=== PATIENT | female | born 1990 | race Caucasian/White ===

== ENCOUNTER 2022-05-14 22:05 | Emergency (ER) | payer SELFPAY ==
[2022-05-14] MEDS ORDERED: KETOROLAC 30 MG/ML INJ ONE (22:33)
--- NOTE | 2022-05-15 00:57 | ER ---
Nurse's Notes [facility] Name: Natalie Morton Age: 31 yrs Sex: Female : 1990 Arrival Date: 05/14/2022 Time: 22:08 Bed 10 Private MD: Diagnosis: Fall on same level from slipping, tripping and stumbling without subsequent striking against object;Pain in right knee Presentation: 05/14 22:13 Chief complaint: Patient states: tripped while trying to step over mop bucket and fell tw5 onto right knee on Tuesday. Was seen at and told to follow up with orthopedist for possible need for MRI. Came in tonight to continued pain. Coronavirus screen: Vaccine status: Patient reports being unvaccinated. Ebola Screen: Patient negative for fever greater than or equal to 101.5 degrees Fahrenheit, and additional compatible Ebola Virus Disease symptoms Patient denies exposure to infectious person. Patient denies travel to an Ebola-affected area in the 21 days before illness onset. No symptoms or risks identified at this time. Initial Sepsis Screen: Does the patient meet any 2 criteria? No. Patient's initial sepsis screen is negative. Does the patient have a suspected source of infection? No. Patient's initial sepsis screen is negative. Risk Assessment: Do you want to hurt yourself or someone else? Patient reports no desire to harm self or others. Onset of symptoms was May 07, 2022. 22:13 Method Of Arrival: Ambulatory tw5 22:13 Acuity: LUÍS 4 tw5 Triage Assessment: 22:17 General: Appears in no apparent distress. comfortable, Behavior is calm, cooperative. tw5 Pain: Complains of pain in right knee and right pena. 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 - Social history:: Smoking status: Patient reports the use of cigarette tobacco products, smokes one-half pack cigarettes per day. Screenin/30 01:05 Abuse screen: Denies threats or abuse. Denies injuries from another. Nutritional tw5 screening: No deficits noted. Tuberculosis screening: No symptoms or risk factors identified. Fall Risk None identified. Vital Signs: 05/14 22:13 BP 101 / 60; Pulse 62; Resp 18; Temp 100; Pulse Ox 99% ; Weight 68.04 kg; Height 5 ft. tw5 3 in. (160.02 cm); Pain 8/10; 22:13 Body Mass Index 26.57 (68.04 kg, 160.02 cm) tw5 ED Course: 22:08 Patient arrived in ED. ja2 22:12 Lili Singh FNP-C is [facility]. kb 22:12 Harsh Rodrigues MD is Attending Physician. kb 22:17 Triage completed. tw5 22:17 Arm band placed on right wrist. tw5 22:20 Susan Cote is Primary Nurse. tw5 23:02 Knee Right 3 View XRAY In Process Unspecified. EDMS 23:02 Tib Fib Right XRAY In Process Unspecified. EDMS 05/15 01:05 Patient has correct armband on for positive identification. tw5 01:05 No provider procedures requiring assistance completed. Patient did not have IV access tw5 during this emergency room visit. Administered Medications: 05/14 22:33 Drug: Ketorolac 30 mg Route: IM; Site: left ventrogluteal; tw5 05/15 01:05 Follow up: Response: No adverse reaction; Pain is decreased tw5 Medication: 01:05 VIS not applicable for this client. tw5 Outcome: 00:57 Discharge ordered by MD. kb 01:05 Discharged to home tw5 01:05 Condition: improved 01:05 Discharge instructions given to patient, Instructed on discharge instructions, follow up and referral plans. Demonstrated understanding of instructions, follow-up care, medications, Prescriptions given X 1. 01:06 Patient left the ED. tw5 Signatures: Dispatcher [employer] EDMS Lili Singh FNP-C CAFE TEAM MEMBER-Simi Capone Tiffany tw5
--- NOTE | 2022-05-15 00:57 | EDPHYS ---
Physician Documentation [facility] Name: Natalie Morton Age: 31 yrs Sex: Female : 1990 Arrival Date: 05/14/2022 Time: 22:08 Bed 10 Private MD: JOB Physician Harsh Rodrigues HPI: 05/15 00:54 This 31 yrs old Female presents to ER via Ambulatory with complaints of Knee Pain, Leg kb Pain. 00:54 The patient presents with pain. The complaints affect the right knee and right pena. kb Context: The problem was sustained at work, resulted from the patient falling, the patient is not able to bear weight, Uses crutches. Onset: The symptoms/episode began/occurred 1 week(s) ago. Modifying factors: The symptoms are alleviated by nothing. the symptoms are aggravated by nothing. Associated signs and symptoms: The patient has no apparent associated signs or symptoms. Treatment prior to arrival includes: Knee immobilizer and crutches. Severity of symptoms: At their worst the symptoms were moderate, in the emergency department the symptoms are unchanged. The patient has not experienced similar symptoms in the past. The patient has been recently seen by a physician:. Patient states she was trying to walk over a mop bucket, tripped and fell last Tuesday. Complains of knee and right lower leg pain was seen at urgent care after the fall, x-rays negative at that time. Was told to follow-up with orthopedics for possible need for MRI. Patient came in today for continued pain.. 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 - Social history:: Smoking status: Patient reports the use of cigarette tobacco products, smokes one-half pack cigarettes per day. ROS: 05/15 00:56 Constitutional: Negative for fever, chills, and weight loss. kb MS/extremity: Positive for pain, of the right pena and right knee. All other systems are negative. Exam: 00:56 Constitutional: This is a well developed, well nourished patient who is awake, alert, kb and in no acute distress. Head/Face: Normocephalic, atraumatic. ENT: Moist Mucous membranes Cardiovascular: Regular rate and rhythm with a normal S1 and S2. No gallops, murmurs, or rubs. No pulse deficits. Respiratory: Respirations even and unlabored. No increased work of breathing. Talking in full sentences Skin: Warm, dry with normal turgor. Normal color. Neuro: Awake and alert, GCS 15, oriented to person, place, time, and situation. Moves all extremities. Normal gait. Psych: Awake, alert, with orientation to person, place and time. Behavior, mood, and affect are within normal limits. 00:56 Musculoskeletal/extremity: Extremities: grossly normal except: noted in the right pena and right knee: pain, tenderness, ROM: intact in all extremities, Circulation is intact in all extremities. Sensation intact. Weight bearing: can bear weight with assistance only, uses crutches. Vital Signs: 05/14 22:13 BP 101 / 60; Pulse 62; Resp 18; Temp 100; Pulse Ox 99% ; Weight 68.04 kg; Height 5 ft. tw5 3 in. (160.02 cm); Pain 8/10; 22:13 Body Mass Index 26.57 (68.04 kg, 160.02 cm) tw5 MDM: 22:20 Patient medically screened. kb 05/15 00:56 Data reviewed: vital signs, nurses notes. Data interpreted: Pulse oximetry: on room air kb is 99 %. Interpretation: normal. Counseling: I had a detailed discussion with the patient and/or guardian regarding: the historical points, exam findings, and any diagnostic results supporting the discharge/admit diagnosis, radiology results, the need for outpatient follow up, a orthopedic surgeon, to return to the emergency department if symptoms worsen or persist or if there are any questions or concerns that arise at home. 05/14 22:19 Order name: Knee Right 3 View XRAY tw5 05/14 22:19 Order name: Tib Fib Right XRAY tw5 Administered Medications: 05/14 22:33 Drug: Ketorolac 30 mg Route: IM; Site: left ventrogluteal; tw5 05/15 01:05 Follow up: Response: No adverse reaction; Pain is decreased tw5 Disposition: 05:59 Co-signature as Attending Physician, Harsh Rodrigues MD. [email or web address] Disposition Summary: 05/15/22 00:57 Discharge Ordered Location: Home kb Condition: Stable kb Diagnosis - Fall on same level from slipping, tripping and stumbling without subsequent kb striking against object - Pain in right knee kb Followup: kb - With: Emergency Department - When: As needed - Reason: Worsening of condition Followup: kb - With: Private Physician - When: 2 - 3 days - Reason: Recheck today's complaints, Continuance of care, Re-evaluation by your physician Discharge Instructions: - Discharge Summary Sheet kb - Musculoskeletal Pain kb Forms: - Medication Reconciliation Form kb - Thank You Letter kb - Antibiotic Education kb - Prescription Opioid Use kb Prescriptions: - Diclofenac Sodium 75 mg Oral tablet,delayed release (DR/EC) - take 1 tablet by ORAL route 2 times per day As needed; 30 tablet; Refills: 0, kb Product Selection Permitted Signatures: Dispatcher [employer] EDLili Alan, FARHANA NESBITTP-Harsh Jones MD MD 7 Susan Cote 5
[2022-05-15 03:41] VITALS: BP 101/60; TEMP 100; O2SAT 99
--- NOTE | 2022-05-17 10:12 | RAD REPORT ---
EXAM DESCRIPTION: RAD - Tib Fib Right - 05/14/2022 11:00 pm CLINICAL HISTORY: PAIN COMPARISON: None. FINDINGS: 2 views of the right tibia/fibula. No acute fracture or dislocation. Normal osseous minera lization. No radiopaque foreign body. IMPRESSION: 1. No acute fracture or dislocation. Electronically signed by: Pedrito Rodriguez 05/14/2022 11:55 PM CDT Due to temporary technical issues with the PACS/Fluency reporting system, reports are being signed by the in house radiologists without review as a courtesy to insure prompt reporting. The interpreting radiologist is fully responsible for the content of the report.
--- NOTE | 2022-05-17 10:18 | RAD REPORT ---
EXAM DESCRIPTION: RAD - Knee Right 3 View - 05/14/2022 11:00 pm CLINICAL HISTORY: PAIN COMPARISON: None. FINDINGS: 3 views of the right knee. No acute fracture or dislocation. Normal osseous mineralization . No joint effusion. IMPRESSION: 1. No acute fracture or dislocation. Electronically signed by: Pedrito Rodriguez 05/14/2022 11:56 PM CDT Due to temporary technical issues with the PACS/Fluency reporting system, reports are being signed by the in house radiologists without review as a courtesy to insure prompt reporting. The interpreting radiologist is fully responsible for the content of the report.
== END 2022-05-15 01:06 | disposition home or self-care (01) ==
LOC: ER 22:05
DX: M25.561 Pain in right knee (principal); W01.0XXA Fall on same level from slipping, tripping and stumbling without subsequent striking against object, initial encounter; F17.210 Nicotine dependence, cigarettes, uncomplicated; Z88.6 Allergy status to analgesic agent
CPT/HCPCS: 96372; 99283

== ENCOUNTER 2022-11-30 10:50 | Emergency (ER) | payer SELFPAY ==
--- OUTSIDE RECORDS SUMMARY | 2022-11-30 10:53 | XMS REPORT | Continuity of Care Document ---
:1990 Author Organization [facility] t Address [address] [place] [address] Care Team Providers Name Role Phone Pcp, Patient Does Not Have A Primary Care Physician +[id number] Doctor Unassigned, Ken Caryl Attending Clinician Unavailable JORJE MORAN Attending Clinician Unavailable Jorje Khan Attending Clinician Johny Queen MD Attending Clinician Pcp, Patient Does Not Have A Attending Clinician +[id number]- [phone] Skye Vazquez Attending Clinician Unavailable Yola Bright Attending Clinician Unavailable Tito Gonzalez Attending Clinician Unavailable Cesar Pérez Attending Clinician Unavailable Jonn Hutchins Attending Clinician Unavailable Payers Payer Name Policy Type Policy Number Effective Date Expiration Date S ource Problems Condition Condition Condition Status Onset Resolution Last Treating Co mments Source Name Details Category Date Date Treatment Clinician Date No known No known Disease Unive rs active active ity of problems problems [facility] Allergies, Adverse Reactions, Alerts Allergy Allergy Status Severity Reaction(s) Onset Inactive Treating Comm ents Source Name Type Date Date Clinician Acetamin Propensi Active Other - See Syncope, Univers ophen ty to comments -09 seizures ity of adverse 00:00: [place] reaction [facility] s [facility] Social History Social Habit Start Date Stop Date Quantity Comments Source ASSERTION 2017-08-13 University of 00:00:00 [facility] History [facility] University o f Alcohol Frequency [place] [facility] History [facility] o f Alcohol Std [place] [facility] History [facility] o f Alcohol Binge [place] [facility] Exposure to 2022-06-07 2022-06-17 Not sure University SARS-CoV-2 00:00:00 08:20:00 [place] [facility] (event) [facility] Alcohol intake 2022-05-27 2022-05-27 Current drinker Unive rsity of 00:00:00 00:00:00 of alcohol [place] [facility] (finding) [facility] Tobacco use and 2022-05-27 2022-05-27 Former smokeless Uni versity of exposure 00:00:00 00:00:00 tobacco user [place] [facility] Alcohol Comment 2018-01-23 2018-01-23 Rare, none during Un iversity of 00:00:00 00:00:00 [place] [facility] History of 2015-01-23 Cigarette Smoker Universi ty of tobacco use 00:00:00 [facility] Sex Assigned At [birth year] Universit y of 00:00:00 00:00:00 [facility] Smoking Status Start Date Stop Date Source Ex-smoker 2022-05-27 00:00:00 2022-05-27 00:00:00 [facility] ty [facility] [place] [facility] Medications Ordered Filled Start Stop Current Ordering Indication Dosage Frequency Signature Comments Components Source Medication Medication Date Date Medication? Clinician (SIG) Name Name METOCLOPRAM Yes Take by Uni vers LUCILA HCL 4-09 mouth. ity of (REGLAN 15:15: [place] ORAL) [facility] MULTIVITAMI Yes Take by Uni vers N (KID'S 4-09 mouth. ity of VITAMINS 15:15: [place] ORAL) [facility] METOCLOPRAM Yes Take by Uni vers LUCILA HCL 4-09 mouth. ity of (REGLAN 15:15: [place] ORAL) 59 [facility] Branch MULTIVITAMI Yes Take by Uni vers N (KID'S 4-09 mouth. ity of VITAMINS 15:15: [place] ORAL) 59 Medical Branch METOCLOPRAM Yes Take by Uni vers LUCILA HCL 4-09 mouth. ity of (REGLAN 15:15: [place] ORAL) 59 Medical Branch MULTIVITAMI Yes Take by Uni vers N (KID'S 4-09 mouth. ity of VITAMINS 15:15: [place] ORAL) 59 Medical Branch Vital Signs Vital Name Observation Time Observation Value Comments Source Body weight 2022-06-17 13:28:00 63.957 kg [facility] BMI 2022-06-17 13:28:00 24.98 kg/m2 [facility] Oxygen saturation 2022-06-17 13:28:00 97 /min Uni [facility] in Arterial blood Medical Br anch by Pulse oximetry Systolic blood 2022-06-17 13:28:00 92 mm[Hg] [facility] Diastolic blood 2022-06-17 13:28:00 55 mm[Hg] [facility]ive [facility] Heart rate 2022-06-17 13:28:00 68 /min [facility] Body height 2022-06-17 13:28:00 160 cm [facility] Procedures Procedure Date / Time Performed Performing Clinician Sourc e DISABILITY/FMLA 2022-06-23 05:01:00 Doctor Unassigned, No Univer [facility] WORKERS COMPENSATION 2022-06-17 05:01:00 [facility] Start End Encounter Admission Attending Care Care Encounter Source Date/Time Date/Time Type Type Clinicians Facility Department ID 2022-07-15 Outpatient CHW CHW [id number] [facility] 12:57:13 0918 [facility] 2022-06-23 2022-06-23 Orders Doctor NARANJO [id number] Univers 00:00:00 00:00:00 Only Unassigned, EVELYN [id number] [facility] [id number] Joey as [id number] [place] [id number] Branch 2022-06-17 2022-06-17 Outpatient R DIANA MORAN [facility] [id number] Univers 08:30:00 08:39:09 JORJE cooper [facility] [place] 2022-06-17 2022-06-17 Office DIANA Moran [id number] Univers 08:30:00 08:39:09 Visit [facility] [id number] it y [facility] [id number] Joey as HECTOR?BLEA [phone] Me jannet AN [address] MEDICAL OFFICE [facility] 2022-06-17 2022-06-17 Outpatient R ANTHONY [facility] [id number] Univers 08:30:00 08:30:00 JORJE ity of [facility] 2022-06-17 2022-06-17 Orders Doctor JOSE A [id number] Univers 00:00:00 00:00:00 Only Unassigned, EVELYN [id number] ity of Ken Caryl [facility] [id number] Joey as [id number] [address] 2022-06-08 2022-06-08 Telephone Bernice [facility] [id number] Univers 00:00:00 00:00:00 Johny L HEALTH [id number] it y of [place] 4.2.7.2.686 Joey as HECTOR?BLEA [id number] Mi jannet AN 198 [facility] OFFICE [facility] 2022-06-04 2022-06-04 [facility] [id number] Univers 00:00:00 00:00:00 Jorje S HEALTH [id number] it y of [place] [id number] Joey as HECTOR?BLEA [id number] Mi jannet AN 198 [facility] OFFICE [facility] 2022-05-31 2022-05-31 [facility] [id number] Univers 00:00:00 00:00:00 Jorje S HEALTH [id number] it y of [place] [id number] Joey as HECTOR?BLEA [id number] Mi jannet AN 198 [facility] OFFICE [facility] 2022-05-28 2022-05-28 [facility]phone [facility] [id number] Univers 00:00:00 00:00:00 Patient HEALTH [id number] it y of Does Not [place] HECTOR?BLEA [phone] Mi dical KNEY [address] MEDICAL OFFICE [facility] 2022-05-27 2022-05-27 Office [facility] [id number] Univers 08:30:00 09:00:00 Visit [facility] [id number] it y of [place] [id number] Joey as HECTOR?BLEA [id number] Mi dicshamar [address] OFFICE [facility] 2022-05-27 2022-05-27 [facility] [id number] Univers 08:30:00 08:30:00 JORJE ity [facility] [place] 2022-05-27 2022-05-27 Orders Doctor JOSE A [id number] Univers 00:00:00 00:00:00 Only Unassigned, EVELYN [id number] ity of Ken Caryl [facility] [id number] Joey as [id number] [address] 2019-10-26 2019-10-26 Outpatient Ripsin, CHW [facility] [id number] [facility] 17:57:00 17:57:00 [facility] 2019-10-26 2019-10-26 Outpatient Walk-In, W [facility] [id number] [facility] 08:20:00 08:20:00 [facility] 2019-10-24 2019-10-24 Outpatient Ripsin, CHW W [id number] [facility] 17:25:00 17:25:00 [facility] 2019-10-24 2019-10-24 Outpatient Ripsin, W W [id number] [facility] 13:19:00 13:19:00 [facility] 2019-10-15 2019-10-15 Outpatient Ripsin, CHW W [id number] [facility] 11:41:00 11:41:00 [facility] 2019-10-15 2019-10-15 Outpatient Ripsin, CHW W [id number] [facility] 09:40:00 09:40:00 [facility] 2019-10-15 2019-10-15 Outpatient Walk-In, CHW [facility] [id number] [facility] 09:10:00 09:10:00 [facility] 2019-06-25 2019-06-25 Outpatient Deangelo, CHW CHW [id number] [facility] 12:49:00 12:49:00 [facility] 2019-06-19 2019-06-19 Outpatient Walk-In, CHW CHW [id number] [facility] 13:00:00 13:00:00 [facility] 2019-06-19 2019-06-19 Outpatient Deangelo, CHW CHW [id number] [facility] 08:33:00 08:33:00 [facility] 2019-06-15 2019-06-15 Outpatient Deangelo, CHW CHW [id number] [facility] 10:40:00 10:40:00 [facility] 2019-05-09 2019-05-09 Outpatient Walk-In, CHW CHW [id number] [facility] 09:20:00 09:20:00 [facility] 2019-02-07 2019-02-07 Outpatient Walk-In, CHW CHW [id number] [facility] 13:00:00 13:00:00 [facility] 2019-01-16 2019-01-16 Outpatient Ripsin, CHW CHW [id number] [facility] 08:52:00 08:52:00 [facility] 2018-12-19 2018-12-19 Outpatient Carlos, CHW CHW [id number] [facility] 07:54:00 07:54:00 [facility] 2018-12-18 2018-12-18 Outpatient ., CHW CHW [id number] [facility] 16:09:00 16:09:00 Radiology [facility] 2018-12-18 2018-12-18 Outpatient Carlos, CHW CHW [id number] [facility] 13:00:00 13:00:00 [facility] 2018-11-09 2018-11-09 Outpatient Beto, CHW CHW [id number] [facility] 16:20:00 16:20:00 [facility] 2018-11-07 2018-11-07 Outpatient Walk-In, CHW CHW [id number] [facility] 14:40:00 14:40:00 [facility] 2018-08-22 2018-08-22 Outpatient Artur CHW CHW [id number] [facility] 11:00:00 11:00:00 mariam, [facility] Jonn and Hasmukh s Results This patient has no known results.
--- NOTE | 2022-11-30 11:15 | RAD REPORT ---
EXAM DESCRIPTION: CT - CTHCSPWOC - 11/30/2022 11:08 am CLINICAL HISTORY: Trauma, head and neck injury. seizure, head injury COMPARISON: No comparisons TECHNIQUE: Axial 5 mm thick images of the head were obtained. Axial 2 mm thick images of the cervical spine were obtained with sagittal and coronal reconstruction images generated and reviewed. All CT scans are performed using dose optimization technique as appropriate and may include automated exposure control or mA/KV adjustment according to patient size. FINDINGS: CT HEAD WITHOUT CONTRAST: No acute hemorrhage, hydrocephalus or extra-axial collection is identified.No areas of brain edema or midline shift. The paranasal sinuses and mastoids are clear.The calvarium is intact. CT CERVICAL SPINE WITHOUT CONTRAST: No fracture or subluxation.No prevertebral soft tissues swelling is identified. IMPRESSION: No acute intracranial or cervical spine findings.
[2022-11-30 11:32] LABS: Hematocrit 42.1 % (36.0-45.0); Lymphocytes % 8.1 % (15.3-44.8); MCV 86.1 fL (80-100); MPV 9.2 fL (7.6-11.3); RBC Red Blood Cell Count 4.89 M/uL (3.86-4.86)
[2022-11-30] MEDS ORDERED: Ringers Lactate 1,000 ML IV ONE (11:32)
[2022-11-30 11:40] LABS: Protime INR 1.11
[2022-11-30] MEDS ORDERED: LORazepam 2 MG/ML VIAL ONE (11:46)
[2022-11-30] MEDS ORDERED: NA CHLORIDE 0.9% 250 ML ONE (11:49)
[2022-11-30] MEDS ORDERED: LEVETIRACETAM 500 MG/5 ML VIAL IV ONE (11:49)
[2022-11-30 11:55] LABS: ALT/SGPT 16 U/L (13-56); AST/SGOT 18 U/L (15-37); Alkaline Phosphatase 78 U/L (45-117); BUN Blood Urea Nitrogen 18 mg/dL (7-18); Bicarbonate 24 mmol/L (21-32); Bilirubin Direct 0.2 mg/dL (0-0.2); Bilirubin Total 0.5 mg/dL (0.2-1.0); Glomerular Filtration Rate 61 ml/min (=/>90); Glucose Level 94 mg/dL (74-106); Potassium 4.3 mmol/L (3.5-5.1); Protein, Total 7.2 g/dL (6.4-8.2); Sodium Level 139 mmol/L (136-145)
[2022-11-30 16:22] LABS: Urine Blood Trace-lysed (Negative); Urine Glucose Negative (Negative); Urine Protein Negative (Negative); Urine Specific Gravity >=1.030 (1.005-1.030)
[2022-11-30 16:48] LABS: Barbiturates NEGATIVE (NEGATIVE); Benzodiazepines NEGATIVE (NEGATIVE); Cocaine NEGATIVE (NEGATIVE); METHAMPHETAM NEGATIVE (NEGATIVE); Methadone NEGATIVE (NEGATIVE); Opiates NEGATIVE (NEGATIVE); Phencyclidine NEGATIVE (NEGATIVE); THC Cannibis POSITIVE (NEGATIVE)
[2022-11-30] MEDS ORDERED: ONDANSETRON 4 MG/2 ML VIAL ONE (16:57)
--- NOTE | 2022-11-30 17:56 | ER ---
Nurse's Notes [facility] Name: Natalie Morton Age: 31 yrs Sex: Female : 1990 Arrival Date: 11/30/2022 Time: 10:52 Bed 19 Private MD: Diagnosis: Other seizures Presentation: 11/30 10:52 Chief complaint: EMS states: 3 witnessed seizures while in the shower. HX of seizures. ss Pt is awake, drowsy upon arrival. Coronavirus screen: Client denies travel out of the [place] in the last 14 days. Ebola Screen: Patient denies exposure to infectious person. Patient denies travel to an Ebola-affected area in the 21 days before illness onset. Initial Sepsis Screen: Does the patient meet any 2 criteria? No. Patient's initial sepsis screen is negative. Does the patient have a suspected source of infection? No. Patient's initial sepsis screen is negative. Risk Assessment: Do you want to hurt yourself or someone else? Patient reports no desire to harm self or others. Onset of symptoms was November 30, 2022. Care prior to arrival: IV initiated. 20 GA, in the right antecubital area. 10:52 Method Of Arrival: EMS: [facility] 10:52 Acuity: LUÍS 3 ss Historical: - Allergies: 13:21 Tylenol; mb9 - Home Meds: 13:21 None [Active]; mb9 - PSHx: 13:21 None; mb9 - Immunization history:: Adult Immunizations up to date. - Social history:: Smoking status: Patient denies any tobacco usage or history of. Patient uses Delta 8. Screenin:22 [facility] ED Fall Risk Assessment (Adult) History of falling in the last 3 months, mb9 including since admission No falls in past 3 months (0 pts) Confusion or Disorientation Yes (5 pts) Intoxicated or Sedated No (0 pts) Impaired Gait Yes (1 pt) Mobility Assist Device Used No (0 pt) Altered Elimination Yes (1 pt) Score/Fall Risk Level 3 or more points = High Risk Oriented to surroundings, Maintained a safe environment, Educated pt \T\ family on fall prevention, incl call for assistance when getting out of bed. Abuse screen: Denies threats or abuse. Nutritional screening: No deficits noted. Tuberculosis screening: No symptoms or risk factors identified. Assessment: 11:05 Reassessment: To CT now VIA stretcher. ss 11:40 Reassessment: pt actively seizing. Ha BELL, at bedside. VO for Ativan and Keppra. mb9 11:54 Reassessment: report received from GRIFFIN Gould. mb9 12:00 General: Appears in no apparent distress. Pain: Unable to use pain scale. FLACC scale mb9 score is 0 out of 10. Neuro: Level of Consciousness is lethargic. Cardiovascular: Rhythm is regular. Respiratory: Airway is patent Respiratory effort is even, unlabored, Respiratory pattern is regular, symmetrical. Derm: Skin is pink, warm \T\ dry. Musculoskeletal: Range of motion: intact in all extremities. 13:00 Reassessment: PTs BP 84/44. Bebe BELL, notified. mb9 13:25 Reassessment: pt awake and alert. Pt AAOx3. Skin is pink, warm, and intact. mb9 Respirations are even and unlabored. Rhythm is regular. Boyfriend at bedside. 14:20 Reassessment: No changes from previously documented assessment. Patient and/or family mb9 updated on plan of care and expected duration. Pain level reassessed. Patient is alert, oriented x 3, equal unlabored respirations, skin warm/dry/pink. 15:40 Reassessment: No changes from previously documented assessment. Patient and/or family mb9 updated on plan of care and expected duration. Pain level reassessed. Patient is alert, oriented x 3, equal unlabored respirations, skin warm/dry/pink. 16:40 GI: Reports nausea, vomiting. mb9 16:40 Cardiovascular: Rhythm is regular. Respiratory: Airway is patent Respiratory effort is mb9 even, unlabored, Respiratory pattern is regular, symmetrical. Derm: Skin is pink, warm \T\ dry. 17:47 Reassessment: No changes from previously documented assessment. Patient and/or family mb9 updated on plan of care and expected duration. Pain level reassessed. Patient states feeling better. Patient states symptoms have improved. Reassessment: Patient is alert, oriented x 3, equal unlabored respirations, skin warm/dry/pink. GI: Patient currently denies nausea, vomiting. 18:14 Reassessment: pts ride home unable to pick her up until 1900. mb9 18:44 Reassessment: No changes from previously documented assessment. Patient and/or family mb9 updated on plan of care and expected duration. Pain level reassessed. Patient is alert, oriented x 3, equal unlabored respirations, skin warm/dry/pink. Vital Signs: 10:52 BP 97 / 59; Pulse 84; Resp 16; Temp 98.4(O); Pulse Ox 96% on R/A; Weight 58.97 kg; ss Height 5 ft. 3 in. (160.02 cm); Pain 0/10; 12:04 BP 113 / 53; Pulse 61; Resp 18; Pulse Ox 100% on R/A; mb9 13:23 BP 103 / 62; Pulse 62; Resp 14; Pulse Ox 99% on 1 lpm NC; mb9 13:49 BP 102 / 61; Pulse 62; Resp 14; Pulse Ox 99% on 1 lpm NC; mb9 14:20 BP 107 / 52; Pulse 64; Resp 14; Pulse Ox 99% on 1 lpm NC; mb9 16:57 BP 107 / 52; Pulse 66; Resp 16; Pulse Ox 99% on R/A; mb9 17:47 BP 108 / 98; Pulse 64; Resp 18; Pulse Ox 100% on R/A; Pain 0/10; mb9 18:44 BP 108 / 59; Pulse 72; Resp 16; Pulse Ox 100% on R/A; mb9 10:52 Body Mass Index 23.03 (58.97 kg, 160.02 cm) ED Course: 10:52 Patient arrived in ED. ss 10:52 Arm band placed on. mb9 10:53 Kristian Spence PA is PHCP. [facility] 10:53 Rj Villanueva DO is Attending Physician. jmm 10:54 Dwight Curtis MD is Attending Physician. m 11:00 Seizure precautions initiated. mb9 11:00 Client placed on continuous cardiac and pulse oximetry monitoring. NIBP monitoring mb9 applied. cafeteria monitor on. 11:05 Bryanna Faust, GRIFFIN is Primary Nurse. ss 11:22 Triage completed. ss 11:45 EKG done, by ED staff, reviewed by Kristian BELL. em1 13:23 No provider procedures requiring assistance completed. mb9 16:57 Urine Drug Screen Sent. mb9 17:55 Darrion Peraza MD is Referral Physician. [facility] 17:55 Jacob Crowell MD is Referral Physician. [facility] 17:55 Peña Swenson MD is Referral Physician. m 18:45 IV discontinued, intact, bleeding controlled, No redness/swelling at site. Pressure mb9 dressing applied. Administered Medications: 11:34 Drug: Lactated Ringers Solution 1000 ml Route: IV; Rate: 1000 bolus; Site: left kb3 antecubital; 11:45 Drug: Ativan (LORazepam) 1 mg Route: IVP; Site: left antecubital; mb9 11:48 Drug: Keppra (levETIRAcetam) 1000 mg Route: IV; Rate: calculated rate; Site: left mb9 antecubital; 16:56 Drug: Zofran (Ondansetron) 4 mg Route: IVP; Site: left antecubital; mb9 Medication: 13:23 VIS not applicable for this client. mb9 Outcome: 17:56 Discharge ordered by MD. [facility] 18:45 Discharged to home via wheelchair. mb9 18:45 Condition: stable 18:45 Discharge instructions given to patient, Instructed on discharge instructions, follow up and referral plans. Demonstrated understanding of instructions, follow-up care, medications, Prescriptions given X 2. 19:13 Patient left the ED. mb9 Signatures: Kristian Spence PA PA jmm Martinez, Eric em1 Bryanna Faust RN GRIFFIN ss Yamilka Luna RN RN kb3 Ana Castellanos RN RN mb9 Corrections: (The following items were deleted from the chart) 13:22 13:21 PSHx: tumor left breast; mb9 mb9
--- NOTE | 2022-11-30 17:56 | EDPHYS ---
Physician Documentation [facility] Name: Natalie Morton Age: 31 yrs Sex: Female : 1990 Arrival Date: 11/30/2022 Time: 10:52 Bed 19 Private MD: ED Physician Dwight Curtis HPI: 11/30 10:54 This 31 yrs old Female presents to ER via EMS with complaints of Seizure. jmm 10:54 Is a 31-year-old female with history of epilepsy the presents emerged department after jmm 3 seizures which occurred while at home today. Boyfriend states that the patient does use a vape with synthetic marijuana. Denies vomiting. Patient has not been on her antiepileptics for the past 2 years.. Historical: - Allergies: 13:21 Tylenol; mb9 - Home Meds: 13:21 None [Active]; mb9 - PSHx: 13:21 None; mb9 - Immunization history:: Adult Immunizations up to date. - Social history:: Smoking status: Patient denies any tobacco usage or history of. Patient uses Delta 8. ROS: 10:54 Constitutional: Negative for fever, chills, and weight loss, Cardiovascular: Negative jmm for chest pain, palpitations, and edema, Respiratory: Negative for shortness of breath, cough, wheezing, and pleuritic chest pain. 10:54 Neuro: Positive for seizure activity. 10:54 All other systems are negative. Exam: 10:54 Constitutional: This is a well developed, well nourished patient who is awake, alert, jmm and in no acute distress. Head/Face: atraumatic. Eyes: EOMI, no conjunctival erythema appreciated ENT: Moist Mucus Membranes Neck: Trachea midline, Supple Chest/axilla: Normal chest wall appearance and motion. Cardiovascular: Regular rate and rhythm. No edema appreciated Respiratory: Normal respirations, no respiratory distress appreciated Abdomen/GI: Non distended Back: Normal ROM Skin: General appearance color normal MS/ Extremity: Moves all extremities, no obvious deformities appreciated, no edema noted to the lower extremities 10:54 Neuro: 10:54 Psych: Behavior/mood is pleasant, cooperative. Vital Signs: 10:52 BP 97 / 59; Pulse 84; Resp 16; Temp 98.4(O); Pulse Ox 96% on R/A; Weight 58.97 kg; ss Height 5 ft. 3 in. (160.02 cm); Pain 0/10; 12:04 BP 113 / 53; Pulse 61; Resp 18; Pulse Ox 100% on R/A; mb9 13:23 BP 103 / 62; Pulse 62; Resp 14; Pulse Ox 99% on 1 lpm NC; mb9 13:49 BP 102 / 61; Pulse 62; Resp 14; Pulse Ox 99% on 1 lpm NC; mb9 14:20 BP 107 / 52; Pulse 64; Resp 14; Pulse Ox 99% on 1 lpm NC; mb9 16:57 BP 107 / 52; Pulse 66; Resp 16; Pulse Ox 99% on R/A; mb9 17:47 BP 108 / 98; Pulse 64; Resp 18; Pulse Ox 100% on R/A; Pain 0/10; mb9 18:44 BP 108 / 59; Pulse 72; Resp 16; Pulse Ox 100% on R/A; mb9 10:52 Body Mass Index 23.03 (58.97 kg, 160.02 cm) MDM: 10:54 Patient medically screened. [facility] 17:52 Data reviewed: vital signs, nurses notes. [facility] 17:54 I considered the following discharge prescriptions or medication management in the [facility] emergency department Medications were administered in the Emergency Department. See MAR. Independent interpretation of the following test(s) in the Emergency Department. Counseling: I had a detailed discussion with the patient and/or guardian regarding: the historical points, exam findings, and any diagnostic results supporting the discharge/admit diagnosis, lab results, radiology results, the need for outpatient follow up, to return to the emergency department if symptoms worsen or persist or if there are any questions or concerns that arise at home. ED course: Patient did have a seizure while in the ED. Ativan and a gram of Keppra were given IV. Patient has not had a seizure since. Patient has been FOR approximately 3 to 4 hours and is now tolerating p.o. Is alert and orient x3. Patient advised to follow-up with neurology for reevaluation otherwise given strict return precautions. Patient understood and agrees plan of care.. 11/30 10:54 Order name: Acetaminophen [facility] 11/30 10:54 Order name: Basic Metabolic Panel [facility] 11/30 10:54 Order name: CBC with Diff [facility] 11/30 10:54 Order name: ETOH Level [facility] 11/30 10:54 Order name: Hepatic Function [facility] 11/30 10:54 Order name: PT-INR [facility] 11/30 10:54 Order name: Ptt, Activated [facility] 11/30 10:54 Order name: Salicylate [facility] 11/30 10:54 Order name: Urine Drug Screen [facility] 11/30 11:34 Order name: CBC with Automated Diff; Complete Time: 11:38 [facility] 11/30 11:40 Order name: Protime (+INR); Complete Time: 11:45 EDPR 11/30 11:40 Order name: PTT, Activated Partial Thromb; Complete Time: 11:45 EDPR 11/30 11:48 Order name: Alcohol Serum/Plasma; Complete Time: 12:12 [facility] 11/30 11:57 Order name: Basic Metabolic Panel; Complete Time: 12:12 [facility] 11/30 10:54 Order name: EKG; Complete Time: 10:55 [facility] 11/30 10:54 Order name: EKG - Nurse/Tech; Complete Time: 11:44 [facility] 11/30 10:54 Order name: IV Saline Lock; Complete Time: 11:27 [facility] 11/30 10:54 Order name: Labs collected and sent; Complete Time: 11:27 [facility] 11/30 10:54 Order name: Urine Dipstick-Ancillary (obtain specimen); Complete Time: 16:57 [facility] 11/30 10:55 Order name: CT Head C Spine [facility] 11/30 11:16 Order name: CT; Complete Time: 11:34 11/30 11:57 Order name: Liver (Hepatic) Function; Complete Time: 12:12 [facility] 11/30 11:57 Order name: Acetaminophen Level; Complete Time: 12:12 11/30 12:11 Order name: Salicylates Level; Complete Time: 12:12 [facility] 11/30 16:22 Order name: Urine Dipstick-Ancillary; Complete Time: 16:26 [facility] 11/30 16:49 Order name: Urine Drug Screen; Complete Time: 17:03 11/30 17:03 Order name: PO challenge; Complete Time: 18:44 [facility] Administered Medications: 11:34 Drug: Lactated Ringers Solution 1000 ml Route: IV; Rate: 1000 bolus; Site: left kb3 antecubital; 11:45 Drug: Ativan (LORazepam) 1 mg Route: IVP; Site: left antecubital; mb9 11:48 Drug: Keppra (levETIRAcetam) 1000 mg Route: IV; Rate: calculated rate; Site: left mb9 antecubital; 16:56 Drug: Zofran (Ondansetron) 4 mg Route: IVP; Site: left antecubital; mb9 Disposition Summary: 11/30/22 17:56 Discharge Ordered Location: Home jmm Condition: Stable jmm Diagnosis - Other seizures jmm Followup: jmm - With: Darrion Peraza MD - When: 2 - 3 days - Reason: Recheck today's complaints, Continuance of care, Re-evaluation by your physician Followup: m - With: Jacob Crowell MD - When: 2 - 3 days - Reason: Recheck today's complaints, Continuance of care, Re-evaluation by your physician Followup: jmm - With: Peña Swenson MD - When: 2 - 3 days - Reason: Recheck today's complaints, Continuance of care, Re-evaluation by your physician Discharge Instructions: - Discharge Summary Sheet jmm - Seizure, Adult jmm Forms: - Medication Reconciliation Form [facility] - Thank You Letter [facility] - Antibiotic Education [facility] - Prescription Opioid Use [facility] Prescriptions: - Keppra 500 mg Oral Tablet - take 1 tablet by ORAL route every 12 hours; 60 tablet; Refills: 0, Product [facility] Selection Permitted - ondansetron 4 mg Oral tablet,disintegrating - place 1 tablet by TRANSLINGUAL route every 4-6 hours As needed; 30 tablet; [facility] Refills: 0, Product Selection Permitted Signatures: Dispatcher [employer] EDKristian Villafana PA PA m Dwight Curtis MD MD rn Bradberry, Kelly, RN RN kb3 Ana Castellanos RN RN mb9 Corrections: (The following items were deleted from the chart) 13:22 13:21 PSHx: tumor left breast; mb9 mb9
[2022-11-30 19:21] VITALS: TEMP 98.4
[2022-11-30 19:28] VITALS: O2SAT 100
[2022-11-30 19:30] VITALS: BP 108/59
--- NOTE | 2022-12-01 13:01 | EKG ---
Test Date: 2022-11-30 Test Time: 11:39:04 Bow Maker: PAMELA MEASUREMENT RESULTS: Intervals: Rate: 60 SC: 140 QRSD: 86 QT: 408 QTc: 408 [place]: P: 45 SC: 140 QRS: 53 T: 49 INTERPRETIVE STATEMENTS: Normal sinus rhythm with sinus arrhythmia Normal ECG No previous ECG available for comparison Electronically Signed On 12-01-22 12:59:06 [employer] COMPLIANCE SPECIALIST by Oziel Javed
== END 2022-11-30 19:13 | disposition home or self-care (01) ==
LOC: ER 10:50
DX: G40.89 Other seizures (principal)
CPT/HCPCS: 36415; 70450; 72125; 80048; 80076; 80307; 81003; 85025; 85610; 85730; 93005; G0480; J1953; J2405; J7050; J7120

== ENCOUNTER → 2023-10-22 | Emergency (ER) | payer BC, OTHER, SELFPAY ==
[~2023-10-22] MED LIST: KETOROLAC 30 MG/ML INJ ONE; NA CHLORIDE 0.9% 1,000 ML ONE
--- OUTSIDE RECORDS SUMMARY | 2023-10-22 22:11 | XMS REPORT | Continuity of Care Document ---
Author Name Unknown Address [address] [facility] [address] [facility] [address] [facility] [place] [address] Care Team Providers Care Hostel Manager Name Role Phone KATE DURAN Attending Clinician Unavailable Skye Vazquez Attending Clinician Unavailable Yola Bright Attending Clinician Unavailable Tito Gonzalez Attending Clinician UnavailCesar Quiroz Attending Clinician Unavailable Jonn Hutchins Attending Clinician Unav ailable Payers Payer Name Policy Type Policy Number Effective Date Expirati on Date Source [facility] 2 [id number] 2023 00:00:00 Encounters Start Date/Time End Date/Time Encounter Type Admission Type Attending Clinicians Care Facility Care Department Encounter ID Source 2022-07-15 12:57:13 Outpatient [facility] [id number] [facility] 2023-02-28 08:15:00 2023-02-28 08:15:00 Outpatient KATE DURAN [id number] [facility] 2019-10-26 17:57:00 2019-10-26 17:57:00 Outpatient Skye Vazquez CHW [id number] [facility] 2019-10-26 08:20:00 2019-10-26 08:20:00 Outpatient Walk-In, Only CHW CHW [id number] [facility] 2019-10-24 17:25:00 2019-10-24 17:25:00 Outpatient Skye Vazquez CHW [id number] [facility] 2019-10-24 13:19:00 2019-10-24 13:19:00 Outpatient Ripsin, Skye W CHW [id number] [facility] 2019-10-15 11:41:00 2019-10-15 11:41:00 Outpatient Ripsin, Skye W W [id number] [facility] 2019-10-15 09:40:00 2019-10-15 09:40:00 Outpatient Ripsin, Skye W W [id number] [facility] 2019-10-15 09:10:00 2019-10-15 09:10:00 Outpatient Walk-In, Only CHW CHW [id number] [facility] 2019-06-25 12:49:00 2019-06-25 12:49:00 Outpatient Deangelo, Yola W W [id number] [facility] 2019-06-19 13:00:00 2019-06-19 13:00:00 Outpatient Walk-In, Only W W [id number] [facility] 2019-06-19 08:33:00 2019-06-19 08:33:00 Outpatient Deangelo, Yola W W [id number] [facility] 2019-06-15 10:40:00 2019-06-15 10:40:00 Outpatient Deangelo, Yola W W [id number] [facility] 2019-05-09 09:20:00 2019-05-09 09:20:00 Outpatient Walk-In, Only W W [id number] [facility] 2019-02-07 13:00:00 2019-02-07 13:00:00 Outpatient Walk-In, Only W CHW [id number] [facility] 2019-01-16 08:52:00 2019-01-16 08:52:00 Outpatient Ripsin, Skye W CHW [id number] [facility] 2018-12-19 07:54:00 2018-12-19 07:54:00 Outpatient Tito Gonzalez W CHW [id number] [facility] 2018-12-18 16:09:00 2018-12-18 16:09:00 Outpatient ., Radiology W CHW [id number] [facility] 2018-12-18 13:00:00 2018-12-18 13:00:00 Outpatient Tito Gonzalez W CHW [id number] [facility] 2018-11-09 16:20:00 2018-11-09 16:20:00 Outpatient Cesar Pérez W W [id number] [facility] 2018-11-07 14:40:00 2018-11-07 14:40:00 Outpatient Walk-In, Jyotsna W CHW [id number] [facility] 2018-08-22 11:00:00 2018-08-22 11:00:00 Outpatient Jonn Garcia W CHW [id number] [facility]
[2023-10-22 22:51] LABS: Absolute Lymphocytes (CBC) 2.8 K/uL (0.7-4.9); Hematocrit 37.3 % (36.0-45.0); Lymphocytes % 39.9 % (15.3-44.8); MCV 85.8 fL (80-100); MPV 9.6 fL (7.6-11.3); Platelets 166 thou/uL (152-406); RBC Red Blood Cell Count 4.35 M/uL (3.86-4.86)
[2023-10-22 23:19] LABS: ALT/SGPT 13 U/L (13-56); AST/SGOT 9 U/L (15-37); Albumin 3.5 g/dL (3.4-5.0); Alkaline Phosphatase 53 U/L (45-117); BUN Blood Urea Nitrogen 10 mg/dL (7-18); Bicarbonate 23 mEq/L (21-32); Bilirubin Total 0.3 mg/dL (0.2-1.0); Glomerular Filtration Rate 76 ml/min (=/>90); Glucose Level 84 mg/dL (74-106); Magnesium 1.7 mg/dL (1.6-2.4); Potassium 3.7 mEq/L (3.5-5.1); Protein, Total 6.4 g/dL (6.4-8.2); Sodium Level 140 mEq/L (136-145)
[2023-10-22 23:21] LABS: Bilirubin Direct < 0.1 mg/dL (0-0.2); Bilirubin Indirect, Calculated ND mg/dL (0.2-0.8); Troponin High Sensitivity < 3.0 pg/mL (<58.9)
--- NOTE | 2023-10-23 00:01 | EDPHYS ---
Physician Documentation [facility] Name: Natalie Morton Age: 32 yrs Sex: Female : 1990 Arrival Date: 10/22/2023 Time: 22:08 Bed 20 Private MD: ED Physician Chris Rainey HPI: 10/23 00:02 This 32 yrs old Female presents to ER via Wheelchair with complaints of Chest Pain, rt Shortness Of Breath. 00:02 Patient presents to the ED with intermittent pain to the left side of the ribs. She has rt shortness of breath when the pain gets worse. She also reports a headache, stating that she has chronic migraines and this is similar to previous headaches. She denies other acute complaint at this time, symptoms are moderate severity, aching nature, nonradiating otherwise, no other aggravating elevating factors.. Historical: - Allergies: 10/22 22:15 Tylenol; jb4 - Home Meds: 22:15 Keppra Oral [Active]; jb4 - PMHx: 22:15 Seizure; hyperacusis (Seizure); neuropathy (Seizure); PTSD (Seizure); jb4 - PSHx: 22:15 Lumpectomy of left breast. (Seizure); jb4 - Immunization history:: Adult Immunizations up to date. - Social history:: Smoking status: Patient denies any tobacco usage or history of. - Family history:: not pertinent. ROS: 10/23 00:02 Constitutional: Negative for fever, chills, and weight loss, Abdomen/GI: Negative for rt abdominal pain, nausea, vomiting, diarrhea, and constipation, MS/Extremity: Negative for injury and deformity, Skin: Negative for injury, rash, and discoloration, Psych: Negative for depression, anxiety, suicide ideation, homicidal ideation, and hallucinations, Cardiovascular: Positive for chest pain, Negative for edema, Respiratory: Positive for shortness of breath, Negative for cough, Neuro: Positive for headache, Negative for altered mental status, Exam: 00:02 Constitutional: This is a well developed, well nourished patient who is awake, alert, rt and in no acute distress. Head/Face: Normocephalic, atraumatic. Neck: Trachea midline, no thyromegaly or masses palpated, and no cervical lymphadenopathy. Supple, full range of motion without nuchal rigidity, or vertebral point tenderness. No Meningismus. Cardiovascular: Regular rate and rhythm with a normal S1 and S2. No gallops, murmurs, or rubs. Normal PMI, no JVD. No pulse deficits. Respiratory: Lungs have equal breath sounds bilaterally, clear to auscultation and percussion. No rales, rhonchi or wheezes noted. No increased work of breathing, no retractions or nasal flaring. Abdomen/GI: Soft, non-tender, with normal bowel sounds. No distension or tympany. No guarding or rebound. No evidence of tenderness throughout. Skin: Warm, dry with normal turgor. Normal color with no rashes, no lesions, and no evidence of cellulitis. MS/ Extremity: Pulses equal, no cyanosis. Neurovascular intact. Full, normal range of motion. Neuro: Awake and alert, GCS 15, oriented to person, place, time, and situation. Cranial nerves II-XII grossly intact. Motor strength 5/5 in all extremities. Sensory grossly intact. Cerebellar exam normal. Normal gait. Psych: Awake, alert, with orientation to person, place and time. Behavior, mood, and affect are within normal limits. 00:02 Chest/axilla: Palpation of the left chest wall reproduces chest pain. 00:02 ECG was reviewed by the Attending Physician. Vital Signs: 10/22 22:13 Resp 20; Weight 61.69 kg; Height 5 ft. 3 in. ; jb4 23:30 BP 105 / 66; Pulse 75; Resp 17; Pulse Ox 97% ; Pain 7/10; tm6 23:42 BP 108 / 68; Pulse 61; Pulse Ox 100% ; tm6 10/23 00:27 BP 111 / 65; Pulse 63; Pulse Ox 100% on R/A; tm6 10/22 22:13 Body Mass Index 24.09 (61.69 kg, 160.02 cm) jb4 23:30 Pain Scale: Adult tm6 MDM: 10/22 22:18 Patient medically screened. rt 10/23 00:02 Differential diagnosis: Chest wall pain, pneumonia, pneumothorax, pulmonary embolism. rt HEART Score: History: Slightly Suspicious (0), ECG: Normal (0), Age: < or = 45 years (0), Risk Factors: No Risk Factors Known (0), Troponin: < or = 1 x Normal Limit (0), Total Score = 0. Data reviewed: vital signs, nurses notes, lab test result(s), EKG, radiologic studies. I considered the following discharge prescriptions or medication management in the emergency department Medications were administered in the Emergency Department. See MAR. Independent interpretation of the following test(s) in the Emergency Department X-Ray: My interpretation is No pneumonia seen on interpretation of x-ray images. Test considered but Not performed: CT: D-dimer negative, CT angiogram not indicated to rule out pulmonary blood. Care significantly affected by the following chronic conditions: Seizure disorder, headache disorder. Counseling: I had a detailed discussion with the patient and/or guardian regarding the historical points, exam findings, and any diagnostic results supporting the discharge/admit diagnosis, lab results, radiology results, the need for outpatient follow up, to return to the emergency department if symptoms worsen or persist or if there are any questions or concerns that arise at home. 10/22 22:31 Order name: Basic Metabolic Panel; Complete Time: 23:22 rt 10/22 22:31 Order name: CBC with Diff; Complete Time: 23:22 rt 10/22 22:31 Order name: D-Dimer; Complete Time: 23:22 rt 10/22 22:31 Order name: LFT's; Complete Time: 23:22 rt 10/22 22:31 Order name: Magnesium; Complete Time: 23:22 rt 10/22 22:31 Order name: Troponin HS; Complete Time: 23:22 rt 10/22 22:31 Order name: XRAY Chest (1 view) rt 10/22 22:31 Order name: EKG; Complete Time: 22:32 rt 10/22 22:31 Order name: Cardiac monitoring; Complete Time: 22:47 rt 10/22 22:31 Order name: EKG - Nurse/Tech; Complete Time: 22:47 rt 10/22 22:31 Order name: IV Saline Lock; Complete Time: 22:47 rt 10/22 22:31 Order name: Labs collected and sent; Complete Time: 22:47 rt 10/22 22:31 Order name: O2 Per Protocol; Complete Time: 22:47 rt 10/22 22:31 Order name: O2 Sat Monitoring; Complete Time: 22:47 rt EC:02 Rate is 68 beats/min. Rhythm is regular, Normal Sinus Rhythm with No ectopy. QRS Calcium rt is Normal. RI interval is normal. QRS interval is normal. QT interval is normal. No Q waves. T waves are Normal. No ST changes noted. Administered Medications: 10/22 23:30 Drug: Ketorolac IVP 15 mg IVP once Route: IVP; Site: right antecubital; tm6 10/23 00:28 Follow up: Response: No adverse reaction tm6 10/22 23:30 Drug: NS 0.9% IV 1000 ml IV at 1 bolus Per protocol; 1000 mL bolus Route: IV; Rate: 1 tm6 bolus; Site: right antecubital; 10/23 00:27 Follow up: Response: No adverse reaction; IV Intake: 1000ml tm6 Disposition Summary: 10/23/23 00:01 Discharge Ordered Notes: Location: Home rt Problem: new rt Symptoms: have improved rt Condition: Stable rt Diagnosis - Chest wall pain rt - Headache rt Followup: rt - With: Private Physician - When: 2 - 3 days - Reason: Discharge Instructions: - Discharge Summary Sheet rt - Chest Wall Pain rt - General Headache Without Cause rt Forms: - Medication Reconciliation Form rt - Thank You Letter rt - Antibiotic Education rt - Prescription Opioid Use rt - Patient Portal Instructions rt - Leadership Thank You Letter rt Signatures: Dispatcher [employer] Олег Dubose, RN RN jb4 Chris Rainey MD MD rt Lawanda Bullock RN RN tm6
--- NOTE | 2023-10-23 00:01 | ER ---
Nurse's Notes [facility] Name: Natalie Morton Age: 32 yrs Sex: Female : 1990 Arrival Date: 10/22/2023 Time: 22:08 Bed 20 Private MD: Diagnosis: Chest wall pain;Headache Presentation: 10/22 22:13 Chief complaint: Patient states: I am having chest pain that has been off and on for jb4 the past 3 days. It radiates to my left ribs. I have SOB with pain. Coronavirus screen: At this time, the client does not indicate any symptoms associated with coronavirus-19. Ebola Screen: No symptoms or risks identified at this time. Initial Sepsis Screen: Does the patient meet any 2 criteria? No. Patient's initial sepsis screen is negative. Does the patient have a suspected source of infection? No. Patient's initial sepsis screen is negative. Risk Assessment: Do you want to hurt yourself or someone else? Patient reports no desire to harm self or others. Onset of symptoms was October 22, 2023. Transition of care: patient was not received from another setting of care. 22:13 Method Of Arrival: Wheelchair jb4 22:13 Acuity: LUÍS 3 jb4 Historical: - Allergies: 22:15 Tylenol; jb4 - Home Meds: 22:15 Keppra Oral [Active]; jb4 - PMHx: 22:15 Seizure; hyperacusis (Seizure); neuropathy (Seizure); PTSD (Seizure); jb4 - PSHx: 22:15 Lumpectomy of left breast. (Seizure); jb4 - Immunization history:: Adult Immunizations up to date. - Social history:: Smoking status: Patient denies any tobacco usage or history of. - Family history:: not pertinent. Screenin:30 [facility] ED Fall Risk Assessment (Adult) History of falling in the last 3 months, tm6 including since admission No falls in past 3 months (0 pts). Abuse screen: Denies threats or abuse. Denies injuries from another. Nutritional screening: No deficits noted. Tuberculosis screening: No symptoms or risk factors identified. Assessment: 22:30 General: Appears distressed, Behavior is cooperative. Pain: Complains of pain in face tm6 and chest Pain currently is 10 out of 10 on a pain scale. Neuro: Level of Consciousness is awake, alert, obeys commands, Oriented to person, place, time, situation. Cardiovascular: Capillary refill < 3 seconds Patient's skin is warm and dry. Rhythm is sinus rhythm. Respiratory: Airway is patent Respiratory effort is even, unlabored, Respiratory pattern is regular, symmetrical. GI: Abdomen is flat, non-distended. : No signs and/or symptoms were reported regarding the genitourinary system. EENT: No signs and/or symptoms were reported regarding the EENT system. Derm: No signs and/or symptoms reported regarding the dermatologic system. Musculoskeletal: No signs and/or symptoms reported regarding the musculoskeletal system. 23:41 Reassessment: Patient and/or family updated on plan of care and expected duration. Pain tm6 level reassessed. Patient is alert, oriented x 3, equal unlabored respirations, skin warm/dry/pink. Patient states feeling better. 10/23 00:27 Reassessment: Patient appears in no apparent distress at this time. No changes from tm6 previously documented assessment. Vital Signs: 10/22 22:13 Resp 20; Weight 61.69 kg; Height 5 ft. 3 in. ; jb4 23:30 BP 105 / 66; Pulse 75; Resp 17; Pulse Ox 97% ; Pain 7/10; tm6 23:42 BP 108 / 68; Pulse 61; Pulse Ox 100% ; tm6 10/23 00:27 BP 111 / 65; Pulse 63; Pulse Ox 100% on R/A; tm6 10/22 22:13 Body Mass Index 24.09 (61.69 kg, 160.02 cm) jb4 23:30 Pain Scale: Adult tm6 ED Course: 10/22 22:13 Patient arrived in ED. jb4 22:15 Triage completed. jb4 22:15 Arm band placed on right wrist. jb4 22:17 Chris Rainey MD is Attending Physician. rt 22:22 EKG done, by ED staff, reviewed by Chris Rainey MD. mc5 22:30 Patient has correct armband on for positive identification. Bed in low position. Call tm6 light in reach. Side rails up X2. Provided Education on: plan of care. Client placed on continuous cardiac and pulse oximetry monitoring. NIBP monitoring applied. water control station engineer on. Door closed. Noise minimized. Warm blanket given. 22:30 No provider procedures requiring assistance completed. tm6 22:40 Inserted saline lock: 20 gauge in right antecubital area, using aseptic technique. mc5 Blood collected. 22:55 XRAY Chest (1 view) In Process Unspecified. EDMS 22:59 Lawanda Bullock, RN is Primary Nurse. tm6 10/23 00:28 IV discontinued, intact, bleeding controlled, No redness/swelling at site. Pressure tm6 dressing applied. Administered Medications: 10/22 23:30 Drug: Ketorolac IVP 15 mg IVP once Route: IVP; Site: right antecubital; tm6 10/23 00:28 Follow up: Response: No adverse reaction tm6 10/22 23:30 Drug: NS 0.9% IV 1000 ml IV at 1 bolus Per protocol; 1000 mL bolus Route: IV; Rate: 1 tm6 bolus; Site: right antecubital; 10/23 00:27 Follow up: Response: No adverse reaction; IV Intake: 1000ml tm6 Medication: 10/22 22:30 VIS not applicable for this client. tm6 Intake: 10/23 00:27 IV: 1000ml; Total: 1000ml. tm6 Outcome: 00:01 Discharge ordered by . rt 00:28 Discharged to home via wheelchair, with family, tm6 00:28 Condition: stable 00:28 Discharge instructions given to patient, family, Instructed on discharge instructions, follow up and referral plans. Demonstrated understanding of instructions, follow-up care, 00:28 Patient left the ED. tm6 Signatures: Dispatcher [employer] Олег Dubose RN RN jb4 Chris Rainey MD MD rt Esmer Garcia 5 Lawanda Bullock, GRIFFIN RN tm6 Corrections: (The following items were deleted from the chart) 10/22 23:36 23:34 General: Appears distressed, tm6 tm6
[2023-10-23 04:26] VITALS: BP 111/65; O2SAT 100
--- NOTE | 2023-10-24 07:15 | RAD REPORT ---
EXAM DESCRIPTION: RAD - Chest Single View - 10/22/2023 10:53 pm CLINICAL HISTORY: 32 years, Female, CHEST PAIN COMPARISON: None FINDINGS: 1 views of the chest was obtained. No prior films are available at this time for compari son. There is normal lung volume. Mediastinum: The cardiomediastinal silhouette appears normal in size and shape. Lungs: No areas of consolidations or masses are identified. Heart: The heart is normal in size. Aorta: The thoracic aorta demonstrate to be within normal limits. Pulmonary vasculature: The pulmonary vasculature is normal in distribution. Pleura: The costophrenic angles demonstrate to be sharp. Osseous structures: The bony structures demonstrate to be within normal limits. Other: External EKG leads within the [id number] limits diagnosis. IMPRESSION: No acute cardiopulmonary disease seen. Electronically signed by: Siddharth Jernigan MD 10/22/2023 11:29 PM BILLING AND ACCOUNTING STAFF ASSISTANT Due to temporary technical issues with the PACS/Fluency reporting system, reports are being signed by the in house radiologist without review as a courtesy to ensure prompt reporting. The interpreting r adiologist is fully responsible for the content of the report.
--- NOTE | 2023-10-24 12:24 | EKG ---
Test Date: 2023-10-22 Test Time: 22:15:16 Core Fitter: DEVON MEASUREMENT RESULTS: Intervals: Rate: 68 WV: 140 QRSD: 78 QT: 394 QTc: 418 [place]: P: 50 WV: 140 QRS: 73 T: 40 INTERPRETIVE STATEMENTS: Normal sinus rhythm Normal ECG Compared to ECG 01/24/2023 18:16:38 Sinus bradycardia no longer present T-wave abnormality no longer present Electronically Signed On 10-24-23 12:20:08 CONTRACT ASSOCIATE MANAGER by Oziel Javed
== END ==
LOC: ER 22:08
DX: R07.89 Other chest pain (principal); R51.9 Headache, unspecified
CPT/HCPCS: 36415; 71045; 80048; 80076; 83735; 84484; 85025; 85379; 93005; 96374; 99285; J7030

== ENCOUNTER → 2023-11-06 | Emergency (ER) | payer BC, SELFPAY ==
[~2023-11-06] MED LIST changes: -KETOROLAC 30 MG/ML INJ ONE; -NA CHLORIDE 0.9% 1,000 ML ONE; +TRAMADOL HCL 50 MG TAB ONE; +dexAMETHasone 10 MG/ML VIAL ONE
--- OUTSIDE RECORDS SUMMARY | 2023-11-06 20:51 | XMS REPORT | Continuity of Care Document ---
Author Name Unknown Address [address] [facility] [address] [place] [address] [facility] Address [address] [facility] [address] [place] [address] Care Team Providers Care General Forecaster Name Role Phone ALTHEA RING Primary Care Physician Unavailab KWADWO Dao Attending Clinician Unavailable PEÑA GATES Attending Clinician Unavail able PEÑA GATES Attending Clinician Unavail able MARYCHUY CHOUDHARY Attending Clinician Rozina vailable KEISHA JOSÉ Attending Clinician Unavailable Kwadwo Merida MD Attending Clinician [phone] Keisha José MD Attending Clinician [phone] ALTHEA RING Attending Clinician Unavailable ALTHEA RING Attending Clinician Unavailable Mari Hawley RN Attending Clinician UnavailNIYAH Nieves Attending Clinician Unavailable Yajaira Walters MD, Eduardo Hermosillo Attending Clinicia n Niyah Prather MD Attending Clinician [phone] Lab, Ang - Db Attending Clinician Unavailable Doctor Unassigned, [place] Attending Clinician U Peña Martinez MD Attending Clinician [phone] KATE DURAN Attending Clinician Unavailable JORJE CRUZ Attending Clinician Unavailable Jorje Khan Attending Clinician [phone] Johny Queen MD Attending Clinician [phone] Pcp, Patient Does Not Have A Attending Clinician Skye Vazquez Attending Clinician Unavailable Yola Bright Attending Clinician Unavailable Tito Gonzalez Attending Clinician UnavailCesar Quiroz Attending Clinician Unavailable Jonn Hutchins Attending Clinician Unausha ailable Payers Payer Name Policy Type Policy Number Effective Date Expirati on Date Source HIM BCBS BLUE ADVANTAGE HMO [id number] 2023 00:00:00 BCBS 2 [id number] 2023 00:00:00 Problems Condition Name Condition Details Condition Category Status Onset Date Resolution Date Last Treatment Date Treating Clinician Comments Source No known active problems No known active problems Disease [facility] Allergies, Adverse Reactions, Alerts Allergy Name Allergy Type Status Severity Reaction(s) Onset Date Inactive Date Treating Clinician Comments Source Acetamin ophen Drug Allergy Active Other - See comments 01-23 00:00: 00 Syncope, seizures [facility] Acetamin ophen Propensi ty to adverse reaction s Active Other - See comments 01-23 00:00: 00 Syncope, seizures [facility] ACETAMIN OPHEN DRUG INGREDI Active High Other-Cmnt 01-23 00:00: 00 [facility] Social History Social Habit Start Date Stop Date Quantity Comments Source ASSERTION 2017-08-13 00:00:00 [facility] History SDOH Alcohol Frequency [facility] History SDOH Alcohol Std Drinks [facility] History SDOH Alcohol Binge [facility] Gender identity [facility] Sexual orientation [facility] Alcohol intake 2023-11-01 00:00:00 2023-11-01 00:00:00 Ex-drinker (finding) [facility] Alcohol Comment 2023-11-01 00:00:00 2023-11-01 00:00:00 Clean since january 25 2023 [facility] Cigarettes smoked current (pack per day) - Reported 2023-09-12 00:00:00 2023-09-12 00:00:00 [facility] Cigarette pack-years 2023-09-12 00:00:00 2023-09-12 00:00:00 [facility] Tobacco use and exposure 2023-09-12 00:00:00 2023-09-12 00:00:00 Smokeless tobacco non-user [facility] History of Social function 2023-04-22 00:00:00 2023-04-22 00:00:00 [facility] Exposure to SARS-CoV-2 (event) 2022-06-07 00:00:00 2022-06-17 08:20:00 Not sure [facility] History of tobacco use 2015-01-23 00:00:00 Cigarette Smoker [facility] Sex Assigned At 1990 00:00:00 1990 00:00:00 [facility] Smoking Status Start Date Stop Date Source Smokes tobacco daily 2023-09-12 00:00:00 [facility] Ex-smoker 2022-05-27 00:00:00 2022-05-27 00:00:00 [facility] Ordered Medication Name Filled Medication Name Start Date Stop Date Current Medication? Ordering Clinician Indication Dosage Frequency Signature (SIG) Comments Components Source DULoxetine 30 mg capsule 10-27 00:00: 00 Yes [id number] 30mg Take 1 capsule by mouth in the morning. [facility] DULoxetine 30 mg capsule 10-27 00:00: 00 Yes [id number] 30mg Take 1 capsule by mouth in the morning. [facility] DULoxetine 30 mg capsule 10-27 00:00: 00 Yes [id number] 30mg Take 1 capsule by mouth in the morning. [facility] DULoxetine 30 mg capsule 10-27 00:00: 00 Yes [id number] 30mg Take 1 capsule by mouth in the morning. [facility] DULoxetine 30 mg capsule 10-27 00:00: 00 Yes [id number] 30mg Take 1 capsule by mouth in the morning. [facility] levETIRAcet am 750 mg tablet 2022-10 2- 00:00: 00 Yes [id number] 750mg Take 1 tablet by mouth every morning and evening. [facility] levETIRAcet am 750 mg tablet 2022-10 00:00: 00 Yes [id number] 750mg Take 1 tablet by mouth every morning and evening. [facility] levETIRAcet am 750 mg tablet 2022-10 00:00: 00 Yes [id number] 750mg Take 1 tablet by mouth every morning and evening. [facility] levETIRAcet am 750 mg tablet 2022-10 00:00: 00 Yes [id number] 750mg Take 1 tablet by mouth every morning and evening. [facility] levETIRAcet am 750 mg tablet 2022-10 00:00: 00 Yes [id number] 750mg Take 1 tablet by mouth every morning and evening. [facility] levETIRAcet am 750 mg tablet 2022-10 00:00: 00 Yes [id number] 750mg Take 1 tablet by mouth every morning and evening. [facility] levETIRAcet am 750 mg tablet 2022-10 00:00: 00 Yes [id number] 750mg Take 1 tablet by mouth every morning and evening. [facility] ketoconazol e 2 % shampoo 2022-10 00:00: 00 Yes [id number] Apply to area(s) daily. Use as shampoo on scalp and body. Lather and apply, let sit for 5 minutes, then rinse out. [facility] ketoconazol e 2 % cream 2022-10 00:00: 00 Yes [id number] Apply to area(s) 2 (two) times daily. [facility] ketoconazol e 2 % shampoo 2022-10 00:00: 00 Yes [id number] Apply to area(s) daily. Use as shampoo on scalp and body. Lather and apply, let sit for 5 minutes, then rinse out. [facility] ketoconazol e 2 % cream 2022-10 00:00: 00 Yes [id number] Apply to area(s) 2 (two) times daily. [facility] ketoconazol e 2 % shampoo 2022-10 00:00: 00 Yes [id number] Apply to area(s) daily. Use as shampoo on scalp and body. Lather and apply, let sit for 5 minutes, then rinse out. [facility] ketoconazol e 2 % cream 2022-10 00:00: 00 Yes [id number] Apply to area(s) 2 (two) times daily. [facility] ketoconazol e 2 % shampoo 2022-10 00:00: 00 Yes [id number] Apply to area(s) daily. Use as shampoo on scalp and body. Lather and apply, let sit for 5 minutes, then rinse out. [facility] ketoconazol e 2 % cream 2022-10 00:00: 00 Yes [id number] Apply to area(s) 2 (two) times daily. [facility] ketoconazol e 2 % shampoo 2022-10 00:00: 00 Yes [id number] Apply to area(s) daily. Use as shampoo on scalp and body. Lather and apply, let sit for 5 minutes, then rinse out. [facility] ketoconazol e 2 % cream 2022-10 00:00: 00 Yes [id number] Apply to area(s) 2 (two) times daily. [facility] ketoconazol e 2 % shampoo 2022-10 00:00: 00 Yes [id number] Apply to area(s) daily. Use as shampoo on scalp and body. Lather and apply, let sit for 5 minutes, then rinse out. [facility] ketoconazol e 2 % cream 2022-10 00:00: 00 Yes [id number] Apply to area(s) 2 (two) times daily. [facility] ketoconazol e 2 % shampoo 2022-10 00:00: 00 Yes [id number] Apply to area(s) daily. Use as shampoo on scalp and body. Lather and apply, let sit for 5 minutes, then rinse out. [facility] ketoconazol e 2 % cream 2022-10 00:00: 00 Yes [id number] Apply to area(s) 2 (two) times daily. [facility] ketoconazol e 2 % shampoo 2022-10 00:00: 00 Yes [id number] Apply to area(s) daily. Use as shampoo on scalp and body. Lather and apply, let sit for 5 minutes, then rinse out. [facility] ketoconazol e 2 % cream 2022-10 00:00: 00 Yes [id number] Apply to area(s) 2 (two) times daily. [facility] ketoconazol e 2 % shampoo 2022-10 00:00: 00 Yes [id number] Apply to area(s) daily. Use as shampoo on scalp and body. Lather and apply, let sit for 5 minutes, then rinse out. [facility] ketoconazol e 2 % cream 2022-10 00:00: 00 Yes [id number] Apply to area(s) 2 (two) times daily. [facility] ketoconazol e 2 % shampoo 2022-10 00:00: 00 Yes [id number] Apply to area(s) daily. Use as shampoo on scalp and body. Lather and apply, let sit for 5 minutes, then rinse out. [facility] ketoconazol e 2 % cream 2022-10 00:00: 00 Yes [id number] Apply to area(s) 2 (two) times daily. [facility] ketoconazol e 2 % shampoo 2022-10 00:00: 00 Yes [id number] Apply to area(s) daily. Use as shampoo on scalp and body. Lather and apply, let sit for 5 minutes, then rinse out. [facility] ketoconazol e 2 % cream 2022-10 00:00: 00 Yes [id number] Apply to area(s) 2 (two) times daily. [facility] gabapentin 100 mg capsule 2022-10 00:00: 00 Yes [id number] 100mg Take 1-3 capsules by mouth in the morning and 1-3 capsules at noon and 1-3 capsules in the evening. [facility] gabapentin 100 mg capsule 2022-10 00:00: 00 Yes [id number] 100mg Take 1-3 capsules by mouth in the morning and 1-3 capsules at noon and 1-3 capsules in the evening. [facility] gabapentin 100 mg capsule 2022-10 00:00: 00 Yes [id number] 100mg Take 1-3 capsules by mouth in the morning and 1-3 capsules at noon and 1-3 capsules in the evening. [facility] gabapentin 100 mg capsule 2022-10 00:00: 00 Yes [id number] 100mg Take 1-3 capsules by mouth in the morning and 1-3 capsules at noon and 1-3 capsules in the evening. [facility] gabapentin 100 mg capsule 2022-10 00:00: 00 Yes [id number] 100mg Take 1-3 capsules by mouth in the morning and 1-3 capsules at noon and 1-3 capsules in the evening. [facility] gabapentin 100 mg capsule 2022-10 00:00: 00 Yes [id number] 100mg Take 1-3 capsules by mouth in the morning and 1-3 capsules at noon and 1-3 capsules in the evening. [facility] gabapentin 100 mg capsule 2022-10 00:00: 00 Yes [id number] 100mg Take 1-3 capsules by mouth in the morning and 1-3 capsules at noon and 1-3 capsules in the evening. [facility] gabapentin 100 mg capsule 2022-10 00:00: 00 Yes [id number] 100mg Take 1-3 capsules by mouth in the morning and 1-3 capsules at noon and 1-3 capsules in the evening. [facility] gabapentin 100 mg capsule 2022-10 00:00: 00 Yes [id number] 100mg Take 1-3 capsules by mouth in the morning and 1-3 capsules at noon and 1-3 capsules in the evening. [facility] gabapentin 100 mg capsule 2022-10 00:00: 00 Yes [id number] 100mg Take 1-3 capsules by mouth in the morning and 1-3 capsules at noon and 1-3 capsules in the evening. [facility] gabapentin 100 mg capsule 2022-10 00:00: 00 Yes [id number] 100mg Take 1-3 capsules by mouth in the morning and 1-3 capsules at noon and 1-3 capsules in the evening. [facility] gabapentin 100 mg capsule 2022-10 00:00: 00 Yes [id number] 100mg Take 1-3 capsules by mouth in the morning and 1-3 capsules at noon and 1-3 capsules in the evening. [facility] gabapentin 100 mg capsule 2022-10 00:00: 00 10-27 00:00 :00 No [id number] 100mg Take 1-3 capsules by mouth in the morning and 1-3 capsules at noon and 1-3 capsules in the evening. [facility] gabapentin 100 mg capsule 2022-10 00:00: 00 10-27 00:00 :00 No [id number] 100mg Take 1-3 capsules by mouth in the morning and 1-3 capsules at noon and 1-3 capsules in the evening. [facility] ketorolac (TORADOL) injection 30 mg 2022-10 17:30: 00 08-19 05:29 :00 Yes [id number] [facility] mg 2022-10 17:30: 00 08-19 05:29 :00 Yes [id number] 30mg Univer s [facility] ketorolac (TORADOL) injection 30 mg 2022-10 17:30: 00 08-19 05:29 :00 Yes [id number] 30mg Univer [facility] ketorolac (TORADOL) injection 30 mg 2022-10 17:30: 00 08-18 17:59 :00 No [id number] 30[facility] 30 mg 2022-10 17:30: 00 08-18 17:59 :00 No [id number] 30mg 30 mg, Intramuscu lar, ONCE, 1 dose, On Tue08/18/23 at 1230, Routine [facility] ketorolac (TORADOL) injection 30 mg 2022-10 17:30: 00 08-18 17:59 :00 No [id number] 30mg [facility] ketorolac (TORADOL) injection 30 mg 2022-10 17:30: 00 08-18 17:59 :00 No [id number] 30mg 30 mg, Intramuscu lar, ONCE, 1 dose, On Tue08/18/23 at 1230, Routine [facility] LEVETIRACET AM 750 mg tablet 07-14 00:00: 00 Yes [id number] 750mg TAKE 1 TABLET BY MOUTH IN THE MORNING AND IN THE EVENING [facility] LEVETIRACET AM 750 mg tablet 07-14 00:00: 00 Yes [id number] 750mg TAKE 1 TABLET BY MOUTH IN THE MORNING AND IN THE EVENING [facility] LEVETIRACET AM 750 mg tablet 07-14 00:00: 00 Yes [id number] 750mg TAKE 1 TABLET BY MOUTH IN THE MORNING AND IN THE EVENING [facility] LEVETIRACET AM 750 mg tablet 07-14 00:00: 00 Yes [id number] 750mg TAKE 1 TABLET BY MOUTH IN THE MORNING AND IN THE EVENING [facility] LEVETIRACET AM 750 mg tablet 07-14 00:00: 00 Yes [id number] 750mg TAKE 1 TABLET BY MOUTH IN THE MORNING AND IN THE EVENING [facility] LEVETIRACET AM 750 mg tablet 07-14 00:00: 00 Yes [id number] 750mg TAKE 1 TABLET BY MOUTH IN THE MORNING AND IN THE EVENING [facility] LEVETIRACET AM 750 mg tablet 07-14 00:00: 00 Yes [id number] 750mg TAKE 1 TABLET BY MOUTH IN THE MORNING AND IN THE EVENING [facility] LEVETIRACET AM 750 mg tablet 0 07-14 00:00: 00 Yes [id number] 750mg TAKE 1 TABLET BY MOUTH IN THE MORNING AND IN THE EVENING [facility] LEVETIRACET AM 750 mg tablet 0 07-14 00:00: 00 Yes [id number] 750mg TAKE 1 TABLET BY MOUTH IN THE MORNING AND IN THE EVENING [facility] LEVETIRACET AM 750 mg tablet 0 07-14 00:00: 00 Yes [id number] 750mg TAKE 1 TABLET BY MOUTH IN THE MORNING AND IN THE EVENING [facility] LEVETIRACET AM 750 mg tablet 07-14 00:00: 00 Yes [id number] 750mg TAKE 1 TABLET BY MOUTH IN THE MORNING AND IN THE EVENING [facility] LEVETIRACET AM 750 mg tablet 0 07-14 00:00: 00 Yes [id number] 750mg TAKE 1 TABLET BY MOUTH IN THE MORNING AND IN THE EVENING [facility] LEVETIRACET AM 750 mg tablet 0 07-14 00:00: 00 Yes [id number] 750mg TAKE 1 TABLET BY MOUTH IN THE MORNING AND IN THE EVENING [facility] LEVETIRACET AM 750 mg tablet 07-14 00:00: 00 Yes [id number] 750mg TAKE 1 TABLET BY MOUTH IN THE MORNING AND IN THE EVENING [facility] LEVETIRACET AM 750 mg tablet 0 07-14 00:00: 00 Yes [id number] 750mg TAKE 1 TABLET BY MOUTH IN THE MORNING AND IN THE EVENING [facility] LEVETIRACET AM 750 mg tablet 0 07-14 00:00: 00 Yes [id number] 750mg TAKE 1 TABLET BY MOUTH IN THE MORNING AND IN THE EVENING [facility] LEVETIRACET AM 750 mg tablet 0 07-14 00:00: 00 Yes [id number] 750mg TAKE 1 TABLET BY MOUTH IN THE MORNING AND IN THE EVENING [facility] LEVETIRACET AM 750 mg tablet 07-14 00:00: 00 Yes [id number] 750mg TAKE 1 TABLET BY MOUTH IN THE MORNING AND IN THE EVENING [facility] LEVETIRACET AM 750 mg tablet 07-14 00:00: 00 Yes [id number] 750mg TAKE 1 TABLET BY MOUTH IN THE MORNING AND IN THE EVENING [facility] LEVETIRACET AM 750 mg tablet 07-14 00:00: 00 Yes [id number] 750mg TAKE 1 TABLET BY MOUTH IN THE MORNING AND IN THE EVENING [facility] LEVETIRACET AM 750 mg tablet 07-14 00:00: 00 Yes [id number] 750mg TAKE 1 TABLET BY MOUTH IN THE MORNING AND IN THE EVENING [facility] LEVETIRACET AM 750 mg tablet 07-14 00:00: 00 Yes [id number] 750mg TAKE 1 TABLET BY MOUTH IN THE MORNING AND IN THE EVENING [facility] LEVETIRACET AM 750 mg tablet 07-14 00:00: 00 Yes [id number] 750mg TAKE 1 TABLET BY MOUTH IN THE MORNING AND IN THE EVENING [facility] LEVETIRACET AM 750 mg tablet 07-14 00:00: 00 Yes [id number] 750mg TAKE 1 TABLET BY MOUTH IN THE MORNING AND IN THE EVENING [facility] LEVETIRACET AM 750 mg tablet 07-14 00:00: 00 Yes [id number] 750mg TAKE 1 TABLET BY MOUTH IN THE MORNING AND IN THE EVENING [facility] LEVETIRACET AM 750 mg tablet 07-14 00:00: 00 Yes [id number] 750mg TAKE 1 TABLET BY MOUTH IN THE MORNING AND IN THE EVENING [facility] LEVETIRACET AM 750 mg tablet 07-14 00:00: 00 Yes [id number] 750mg TAKE 1 TABLET BY MOUTH IN THE MORNING AND IN THE EVENING [facility] LEVETIRACET AM 750 mg tablet 07-14 00:00: 00 10-13 00:00 :00 No [id number] 750mg TAKE 1 TABLET BY MOUTH IN THE MORNING AND IN THE EVENING [facility] ketorolac (TORADOL) injection 30 mg 06-17 16:15: 00 06-17 15:46 :00 No [id number] 30mg [facility]iver [facility] ketorolac (TORADOL) injection 30 mg 06-17 16:15: 00 06-17 15:46 :00 No [id number] 30mg 30 mg, Intramuscu lar, ONCE, 1 dose, On Tue06/17/23 at 1115, Routine [facility] ketorolac (TORADOL) injection 30 mg 06-17 16:15: 00 06-17 15:46 :00 No [id number] [facility] ketorolac (TORADOL) injection 30 mg 06-17 16:15: 00 06-17 15:46 :00 No [id number] 30mg 30 mg, Intramuscu lar, ONCE, 1 dose, On Tue06/17/23 at 1115, Routine [facility] SERTraline 100 mg tablet 06-17 00:00: 00 Yes [id number] 100mg Take 1 tablet by mouth in the morning. [facility] SERTraline 100 mg tablet 06-17 00:00: 00 Yes [id number] 100mg Take 1 tablet by mouth in the morning. [facility] SERTraline 100 mg tablet 06-17 00:00: 00 Yes [id number] 100mg Take 1 tablet by mouth in the morning. [facility] SERTraline 100 mg tablet 06-17 00:00: 00 Yes [id number] 100mg Take 1 tablet by mouth in the morning. [facility] SERTraline 100 mg tablet 06-17 00:00: 00 Yes [id number] 100mg Take 1 tablet by mouth in the morning. [facility] SERTraline 100 mg tablet 06-17 00:00: 00 Yes [id number] 100mg Take 1 tablet by mouth in the morning. [facility] SERTraline 100 mg tablet 2022-0 06-17 00:00: 00 Yes [id number] 100mg Take 1 tablet by mouth in the morning. [facility] SERTraline 100 mg tablet 0 06-17 00:00: 00 Yes [id number] 100mg Take 1 tablet by mouth in the morning. [facility] SERTraline 100 mg tablet 2022-0 06-17 00:00: 00 Yes [id number] 100mg Take 1 tablet by mouth in the morning. [facility] SERTraline 100 mg tablet 0 06-17 00:00: 00 Yes [id number] 100mg Take 1 tablet by mouth in the morning. [facility] SERTraline 100 mg tablet 0 06-17 00:00: 00 Yes [id number] 100mg Take 1 tablet by mouth in the morning. [facility] SERTraline 100 mg tablet 0 06-17 00:00: 00 Yes [id number] 100mg Take 1 tablet by mouth in the morning. [facility] SERTraline 100 mg tablet 0 06-17 00:00: 00 Yes [id number] 100mg Take 1 tablet by mouth in the morning. [facility] SERTraline 100 mg tablet 0 06-17 00:00: 00 Yes [id number] 100mg Take 1 tablet by mouth in the morning. [facility] SERTraline 100 mg tablet 2022-0 06-17 00:00: 00 Yes [id number] 100mg Take 1 tablet by mouth in the morning. [facility] SERTraline 100 mg tablet 0 06-17 00:00: 00 Yes [id number] 100mg Take 1 tablet by mouth in the morning. [facility] SERTraline 100 mg tablet 3-0 06-17 00:00: 00 Yes [id number] 100mg Take 1 tablet by mouth in the morning. [facility] SERTraline 100 mg tablet 3-0 06-17 00:00: 00 Yes [id number] 100mg Take 1 tablet by mouth in the morning. [facility] SERTraline 100 mg tablet 2022-0 06-17 00:00: 00 Yes [id number] 100mg Take 1 tablet by mouth in the morning. [facility] SERTraline 100 mg tablet 2022-0 06-17 00:00: 00 Yes [id number] 100mg Take 1 tablet by mouth in the morning. [facility] SERTraline 100 mg tablet 0 06-17 00:00: 00 Yes [id number] 100mg Take 1 tablet by mouth in the morning. [facility] SERTraline 100 mg tablet 0 06-17 00:00: 00 Yes [id number] 100mg Take 1 tablet by mouth in the morning. [facility] SERTraline 100 mg tablet 0 06-17 00:00: 00 Yes [id number] 100mg Take 1 tablet by mouth in the morning. [facility] SERTraline 100 mg tablet 0 06-17 00:00: 00 Yes [id number] 100mg Take 1 tablet by mouth in the morning. [facility] SERTraline 100 mg tablet 0 06-17 00:00: 00 Yes [id number] 100mg Take 1 tablet by mouth in the morning. [facility] SERTraline 100 mg tablet 0 06-17 00:00: 00 Yes [id number] 100mg Take 1 tablet by mouth in the morning. [facility] SERTraline 100 mg tablet 0 06-17 00:00: 00 Yes [id number] 100mg Take 1 tablet by mouth in the morning. [facility] SERTraline 100 mg tablet 2022-0 06-17 00:00: 00 Yes [id number] 100mg Take 1 tablet by mouth in the morning. [facility] SERTraline 100 mg tablet 2022-0 06-17 00:00: 00 Yes [id number] 100mg Take 1 tablet by mouth in the morning. [facility] SERTraline 100 mg tablet 2022-0 06-17 00:00: 00 Yes [id number] 100mg Take 1 tablet by mouth in the morning. [facility] SERTraline 100 mg tablet 3-0 06-17 00:00: 00 Yes [id number] 100mg Take 1 tablet by mouth in the morning. [facility] SERTraline 100 mg tablet 3-0 9- 00:00: 00 Yes [id number] 100mg Take 1 tablet by mouth in the morning. [facility] 20[facility]-0 9- 00:00: 00 Yes [id number] 100mg Take 1 tablet by mouth in the morning. [facility] mg tablet 3-0 9- 00:00: 00 Yes [id number] 100mg Take 1 tablet by mouth in the morning. [facility] SERTraline 100 mg tablet 3-0 9- 00:00: 00 Yes [id number] 100mg Take 1 tablet by mouth in the morning. [facility] SERTraline 100 mg tablet 2022-0 9- 00:00: 00 Yes [id number] 100mg Take 1 tablet by mouth in the morning. [facility] SERTraline 100 mg tablet 2022-0 9- 00:00: 00 10-27 00:00 :00 No [id number] 100mg Take 1 tablet by mouth in the morning. [facility] SERTraline 100 mg tablet 2022-0 9- 00:00: 00 10-27 00:00 :00 No [id number] 100mg Take 1 tablet by mouth in the morning. [facility] topiramate 25 mg tablet 3-0 8-22 00:00: 00 Yes 25mg Take 1 tablet by mouth in the morning and 1 tablet in the evening. [facility] topiramate 25 mg tablet 3-0 8-22 00:00: 00 Yes 25mg Take 1 tablet by mouth in the morning and 1 tablet in the evening. [facility] topiramate 25 mg tablet 3-0 8-22 00:00: 00 Yes 25mg Take 1 tablet by mouth in the morning and 1 tablet in the evening. [facility] topiramate 25 mg tablet 3-0 8-22 00:00: 00 Yes 25mg Take 1 tablet by mouth in the morning and 1 tablet in the evening. [facility] [facility] tablet 3-0 8-22 00:00: 00 Yes 25mg Take 1 tablet by mouth in the morning and 1 tablet in the evening. [facility] topiramate 25 mg tablet 2023-0 8- 00:00: 00 Yes 25mg Take 1 tablet by mouth in the morning and 1 tablet in the evening. [facility] topiramate 25 mg tablet 2023-0 8- 00:00: 00 Yes 25mg Take 1 tablet by mouth in the morning and 1 tablet in the evening. [facility] topiramate 25 mg tablet 2023-0 8- 00:00: 00 Yes 25mg Take 1 tablet by mouth in the morning and 1 tablet in the evening. [facility] topiramate 25 mg tablet 2023-0 8- 00:00: 00 Yes 25mg Take 1 tablet by mouth in the morning and 1 tablet in the evening. [facility] topiramate 25 mg tablet 3-0 8- 00:00: 00 Yes 25mg Take 1 tablet by mouth in the morning and 1 tablet in the evening. [facility] topiramate 25 mg tablet 3-0 8 00:00: 00 Yes 25mg Take 1 tablet by mouth in the morning and 1 tablet in the evening. [facility] topiramate 25 mg tablet 3-0 8 00:00: 00 Yes 25mg Take 1 tablet by mouth in the morning and 1 tablet in the evening. [facility] topiramate 25 mg tablet 3-0 8 00:00: 00 Yes 25mg Take 1 tablet by mouth in the morning and 1 tablet in the evening. [facility] topiramate 25 mg tablet 2023-0 8- 00:00: 00 Yes 25mg Take 1 tablet by mouth in the morning and 1 tablet in the evening. [facility] topiramate 25 mg tablet 2023-0 8- 00:00: 00 Yes 25mg Take 1 tablet by mouth in the morning and 1 tablet in the evening. [facility] topiramate 25 mg tablet 2023-0 8- 00:00: 00 Yes 25mg Take 1 tablet by mouth in the morning and 1 tablet in the evening. [facility] topiramate 25 mg tablet 2023-0 8-22 00:00: 00 Yes 25mg Take 1 tablet by mouth in the morning and 1 tablet in the evening. [facility] topiramate 25 mg tablet 2023-0 8- 00:00: 00 Yes 25mg Take 1 tablet by mouth in the morning and 1 tablet in the evening. [facility] topiramate 25 mg tablet 2023-0 8- 00:00: 00 Yes 25mg Take 1 tablet by mouth in the morning and 1 tablet in the evening. [facility] topiramate 25 mg tablet 2023-0 8- 00:00: 00 Yes 25mg Take 1 tablet by mouth in the morning and 1 tablet in the evening. [facility] topiramate 25 mg tablet 3-0 8- 00:00: 00 Yes 25mg Take 1 tablet by mouth in the morning and 1 tablet in the evening. [facility] topiramate 25 mg tablet 2023-0 8- 00:00: 00 Yes 25mg Take 1 tablet by mouth in the morning and 1 tablet in the evening. [facility] topiramate 25 mg tablet 3-0 8 00:00: 00 Yes 25mg Take 1 tablet by mouth in the morning and 1 tablet in the evening. [facility] topiramate 25 mg tablet 3-0 8 00:00: 00 Yes 25mg Take 1 tablet by mouth in the morning and 1 tablet in the evening. [facility] topiramate 25 mg tablet 2023-0 8- 00:00: 00 Yes 25mg Take 1 tablet by mouth in the morning and 1 tablet in the evening. [facility] topiramate 25 mg tablet 2023-0 8- 00:00: 00 Yes 25mg Take 1 tablet by mouth in the morning and 1 tablet in the evening. [facility] topiramate 25 mg tablet 2023-0 8- 00:00: 00 Yes 25mg Take 1 tablet by mouth in the morning and 1 tablet in the evening. [facility] topiramate 25 mg tablet 2023-0 8- 00:00: 00 Yes 25mg Take 1 tablet by mouth in the morning and 1 tablet in the evening. [facility] topiramate 25 mg tablet 2023-0 8- 00:00: 00 Yes 25mg Take 1 tablet by mouth in the morning and 1 tablet in the evening. [facility] topiramate 25 mg tablet 2023-0 8- 00:00: 00 Yes 25mg Take 1 tablet by mouth in the morning and 1 tablet in the evening. [facility]:00: 00 Yes 25mg Take 1 tablet by mouth in the morning and 1 tablet in the evening. [facility] topiramate 25 mg tablet 3-0 8- 00:00: 00 Yes 25mg Take 1 tablet by mouth in the morning and 1 tablet in the evening. [facility] topiramate 25 mg tablet 3-0 8- 00:00: 00 Yes 25mg Take 1 tablet by mouth in the morning and 1 tablet in the evening. [facility] topiramate 25 mg tablet 3-0 8- 00:00: 00 Yes 25mg Take 1 tablet by mouth in the morning and 1 tablet in the evening. [facility] topiramate 25 mg tablet 3-0 8 00:00: 00 Yes 25mg Take 1 tablet by mouth in the morning and 1 tablet in the evening. [facility] topiramate 25 mg tablet 2023-0 8 00:00: 00 Yes 25mg Take 1 tablet by mouth in the morning and 1 tablet in the evening. [facility] topiramate 25 mg tablet 2023-0 8- 00:00: 00 Yes 25mg Take 1 tablet by mouth in the morning and 1 tablet in the evening. [facility] topiramate 25 mg tablet 2023-0 8- 00:00: 00 Yes 25mg Take 1 tablet by mouth in the morning and 1 tablet in the evening. [facility] topiramate 25 mg tablet 2023-0 8- 00:00: 00 Yes 25mg Take 1 tablet by mouth in the morning and 1 tablet in the evening. [facility] topiramate 25 mg tablet 2023-0 8-22 00:00: 00 Yes 25mg Take 1 tablet by mouth in the morning and 1 tablet in the evening. [facility] topiramate 25 mg tablet 06-07 00:00: 00 Yes 25mg Take 1 tablet by mouth in the morning and 1 tablet in the evening. [facility] levETIRAcet am 750 mg tablet 05-23 00:00: 00 Yes [id number] 750mg Take 1 tablet by mouth in the morning and 1 tablet in the evening. [facility] levETIRAcet am 750 mg tablet 0 05-23 00:00: 00 Yes [id number] 750mg Take 1 tablet by mouth in the morning and 1 tablet in the evening. [facility] levETIRAcet am 750 mg tablet 05-23 00:00: 00 Yes [id number] 750mg Take 1 tablet by mouth in the morning and 1 tablet in the evening. [facility] levETIRAcet am 750 mg tablet 05-23 00:00: 00 Yes [id number] 750mg Take 1 tablet by mouth in the morning and 1 tablet in the evening. [facility] levETIRAcet am 750 mg tablet 0 05-23 00:00: 00 Yes [id number] 750mg Take 1 tablet by mouth in the morning and 1 tablet in the evening. [facility] levETIRAcet am 750 mg tablet 05-23 00:00: 00 Yes [id number] 750mg Take 1 tablet by mouth in the morning and 1 tablet in the evening. [facility] levETIRAcet am 750 mg tablet 0 05-23 00:00: 00 Yes [id number] 750mg Take 1 tablet by mouth in the morning and 1 tablet in the evening. [facility] levETIRAcet am 750 mg tablet 0 05-23 00:00: 00 Yes [id number] 750mg Take 1 tablet by mouth in the morning and 1 tablet in the evening. [facility] levETIRAcet am 750 mg tablet 2022-0 05-23 00:00: 00 Yes [id number] 750mg Take 1 tablet by mouth in the morning and 1 tablet in the evening. [facility] levETIRAcet am 750 mg tablet 05-23 00:00: 00 Yes [id number] 750mg Take 1 tablet by mouth in the morning and 1 tablet in the evening. [facility] levETIRAcet am 750 mg tablet 05-23 00:00: 00 Yes [id number] 750mg Take 1 tablet by mouth in the morning and 1 tablet in the evening. [facility] levETIRAcet am 750 mg tablet 05-23 00:00: 00 Yes [id number] 750mg Take 1 tablet by mouth in the morning and 1 tablet in the evening. [facility] levETIRAcet am 750 mg tablet 05-23 00:00: 00 07-14 00:00 :00 No [id number] 750mg Take 1 tablet by mouth in the morning and 1 tablet in the evening. [facility] MULTIVITAMI N (KID'S VITAMINS ORAL) 04-22 13:04: 08 04-22 00:00 :00 No Take by mouth. [facility] MULTIVITAMI N (KID'S VITAMINS ORAL) 04-22 13:04: 08 04-22 00:00 :00 No Take by mouth. [facility] METOCLOPRAM LUCILA HCL (REGLAN ORAL) 04-22 13:03: 56 04-22 00:00 :00 No Take by mouth. [facility] METOCLOPRAM LUCILA HCL (REGLAN ORAL) 04-22 13:03: 56 04-22 00:00 :00 No Take by mouth. [facility] SERTraline 50 mg tablet 04-22 00:00: 00 Yes [id number] 25mg Take 0.5 tablets by mouth in the morning. Then may increase to 1 tablet by mouth daily if no response by 1 week [facility] SERTraline 50 mg tablet 04-22 00:00: 00 Yes [id number] 25mg Take 0.5 tablets by mouth in the morning. Then may increase to 1 tablet by mouth daily if no response by 1 week [facility] SERTraline 50 mg tablet 04-22 00:00: 00 Yes [id number] 25mg Take 0.5 tablets by mouth in the morning. Then may increase to 1 tablet by mouth daily if no response by 1 week [facility] SERTraline 50 mg tablet 04-22 00:00: 00 Yes [id number] 25mg Take 0.5 tablets by mouth in the morning. Then may increase to 1 tablet by mouth daily if no response by 1 week [facility] SERTraline 50 mg tablet 04-22 00:00: 00 Yes [id number] 25mg Take 0.5 tablets by mouth in the morning. Then may increase to 1 tablet by mouth daily if no response by 1 week [facility] SERTraline 50 mg tablet 04-22 00:00: 00 06-17 00:00 :00 No [id number] 25mg Take 0.5 tablets by mouth in the morning. Then may increase to 1 tablet by mouth daily if no response by 1 week [facility] SERTraline 50 mg tablet 04-22 00:00: 00 06-17 00:00 :00 No [id number] 25mg Take 0.5 tablets by mouth in the morning. Then may increase to 1 tablet by mouth daily if no response by 1 week [facility] levETIRAcet am 750 mg tablet 04-08 00:00: 00 04-22 00:00 :00 No 750mg Take 1 tablet by mouth in the morning and 1 tablet in the evening. [facility] levETIRAcet am 750 mg tablet 04-08 00:00: 00 04-22 00:00 :00 No 750mg Take 1 tablet by mouth in the morning and 1 tablet in the evening. [facility] METOCLOPRAM LUCILA HCL (REGLAN ORAL) 01-23 15:15: 59 Yes Take by mouth. [facility] MULTIVITAMI N (KID'S VITAMINS ORAL) 01-23 15:15: 59 Yes Take by mouth. [facility] METOCLOPRAM LUCILA HCL (REGLAN ORAL) 01-23 15:15: 59 Yes Take by mouth. [facility] MULTIVITAMI N (KID'S VITAMINS ORAL) 01-23 15:15: 59 Yes Take by mouth. [facility] METOCLOPRAM LUCILA HCL (REGLAN ORAL) 01-23 15:15: 59 Yes Take by mouth. [facility] MULTIVITAMI N (KID'S VITAMINS ORAL) 01-23 15:15: 59 Yes Take by mouth. [facility] Immunizations Ordered Immunization Name Filled Immunization Name Date Status Comments Source Influenza Virus Vaccine Quad IM, Preserv and ABX Free 6 MO-64 YRS (FLUCELVAX) Unknown Completed [facility] Pneumococcal 20 Conjugate, PCV20 (Prevnar 20) Unknown Completed [facility] TDAP Unknown Completed [facility] Influenza Virus Vaccine Quad IM, Preserv and ABX Free 6 MO-64 YRS (FLUCELVAX) Unknown Completed [facility] Pneumococcal 20 Conjugate, PCV20 (Prevnar 20) Unknown Completed [facility] TDAP Unknown Completed [facility] Influenza Virus Vaccine Quad IM, Preserv and ABX Free 6 MO-64 YRS (FLUCELVAX) Unknown Completed [facility] Pneumococcal 20 Conjugate, PCV20 (Prevnar 20) Unknown Completed [facility] TDAP Unknown Completed [facility] Influenza Virus Vaccine Quad IM, Preserv and ABX Free 6 MO-64 YRS (FLUCELVAX) Unknown Completed [facility] Pneumococcal 20 Conjugate, PCV20 (Prevnar 20) Unknown Completed [facility] TDAP Unknown Completed [facility] Influenza Virus Vaccine Quad IM, Preserv and ABX Free 6 MO-64 YRS (FLUCELVAX) Unknown Completed [facility] Pneumococcal 20 Conjugate, PCV20 (Prevnar 20) Unknown Completed [facility] TDAP Unknown Completed [facility] Influenza Virus Vaccine Quad IM, Preserv and ABX Free 6 MO-64 YRS (FLUCELVAX) Unknown Completed [facility] Pneumococcal 20 Conjugate, PCV20 (Prevnar 20) Unknown Completed [facility] TDAP Unknown Completed [facility] Influenza Virus Vaccine Quad IM, Preserv and ABX Free 6 MO-64 YRS (FLUCELVAX) Unknown Completed [facility] Pneumococcal 20 Conjugate, PCV20 (Prevnar 20) Unknown Completed [facility] TDAP Unknown Completed [facility] Influenza Virus Vaccine Quad IM, Preserv and ABX Free 6 MO-64 YRS (FLUCELVAX) Unknown Completed [facility] Pneumococcal 20 Conjugate, PCV20 (Prevnar 20) Unknown Completed [facility] TDAP Unknown Completed [facility] Influenza Virus Vaccine Quad IM, Preserv and ABX Free 6 MO-64 YRS (FLUCELVAX) Unknown Completed [facility] Pneumococcal 20 Conjugate, PCV20 (Prevnar 20) Unknown Completed [facility] TDAP Unknown Completed [facility] Influenza Virus Vaccine Quad IM, Preserv and ABX Free 6 MO-64 YRS (FLUCELVAX) Unknown Completed [facility] Pneumococcal 20 Conjugate, PCV20 (Prevnar 20) Unknown Completed [facility] TDAP Unknown Completed [facility] Influenza Virus Vaccine Quad IM, Preserv and ABX Free 6 MO-64 YRS (FLUCELVAX) Unknown Completed [facility] Pneumococcal 20 Conjugate, PCV20 (Prevnar 20) Unknown Completed [facility] TDAP Unknown Completed [facility] Influenza Virus Vaccine Quad IM, Preserv and ABX Free 6 MO-64 YRS (FLUCELVAX) Unknown Completed [facility] Pneumococcal 20 Conjugate, PCV20 (Prevnar 20) Unknown Completed [facility] TDAP Unknown Completed [facility] Influenza Virus Vaccine Quad IM, Preserv and ABX Free 6 MO-64 YRS (FLUCELVAX) Unknown Completed [facility] Pneumococcal 20 Conjugate, PCV20 (Prevnar 20) Unknown Completed [facility] TDAP Unknown Completed [facility] Influenza Virus Vaccine Quad IM, Preserv and ABX Free 6 MO-64 YRS (FLUCELVAX) Unknown Completed [facility] Pneumococcal 20 Conjugate, PCV20 (Prevnar 20) Unknown Completed [facility] TDAP Unknown Completed [facility] Influenza Virus Vaccine Quad IM, Preserv and ABX Free 6 MO-64 YRS (FLUCELVAX) Unknown Completed [facility] Pneumococcal 20 Conjugate, PCV20 (Prevnar 20) Unknown Completed [facility] TDAP Unknown Completed [facility] Influenza Virus Vaccine Quad IM, Preserv and ABX Free 6 MO-64 YRS (FLUCELVAX) Unknown Completed [facility] Pneumococcal 20 Conjugate, PCV20 (Prevnar 20) Unknown Completed [facility] TDAP Unknown Completed [facility] Influenza Virus Vaccine Quad IM, Preserv and ABX Free 6 MO-64 YRS (FLUCELVAX) Unknown Completed [facility] Pneumococcal 20 Conjugate, PCV20 (Prevnar 20) Unknown Completed [facility] TDAP Unknown Completed [facility] Influenza Virus Vaccine Quad IM, Preserv and ABX Free 6 MO-64 YRS (FLUCELVAX) Unknown Completed [facility] Pneumococcal 20 Conjugate, PCV20 (Prevnar 20) Unknown Completed [facility] TDAP Unknown Completed [facility] Influenza Virus Vaccine Quad IM, Preserv and ABX Free 6 MO-64 YRS (FLUCELVAX) Unknown Completed [facility] Pneumococcal 20 Conjugate, PCV20 (Prevnar 20) Unknown Completed [facility] TDAP Unknown Completed [facility] Influenza Virus Vaccine Quad IM, Preserv and ABX Free 6 MO-64 YRS (FLUCELVAX) Unknown Completed [facility] Pneumococcal 20 Conjugate, PCV20 (Prevnar 20) Unknown Completed [facility] TDAP Unknown Completed [facility] Influenza Virus Vaccine Quad IM, Preserv and ABX Free 6 MO-64 YRS (FLUCELVAX) Unknown Completed [facility] Pneumococcal 20 Conjugate, PCV20 (Prevnar 20) Unknown Completed [facility] TDAP Unknown Completed [facility] Influenza Virus Vaccine Quad IM, Preserv and ABX Free 6 MO-64 YRS (FLUCELVAX) Unknown Completed [facility] Pneumococcal 20 Conjugate, PCV20 (Prevnar 20) Unknown Completed [facility] TDAP Unknown Completed [facility] Influenza Virus Vaccine Quad IM, Preserv and ABX Free 6 MO-64 YRS (FLUCELVAX) Unknown Completed [facility] Pneumococcal 20 Conjugate, PCV20 (Prevnar 20) Unknown Completed [facility] TDAP Unknown Completed [facility] Influenza Virus Vaccine Quad IM, Preserv and ABX Free 6 MO-64 YRS (FLUCELVAX) Unknown Completed [facility] Pneumococcal 20 Conjugate, PCV20 (Prevnar 20) Unknown Completed [facility] TDAP Unknown Completed [facility] Influenza Virus Vaccine Quad IM, Preserv and ABX Free 6 MO-64 YRS (FLUCELVAX) Unknown Completed [facility] Pneumococcal 20 Conjugate, PCV20 (Prevnar 20) Unknown Completed [facility] TDAP Unknown Completed [facility] Influenza Virus Vaccine Quad IM, Preserv and ABX Free 6 MO-64 YRS (FLUCELVAX) Unknown Completed [facility] Pneumococcal 20 Conjugate, PCV20 (Prevnar 20) Unknown Completed [facility] TDAP Unknown Completed [facility] Influenza Virus Vaccine Quad IM, Preserv and ABX Free 6 MO-64 YRS (FLUCELVAX) Unknown Completed [facility] Pneumococcal 20 Conjugate, PCV20 (Prevnar 20) Unknown Completed [facility] TDAP Unknown Completed [facility] Influenza Virus Vaccine Quad IM, Preserv and ABX Free 6 MO-64 YRS (FLUCELVAX) Unknown Completed [facility] Pneumococcal 20 Conjugate, PCV20 (Prevnar 20) Unknown Completed [facility] TDAP Unknown Completed [facility] Influenza Virus Vaccine Quad IM, Preserv and ABX Free 6 MO-64 YRS (FLUCELVAX) Unknown Completed [facility] Pneumococcal 20 Conjugate, PCV20 (Prevnar 20) Unknown Completed [facility] TDAP Unknown Completed [facility] Influenza Virus Vaccine Quad IM, Preserv and ABX Free 6 MO-64 YRS (FLUCELVAX) Unknown Completed [facility] Pneumococcal 20 Conjugate, PCV20 (Prevnar 20) Unknown Completed [facility] TDAP Unknown Completed [facility] Influenza Virus Vaccine Quad IM, Preserv and ABX Free 6 MO-64 YRS (FLUCELVAX) Unknown Completed [facility] Pneumococcal 20 Conjugate, PCV20 (Prevnar 20) Unknown Completed [facility] TDAP Unknown Completed [facility] Vital Signs Vital Name Observation Time Observation Value Comments S ource Systolic blood pressure 2023-11-01 15:05:00 107 mm[Hg] [facility] Diastolic blood pressure 2023-11-01 15:05:00 71 mm[Hg] [facility] Heart rate 2023-11-01 15:05:00 81 /min [facility] Body temperature 2023-11-01 15:05:00 37 Monika [facility] Respiratory rate 2023-11-01 15:05:00 18 /min [facility] Body height 2023-11-01 15:05:00 162.6 cm [facility] Body weight 2023-11-01 15:05:00 63.957 kg [facility] BMI 2023-11-01 15:05:00 24.20 kg/m2 [facility] Systolic blood pressure 2023-10-27 21:36:00 104 mm[Hg] [facility] Diastolic blood pressure 2023-10-27 21:36:00 57 mm[Hg] [facility] Heart rate 2023-10-27 21:36:00 70 /min [facility] Body temperature 2023-10-27 21:36:00 36.72 Monika [facility] Body height 2023-10-27 21:36:00 162.6 cm [facility] Body weight 2023-10-27 21:36:00 64.774 kg [facility] BMI 2023-10-27 21:36:00 24.51 kg/m2 [facility] Oxygen saturation in Arterial blood by Pulse oximetry 2023-10-27 21:36:00 99 /min [facility] Body height 2023-10-03 16:37:00 160 cm [facility] Systolic blood pressure 2023-09-26 19:16:00 112 mm[Hg] [facility] Diastolic blood pressure 2023-09-26 19:16:00 78 mm[Hg] [facility] Heart rate 2023-09-26 19:16:00 88 /min [facility] Body height 2023-09-26 19:16:00 160 cm [facility] Body weight 2023-09-26 19:16:00 63.231 kg [facility] BMI 2023-09-26 19:16:00 24.69 kg/m2 [facility] Oxygen saturation in Arterial blood by Pulse oximetry 2023-09-26 19:16:00 97 /min [facility] Systolic blood pressure 2023-09-12 18:36:00 112 mm[Hg] [facility] Diastolic blood pressure 2023-09-12 18:36:00 80 mm[Hg] [facility] Heart rate 2023-09-12 18:36:00 81 /min [facility] Respiratory rate 2023-09-12 18:36:00 18 /min [facility] Body height 2023-09-12 18:36:00 160 cm [facility] Body weight 2023-09-12 18:36:00 62.687 kg [facility] BMI 2023-09-12 18:36:00 24.48 kg/m2 [facility] Oxygen saturation in Arterial blood by Pulse oximetry 2023-09-12 18:36:00 100 /min [facility] Systolic blood pressure 2023-08-18 15:48:00 122 mm[Hg] [facility] Diastolic blood pressure 2023-08-18 15:48:00 81 mm[Hg] [facility] Heart rate 2023-08-18 15:48:00 72 /min [facility] Body temperature 2023-08-18 15:48:00 36.78 Monika [facility] Body height 2023-08-18 15:48:00 160 cm [facility] Body weight 2023-08-18 15:48:00 63.141 kg [facility] BMI 2023-08-18 15:48:00 24.66 kg/m2 [facility] Oxygen saturation in Arterial blood by Pulse oximetry 2023-08-18 15:48:00 98 /min [facility] Systolic blood pressure 2023-06-17 14:55:00 98 mm[Hg] [facility] Diastolic blood pressure 2023-06-17 14:55:00 62 mm[Hg] [facility] Heart rate 2023-06-17 14:55:00 72 /min [facility] Body temperature 2023-06-17 14:55:00 36.56 Monika [facility] Respiratory rate 2023-06-17 14:55:00 16 /min [facility] Body height 2023-06-17 14:55:00 160 cm [facility] Body weight 2023-06-17 14:55:00 62.052 kg [facility] BMI 2023-06-17 14:55:00 24.23 kg/m2 [facility] Oxygen saturation in Arterial blood by Pulse oximetry 2023-06-17 14:55:00 100 /min [facility] Systolic blood pressure 2023-04-22 18:03:00 107 mm[Hg] [facility] Diastolic blood pressure 2023-04-22 18:03:00 69 mm[Hg] [facility] Heart rate 2023-04-22 18:03:00 81 /min [facility] Body temperature 2023-04-22 18:03:00 36.78 Monika [facility] Body height 2023-04-22 18:03:00 160 cm [facility] Body weight 2023-04-22 18:03:00 61.689 kg [facility] BMI 2023-04-22 18:03:00 24.09 kg/m2 [facility] Systolic blood pressure 2022-06-17 13:28:00 92 mm[Hg] [facility] Diastolic blood pressure 2022-06-17 13:28:00 55 mm[Hg] [facility] Heart rate 2022-06-17 13:28:00 68 /min [facility] Body height 2022-06-17 13:28:00 160 cm [facility] Body weight 2022-06-17 13:28:00 63.957 kg [facility] BMI 2022-06-17 13:28:00 24.98 kg/m2 [facility] Oxygen saturation in Arterial blood by Pulse oximetry 2022-06-17 13:28:00 97 /min [facility] Procedures Procedure Date / Time Performed Performing Clinician Source AUTHORIZATION TO RELEASE PHI TO [facility] 2023-09-14 06:01:00 Doctor Unassigned, [place] [facility] EXTERNAL PROVIDER RECORDS 2023-08-31 06:01:00 Do ctor Unassigned, [place] [facility] TDAP VACCINE, >11 YRS, IM 2023-08-18 16:54:19 Beatris Ring [facility] FLU VACC (), 6 MO-64 YRS, .5ML, IM, QUAD (FLUCELVAX) 2023-08-18 16:54:19 Jhonathan Althea [facility] PNEUMOCOCCAL 20 CONJUGATE (PREVNAR 20) VACCINE 2023-08-18 16:54:19 Jhonathan Althea [facility] AUTHORIZATION TO RELEASE PHI TO [facility] 2023-08-18 05:01:00 Doctor Unassigned, [place] [facility] BI ULTRASOUND BREAST COMPLETE BILATERAL 2023-07-20 19:49:59 Jhonathan Althea [facility] BI DIAGNOSTIC TOMOSYNTHESIS BILATERAL 2023-07-20 19:12:20 Jhonathan Althea [facility] OP CORRESPONDENCE 2023-04-25 05:01:00 Doctor Rozina ssigned, [place] [facility] DISABILITY/FMLA 2022-06-23 05:01:00 Doctor Unass igned, [place] [facility] WORKERS COMPENSATION 2022-06-17 05:01:00 Doctor Unassigned, [place] [facility] Encounters Start Date/Time End Date/Time Encounter Type Admission Type Attending [facility] Care Facility Care Department Encounter ID Source 2022-07-15 12:57:13 Outpatient CHW [facility] [id number] [facility] 2023-11-28 13:20:00 2023-11-28 13:20:00 Outpatient PEÑA CALLAWAY HOWARD [facility] [id number] [facility] 2023-11-16 14:00:00 2023-11-16 14:00:00 Outpatient MARYCHUY MARTINEZ [facility] [id number] [facility] 2023-11-01 09:30:00 2023-11-01 10:40:53 Outpatient KEISHA DELACRUZ [facility] [id number] [facility] 2023-11-01 09:30:00 2023-11-01 10:40:53 Office Visit Kwadwo Merida Vivian L [facility] 1.2.840.114 350.1.13.10 4.2.7.2.686 [id number] [facility] 2023-10-27 15:40:00 2023-10-27 16:29:39 Outpatient R ALTHEA RING [facility] [id number] [facility] 2023-10-27 15:40:00 2023-10-27 16:29:[address] [facility] 1.840.114 350.1.13.10 4.2.7.2.686 [id number] 044 [id number] [facility] 2023-10-19 00:00:00 2023-10-19 00:00:00 Nurse Triage Hawley [facility] 1.840.114 350.1.13.10 4.2.7.2.686 [id number] [facility] 2023-10-13 00:00:00 2023-10-13 00:00:[address] [facility] OFFICE BUILDING 1.840.114 350.1.13.10 4.2.7.2.686 [id number] [id number] [facility] 2023-10-13 00:00:00 2023-10-13 00:00:[address] [facility] OFFICE BUILDING 1.840.114 350.1.13.10 4.2.7.2.686 [id number] 044 [id number] [facility] 2023-10-03 10:45:00 2023-10-03 11:01:58 Outpatient NIYAH FUENTES [facility] [id number] [facility] 2023-10-03 10:45:00 2023-10-03 11:01:58 Office Visit Eduardo Finch, [facility] 1.284.114 350.1.13.10 4.2.7.2.686 [id number] [facility] 2023-09-27 00:00:00 2023-09-27 00:00:00 Telephone Jhonathan [facility] HECTOR?[facility] MED[facility] OFFICE BUILDING 1.84.114 350.1.13.10 4.2.7.2.686 [id number] 044 [id number] [facility] 2023-09-27 00:00:00 2023-09-27 00:00:00 Patient Secure Msg [facility] 1.84.114 350.1.13.10 4.2.7.2.686 [id number] 044 [id number] [facility] 2023-09-26 14:45:00 2023-09-26 15:00:00 Covered Buckle Assembler Visit Lab, Liam Benito [facility] OFF[facility] 1..840.114 350.1.13.10 4.2.7.2.686 [id number] [facility] 2023-09-26 13:40:00 2023-09-26 14:34:53 Outpatient [facility] [id number] [facility] 2023-09-26 13:40:00 2023-09-26 14:34:53 Office Visit Jhonathan [facility] 1.2.840.114 350.1.13.10 4.2.7.2.686 [id number] [id number] [facility] 2023-09-14 00:00:00 2023-09-14 00:00:00 Orders Only Doctor Unassigned, [place] [facility] 1.2840.114 350.1.13.10 4.2.7.2.686 [id number] [facility] 2023-09-12 14:00:00 2023-09-12 14:15:00 Covered Buckle Assembler Visit Lab, [facility] 1..840.114 350.1.13.10 4.2.7.2.686 [id number] [facility] 2023-09-12 13:00:00 2023-09-12 13:53:32 Outpatient R PEÑA GATES HOWARD [facility] [id number] [facility] 2023-09-12 13:00:00 2023-09-12 13:53:32 Office Visit Peña [facility] 1.840.114 350.1.13.10 4.2.7.2.686 [id number] [facility] 2023-09-02 00:00:00 2023-09-02 00:00:00 Telephone Jhonathan [facility] HECTOR?KEERTHI [facility] 1.840.114 350.1.13.10 4.2.7.2.686 [id number] [id number] [facility] 2023-08-31 00:00:00 2023-08-31 00:00:00 Orders Only Doctor Unassigned, [place] [facility] 1.284.114 350.1.13.10 4.2.7.2.686 [id number] [facility] 2023-08-31 00:00:00 2023-08-31 00:00:[address] [facility] OFF[facility] BUILD[facility] 1..840.114 350.1.13.10 4.2.7.2.686 [id number] [id number] [facility] 2023-08-22 00:00:00 2023-08-22 00:00:00 Patient Secure Msg Doctor Unassigned, [place] [facility] HECTOR?[facility] MEDICAL OFFICE BUILDING 1..840.114 350.1.13.10 4.2.7.2.686 [id number] [facility] 2023-08-22 00:00:00 2023-08-22 00:00:00 Patient Secure Msg Doctor Unassigned, [place] [facility] HECTOR?[facility] MEDICAL OFFICE BUILDING 1..840.114 350.1.13.10 4.2.7.2.686 [id number] [facility] 2023-08-18 12:30:00 2023-08-18 12:45:00 Covered Buckle Assembler Visit Lab, Liam - Thong Ring [facility] HECTOR?[facility] MEDICAL OFFICE BUILDING 1..840.114 350.1.13.10 4.2.7.2.686 [id number] [facility] 2023-08-18 11:00:00 2023-08-18 12:06:46 Outpatient R ALTHEA RING [facility] [id number] [facility] 2023-08-18 11:00:00 2023-08-18 12:06:46 Office Visit Jhonathan [facility] HECTOR?[facility] MED[facility] OFFICE BUILDING 1..840.114 350.1.13.10 4.2.7.2.686 [id number] 044 [id number] [facility] 2023-08-18 00:00:00 2023-08-18 00:00:00 Telephone Jhonathan [facility] HECTOR?[facility] MEDICAL OFFICE BUILDING 1.2.840.114 350.1.13.10 4.2.7.2.686 [id number] [facility] 2023-08-18 00:00:00 2023-08-18 00:00:00 Orders Only Doctor Unassigned, [place] [facility] 1.2.840.114 350.1.13.10 4.2.7.2.686 [id number] [facility] 2023-07-20 12:18:29 2023-07-20 23:59:00 [facility] 1.2.840.114 350.1.13.10 4.2.7.2.686 [id number] [facility] 2023-07-20 12:16:53 2023-07-20 12:17:00 Outpatient R [facility] [id number] [facility] 2023-07-20 12:16:53 2023-07-20 12:17:00 [facility] 1.2.840.114 350.1.13.10 4.2.7.2.686 [id number] [facility] 2023-07-13 00:00:00 2023-07-13 00:00:00 Refill Jhonathan [facility] HECTOR?[facility] MEDICAL OFFICE BUILDING 1.2.840.114 350.1.13.10 4.2.7.2.686 [id number] 044 [id number] [facility] 2023-07-12 00:00:00 2023-07-12 00:00:00 Telephone Jhonathan [facility] HECTOR?[facility] MED[facility] OFFICE BUILDING 1.2.840.114 350.1.13.10 4.2.7.2.686 [id number] [facility] 2023-06-21 00:00:00 2023-06-21 00:00:00 [facility]I [facility] 1.2.840.114 350.1.13.10 4.2.7.2.686 [id number] [id number] [facility] 2023-06-21 00:00:00 2023-06-21 00:00:00 Telephone [facility]athan [facility]KEERTHI [facility] 1.2.840.114 350.1.13.10 4.2.7.2.686 [id number] 044 [id number] [facility] 2023-06-17 10:00:00 2023-06-17 11:05:00 Outpatient R ARMANDO RINGINE JHONATHAN [facility] [id number] [facility] 2023-06-17 10:00:00 2023-06-17 11:05:00 Office Visit Jhonathan [facility] 1.2.840.114 350.1.13.10 4.2.7.2.686 [id number] [id number] [facility] 2023-06-17 00:00:00 2023-06-17 00:00:00 Telephone [facility]athan [facility] OFFICE BUILD[facility] 1.2.840.114 350.1.13.10 4.2.7.2.686 [id number] [id number] [facility] 2023-06-08 00:00:00 2023-06-08 00:00:00 Telephone Jhonathan [facility] HECTOR?KEER[facility]I [facility] OFF[facility] BU[facility] 1.2.840.114 350.1.13.10 4.2.7.2.686 [id number] [id number] [facility] 2023-05-03 00:00:00 2023-05-03 00:00:00 Telephone Jhonathan [facility] HECTOR?[facility] MEDICAL OFFICE BUILDING 1.840.114 350.1.13.10 4.2.7.2.686 [id number] [id number] [facility] 2023-04-25 00:00:00 2023-04-25 00:00:00 Orders Only Doctor Unassigned, [place] [facility] 1.2840.114 350.1.13.10 4.2.7.2.686 [id number] [id number] [facility] 2023-04-22 13:00:00 2023-04-22 14:35:[address] [facility] OFFICE BUILDING 1.84.114 350.1.13.10 4.2.7.2.686 [id number] [facility] 2023-04-22 13:00:00 2023-04-22 14:35:58 Outpatient R ALTHEA RING [facility] [id number] [facility] 2023-02-28 08:15:00 2023-02-28 08:15:00 Outpatient KATE DURAN [id number] Fay Han 2022-06-23 00:00:00 2022-06-23 00:00:00 Orders Only Doctor Unassigned, [place] [facility] 1.84.114 350.1.13.10 4.2.7.2.686 [id number] [facility] 2022-06-17 08:30:00 2022-06-17 08:39:09 Outpatient R ANTHONY JORJE [facility] [id number] [facility] 2022-06-17 08:30:00 2022-06-17 08:39:09 Office Visit Jorje Cruz [facility] MED[facility] OFFICE BUILDING 1.840.114 350.1.13.10 4.2.7.2.686 [id number] [facility] 2022-06-17 08:30:00 2022-06-17 08:30:00 Outpatient R JORJE CRUZ [facility] [id number] [facility] 2022-06-17 00:00:00 2022-06-17 00:00:00 Orders Only Doctor Unassigned, [place] [facility] 1.2840.114 350.1.13.10 4.2.7.2.686 [id number] [facility] 2022-06-08 00:00:00 2022-06-08 00:00:00 [facility] BUILD[facility] 1.2.840.114 350.1.13.10 4.2.7.2.686 [id number] [facility] 2022-06-04 00:00:00 2022-06-04 00:00:00 Telephone Jorje Cruz [facility] HECTOR?[facility] MED[facility] OFFICE BUILDING 1.2.840.114 350.1.13.10 4.2.7.2.686 [id number] [facility] 2022-05-31 00:00:00 2022-05-31 00:00:00 Telephone [facility] 1.2.840.114 350.1.13.10 4.2.7.2.686 [id number] [facility] 2022-05-28 00:00:00 2022-05-28 00:00:00 Telephone Pcp, Patient Does Not Have A [facility] HECTOR[facility] 1.2.840.114 350.1.13.10 4.2.7.2.686 [id number] [facility] 2022-05-27 08:30:00 2022-05-27 09:00:00 Office Visit Jorje Cruz [facility] HECTOR?[facility] MEDICAL OFFICE BUILDING 1.2.840.114 350.1.13.10 4.2.7.2.686 [id number] [facility] 2022-05-27 08:30:00 2022-05-27 08:30:00 Outpatient Catracho CRUZJORJE [facility] [id number] [facility] 2022-05-27 00:00:00 2022-05-27 00:00:00 Orders Only Doctor Unassigned, [place] [facility] 1.2.840.114 350.1.13.10 4.2.7.2.686 [id number] [id number] [facility] 2019-10-26 17:57:00 2019-10-26 17:57:00 Outpatient Skye Vazquez CHW [id number] [facility] 2019-10-26 08:20:00 2019-10-26 08:20:00 Outpatient Walk-In, Only CHW CHW [id number] [facility] 2019-10-24 17:25:00 2019-10-24 17:25:00 Outpatient RipSkye valente CHW [id number] [facility] 2019-10-24 13:19:00 2019-10-24 13:19:00 Outpatient RipSkye valente CHW CHW [id number] [facility] 2019-10-15 11:41:00 2019-10-15 11:41:00 Outpatient RipSkye valente W [id number] [facility] 2019-10-15 09:40:00 2019-10-15 09:40:00 Outpatient Ripsin Skye CHW CHW [id number] [facility] 2019-10-15 09:10:00 2019-10-15 09:10:00 Outpatient Walk-In, Only CHW CHW [id number] [facility] 2019-06-25 12:49:00 2019-06-25 12:49:00 Outpatient Yola Bright CHW W [id number] [facility] 2019-06-19 13:00:00 2019-06-19 13:00:00 Outpatient Walk-In, Only CHW CHW [id number] [facility] 2019-06-19 08:33:00 2019-06-19 08:33:00 Outpatient DeangeloYola johnson CHW CHW [id number] [facility] 2019-06-15 10:40:00 2019-06-15 10:40:00 Outpatient Deangelo, Yola W CHW [id number] [facility] 2019-05-09 09:20:00 2019-05-09 09:20:00 Outpatient Walk-In, Only CHW CHW [id number] [facility] 2019-02-07 13:00:00 2019-02-07 13:00:00 Outpatient Walk-In, Only CHW CHW [id number] [facility] 2019-01-16 08:52:00 2019-01-16 08:52:00 Outpatient Skye Vazquez W CHW [id number] [facility] 2018-12-19 07:54:00 2018-12-19 07:54:00 Outpatient Tito Gonzalez W CHW [id number] [facility] 2018-12-18 16:09:00 2018-12-18 16:09:00 Outpatient ., Radiology CHW CHW [id number] [facility] 2018-12-18 13:00:00 2018-12-18 13:00:00 Outpatient SamuelTito james W CHW [id number] [facility] 2018-11-09 16:20:00 2018-11-09 16:20:00 Outpatient Cesar Pérez W CHW [id number] [facility] 2018-11-07 14:40:00 2018-11-07 14:40:00 Outpatient Walk-In, Only CHW CHW [id number] [facility] 2018-08-22 11:00:00 2018-08-22 11:00:00 Outpatient Jonn Garcia W CHW [id number] [facility] Notes Date/Time Note Provider Source 2023-10-19 11:46:00 yXp1VhClDkFOM98f6GU3 fhj0aEl7KbB lKCeBVAHk3SMJyjmP24Vj5t304QOUJC xs5631-96-46Q13:46:00 Regarding: Severe hand pain w/ tingling x 1 week----- Message from Kiley Walker sent at 10/19/2023 11:46 AM ELEVATED MOTORMAN -----Vasquez Morton is a 32 year old female 83262-9Cmtaufjvb encounter UlkwBB3591-77-32U46:46:46Teleph one encounter NoteTXT1.2.840.936842.1.13.104. 2.7.2.987375|[id number] [facility] ssjm14945-9QleqUSDOINSJVMOUtdnu tted C-CDA narrative rjge229054454Bpdnnnip Chandan MO[address] FgqiKmgbfryhjVezbkpbvmGGVN28150 09433NIAKGTECAVLZYXJBTNHHBL1795 -01-03T11:46:461.2.840.132439.1 .72.3.15|1.2.840.662946.1.13.10 4.2.7.2.727879_[id number] Mari Hawley RN [facility] 2023-10-19 11:46:00 dK8NjauU27heoeQeBx2n qQpV5xKJkwW QArX7tSXkmQNKn+vcSAT9HTHHq/HzYB HP9967-69-44U98:46:00 Adult Triage AssessmentLast Clinic Visit: 10/03/2023 dermatology in office visit tinea versicolorPrimary Symptom: "last month I talk to my doctor about tingling and she gave me some gabapentin. About a week ago my hand its hurting bad. Pinky and ring finger stay down to my palm every now and then my hand will get an intense pain. Rubbing it hurts more I dont know what's wrong. Left hand went a little numb I'm used to numbness and tingling and went up to my elbow and had some chest pain but it did go away and was able to breath and every thing. That was last night. I do still have small sharp pain to that hand."Onset / Duration: a month, worsening symptoms, at most a weekLocation / Description: right hand pain, left hand numbnessPain / Severity: '7-8/10 constant pain 3/10 but randomly comes and increases to 7-8/10. 2/10 little pain and numbness."Associated Symptoms: unable to hold coffee mugs it use less at times.Fever / Method: deniesHydration: "4-5 bottle water 16 ounce bottles, urinating normally, have had diarrhea for the past few days. 2 episodes a day."Treatment so far: Gabapentin 100mg 3 capsules this 7am and 3 at noon and evening 7 pm.Effect on ADL's: severelyLMP: patient currently on the murenaPre-existing condition / Immunocompromised: seizure, YULIANA, tingling and muscle crampsReason for Disposition[1] SEVERE pain (e.g., excruciating, unable to use hand at all) AND [2] not improved after 2 hours of pain medicineProtocols used: Hand and Wrist Lrfy-QNOUM-CIRlhuzsuxolmxub signed by Mari Hawley RN at 10/19/2023 12:11 PM [id number] encounter KhkmWJ8752-06-30G71:11:52Teleph one encounter NoteTXT1.2.840.983868.1.13.104. 2.7.2.950866|[id number] ble for patient unyy61012-9UqewPEURTXCOOJKYcaou tted C-CDA narrative [address] UxjiDjpthqdyvXnsplaffnSOWQ90133 21426XZXCQEFJYPMDSVAJMHPFCN5499 -01-03T12:11:521.2.840.611961.1 .72.3.15|1.2.840.392506.1.13.10 4.2.7.2.727879_[id number] [facility] 2023-06-23 12:32:21 CxOStHjNvlDA73kLfkhS JF62HFIAn/7 W4eCZa2RI2HGDs6IpenY1t2y+ZRNNaM 9O1507-14-83R26:32:21 Patient scheduled lectronically signed by Larissa Mayberry FOUNDRY TENDER at 06/23/2023 12:32 PM KUB73063-2Lircsglkw encounter HnlgWN9892-12-06Z30:32:33Teleph one encounter NoteTXT1.2.840.814896.1.13.104. 2.7.2.099217|[id number] ble for patient aefs07624-7FfbpLT298926772Cceme melyssa Salazar Jefe [address] RcmcOpdcbsywqMafhybuiwDJPH60573 49208FPGGMOYLVDTBDOXEVUAQUW1841 -09-07T12:32:331.2.840.951066.1 .72.3.15|1.2.840.462667.1.13.10 4.2.7.2.727879_[id number] Larissa Mayberry [facility] 2023-06-22 11:31:29 3nYPB4PlnHSnt49ZoqCj H8y3Eoq6wDN fCR7YLKJhhD0VBxgV+/yjoZat2Jztwh 2x2231-42-65A27:31:29 Spoke with patient and she did confirm that per her insuracne the order will need to come from her PCP. I have ordered for the EEG and faxed to 's office for approval. Patient has been notified. 22666-4Gjkdtcixn encounter WvpyWK1791-81-43K27:40:49Teleph one encounter NoteTXT1.2.840.452499.1.13.104. 2.7.2.869509|[id number] ble for patient femq86515-1OolfXJQYBCCRNY[address] StreetTXTX[address] 95647LTXLZSNUSSYJBZZONUSDWX3719 -09-06T11:40:491.2.840.069231.1 .72.3.15|1.2.840.693514.1.13.10 4.2.7.2.727879_[id number] [facility] 2023-06-22 05:40:38 f+TUmqMDO6MX81VydfuJ NLUF+20iDRx I80LoT75eWI5Wi/Owtaco9cvWWc+gr0 Wv7176-37-61T35:40:38 Normally neurology orders EEGs, I do not place that order. Is Dr. Crowell's office or insurance requesting that? Please call patient and clarify.If she states we need the EEG placed, please addend the referral to include EEG in the comments and the codes listed.BestDr. Ericectronically signed by Althea Ring MD at 06/22/2023 5:42 AM FRS07712-1Fqzvnwfbk encounter KbcbBA2434-08-89V50:42:16Teleph one encounter NoteTXT1.2.840.117559.1.13.104. 2.7.2.987834|[id number] ble for patient asto89851-8WhqjLLMKBULURB[address] 49553DCUETIVNANTMKLJAIHFGYI4591 -09-06T05:42:161.2.840.779173.1 .72.3.15|1.2.840.669074.1.13.10 4.2.7.2.727879_[id number] [facility] 2023-06-22 05:39:42 ZHr34ziWMn9cKv/eEDD+ 6PFzgd7pee0 qM0eS0tXnajv7eARmYOx92ZCN9tIgnZ rX0268-01-20U11:39:42 I ordered the diagnostic mammo, not sure if I need to change the [place] orders. Can you verify with rads?Best,Dr. Ericectronically signed by Althea Ring MD at 06/22/2023 5:40 AM NBC68288-9Qfpfidqhx encounter IgkuZA5979-67-03Z25:40:20Teleph one encounter NoteTXT1.2.840.518206.1.13.104. 2.7.2.199271|[id number] ble for patient lxil31599-3HlebWZRAASCCFF[address] 71307TDNHANLGUNEPZGHKUEHMYL6288 -09-06T05:40:201.2.840.522930.1 .72.3.15|1.2.840.506600.1.13.10 4.2.7.2.727879_[id number] [facility] 2023-06-21 15:12:41 50iF1yfr78RHIDtNbOz5 bJIpaIRHjuA puajJwfWWRxC2vcSYSehCsN84Jtanpq dE0914-25-70R66:12:41 Please review and advise. 75077-9Cmwxgnfcx encounter VcjbWW0216-19-86C52:12:48Teleph one encounter NoteTXT1.2.840.986221.1.13.104. 2.7.2.243239|[id number] ble for patient rzim90849-0RyurWT669962113Nepbc melyssa Mayberry [address] 87289TTDXXEUTNETDUYGLTPDRPU2984 -09-05T15:12:481.2.840.177422.1 .72.3.15|1.2.840.270007.1.13.10 4.2.7.2.727879_[id number] Larissa Mayberry FOUN[employer]Y TENDER [facility] 2023-06-21 11:40:07 CSMMQ622GGLy/IvdR736 JiiquqeIi6D yAALCBLfkDL5HTpHiOxuEoYE4dG8bgZ lH5321-67-61Z96:40:07 Please review and advise 22618-8Bipgcylth encounter JbuoTP8197-97-40D75:40:24Teleph one encounter NoteTXT1.2.840.996978.1.13.104. 2.7.2.188578|[id number] [facility] nlkk40689-5AcxqGP296914635Rmiai nna Y Ruiz MA[address] PysiRqdvtggvmBgjjspntfOTNX61732 31537UBJDNDZDECNFAOJNAPKLUQ4309 -09-05T11:40:241.2.840.875240.1 .72.3.15|1.2.840.885302.1.13.10 4.2.7.2.727879_[id number] Marlene Hilsl MA [facility] 2023-06-21 10:51:05 fuhzPupSN/npJUFoNW2I Qnj/BqY+jNd y9dXg9mArHHw9LGud6nyZXPP83E2mJC 6F1293-10-88P06:51:05 Patient states when she called to schedule her mammogram they are requesting the order to be a diagnostic mammogram and an ultrasound. 71569-9Jbmkntrmm encounter EkvrVR6003-97-06Q81:52:29Teleph one encounter NoteTXT1.2.840.356616.1.13.104. 2.7.2.032913|[id number] ble for patient jleu00046-9OkqvHJ99435463Ykvbn S [address] 55744OCKPWOQJBSZHSQCUMPFAMB8603 -09-05T10:52:291.2.840.197941.1 .72.3.15|1.2.840.861735.1.13.10 4.2.7.2.727879_[id number] Olivia Bains [facility] 2023-06-21 10:38:09 M2aggH1tuVLHfaz75Bbh 2TT1yHf2ED4 tVRJDXuJAdFWywRFvTvZZtt8PwdrCKg VB1992-64-71W65:38:09 Pt called and states that she is needing a referral for her EEG. She has the referral for her consultation, but not EEG. Dr. Jacob Crowell Neurologist (for an EEG)[address] [place] [address]. 39684QP#[phone] that she is needin, 49473Ubavqtenavbfcl signed by Radha Mack at 06/21/2023 10:40 AM EPQ62735-4Ckqzqejhe encounter PcpjCG9033-67-51R07:40:30Teleph one encounter NoteTXT1.2.840.990049.1.13.104. 2.7.2.360810|[id number] ble for patient nizz70362-6LxjuHF09344123Tilbfv a R [address] 77892QZTTCYRJBVQFJGSSIYDMGH7521 -09-05T10:40:301.2.840.949282.1 .72.3.15|1.2.840.961785.1.13.10 4.2.7.2.727879_[id number] Radha Mack [facility] 2023-06-17 15:40:29 BIAYRDdLg6yMTHYkpQBD qHL+ltmGXhu i8mcyj37YOf15fMbviiXs/5fvsVU4/E xl2668-56-98X93:40:29 Mental Capacity Assessment uploaded to pt chart and placed in providers basket. 24854-6Xgxmhuuoa encounter CfglMC2760-17-75L59:41:17Teleph one encounter NoteTXT1.2.840.693749.1.13.104. 2.7.2.164353|[id number] ble for patient tnni38669-7YwwhZH864664581Gmluu [address] BdtuIbzqdqifiHnymwuvddHPYF39424 54010SKJKVEALWXWXNSREDLCCPM6441 -09-01T15:41:171.2.840.741599.1 .72.3.15|1.2.840.376738.1.13.10 4.2.7.2.727879_[id number] Natalia Count includes the [facility] 2023-06-09 13:12:01 cpOqYT/i1wA0vn+EaE8l tbpioomf+93 cDBOwBIGANn8n1RfZdi7ORNP/GZKBnd VQ6475-69-96B58:12:01 I approve of the referrals for neuropathy and bilateral hearing loss.Dr. Hernesto Salazarectronically signed by Althea Ring MD at 06/09/2023 1:12 PM LHX39846-8Tnpzyghep encounter MxjaCP2407-49-04N60:12:42Teleph one encounter NoteTXT1.2.840.962216.1.13.104. 2.7.2.475365|[id number] ble for patient xdix27370-1KwvzFDQRLLCCDT[address] 42024QIHHLRJRKNCLVYCKZSTPAY7514 -08-24T13:12:421.2.840.307227.1 .72.3.15|1.2.840.703499.1.13.10 4.2.7.2.727879_[id number] [facility] 2023-06-08 10:46:41 EVO9NEWrvuMGqANMijxS RsVN/q+B9G0 3qzvRlSkmrIu8KquWXqLij3RcW3XP5e el7640-09-18R74:46:41 Patient requesting referrals to:Dr. Jacob Crowell Neurologist (for an EEG)[address] [facility]. 38057CE#[phone]. Kimi Dart ENT in [place](for hearing ab[address] [place] [address]. 72537IW#[phone] lly signed by Kathie Franco at 06/08/2023 10:53 AM UZS09029-0Yerbblypl encounter RjgsVH1197-51-42U08:53:33Teleph one encounter NoteTXT1.2.840.810667.1.13.104. 2.7.2.186072|[id number] ble for patient oigh04065-8WzitUI125877875Hjmtf K [address] 77730QXUUSMMEJQLBIYLWRRLKUI1929 -08-23T10:53:331.2.840.928326.1 .72.3.15|1.2.840.903668.1.13.10 4.2.7.2.727879_[id number] Kathie Franco [facility] 2023-05-05 08:59:54 M+nw+OqXfIgVUeyzwz29 tbDGXFS6LI0 PyW2ygj8Ngd0TvbeY3dlIH9tPKyJc6S RH9930-74-17Y77:59:54 Referral faxed again 05/05/2023 9AM 97982-4Lvadpxwdm encounter IwxmJA5155-74-75E90:01:12Teleph one encounter NoteTXT1.2.840.366215.1.13.104. 2.7.2.203321|[id number] ble for patient gery701520305Wdwuiwsr Y Ruiz MA[address] 97293SRMRCVDCGRKLYGVTPCCYGY1619 -07-20T09:01:121.2.840.351106.1 .72.3.15|1.2.840.874060.1.13.10 4.2.7.2.727879_[id number] Marlene Hills MA [facility] 2023-05-03 09:13:19 YRAPYoRTJtnSYlggxT85 p3Ay/QhZ+XW 1ijitKXKZUodczGxseEaBGfCD1p70h7 Wt5752-77-05S55:13:19 Patient is needing the referral to Dr. Crowell refaxed to them please. 42351-2Idumrjehp encounter BknxZH9103-16-81Q09:14:21Teleph one encounter NoteTXT1.2.840.057660.1.13.104. 2.7.2.930794|[id number] ble for patient rvex388932365Qttro K [address] 98810PCOQDZERIHEVIOFSMOJIIU5856 -07-18T09:14:211.2.840.787253.1 .72.3.15|1.2.840.937459.1.13.10 4.2.7.2.727879_[id number] Kathie Franco [facility]
--- NOTE | 2023-11-06 22:26 | ER ---
Nurse's Notes [facility] Name: Natalie Morton Age: 32 yrs Sex: Female : 1990 Arrival Date: 11/06/2023 Time: 20:46 Bed 5 Private MD: Diagnosis: Pain in left hand;Pain in right hand Presentation: 11/06 21:09 Chief complaint: Patient states: Pt c/o pain in left hand that radiates up her arm x 1 tl4 month. Pt denies injury. No relief with ibuprofen. Coronavirus screen: Vaccine status: Patient reports being unvaccinated. At this time, the client does not indicate any symptoms associated with coronavirus-19. Ebola Screen: Patient negative for fever greater than or equal to 101.5 degrees Fahrenheit, and additional compatible Ebola Virus Disease symptoms Patient denies exposure to infectious person. Patient denies travel to an Ebola-affected area in the 21 days before illness onset. No symptoms or risks identified at this time. Initial Sepsis Screen: Does the patient meet any 2 criteria? No. Patient's initial sepsis screen is negative. Does the patient have a suspected source of infection? No. Patient's initial sepsis screen is negative. Risk Assessment: Do you want to hurt yourself or someone else? Patient reports no desire to harm self or others. Onset of symptoms was October 06, 2023. 21:09 Method Of Arrival: Ambulatory tl4 21:09 Acuity: LUÍS 4 tl4 Triage Assessment: 21:12 General: Appears in no apparent distress. Behavior is calm, cooperative. Pain: tl4 Complains of pain in left hand and left arm. EENT: No signs and/or symptoms were reported regarding the EENT system. Neuro: No deficits noted. Cardiovascular: No deficits noted. Respiratory: No deficits noted. Denies shortness of breath. GI: No signs and/or symptoms were reported involving the gastrointestinal system. : No signs and/or symptoms were reported regarding the genitourinary system. RN TRANSITION: 22:01 LMP N/A - Irregular menses, Not tl4 Historical: - Allergies: 21:12 Tylenol; tl4 - Home Meds: 21:12 Keppra Oral [Active]; tl4 - PMHx: 21:12 hyperacusis (Seizure); neuropathy (Seizure); PTSD (Seizure); Seizure; tl4 - PSHx: 21:12 Lumpectomy of left breast. (e); tl4 - Immunization history:: Adult Immunizations unknown. - Social history:: Smoking status: Patient reports the use of cigarette tobacco products, smokes one-half pack cigarettes per day. Screenin:03 [facility] ED Fall Risk Assessment (Adult) History of falling in the last 3 months, tl4 including since admission No falls in past 3 months (0 pts) Confusion or Disorientation No (0 pts) Intoxicated or Sedated No (0 pts) Impaired Gait No (0 pts) Mobility Assist Device Used No (0 pt) Altered Elimination No (0 pt) Score/Fall Risk Level 0 - 2 = Low Risk Oriented to surroundings, Maintained a safe environment, Educated pt \T\ family on fall prevention, incl call for assistance when getting out of bed, Assessed \T\ reinforced patient's understanding of fall precautions, Provided non-skid footwear. Abuse screen: Denies threats or abuse. Denies injuries from another. Nutritional screening: No deficits noted. Tuberculosis screening: No symptoms or risk factors identified. Assessment: 22:00 Reassessment: No changes from previously documented assessment. Patient and/or family tl4 updated on plan of care and expected duration. Pain level reassessed. Patient is alert, oriented x 3, equal unlabored respirations, skin warm/dry/pink. Vital Signs: 21:09 BP 103 / 69; Pulse 73; Resp 16; Temp 98.3; Pulse Ox 100% ; Weight 63.96 kg; Height 5 tl4 ft. 3 in. ; Pain 10/10; 22:30 BP 109 / 70; Pulse 69; Resp 18; Pulse Ox 100% on R/A; Pain 5/10; tl4 21:09 Body Mass Index 24.98 (63.96 kg, 160.02 cm) tl4 21:09 Pain Scale: Adult tl4 22:30 Pain Scale: Adult tl4 ED Course: 20:57 Patient arrived in ED. gm2 20:59 Lili Singh FNP-C is PHCP. kb 20:59 Rj Villanueva DO is Attending Physician. kb 21:12 Triage completed. tl4 21:13 Arm band placed on Patient placed in an exam room, on a stretcher. tl4 22:00 No provider procedures requiring assistance completed. Patient did not have IV access jb4 during this emergency room visit. 22:04 Patient has correct armband on for positive identification. Placed in gown. Bed in low tl4 position. Call light in reach. Side rails up X 1. Adult w/ patient. Provided Education on: ED process. 22:05 No provider procedures requiring assistance completed. Patient did not have IV access tl4 during this emergency room visit. Administered Medications: 21:17 Drug: traMADol PO 50 mg PO once Route: PO; jb4 22:57 Follow up: Response: Pain is decreased tl4 21:17 Drug: Dexamethasone IM 10 mg IM once Route: IM; Site: right deltoid; jb4 22:56 Follow up: Response: No adverse reaction tl4 Medication: 22:01 VIS not applicable for this client. tl4 Outcome: 22:25 Discharge ordered by . kb 22:40 Discharged to home ambulatory, with family, pf1 22:40 Condition: improved 22:40 Discharge instructions given to patient, family, Instructed on discharge instructions, follow up and referral plans. Demonstrated understanding of instructions, follow-up care, medications, Prescriptions given X 3, 22:40 Patient left the ED. pf1 Signatures: Lili Singh, TOLL TESTBOARD WORKER-C TOLL TESTBOARD WORKER-Олег Emanuel RN RN jb4 Maddi Courtney RN RN pf1 Rasheeda Berumen 2 Rad Ordaz tl4
--- NOTE | 2023-11-06 22:26 | EDPHYS ---
Physician Documentation [facility] Name: Natalie Morton Age: 32 yrs Sex: Female : 1990 Arrival Date: 11/06/2023 Time: 20:46 Bed 5 Private MD: ED Physician Rj Villanueva HPI: 11/06 22:34 This 32 yrs old Female presents to ER via Ambulatory with complaints of Hand Pain, Arm kb Pain. 22:34 Patient is a 32-year-old female who presents for bilateral hand pain for 1 month. kb States she has a history of neuropathy but this feels different. States the pain radiates up the left arm. Pain on the right and does not radiate. States pain is worse when holding something like a coffee pot. Otherwise full range of motion of bilateral hands. Denies injury or trauma. Denies fever.. 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 (e); tl4 - Immunization history:: Adult Immunizations unknown. - Social history:: Smoking status: Patient reports the use of cigarette tobacco products, smokes one-half pack cigarettes per day. ROS: 22:34 Constitutional: Negative for fever, chills, and weight loss, kb 22:34 MS/extremity: Positive for pain, of the right hand and left hand, 22:34 All other systems are negative, Exam: 22:34 Constitutional: This is a well developed, well nourished patient who is awake, alert, kb and in no acute distress. Head/Face: Normocephalic, atraumatic. ENT: Moist Mucous membranes Cardiovascular: Regular rate Respiratory: Respirations even and unlabored. No increased work of breathing. Talking in full sentences Skin: Warm, dry with normal turgor. Normal color. Neuro: Awake and alert, GCS 15, oriented to person, place, time, and situation. Moves all extremities. Normal gait. 22:34 Musculoskeletal/extremity: Extremities: grossly normal except: noted in the right hand and left hand: pain, ROM: limited active range of motion due to pain, Circulation is intact in all extremities. Sensation intact. Vital Signs: 21:09 BP 103 / 69; Pulse 73; Resp 16; Temp 98.3; Pulse Ox 100% ; Weight 63.96 kg; Height 5 tl4 ft. 3 in. ; Pain 10/10; 22:30 BP 109 / 70; Pulse 69; Resp 18; Pulse Ox 100% on R/A; Pain 5/10; tl4 21:09 Body Mass Index 24.98 (63.96 kg, 160.02 cm) tl4 21:09 Pain Scale: Adult tl4 22:30 Pain Scale: Adult tl4 MDM: 20:59 Patient medically screened. kb 22:34 Differential diagnosis: tendonitis, Neuropathy, pinched nerve. Data reviewed: vital kb signs, nurses notes. Test considered but Not performed: X-ray: X-rays considered but patient has no bony tenderness, denies injury or trauma.. Counseling: I had a detailed discussion with the patient and/or guardian regarding the historical points, exam findings, and any diagnostic results supporting the discharge/admit diagnosis, the need for outpatient follow up, a family practitioner, to return to the emergency department if symptoms worsen or persist or if there are any questions or concerns that arise at home. Administered Medications: 21:17 Drug: traMADol PO 50 mg PO once Route: PO; jb4 22:57 Follow up: Response: Pain is decreased tl4 21:17 Drug: Dexamethasone IM 10 mg IM once Route: IM; Site: right deltoid; jb4 22:56 Follow up: Response: No adverse reaction tl4 Disposition: 23:20 I was immediately available on-site in the Emergency Department for consultation in the ms3 care of the patient. Disposition Summary: 11/06/23 22:25 Discharge Ordered Notes: Location: Home kb Condition: Stable kb Diagnosis - Pain in left hand kb - Pain in right hand kb Followup: kb - With: Emergency Department - When: As needed - Reason: Worsening of condition Followup: kb - With: Private Physician - When: 2 - 3 days - Reason: Recheck today's complaints, Continuance of care, Re-evaluation by your physician Discharge Instructions: - Discharge Summary Sheet kb - Musculoskeletal Pain kb Forms: - Medication Reconciliation Form kb - Thank You Letter kb - Antibiotic Education kb - Prescription Opioid Use kb - Patient Portal Instructions kb - Leadership Thank You Letter kb Prescriptions: - Prednisone 20 mg Oral Tablet - take 1 tablet ORAL route once daily for 5 days; 5 tablet; Refills: 0, Product kb Selection Permitted - Diclofenac Sodium 75 mg Oral tablet, delayed release (enteric coated) - take 1 tablet ORAL route 2 times per day As needed; 30 tablet; Refills: 0, kb Product Selection Permitted - orphenadrine citrate 100 mg Oral Tablet Sustained Release - take 1 tablet ORAL route 2 times per day As needed; 20 tablet; Refills: 0, kb Product Selection Permitted Signatures: Lili Singh, VENEER PRODUCTION MACHINE OPERATOR-C VENEER PRODUCTION MACHINE OPERATOR-Ckb Олег Baldwin, GRIFFIN RN jb4 Rj Villanueva DO DO ms3 Rad Ordaz tl4
[2023-11-06 23:13] VITALS: BP 103/69; TEMP 98.3; O2SAT 100
== END ==
LOC: ER 20:46
DX: M79.642 Pain in left hand (principal); M79.641 Pain in right hand; Z88.6 Allergy status to analgesic agent
CPT/HCPCS: 96372; 99284; J1100

== ENCOUNTER 2024-08-05 21:00 | Emergency (ER) | payer BC ==
--- OUTSIDE RECORDS SUMMARY | 2024-08-05 21:07 | XMS REPORT | Continuity of Care Document ---
Author Name Unknown Address [address] [facility] [place] [address] [facility] Address [address] [facility] [place] [address] Care Team Providers [employer] Sales Name Role Phone ALTHEA MCKEON Primary Care Physician Unavailab KWADWO Dao Attending Clinician Unavailable KWADWO BUSH Attending Clinician Unavailable PEÑA MCMULLEN Attending Clinician Unavail able PEÑA MCMULLEN Attending Clinician Unavail able CATHERINE FREEMAN Attending Clinician Unavailable CATHERINE FREEMAN Attending Clinician Unavailable Althea Mckeon MD Attending Clinician [phone] Pob, Adc Lab Main Attending Clinician UnavailSugar Reyez NP Attending Clinician [phone] SUGAR BLEDSOE Attending Clinician Unavailable Lab, c Attending Clinician Unavailable MARTHA BECK Attending Clinician Unavailable MARTHA BECK Attending Clinician Unavailable Martha Beck MD Attending Clinician [phone] JABARI FIGUEROA Attending Clinician Unavailable JABARI FIGUEROA Attending Clinician Unavailable Jabari Figueroa MD Attending Clinician [phone] CHELSEA MOYA Attending Clinician Unavailab ALTHEA Laguerre Attending Clinician Unavailable ALTHEA MCKEON Attending Clinician Unavailable Nasreen Rao DNP Attending Clinician [phone] Peña Mcmullen MD Attending Clinician +[phone] Mary Khan MD Attending Clinician Doctor Unassigned, Leonardo Attending Clinician U JABARI Wray Attending Clinician Unavailable Joe HUGHES, Jayne Attending Clinician + [phone] [phone] Marina FERNANDEZ, Deidra Kaba Attending Clinician + [phone] Jabari Garcia DO Attending Clinician [phone] Julianna FERNANDEZ, Gilbert Attending Clinician [phone] Ana FERNANDEZ, Derrek Attending Clinicia n SHARLENE BERUMEN Attending Clinician Unavailable Ata MARTINEZ, Sharlene Attending Clinician + [phone] Yajaira FERNANDEZ, Peña Faust Attending Clinician +[phone] MARY KHAN Attending Clinician Rozina vailable Draw, Clc-[facility] Lab Attending Clinician UnavailSONIA Ley Attending Clinician Unavailable SONIA LEY Attending Clinician Unavailable Vtc-Lab Attending Clinician Unavailable Gill Israel Attending Clinician Unavailjeremy Stewart RN, Della Jaimes Attending Clinician Unavaila GIOVANNA Barr Attending Clinician Unavailable Hussein FERNANDEZ, Giovanna Attending Clinician [phone] ABRIL SULLIVAN Attending Clinician Unavailable 2, Nicole [employer] Attending Clinician Rozina vailable Danna Escobedo Attending Clinician Unavailable Abril June Attending Clinician [phone] Mari Hawley RN Attending Clinician Unavailjeremy Hernandez Rn RN, Sinai Kaba Attending Clinician Unava ilable MELISSA LUCAS Attending Clinician Unavailable Brenton Marshall MD Attending Clinician + [phone] Melissa Lucas MD Attending Clinician + [phone] Anatoly Mohr MD Attending Clinician [phone] ANATOLY MOHR Attending Clinician Unavailable Lab, Ang - Db Attending Clinician Unavailable ANA DICKERSON Attending Clinician Unavailable ANA DICKERSON Attending Clinician Unavailable DONA BRUCE Attending Clinician Unavailable Yajaira Walters MD, Eduardo Hermosillo Attending Clinicia n Dona Bruce MD Attending Clinician [phone] KATE DURAN Attending Clinician Unavailable JORJE CRUZ Attending Clinician Unavailable Jorje Khan Attending Clinician [phone] Johny Queen MD Attending Clinician [phone] Pcp, Patient Does Not Have A Attending Clinician Skye Vazquez Attending Clinician Unavailable Yola Bright Attending Clinician Unavailable Tito Gonzalez Attending Clinician UnavailCesar Quiroz Attending Clinician Unavailable Jonn Hutchins Attending Clinician Unav ailable GILBERT FREDERICK Admitting Clinician Unavailable Gilbert Frederick MD Admitting Clinician [phone] PEÑA MCMULLEN Admitting Clinician Unavail able Payers Payer Name Policy Type Policy Number Effective Date Expirati on Date Source [facility] [id number] 2024 00:00:00 [facility] [id number] 2024 00:00:00 [facility] 2 [id number] 2023 00:00:00 Problems Condition Name Condition Details Condition Category Status Onset Date Resolution Date Last Treatment Date Treating Clinician Comments Source Pharyngoes ophageal dysphagia Pharyngoes ophageal dysphagia Disease Active 07-11 00:00: 00 [facility] Globus sensation Globus sensation Disease Active 07-11 00:00: 00 [facility] Gastroesop hageal reflux disease, unspecifie d whether esophagiti s present Gastroesop hageal reflux disease, unspecifie d whether esophagiti s present Disease Active 07-11 00:00: 00 [facility] Nausea Nausea Disease Active 07-11 00:00: 00 [facility] Change in bowel habits Change in bowel habits Disease Active 07-11 00:00: 00 [facility] Rectal bleeding Rectal bleeding Disease Active 07-11 00:00: 00 [facility] Loose stools Loose stools Disease Active 2024-0 9-25 00:00: 00 [facility] Esophageal dysmotilit y Esophageal dysmotilit y Disease Active 9-25 00:00: 00 [facility] Hemorrhoid s, internal, with bleeding Hemorrhoid s, internal, with bleeding Disease Active 7-18 00:00: 00 [facility] Fissure in ano Fissure in ano Disease Active 7-18 00:00: 00 [facility] Pelvic and perineal pain Pelvic and perineal pain Disease Active 718 00:00: 00 [facility] Generalize d abdominal pain Generalize d abdominal pain Disease Active 6-29 00:00: 00 [facility] Rectal pain Rectal pain Disease Active 6- 00:00: 00 [facility] Pelvic floor dysfunctio n in female Pelvic floor dysfunctio n in female Disease Active 1-04 00:00: 00 [facility] Muscle tightness Muscle tightness Disease Active 1-04 00:00: 00 [facility] Hyperacusi s of both ears Hyperacusi s of both ears Disease Active 01-15 00:00: 00 [facility] Migraines Migraines Disease Active 01-15 00:00: 00 [facility] Seizures Seizures Disease Active 2012-10 00:00: 00 [facility] No known active problems No known active problems Disease [facility] Allergies, Adverse Reactions, Alerts Allergy Name Allergy Type Status Severity Reaction(s) Onset Date Inactive Date Treating Clinician Comments Source Acetamin ophen Drug Allergy Active Other - See comments 01-23 00:00: 00 Syncope, seizures [facility] Acetamin ophen Propensi ty to adverse reaction s Active Other - See comments 01-23 00:00: 00 Syncope, seizures [facility] ACETAMIN OPHEN DRUG INGREDI Active High Other-Cmnt 01-23 00:00: 00 [facility] Family History Family Member Diagnosis Comments Start Date Stop Date Sourc e Natural daughter Asthma [facility] Maternal grandfather Colon Cancer [facility] Maternal grandfather Diabetes [facility] Maternal grandfather High cholesterol [facility] Maternal grandfather Hypertension [facility] Maternal grandmother Arthritis [facility] Maternal grandmother Breast Cancer [facility] Maternal grandmother Diabetes [facility] Natural mother Cervical Cancer [facility] Natural sister Ast[facility] Natural sister Depression [facility] Social History Social Habit Start Date Stop Date Quantity Comments Source ASSERTION 2017-08-13 00:00:00 [facility] History SDOH Alcohol Frequency [facility] History SDOH Alcohol Std Drinks [facility] History SDOH Alcohol Binge [facility] Gender identity [facility] Alcoholic beverage intake 2024-05-03 00:00:00 2024-05-03 00:00:00 Ex-drinker (finding) [facility] Tobacco use and exposure 2024-04-10 00:00:00 2024-04-10 00:00:00 Smokeless tobacco non-user [facility] Cigarettes smoked current (pack per day) - Reported 2024-02-28 00:00:00 2024-02-28 00:00:00 [facility] Cigarette pack-years 2024-02-28 00:00:00 2024-02-28 00:00:00 [facility] Alcohol intake 2024-02-14 00:00:00 2024-02-14 00:00:00 Ex-drinker (finding) [facility] History of Social function 2024-02-14 00:00:00 2024-02-14 00:00:00 [facility] Alcohol Comment 2023-11-01 00:00:00 2023-11-01 00:00:00 Clean since january 25 2023 [facility] Exposure to SARS-CoV-2 (event) 2022-06-07 00:00:00 2022-06-17 08:20:00 Not sure [facility] History of tobacco use 2015-01-23 00:00:00 Smokes tobacco daily [facility] Sex assigned at 1990 00:00:00 1990 00:00:00 [facility] Smoking Status Start Date Stop Date Source Smokes tobacco daily 2024-04-10 00:00:00 [facility] Ex-smoker 2022-05-27 00:00:00 2022-05-27 00:00:00 [facility] Medications Ordered Medication Name Filled Medication Name Start Date Stop Date Current Medication? Ordering Clinician Indication Dosage Frequency Signature (SIG) Comments Components Source sodium,pota ssium,mag sulfates 17.5-3.13-1 .6 gram 07-11 00:00: 00 Yes [id number] Use as directed for colonoscop y [facility] Loperamide HCl 2 mg Tab tablet 07-11 00:00: 00 Yes [id number] 2mg Take 1 tablet by mouth as needed for Other (diarrhea) . [facility] levETIRAcet am 750 mg tablet 07-03 00:00: 00 Yes [id number] 750mg Take 1 tablet by mouth every morning and evening. [facility] cetirizine (ZYRTEC) 10 mg tablet 05-03 00:00: 00 Yes [id number] 10mg Take 1 tablet by mouth in the morning. [facility] LEVETIRACET AM 750 mg tablet 04-16 00:00: 00 07-03 00:00 :00 No [id number] 750mg TAKE 1 TABLET BY MOUTH IN THE MORNING AND IN THE EVENING [facility] ibuprofen (IBU) tablet 400 mg 04-15 22:20: 00 04-15 22:15 :00 No 400mg 400 mg, Oral, ONCE, 1 dose, On 04/15/24 at 1730, Routine [facility] NaCl 0.9% (NS) IV infusion 1,000 mL 04-15 12:00: 00 04-16 01:45 :31 No 1000mL at 100 mL/hr, IV Infusion, CONTINUOUS , Starting on 04/15/24 at 0700, Until 04/15/24 at 2044, Routine [facility] NaCl 0.9% (NS) IV infusion 1,000 mL 04-15 09:45: 00 04-15 08:56 :04 No 1000mL at 999 mL/hr, IV Infusion, ONCE, 1 dose, On 04/15/24 at 0445, Routine [facility] traZODone (DESYREL) tablet 50 mg 04-15 02:00: 00 04-16 01:45 :31 No 50mg 50 mg, Oral, QHS, First dose on 04/14/24 at 2100, Until Discontinu ed, Routine [facility] ciprofloxac in HCl 500 mg tablet 04-15 00:00: 00 04-23 04:59 :00 No [id number] 500mg Take 1 tablet by mouth every 12 (twelve) hours for 7 days. [facility] metroNIDAZO LE 500 mg tablet 04-15 00:00: 00 04-23 04:59 :00 No [id number] 500mg Take 1 tablet by mouth every 12 (twelve) hours for 7 days. [facility] traMADoL 50 mg tablet 04-15 00:00: 00 04-23 04:59 :00 No [id number] 50mg Take 1 tablet by mouth every 6 (six) hours as needed for Pain (scale 7-10) for up to 7 days. Indication s: acute pain [facility] traMADoL (ULTRAM) tablet 50 mg 04-14 22:48: 44 04-16 01:45 :31 No 50mg 50 mg, Oral, Q6HPRN, Starting on 04/14/24 at 1748, Until 04/15/24 at 2044, Routine, Pain (scale 4-6) [facility] enoxaparin (LOVENOX) injection 40 mg 04-14 22:00: 00 04-16 01:45 :31 No 40mg 40 mg, Subcutaneo us, DAILY, First dose on 04/14/24 at 1700, Until Discontinu ed, Routine [facility] metroNIDAZO LE in NaCl (iso-os) (FLAGYL I.V.) RTU IV infusion 500 mg 04-14 16:45: 00 04-16 01:45 :31 No 500mg 500 mg, IV Infusion, Q12H ABX, 14 doses, First dose on Tue04/14/24 at 1145, Last dose on Tue04/20/24 at 2345, Administer over 60 Minutes, 100 mL, Reason for Anti-Infec tive: Documented Infection, Documented Infection Site: Pelvic, Duration of Therapy: 7 days [facility] ciprofloxac in in 5 % dextrose (CIPRO) piggyback 400 mg 04-14 16:45: 00 04-16 01:45 :31 No 400mg 400 mg, IV Piggyback, Q12H ABX, 14 doses, First dose on Tue04/14/24 at 1145, Last dose on Tue04/20/24 at 2345, Administer over 60 Minutes, 200 mL, Reason for Anti-Infec tive: Documented Infection, Documented Infection Site: Pelvic, Duration of Therapy: 7 days [facility] water for irrigation irrigation solution 04-14 16:16: 00 04-14 16:37 :31 No PRN, Starting on 04/14/24 at 1116, Until 04/14/24 at 1137, Routine, Intra-op [facility] simethicone (GAS RELIEF (SIMETHICON E)) 40 mg/0.6 mL drops 04-14 16:16: 00 04-14 16:37 :31 No PRN, Starting on 04/14/24 at 1116, Until 04/14/24 at 1137, Routine, Intra-op [facility] cetirizine (ZYRTEC) tablet 10 mg 04-14 14:00: 00 04-16 01:45 :31 No 10mg 10 mg, Oral, DAILY, First dose on Tue04/14/24 at 0900, Until Discontinu ed, Routine [facility] NaCl 0.9% (NS) IV infusion 1,000 mL 04-14 13:30: 00 04-14 12:59 :00 No 1000mL at 75 mL/hr, IV Infusion, ONCE, 1 dose, On 04/14/24 at 0830, Routine [facility] pantoprazol e (PROTONIX) EC tablet 40 mg 04-14 13:00: 00 04-16 01:45 :31 No 40mg 40 mg, Oral, BID, First dose on 04/14/24 at 0800, Until Discontinu ed [facility] potassium chloride in water 10 mEq/100 mL RTU 10 mEq 04-14 13:00: 00 04-14 15:17 :00 No 10meq 10 mEq, IV Piggyback, Q1H, 2 doses, First dose on Tue04/14/24 at 0800, Last dose on Tue04/14/24 at 0900, Administer over 60 Minutes, 100 mL [facility] topiramate (TOPAMAX) tablet 25 mg 04-14 12:30: 00 04-16 01:45 :31 No 25mg 25 mg, Oral, QAM+PM, First dose on 04/14/24 at 0730, Until Discontinu ed, Routine [facility] levETIRAcet am (KEPPRA) tablet 750 mg 04-14 12:30: 00 04-16 01:45 :31 No 750mg 750 mg, Oral, QAM+PM, First dose on Tue04/14/24 at 0730, Until Discontinu ed, Routine [facility] DULoxetine (CYMBALTA) capsule 60 mg 04-14 12:30: 00 04-16 01:45 :31 No 60mg 60 mg, Oral, DAILY, First dose on 04/14/24 at 0730, Until Discontinu ed, Routine [facility] ondansetron (ZOFRAN (PF)) injection 4 mg 04-14 11:35: 32 04-16 01:45 :31 No 4mg 4 mg, Slow IV Push, Q6HPRN, Starting on 04/14/24 at 0635, Until 04/15/24 at 2045, Routine, Nausea and Vomiting (N/V) [facility] morphine (2 mg/mL) injection 2 mg 04-14 11:35: 27 04-15 11:34 :27 No 2mg 2 mg, Slow IV Push, Q4HPRN, Starting on 04/14/24 at 0635, Until 04/15/24 at 0634, Routine, Pain (scale 7-10) [facility] Vancomycin 750 mg in NaCl 0.9% (NS) 250 mL VIAL-MATE 04-14 08:15: 00 04-14 09:30 :00 No 15mg/kg 750 mg (rounded from 885 mg = 15 mg/kg ?59 kg), IV Piggyback, ONCE, 1 dose, On 04/14/24 at 0315, Administer over 60 Minutes, 250 mL, Reason for Anti-Infec tive: Documented Infection, Documented Infection Site: Skin / Soft Tissue, Duration of Therapy: Once (ED) [facility] piperacilli n-tazobacta m (ZOSYN) 3.375 g in NaCl 0.9% (NS) 100 mL MINI-BAG 04-14 07:30: 00 04-14 08:20 :00 No 3.375g 3.375 g, IV Piggyback, ONCE, 1 dose, On 04/14/24 at 0230, Administer over 30 Minutes, 100 mL, Reason for Anti-Infec tive: Documented Infection, Documented Infection Site: Skin / Soft Tissue, Duration of Therapy: Once (ED) [facility] iopamidol (ISOVUE 370-500 mL) injection 60 mL 04-14 07:15: 00 04-14 07:15 :00 No [id number] 60mL 60 mL, Intravenou s, ONCE, 1 dose, On 04/14/24 at 0215, Routine [facility] NaCl 0.9% (NS) IV infusion 1,000 mL 04-14 06:15: 00 04-14 08:20 :00 No 1000mL at 999 mL/hr, Intravenou s, ONCE, 1 dose, On 04/14/24 at 0115, Routine [facility] ketorolac (TORADOL) injection 30 mg 04-14 05:30: 00 04-14 05:24 :00 No 30mg 30 mg, Slow IV Push, ONCE, 1 dose, On 04/14/24 at 0030, MARIA TERESA [facility] sodium chloride (NS) injection 5 mL 04-14 04:25: 50 04-16 01:45 :31 No 5mL 5 mL, Intravenou s, PRN, Starting on Tue04/13/24 at 2325, Until 04/15/24 at 2045, Routine, IV line flushing [facility] azelastine 137 mcg (0.1 %) nasal spray 04-10 00:00: 00 Yes [id number] 1{spray } Use 1 Spring in each nostril in the morning and 1 Spring in the evening. Use in each nostril as directed [facility] omeprazole 40 mg capsule 04-10 00:00: 00 Yes [id number] 40mg Take 1 capsule by mouth in the morning. [facility] famotidine 40 mg tablet 04-10 00:00: 00 04-15 00:00 :00 No [id number] 40mg Take 1 tablet by mouth at bedtime. [facility] miSOPROStoL 200 mcg tablet 04-09 00:00: 00 05-01 00:00 :00 No [id number] 200ug Take 1 tablet by mouth SEE-INSTRU CTIONS. Take one tab the night before and one tab the morning of procedure [facility] gadobenate dimeglumine (MULTIHANCE -15 mL) injection 0.2 mL/kg 03-28 17:15: 00 03-28 17:17 :00 No [id number] .2mL/kg 0.2 mL/kg, Intravenou s, ONCE, 1 dose, On Tue03/28/24 at 1215, Routine [facility] barium sulfate (LIQUID E-Z PAQUE) 60 % (w/v) oral suspension 90 mL 03-28 16:00: 00 03-28 15:46 :00 No [id number] 90mL 90 mL, Oral, ONCE, 1 dose, On Tue03/28/24 at 1100, Routine [facility] barium sulfate (LIQUID E-Z PAQUE) 60 % (w/v) oral suspension 20 mL 03-28 16:00: 00 03-28 15:50 :00 No [id number] 20mL 20 mL, Oral, ONCE, 1 dose, On Tue03/28/24 at 1100, Routine [facility] sod bicarb-citr ic ac-simeth (E-Z-GAS II) 2.21-1.53 gram/4 gram packet 1 Packet 03-28 16:00: 00 03-28 15:48 :00 No [id number] 1{packe t} 1 Packet, Oral, ONCE, 1 dose, On Tue03/28/24 at 1100, Routine [facility] barium sulfate (E-Z DISK) tablet 700 mg 03-28 16:00: 00 03-28 15:53 :00 No [id number] 700mg 700 mg, Oral, ONCE, 1 dose, On Tue03/28/24 at 1100, Routine [facility] TOPIRAMATE 25 mg tablet 03-23 00:00: 00 Yes [id number] 25mg TAKE 1 TABLET BY MOUTH IN THE MORNING AND IN THE EVENING [facility] cetirizine (ZYRTEC) 10 mg tablet 03-08 00:00: 00 05-03 00:00 :00 No [id number] 10mg Take 1 tablet by mouth in the morning. [facility] triamcinolo ne (NASACORT ALLERGY) 55 mcg nasal inhaler 03-08 00:00: 00 04-15 00:00 :00 No [id number] 2{spray } Use 2 Sprays in each nostril in the morning. [facility] levETIRAcet am 750 mg tablet 3-26 00:00: 00 04-16 00:00 :00 No [id number] 750mg Take 1 tablet by mouth every morning and evening. [facility] DULoxetine 60 mg capsule 2-20 00:00: 00 Yes 60mg Take 1 capsule by mouth in the morning. [facility] traZODone 50 mg tablet 2-20 00:00: 00 Yes TAKE 1 TABLET BY MOUTH AT BEDTIME NEEDED FOR SLEP [facility] gabapentin 300 mg capsule 2-15 00:00: 00 Yes 300mg Take 1 capsule by mouth in the morning and 1 capsule at noon and 1 capsule in the evening. [facility] topiramate 25 mg tablet -12 00:00: 00 03-23 00:00 :00 No [id number] 25mg Take 1 tablet by mouth in the morning and 1 tablet in the evening. [facility] topiramate 25 mg tablet - 00:00: 00 11-28 00:00 :00 No [id number] 25mg Take 1 tablet by mouth in the morning and 1 tablet in the evening. [facility] diclofenac 75 mg EC tablet - 00:00: 00 11-28 00:00 :00 No TAKE 1 TABLET BY MOUTH TWICE DAILY NEEDED [facility] orphenadrin e 100 mg SR tablet 11-07 00:00: 00 11-28 00:00 :00 No TAKE 1 TABLET BY MOUTH TWICE DAILY NEEDED [facility] predniSONE 20 mg tablet - 00:00: 00 11-28 00:00 :00 No 20mg Take 1 tablet by mouth in the morning. [facility] DULoxetine 30 mg capsule 1-11 00:00: 00 Yes [id number] 30mg Take 1 capsule by mouth in the morning. [facility] levETIRAcet am 750 mg tablet 2022-10 2- 00:00: 00 Yes [id number] 750mg Take 1 tablet by mouth every morning and evening. [facility] ketoconazol e 2 % shampoo 2022-10 00:00: 00 02-13 00:00 :00 No [id number] Apply to area(s) daily. Use as shampoo on scalp and body. Lather and apply, let sit for 5 minutes, then rinse out. [facility] ketoconazol e 2 % cream 2022-10 00:00: 00 02-13 00:00 :00 No [id number] Apply to area(s) 2 (two) times daily. [facility] gabapentin 100 mg capsule 2022-10 00:00: 00 10-27 00:00 :00 No [id number] 100mg Take 1-3 capsules by mouth in the morning and 1-3 capsules at noon and 1-3 capsules in the evening. [facility] ondansetron 4 mg tablet 2022-10 00:00: 00 11-28 00:00 :00 No TAKE 1 TABLET BY MOUTH EVERY 6 HOURS NEEDED FOR NAUSEA AND VOMITING [facility] omeprazole 40 mg capsule 2022-10 00:00: 00 11-16 00:00 :00 No 40mg Take 1 capsule by mouth in the morning. [facility] ketorolac (TORADOL) injection 30 mg 2022-10 17:30: 00 08-18 17:59 :00 No [id number] 30mg [facility] LEVETIRACET AM 750 mg tablet 07-14 00:00: 00 10-13 00:00 :00 No [id number] 750mg TAKE 1 TABLET BY MOUTH IN THE MORNING AND IN THE EVENING [facility] ketorolac (TORADOL) injection 30 mg 06-17 16:15: 00 06-17 15:46 :00 No [id number] 30mg [facility] SERTraline 100 mg tablet 06-17 00:00: 00 10-27 00:00 :00 No [id number] 100mg Take 1 tablet by mouth in the morning. [facility] topiramate 25 mg tablet 06-07 00:00: 00 11-04 00:00 :00 No 25mg Take 1 tablet by mouth in the morning and 1 tablet in the evening. [facility] levETIRAcet am 750 mg tablet 05-23 00:00: 00 07-14 00:00 :00 No [id number] 750mg Take 1 tablet by mouth in the morning and 1 tablet in the evening. [facility] MULTIVITAMI N (KID'S VITAMINS ORAL) 04-22 13:04: 08 04-22 00:00 :00 No Take by mouth. [facility] METOCLOPRAM LUCILA HCL (REGLAN ORAL) 04-22 13:03: 56 04-22 00:00 :00 No Take by mouth. [facility] SERTraline 50 mg tablet 04-22 00:00: 00 06-17 00:00 :00 No [id number] 25mg Take 0.5 tablets by mouth in the morning. Then may increase to 1 tablet by mouth daily if no response by 1 week [facility] levETIRAcet am 750 mg tablet 04-08 00:00: 00 04-22 00:00 :00 No 750mg Take 1 tablet by mouth in the morning and 1 tablet in the evening. [facility] METOCLOPRAM LUCILA HCL (REGLAN ORAL) 01-23 15:15: 59 Yes Take by mouth. [facility] Immunizations Ordered Immunization Name Filled Immunization Name Date Status Comments Source Influenza Virus Vaccine Quad IM, Preserv and ABX Free 6 MO-64 YRS (FLUCELVAX) 2023-08-18 00:00:00 Completed [facility] Pneumococcal 20 Conjugate, PCV20 (Prevnar 20) 2023-08-18 00:00:00 Completed [facility] TDAP 2023-08-18 00:00:00 Completed [facility] Influenza Virus Vaccine Quad IM, Preserv and ABX Free 6 MO-64 YRS (FLUCELVAX) Unknown Completed [facility] Pneumococcal 20 Conjugate, PCV20 (Prevnar 20) Unknown Completed [facility] TDAP Unknown Completed [facility] Influenza Virus Vaccine Quad IM, Preserv and ABX Free 6 MO-64 YRS (FLUCELVAX) Unknown Completed [facility] Pneumococcal 20 Conjugate, PCV20 (Prevnar 20) Unknown Completed [facility] TDAP Unknown Completed [facility] Influenza Virus Vaccine Quad IM, Preserv and ABX Free 6 MO-64 YRS (FLUCELVAX) Unknown Completed [facility] Pneumococcal 20 Conjugate, PCV20 (Prevnar 20) Unknown Completed [facility] TDAP Unknown Completed [facility] Influenza Virus Vaccine Quad IM, Preserv and ABX Free 6 MO-64 YRS (FLUCELVAX) Unknown Completed [facility] Pneumococcal 20 Conjugate, PCV20 (Prevnar 20) Unknown Completed [facility] TDAP Unknown Completed [facility] Influenza Virus Vaccine Quad IM, Preserv and ABX Free 6 MO-64 YRS (FLUCELVAX) Unknown Completed [facility] Pneumococcal 20 Conjugate, PCV20 (Prevnar 20) Unknown Completed [facility] TDAP Unknown Completed [facility] Influenza Virus Vaccine Quad IM, Preserv and ABX Free 6 MO-64 YRS (FLUCELVAX) Unknown Completed [facility] Pneumococcal 20 Conjugate, PCV20 (Prevnar 20) Unknown Completed [facility] TDAP Unknown Completed [facility] Influenza Virus Vaccine Quad IM, Preserv and ABX Free 6 MO-64 YRS (FLUCELVAX) Unknown Completed [facility] Pneumococcal 20 Conjugate, PCV20 (Prevnar 20) Unknown Completed [facility] TDAP Unknown Completed [facility] Influenza Virus Vaccine Quad IM, Preserv and ABX Free 6 MO-64 YRS (FLUCELVAX) Unknown Completed [facility] Pneumococcal 20 Conjugate, PCV20 (Prevnar 20) Unknown Completed [facility] TDAP Unknown Completed [facility] Influenza Virus Vaccine Quad IM, Preserv and ABX Free 6 MO-64 YRS (FLUCELVAX) Unknown Completed [facility] Pneumococcal 20 Conjugate, PCV20 (Prevnar 20) Unknown Completed [facility] TDAP Unknown Completed [facility] Influenza Virus Vaccine Quad IM, Preserv and ABX Free 6 MO-64 YRS (FLUCELVAX) Unknown Completed [facility] Pneumococcal 20 Conjugate, PCV20 (Prevnar 20) Unknown Completed [facility] TDAP Unknown Completed [facility] Influenza Virus Vaccine Quad IM, Preserv and ABX Free 6 MO-64 YRS (FLUCELVAX) Unknown Completed [facility] Pneumococcal 20 Conjugate, PCV20 (Prevnar 20) Unknown Completed [facility] TDAP Unknown Completed [facility] Influenza Virus Vaccine Quad IM, Preserv and ABX Free 6 MO-64 YRS (FLUCELVAX) Unknown Completed [facility] Pneumococcal 20 Conjugate, PCV20 (Prevnar 20) Unknown Completed [facility] TDAP Unknown Completed [facility] Influenza Virus Vaccine Quad IM, Preserv and ABX Free 6 MO-64 YRS (FLUCELVAX) Unknown Completed [facility] Pneumococcal 20 Conjugate, PCV20 (Prevnar 20) Unknown Completed [facility] TDAP Unknown Completed [facility] Influenza Virus Vaccine Quad IM, Preserv and ABX Free 6 MO-64 YRS (FLUCELVAX) Unknown Completed [facility] Pneumococcal 20 Conjugate, PCV20 (Prevnar 20) Unknown Completed [facility] TDAP Unknown Completed [facility] Influenza Virus Vaccine Quad IM, Preserv and ABX Free 6 MO-64 YRS (FLUCELVAX) Unknown Completed [facility] Pneumococcal 20 Conjugate, PCV20 (Prevnar 20) Unknown Completed [facility] TDAP Unknown Completed [facility] Influenza Virus Vaccine Quad IM, Preserv and ABX Free 6 MO-64 YRS (FLUCELVAX) Unknown Completed [facility] Pneumococcal 20 Conjugate, PCV20 (Prevnar 20) Unknown Completed [facility] TDAP Unknown Completed [facility] Influenza Virus Vaccine Quad IM, Preserv and ABX Free 6 MO-64 YRS (FLUCELVAX) Unknown Completed [facility] Pneumococcal 20 Conjugate, PCV20 (Prevnar 20) Unknown Completed [facility] TDAP Unknown Completed [facility] Influenza Virus Vaccine Quad IM, Preserv and ABX Free 6 MO-64 YRS (FLUCELVAX) Unknown Completed [facility] Pneumococcal 20 Conjugate, PCV20 (Prevnar 20) Unknown Completed [facility] TDAP Unknown Completed [facility] Influenza Virus Vaccine Quad IM, Preserv and ABX Free 6 MO-64 YRS (FLUCELVAX) Unknown Completed [facility] Pneumococcal 20 Conjugate, PCV20 (Prevnar 20) Unknown Completed [facility] TDAP Unknown Completed [facility] Influenza Virus Vaccine Quad IM, Preserv and ABX Free 6 MO-64 YRS (FLUCELVAX) Unknown Completed [facility] Pneumococcal 20 Conjugate, PCV20 (Prevnar 20) Unknown Completed [facility] TDAP Unknown Completed [facility] Influenza Virus Vaccine Quad IM, Preserv and ABX Free 6 MO-64 YRS (FLUCELVAX) Unknown Completed [facility] Pneumococcal 20 Conjugate, PCV20 (Prevnar 20) Unknown Completed [facility] TDAP Unknown Completed [facility] Influenza Virus Vaccine Quad IM, Preserv and ABX Free 6 MO-64 YRS (FLUCELVAX) Unknown Completed [facility] Pneumococcal 20 Conjugate, PCV20 (Prevnar 20) Unknown Completed [facility] TDAP Unknown Completed [facility] Influenza Virus Vaccine Quad IM, Preserv and ABX Free 6 MO-64 YRS (FLUCELVAX) Unknown Completed [facility] Pneumococcal 20 Conjugate, PCV20 (Prevnar 20) Unknown Completed [facility] TDAP Unknown Completed [facility] Influenza Virus Vaccine Quad IM, Preserv and ABX Free 6 MO-64 YRS (FLUCELVAX) Unknown Completed [facility] Pneumococcal 20 Conjugate, PCV20 (Prevnar 20) Unknown Completed [facility] TDAP Unknown Completed [facility] Influenza Virus Vaccine Quad IM, Preserv and ABX Free 6 MO-64 YRS (FLUCELVAX) Unknown Completed [facility] Pneumococcal 20 Conjugate, PCV20 (Prevnar 20) Unknown Completed [facility] TDAP Unknown Completed [facility] Influenza Virus Vaccine Quad IM, Preserv and ABX Free 6 MO-64 YRS (FLUCELVAX) Unknown Completed [facility] Pneumococcal 20 Conjugate, PCV20 (Prevnar 20) Unknown Completed [facility] TDAP Unknown Completed [facility] Influenza Virus Vaccine Quad IM, Preserv and ABX Free 6 MO-64 YRS (FLUCELVAX) Unknown Completed [facility] Pneumococcal 20 Conjugate, PCV20 (Prevnar 20) Unknown Completed [facility] TDAP Unknown Completed [facility] Influenza Virus Vaccine Quad IM, Preserv and ABX Free 6 MO-64 YRS (FLUCELVAX) Unknown Completed [facility] Pneumococcal 20 Conjugate, PCV20 (Prevnar 20) Unknown Completed [facility] TDAP Unknown Completed [facility] Influenza Virus Vaccine Quad IM, Preserv and ABX Free 6 MO-64 YRS (FLUCELVAX) Unknown Completed [facility] Pneumococcal 20 Conjugate, PCV20 (Prevnar 20) Unknown Completed [facility] TDAP Unknown Completed [facility] Influenza Virus Vaccine Quad IM, Preserv and ABX Free 6 MO-64 YRS (FLUCELVAX) Unknown Completed [facility] Pneumococcal 20 Conjugate, PCV20 (Prevnar 20) Unknown Completed [facility] TDAP Unknown Completed [facility] Influenza Virus Vaccine Quad IM, Preserv and ABX Free 6 MO-64 YRS (FLUCELVAX) Unknown Completed [facility] Pneumococcal 20 Conjugate, PCV20 (Prevnar 20) Unknown Completed [facility] TDAP Unknown Completed [facility] Influenza Virus Vaccine Quad IM, Preserv and ABX Free 6 MO-64 YRS (FLUCELVAX) Unknown Completed [facility] Pneumococcal 20 Conjugate, PCV20 (Prevnar 20) Unknown Completed [facility] TDAP Unknown Completed [facility] Influenza Virus Vaccine Quad IM, Preserv and ABX Free 6 MO-64 YRS (FLUCELVAX) Unknown Completed [facility] Pneumococcal 20 Conjugate, PCV20 (Prevnar 20) Unknown Completed [facility] TDAP Unknown Completed [facility] Influenza Virus Vaccine Quad IM, Preserv and ABX Free 6 MO-64 YRS (FLUCELVAX) Unknown Completed [facility] Pneumococcal 20 Conjugate, PCV20 (Prevnar 20) Unknown Completed [facility] TDAP Unknown Completed [facility] Influenza Virus Vaccine Quad IM, Preserv and ABX Free 6 MO-64 YRS (FLUCELVAX) Unknown Completed [facility] Pneumococcal 20 Conjugate, PCV20 (Prevnar 20) Unknown Completed [facility] TDAP Unknown Completed [facility] Influenza Virus Vaccine Quad IM, Preserv and ABX Free 6 MO-64 YRS (FLUCELVAX) Unknown Completed [facility] Pneumococcal 20 Conjugate, PCV20 (Prevnar 20) Unknown Completed [facility] TDAP Unknown Completed [facility] Influenza Virus Vaccine Quad IM, Preserv and ABX Free 6 MO-64 YRS (FLUCELVAX) Unknown Completed [facility] Pneumococcal 20 Conjugate, PCV20 (Prevnar 20) Unknown Completed [facility] TDAP Unknown Completed [facility] Influenza Virus Vaccine Quad IM, Preserv and ABX Free 6 MO-64 YRS (FLUCELVAX) Unknown Completed [facility] Pneumococcal 20 Conjugate, PCV20 (Prevnar 20) Unknown Completed [facility] TDAP Unknown Completed [facility] Influenza Virus Vaccine Quad IM, Preserv and ABX Free 6 MO-64 YRS (FLUCELVAX) Unknown Completed [facility] Pneumococcal 20 Conjugate, PCV20 (Prevnar 20) Unknown Completed [facility] TDAP Unknown Completed [facility] Influenza Virus Vaccine Quad IM, Preserv and ABX Free 6 MO-64 YRS (FLUCELVAX) Unknown Completed [facility] Pneumococcal 20 Conjugate, PCV20 (Prevnar 20) Unknown Completed [facility] TDAP Unknown Completed [facility] Influenza Virus Vaccine Quad IM, Preserv and ABX Free 6 MO-64 YRS (FLUCELVAX) Unknown Completed [facility] Pneumococcal 20 Conjugate, PCV20 (Prevnar 20) Unknown Completed [facility] TDAP Unknown Completed [facility] Influenza Virus Vaccine Quad IM, Preserv and ABX Free 6 MO-64 YRS (FLUCELVAX) Unknown Completed [facility] Pneumococcal 20 Conjugate, PCV20 (Prevnar 20) Unknown Completed [facility] TDAP Unknown Completed [facility] Influenza Virus Vaccine Quad IM, Preserv and ABX Free 6 MO-64 YRS (FLUCELVAX) Unknown Completed [facility] Pneumococcal 20 Conjugate, PCV20 (Prevnar 20) Unknown Completed [facility] TDAP Unknown Completed [facility] Influenza Virus Vaccine Quad IM, Preserv and ABX Free 6 MO-64 YRS (FLUCELVAX) Unknown Completed [facility] Pneumococcal 20 Conjugate, PCV20 (Prevnar 20) Unknown Completed [facility] TDAP Unknown Completed [facility] Influenza Virus Vaccine Quad IM, Preserv and ABX Free 6 MO-64 YRS (FLUCELVAX) Unknown Completed [facility] Pneumococcal 20 Conjugate, PCV20 (Prevnar 20) Unknown Completed [facility] TDAP Unknown Completed [facility] Influenza Virus Vaccine Quad IM, Preserv and ABX Free 6 MO-64 YRS (FLUCELVAX) Unknown Completed [facility] Pneumococcal 20 Conjugate, PCV20 (Prevnar 20) Unknown Completed [facility] TDAP Unknown Completed [facility] Influenza Virus Vaccine Quad IM, Preserv and ABX Free 6 MO-64 YRS (FLUCELVAX) Unknown Completed [facility] Pneumococcal 20 Conjugate, PCV20 (Prevnar 20) Unknown Completed [facility] TDAP Unknown Completed [facility] Influenza Virus Vaccine Quad IM, Preserv and ABX Free 6 MO-64 YRS (FLUCELVAX) Unknown Completed [facility] Pneumococcal 20 Conjugate, PCV20 (Prevnar 20) Unknown Completed [facility] TDAP Unknown Completed [facility] Influenza Virus Vaccine Quad IM, Preserv and ABX Free 6 MO-64 YRS (FLUCELVAX) Unknown Completed [facility] Pneumococcal 20 Conjugate, PCV20 (Prevnar 20) Unknown Completed [facility] TDAP Unknown Completed [facility] Influenza Virus Vaccine Quad IM, Preserv and ABX Free 6 MO-64 YRS (FLUCELVAX) Unknown Completed [facility] Pneumococcal 20 Conjugate, PCV20 (Prevnar 20) Unknown Completed [facility] TDAP Unknown Completed [facility] Influenza Virus Vaccine Quad IM, Preserv and ABX Free 6 MO-64 YRS (FLUCELVAX) Unknown Completed [facility] Pneumococcal 20 Conjugate, PCV20 (Prevnar 20) Unknown Completed [facility] TDAP Unknown Completed [facility] Influenza Virus Vaccine Quad IM, Preserv and ABX Free 6 MO-64 YRS (FLUCELVAX) Unknown Completed [facility] Pneumococcal 20 Conjugate, PCV20 (Prevnar 20) Unknown Completed [facility] TDAP Unknown Completed [facility] Influenza Virus Vaccine Quad IM, Preserv and ABX Free 6 MO-64 YRS (FLUCELVAX) Unknown Completed [facility] Pneumococcal 20 Conjugate, PCV20 (Prevnar 20) Unknown Completed [facility] TDAP Unknown Completed [facility] Influenza Virus Vaccine Quad IM, Preserv and ABX Free 6 MO-64 YRS (FLUCELVAX) Unknown Completed [facility] Pneumococcal 20 Conjugate, PCV20 (Prevnar 20) Unknown Completed [facility] TDAP Unknown Completed [facility] Influenza Virus Vaccine Quad IM, Preserv and ABX Free 6 MO-64 YRS (FLUCELVAX) Unknown Completed [facility] Pneumococcal 20 Conjugate, PCV20 (Prevnar 20) Unknown Completed [facility] TDAP Unknown Completed [facility] Influenza Virus Vaccine Quad IM, Preserv and ABX Free 6 MO-64 YRS (FLUCELVAX) Unknown Completed [facility] Pneumococcal 20 Conjugate, PCV20 (Prevnar 20) Unknown Completed [facility] TDAP Unknown Completed [facility] Influenza Virus Vaccine Quad IM, Preserv and ABX Free 6 MO-64 YRS (FLUCELVAX) Unknown Completed [facility] Pneumococcal 20 Conjugate, PCV20 (Prevnar 20) Unknown Completed [facility] TDAP Unknown Completed [facility] Influenza Virus Vaccine Quad IM, Preserv and ABX Free 6 MO-64 YRS (FLUCELVAX) Unknown Completed [facility] Pneumococcal 20 Conjugate, PCV20 (Prevnar 20) Unknown Completed [facility] TDAP Unknown Completed [facility] Influenza Virus Vaccine Quad IM, Preserv and ABX Free 6 MO-64 YRS (FLUCELVAX) Unknown Completed [facility] Pneumococcal 20 Conjugate, PCV20 (Prevnar 20) Unknown Completed [facility] TDAP Unknown Completed [facility] Influenza Virus Vaccine Quad IM, Preserv and ABX Free 6 MO-64 YRS (FLUCELVAX) Unknown Completed [facility] Pneumococcal 20 Conjugate, PCV20 (Prevnar 20) Unknown Completed [facility] TDAP Unknown Completed [facility] Influenza Virus Vaccine Quad IM, Preserv and ABX Free 6 MO-64 YRS (FLUCELVAX) Unknown Completed [facility] Pneumococcal 20 Conjugate, PCV20 (Prevnar 20) Unknown Completed [facility] TDAP Unknown Completed [facility] Influenza Virus Vaccine Quad IM, Preserv and ABX Free 6 MO-64 YRS (FLUCELVAX) Unknown Completed [facility] Pneumococcal 20 Conjugate, PCV20 (Prevnar 20) Unknown Completed [facility] TDAP Unknown Completed [facility] Influenza Virus Vaccine Quad IM, Preserv and ABX Free 6 MO-64 YRS (FLUCELVAX) Unknown Completed [facility] Pneumococcal 20 Conjugate, PCV20 (Prevnar 20) Unknown Completed [facility] TDAP Unknown Completed [facility] Influenza Virus Vaccine Quad IM, Preserv and ABX Free 6 MO-64 YRS (FLUCELVAX) Unknown Completed [facility] Pneumococcal 20 Conjugate, PCV20 (Prevnar 20) Unknown Completed [facility] TDAP Unknown Completed [facility] Influenza Virus Vaccine Quad IM, Preserv and ABX Free 6 MO-64 YRS (FLUCELVAX) Unknown Completed [facility] Pneumococcal 20 Conjugate, PCV20 (Prevnar 20) Unknown Completed [facility] TDAP Unknown Completed [facility] Influenza Virus Vaccine Quad IM, Preserv and ABX Free 6 MO-64 YRS (FLUCELVAX) Unknown Completed [facility] Pneumococcal 20 Conjugate, PCV20 (Prevnar 20) Unknown Completed [facility] TDAP Unknown Completed [facility] Influenza Virus Vaccine Quad IM, Preserv and ABX Free 6 MO-64 YRS (FLUCELVAX) Unknown Completed [facility] Pneumococcal 20 Conjugate, PCV20 (Prevnar 20) Unknown Completed [facility] TDAP Unknown Completed [facility] Influenza Virus Vaccine Quad IM, Preserv and ABX Free 6 MO-64 YRS (FLUCELVAX) Unknown Completed [facility] Pneumococcal 20 Conjugate, PCV20 (Prevnar 20) Unknown Completed [facility] TDAP Unknown Completed [facility] Influenza Virus Vaccine Quad IM, Preserv and ABX Free 6 MO-64 YRS (FLUCELVAX) Unknown Completed [facility] Pneumococcal 20 Conjugate, PCV20 (Prevnar 20) Unknown Completed [facility] TDAP Unknown Completed [facility] Influenza Virus Vaccine Quad IM, Preserv and ABX Free 6 MO-64 YRS (FLUCELVAX) Unknown Completed [facility] Pneumococcal 20 Conjugate, PCV20 (Prevnar 20) Unknown Completed [facility] TDAP Unknown Completed [facility] Influenza Virus Vaccine Quad IM, Preserv and ABX Free 6 MO-64 YRS (FLUCELVAX) Unknown Completed [facility] Pneumococcal 20 Conjugate, PCV20 (Prevnar 20) Unknown Completed [facility] TDAP Unknown Completed [facility] Influenza Virus Vaccine Quad IM, Preserv and ABX Free 6 MO-64 YRS (FLUCELVAX) Unknown Completed [facility] Pneumococcal 20 Conjugate, PCV20 (Prevnar 20) Unknown Completed [facility] TDAP Unknown Completed [facility] Influenza Virus Vaccine Quad IM, Preserv and ABX Free 6 MO-64 YRS (FLUCELVAX) Unknown Completed [facility] Pneumococcal 20 Conjugate, PCV20 (Prevnar 20) Unknown Completed [facility] TDAP Unknown Completed [facility] Influenza Virus Vaccine Quad IM, Preserv and ABX Free 6 MO-64 YRS (FLUCELVAX) Unknown Completed [facility] Pneumococcal 20 Conjugate, PCV20 (Prevnar 20) Unknown Completed [facility] TDAP Unknown Completed [facility] Influenza Virus Vaccine Quad IM, Preserv and ABX Free 6 MO-64 YRS (FLUCELVAX) Unknown Completed [facility] [facility] Pneumococcal 20 Conjugate, PCV20 (Prevnar 20) Unknown Completed [facility] TDAP Unknown Completed [facility] Influenza Virus Vaccine Quad IM, Preserv and ABX Free 6 MO-64 YRS (FLUCELVAX) Unknown Completed [facility] Pneumococcal 20 Conjugate, PCV20 (Prevnar 20) Unknown Completed [facility] TDAP Unknown Completed [facility] Influenza Virus Vaccine Quad IM, Preserv and ABX Free 6 MO-64 YRS (FLUCELVAX) Unknown Completed [facility] Pneumococcal 20 Conjugate, PCV20 (Prevnar 20) Unknown Completed [facility] TDAP Unknown Completed [facility] Influenza Virus Vaccine Quad IM, Preserv and ABX Free 6 MO-64 YRS (FLUCELVAX) Unknown Completed [facility] Pneumococcal 20 Conjugate, PCV20 (Prevnar 20) Unknown Completed [facility] TDAP Unknown Completed [facility] Influenza Virus Vaccine Quad IM, Preserv and ABX Free 6 MO-64 YRS (FLUCELVAX) Unknown Completed [facility] Pneumococcal 20 Conjugate, PCV20 (Prevnar 20) Unknown Completed [facility] TDAP Unknown Completed [facility] Influenza Virus Vaccine Quad IM, Preserv and ABX Free 6 MO-64 YRS (FLUCELVAX) Unknown Completed [facility] Pneumococcal 20 Conjugate, PCV20 (Prevnar 20) Unknown Completed [facility] TDAP Unknown Completed [facility] Influenza Virus Vaccine Quad IM, Preserv and ABX Free 6 MO-64 YRS (FLUCELVAX) Unknown Completed [facility] Pneumococcal 20 Conjugate, PCV20 (Prevnar 20) Unknown Completed [facility] TDAP Unknown Completed [facility] Influenza Virus Vaccine Quad IM, Preserv and ABX Free 6 MO-64 YRS (FLUCELVAX) Unknown Completed [facility] Pneumococcal 20 Conjugate, PCV20 (Prevnar 20) Unknown Completed [facility] TDAP Unknown Completed [facility] Influenza Virus Vaccine Quad IM, Preserv and ABX Free 6 MO-64 YRS (FLUCELVAX) Unknown Completed [facility] Pneumococcal 20 Conjugate, PCV20 (Prevnar 20) Unknown Completed [facility] TDAP Unknown Completed [facility] Influenza Virus Vaccine Quad IM, Preserv and ABX Free 6 MO-64 YRS (FLUCELVAX) Unknown Completed [facility] Pneumococcal 20 Conjugate, PCV20 (Prevnar 20) Unknown Completed [facility] TDAP Unknown Completed [facility] Influenza Virus Vaccine Quad IM, Preserv and ABX Free 6 MO-64 YRS (FLUCELVAX) Unknown Completed [facility] Pneumococcal 20 Conjugate, PCV20 (Prevnar 20) Unknown Completed [facility] TDAP Unknown Completed [facility] Influenza Virus Vaccine Quad IM, Preserv and ABX Free 6 MO-64 YRS (FLUCELVAX) Unknown Completed [facility] Pneumococcal 20 Conjugate, PCV20 (Prevnar 20) Unknown Completed [facility] TDAP Unknown Completed [facility] Influenza Virus Vaccine Quad IM, Preserv and ABX Free 6 MO-64 YRS (FLUCELVAX) Unknown Completed [facility] Pneumococcal 20 Conjugate, PCV20 (Prevnar 20) Unknown Completed [facility] TDAP Unknown Completed [facility] Influenza Virus Vaccine Quad IM, Preserv and ABX Free 6 MO-64 YRS (FLUCELVAX) Unknown Completed [facility] Pneumococcal 20 Conjugate, PCV20 (Prevnar 20) Unknown Completed [facility] TDAP Unknown Completed [facility] Influenza Virus Vaccine Quad IM, Preserv and ABX Free 6 MO-64 YRS (FLUCELVAX) Unknown Completed [facility] Pneumococcal 20 Conjugate, PCV20 (Prevnar 20) Unknown Completed [facility] TDAP Unknown Completed [facility] Influenza Virus Vaccine Quad IM, Preserv and ABX Free 6 MO-64 YRS (FLUCELVAX) Unknown Completed [facility] Pneumococcal 20 Conjugate, PCV20 (Prevnar 20) Unknown Completed [facility] TDAP Unknown Completed [facility] Influenza Virus Vaccine Quad IM, Preserv and ABX Free 6 MO-64 YRS (FLUCELVAX) Unknown Completed [facility] Pneumococcal 20 Conjugate, PCV20 (Prevnar 20) Unknown Completed [facility] TDAP Unknown Completed [facility] Influenza Virus Vaccine Quad IM, Preserv and ABX Free 6 MO-64 YRS (FLUCELVAX) Unknown Completed [facility] Pneumococcal 20 Conjugate, PCV20 (Prevnar 20) Unknown Completed [facility] TDAP Unknown Completed [facility] Influenza Virus Vaccine Quad IM, Preserv and ABX Free 6 MO-64 YRS (FLUCELVAX) Unknown Completed [facility] Pneumococcal 20 Conjugate, PCV20 (Prevnar 20) Unknown Completed [facility] TDAP Unknown Completed [facility] Influenza Virus Vaccine Quad IM, Preserv and ABX Free 6 MO-64 YRS (FLUCELVAX) Unknown Completed [facility] Pneumococcal 20 Conjugate, PCV20 (Prevnar 20) Unknown Completed [facility] TDAP Unknown Completed [facility] Vital Signs Vital Name Observation Time Observation Value Comments S ource Systolic blood pressure 2024-07-11 19:56:00 120 mm[Hg] [facility] Diastolic blood pressure 2024-07-11 19:56:00 76 mm[Hg] [facility] Heart rate 2024-07-11 19:56:00 95 /min [facility] Body temperature 2024-07-11 19:56:00 37.33 Monika [facility] Body height 2024-07-11 19:56:00 160 cm [facility] Body weight 2024-07-11 19:56:00 61.326 kg [facility] BMI 2024-07-11 19:56:00 23.95 kg/m2 [facility] Oxygen saturation in Arterial blood by Pulse oximetry 2024-07-11 19:56:00 98 /min [facility] Systolic blood pressure 2024-07-09 18:48:00 109 mm[Hg] [facility] Diastolic blood pressure 2024-07-09 18:48:00 71 mm[Hg] [facility] Heart rate 2024-07-09 18:48:00 75 /min [facility] Body height 2024-07-09 18:48:00 160 cm [facility] Body weight 2024-07-09 18:48:00 60.328 kg [facility] BMI 2024-07-09 18:48:00 23.56 kg/m2 [facility] Oxygen saturation in Arterial blood by Pulse oximetry 2024-07-09 18:48:00 98 /min [facility] Body temperature 2024-07-04 18:11:00 36 Monika [facility] Body height 2024-07-04 18:11:00 160 cm [facility] Body weight 2024-07-04 18:11:00 60.464 kg [facility] BMI 2024-07-04 18:11:00 23.61 kg/m2 [facility] Oxygen saturation in Arterial blood by Pulse oximetry 2024-05-03 16:47:00 99 /min [facility] Systolic blood pressure 2024-05-03 16:47:00 108 mm[Hg] [facility] Diastolic blood pressure 2024-05-03 16:47:00 75 mm[Hg] [facility] Heart rate 2024-05-03 16:47:00 76 /min [facility] Body temperature 2024-05-03 16:47:00 37.06 Monika [facility] Respiratory rate 2024-05-03 16:47:00 20 /min [facility] Body height 2024-05-03 16:47:00 160 cm [facility] Body weight 2024-05-03 16:47:00 58.968 kg [facility] BMI 2024-05-03 16:47:00 23.03 kg/m2 [facility] Systolic blood pressure 2024-05-01 18:22:00 102 mm[Hg] [facility] Diastolic blood pressure 2024-05-01 18:22:00 68 mm[Hg] [facility] Heart rate 2024-05-01 18:22:00 88 /min [facility] Body temperature 2024-05-01 18:22:00 36.72 Monika [facility] Respiratory rate 2024-05-01 18:22:00 18 /min [facility] Body height 2024-05-01 18:22:00 160 cm [facility] Body weight 2024-05-01 18:22:00 58.968 kg [facility] BMI 2024-05-01 18:22:00 23.03 kg/m2 [facility] Oxygen saturation in Arterial blood by Pulse oximetry 2024-05-01 18:22:00 100 /min [facility] Systolic blood pressure 2024-04-15 20:19:00 99 mm[Hg] [facility] Diastolic blood pressure 2024-04-15 20:19:00 60 mm[Hg] [facility] Heart rate 2024-04-15 20:19:00 79 /min [facility] Body temperature 2024-04-15 20:19:00 36.72 Monika [facility] Respiratory rate 2024-04-15 20:19:00 16 /min [facility] Oxygen saturation in Arterial blood by Pulse oximetry 2024-04-15 20:19:00 98 /min [facility] Body weight 2024-04-15 08:29:00 61.961 kg [facility] BMI 2024-04-15 08:29:00 24.20 kg/m2 [facility] Body height 2024-04-14 04:12:00 160 cm [facility] Heart rate 2024-04-14 17:06:00 66 /min [facility] Respiratory rate 2024-04-14 17:06:00 18 /min [facility] Oxygen saturation in Arterial blood by Pulse oximetry 2024-04-14 17:06:00 100 /min [facility] Systolic blood pressure 2024-04-14 17:05:00 110 mm[Hg] [facility] Diastolic blood pressure 2024-04-14 17:05:00 67 mm[Hg] [facility] Body temperature 2024-04-14 16:35:00 36.56 Monika [facility] Body height 2024-04-14 04:12:00 160 cm [facility] Body weight 2024-04-14 04:12:00 58.968 kg [facility] BMI 2024-04-14 04:12:00 24.20 kg/m2 [facility] Body weight 2024-04-10 20:18:00 59.194 kg [facility] BMI 2024-04-10 20:18:00 23.12 kg/m2 [facility] Systolic blood pressure 2024-04-09 14:33:00 101 mm[Hg] [facility] Diastolic blood pressure 2024-04-09 14:33:00 71 mm[Hg] [facility] Heart rate 2024-04-09 14:33:00 83 /min [facility] Body temperature 2024-04-09 14:33:00 36.56 Monika [facility] Respiratory rate 2024-04-09 14:33:00 18 /min [facility] Body height 2024-04-09 14:33:00 160 cm [facility] Body weight 2024-04-09 14:33:00 59.512 kg [facility] BMI 2024-04-09 14:33:00 23.24 kg/m2 [facility] Systolic blood pressure 2024-03-08 14:49:00 101 mm[Hg] [facility] Diastolic blood pressure 2024-03-08 14:49:00 67 mm[Hg] [facility] Heart rate 2024-03-08 14:49:00 87 /min [facility] Respiratory rate 2024-03-08 14:49:00 16 /min [facility] Body height 2024-03-08 14:49:00 160 cm [facility] Body weight 2024-03-08 14:49:00 59.648 kg [facility] BMI 2024-03-08 14:49:00 23.29 kg/m2 [facility] Oxygen saturation in Arterial blood by Pulse oximetry 2024-03-08 14:49:00 99 /min [facility] Systolic blood pressure 2024-02-28 14:59:00 107 mm[Hg] [facility] Diastolic blood pressure 2024-02-28 14:59:00 75 mm[Hg] [facility] Heart rate 2024-02-28 14:59:00 71 /min [facility] Body height 2024-02-28 14:59:00 160 cm [facility] Body weight 2024-02-28 14:59:00 59.512 kg [facility] BMI 2024-02-28 14:59:00 23.24 kg/m2 [facility] Oxygen saturation in Arterial blood by Pulse oximetry 2024-02-28 14:59:00 100 /min [facility] Systolic blood pressure 2024-02-14 19:51:00 103 mm[Hg] [facility] Diastolic blood pressure 2024-02-14 19:51:00 71 mm[Hg] [facility] Heart rate 2024-02-14 19:51:00 76 /min [facility] Respiratory rate 2024-02-14 19:51:00 18 /min [facility] Body height 2024-02-14 19:51:00 160 cm [facility] Body weight 2024-02-14 19:51:00 59.285 kg [facility] BMI 2024-02-14 19:51:00 23.15 kg/m2 [facility] Oxygen saturation in Arterial blood by Pulse oximetry 2024-02-14 19:51:00 100 /min [facility] Systolic blood pressure 2024-01-11 13:09:00 99 mm[Hg] [facility] Diastolic blood pressure 2024-01-11 13:09:00 65 mm[Hg] [facility] Heart rate 2024-01-11 13:09:00 81 /min [facility] Body temperature 2024-01-11 13:09:00 36.39 Monika [facility] Body height 2024-01-11 13:09:00 160 cm [facility] Body weight 2024-01-11 13:09:00 60.782 kg [facility] BMI 2024-01-11 13:09:00 23.74 kg/m2 [facility] Oxygen saturation in Arterial blood by Pulse oximetry 2024-01-11 13:09:00 100 /min [facility] Systolic blood pressure 2023-12-03 23:19:44 110 mm[Hg] [facility] Diastolic blood pressure 2023-12-03 23:19:44 65 mm[Hg] [facility] Heart rate 2023-12-03 23:19:44 81 [facility] 2023-12-03 23:19:44 15 /min [facility] Oxygen saturation in Arterial blood by Pulse oximetry 2023-12-03 23:19:44 97 /min [facility] Body temperature 2023-12-03 20:08:49 36.67 Monika [facility] Systolic blood pressure 2023-12-01 20:25:00 92 mm[Hg] [facility] Diastolic blood pressure 2023-12-01 20:25:00 66 mm[Hg] [facility] Heart rate 2023-12-01 20:25:00 89 /min [facility] Body temperature 2023-12-01 20:25:00 36.72 Monika [facility] Respiratory rate 2023-12-01 20:25:00 18 /min [facility] Body height 2023-12-01 20:25:00 160 cm [facility] Body weight 2023-12-01 20:25:00 64.864 kg [facility] BMI 2023-12-01 20:25:00 25.33 kg/m2 [facility] Oxygen saturation in Arterial blood by Pulse oximetry 2023-12-01 20:25:00 99 /min [facility] Systolic blood pressure 2023-11-28 19:01:00 113 mm[Hg] [facility] Diastolic blood pressure 2023-11-28 19:01:00 74 mm[Hg] [facility] Heart rate 2023-11-28 19:01:00 76 /min [facility] Respiratory rate 2023-11-28 19:01:00 18 /min [facility] Body height 2023-11-28 19:01:00 160 cm [facility] Body weight 2023-11-28 19:01:00 64.91 kg [facility] BMI 2023-11-28 19:01:00 25.35 kg/m2 [facility] Oxygen saturation in Arterial blood by Pulse oximetry 2023-11-28 19:01:00 100 /min [facility] Systolic blood pressure 2023-11-16 19:53:00 123 mm[Hg] [facility] Diastolic blood pressure 2023-11-16 19:53:00 77 mm[Hg] [facility] Heart rate 2023-11-16 19:53:00 79 /min [facility] Respiratory rate 2023-11-16 19:53:00 18 /min [facility] Body height 2023-11-16 19:53:00 160 cm [facility] Body weight 2023-11-16 19:53:00 64.91 kg [facility] BMI 2023-11-16 19:53:00 25.35 kg/m2 [facility] Oxygen saturation in Arterial blood by Pulse oximetry 2023-11-16 19:53:00 99 /min [facility] Systolic blood pressure 2023-11-01 15:05:00 107 mm[Hg] [facility] Diastolic blood pressure 2023-11-01 15:05:00 71 mm[Hg] [facility] Heart rate 2023-11-01 15:05:00 81 /min [facility] Body temperature 2023-11-01 15:05:00 37 Monika [facility] Respiratory rate 2023-11-01 15:05:00 18 /min [facility] Body height 2023-11-01 15:05:00 [facility] 2023-11-01 15:05:00 63.957 kg [facility] BMI 2023-11-01 15:05:00 24.20 kg/m2 [facility] Systolic blood pressure 2023-10-27 21:36:00 104 mm[Hg] [facility] Diastolic blood pressure 2023-10-27 21:36:00 57 mm[Hg] [facility] Heart rate 2023-10-27 21:36:00 70 /min [facility] Body temperature 2023-10-27 21:36:00 36.72 Monika [facility] Body height 2023-10-27 21:36:00 162.6 cm [facility] Body weight 2023-10-27 21:36:00 64.774 kg [facility] BMI 2023-10-27 21:36:00 24.51 kg/m2 [facility] Oxygen saturation in Arterial blood by Pulse oximetry 2023-10-27 21:36:00 99 /min [facility] Body height 2023-10-03 16:37:00 160 cm [facility] Systolic blood pressure 2023-09-26 19:16:00 112 mm[Hg] [facility] Diastolic blood pressure 2023-09-26 19:16:00 78 mm[Hg] [facility] Heart rate 2023-09-26 19:16:00 88 /min [facility] Body height 2023-09-26 19:16:00 160 cm [facility] Body weight 2023-09-26 19:16:00 63.231 kg [facility] BMI 2023-09-26 19:16:00 24.69 kg/m2 [facility] Oxygen saturation in Arterial blood by Pulse oximetry 2023-09-26 19:16:00 97 /min [facility] Systolic blood pressure 2023-09-12 18:36:00 112 mm[Hg] [facility] Diastolic blood pressure 2023-09-12 18:36:00 80 mm[Hg] [facility] Heart rate 2023-09-12 18:36:00 81 /min [facility] Respiratory rate 2023-09-12 18:36:00 18 /min [facility] Body height 2023-09-12 18:36:00 160 cm [facility] Body weight 2023-09-12 18:36:00 62.687 kg [facility] BMI 2023-09-12 18:36:00 24.48 kg/m2 [facility] Oxygen saturation in Arterial blood by Pulse oximetry 2023-09-12 18:36:00 100 /min [facility] Systolic blood pressure 2023-08-18 15:48:00 122 mm[Hg] [facility] Diastolic blood pressure 2023-08-18 15:48:00 81 mm[Hg] [facility] Heart rate 2023-08-18 15:48:00 72 /min [facility] Body temperature 2023-08-18 15:48:00 36.78 Monika [facility] Body height 2023-08-18 15:48:00 160 cm [facility] Body weight 2023-08-18 15:48:00 63.141 kg [facility] BMI 2023-08-18 15:48:00 24.66 kg/m2 [facility] Oxygen saturation in Arterial blood by Pulse oximetry 2023-08-18 15:48:00 98 /min [facility] Systolic blood pressure 2023-06-17 14:55:00 98 mm[Hg] [facility] Diastolic blood pressure 2023-06-17 14:55:00 62 mm[Hg] [facility] Heart rate 2023-06-17 14:55:00 72 /min [facility] Body temperature 2023-06-17 14:55:00 36.56 Monika [facility] Respiratory rate 2023-06-17 14:55:00 16 /min [facility] Body height 2023-06-17 14:55:00 160 cm [facility] Body weight 2023-06-17 14:55:00 62.052 kg [facility] BMI 2023-06-17 14:55:00 24.23 kg/m2 [facility] Oxygen saturation in Arterial blood by Pulse oximetry 2023-06-17 14:55:00 100 /min [facility] Systolic blood pressure 2023-04-22 18:03:00 107 mm[Hg] [facility] Diastolic blood pressure 2023-04-22 18:03:00 69 mm[Hg] [facility] Heart rate 2023-04-22 18:03:00 81 /min [facility] Body temperature 2023-04-22 18:03:00 36.78 Monika [facility] Body height 2023-04-22 18:03:00 160 cm [facility] Body weight 2023-04-22 18:03:00 61.689 kg [facility] BMI 2023-04-22 18:03:00 24.09 kg/m2 [facility] Systolic blood pressure 2022-06-17 13:28:00 92 mm[Hg] [facility] Diastolic blood pressure 2022-06-17 13:28:00 55 mm[Hg] [facility] Heart rate 2022-06-17 13:28:00 68 /min [facility] Body height 2022-06-17 13:28:00 160 cm [facility] Body weight 2022-06-17 13:28:00 63.957 kg [facility] BMI 2022-06-17 13:28:00 24.98 kg/m2 [facility] Oxygen saturation in Arterial blood by Pulse oximetry 2022-06-17 13:28:00 97 /min [facility] Systolic blood pressure 2024-05-03 16:47:00 108 mm[Hg] [facility] Diastolic blood pressure 2024-05-03 16:47:00 75 mm[Hg] [facility] Heart rate 2024-05-03 16:47:00 76 /min [facility] Body temperature 2024-05-03 16:47:00 37.06 Monika [facility] Respiratory rate 2024-05-03 16:47:00 20 /min [facility] Body height 2024-05-03 16:47:00 160 cm [facility] Body weight 2024-05-03 16:47:00 58.968 kg [facility] BMI 2024-05-03 16:47:00 23.03 kg/m2 [facility] Oxygen saturation in Arterial blood by Pulse oximetry 2024-05-03 16:47:00 99 /min [facility] [facility] Procedures Procedure Date / Time Performed Performing Clinician Source BI BREAST CYST ASPIRATION LEFT 2024-05-15 15:21:00 Kw[facility]wo [facility] BI BREAST CYST ASPIRATION LEFT 2024-05-15 15:21:00 Fuad [facility] BI ULTRASOUND BREAST COMPLETE LEFT 2024-05-02 13:50:00 Fuad [facility] BI ULTRASOUND BREAST COMPLETE LEFT 2024-05-02 13:50:00 Fuad [facility] BI DIAGNOSTIC TOMOSYNTHESIS LEFT 2024-05-02 13:19:14 Fuad [facility] BI DIAGNOSTIC TOMOSYNTHESIS LEFT 2024-05-02 13:19:14 Fuad [facility] GC & CHLAMYDIA AMPLIFIED ASSAY 2024-05-01 20:15:00 Mike [facility] TRICHOMONAS AMPLIFIED ASSAY 2024-05-01 20:15:00 Mike [facility] BASIC METABOLIC PANEL (NA, K, CL, CO2, GLUCOSE, BUN, CREATININE, CA) 2024-04-15 08:44:00 Julianna [facility] CBC WITH DIFF 2024-04-15 08:44:00 Gilbert Frederick [facility] BASIC METABOLIC PANEL (NA, K, CL, CO2, GLUCOSE, BUN, CREATININE, CA) 2024-04-15 08:44:00 Julianna [facility] CBC WITH DIFF 2024-04-15 08:44:00 Julianna [facility] CBC WITH DIFF 2024-04-15 08:44:00 Julianna [facility] BASIC METABOLIC PANEL (NA, K, CL, CO2, GLUCOSE, BUN, CREATININE, CA) 2024-04-15 08:44:00 Julian[facility] FECES CULTURE 2024-04-14 22:46:00 Catherine Freeman [facility] SURGICAL PATHOLOGY EXAM 2024-04-14 16:19:00 Lanny Freeman [facility] EXAM UNDER ANESTHESIA 2024-04-14 15:40:00 Melani Freeman [facility] FLEXIBLE SIGMOIDOSCOPY 2024-04-14 15:40:00 Petra Freeman [facility] EXAM UNDER ANESTHESIA 2024-04-14 15:40:00 Melani Freeman [facility] FLEXIBLE SIGMOIDOSCOPY 2024-04-14 15:40:00 Petra Freeman [facility] MRSA / MSSA SCREEN BY PCR, [facility] 2024-04-14 14:46:00 [facility] MRSA / MSSA SCREEN BY PCR, [facility] 2024-04-14 14:46:00 Jabari Garcia [facility] MRSA / MSSA SCREEN BY PCR, [facility] 2024-04-14 14:46:00 Jabari Garcia [facility] CT ABDOMEN PELVIS W CONTRAST 2024-04-14 06[facility]27[facility] 2024-04-14 06:27:[address] [facility] PELVIS W CONTRAST 2024-04-14 06:27:45 Jayne Diaz [facility] LIPASE 2024-04-14 05:22:00 Jayne Diaz [facility] COMP. METABOLIC PANEL (51278) 2024-04-14 05:22:00 [facility] 2024-04-14 [facility]:22[facility]14 05:22:00 Jayne Diaz [facility] LIPASE 2024-04-14 05:22:00 Jayne Diaz [facility] COMP. METABOLIC PANEL (76370) 2024-04-14 05:22:00 [facility]FF 2024-04-14 05:22:00 Joe [facility] URINALYSIS 2024-04-14 05:22:00 Jayne Diaz [facility] COMP. METABOLIC PANEL ([id number]) 2024-04-14 05:22:00 Joe [facility] CBC WITH DIFF 2024-04-14 05:22:00 Joe [facility] LIPASE 2024-04-14 05:22:00 Jayne Diaz [facility] URINALYSIS 2024-04-14 05:22:00 Jayne Diaz [facility] POCT TEST 2024-04-14 05:19:00 Kateryna Diaz [facility] POCT TEST 2024-04-14 05:19:00 Kateryna Diaz [facility] POCT TEST 2024-04-14 05:19:00 Kateryna Diaz [facility] FLEXIBLE SCOPE ENT 2024-04-10 00:00:00 William Berumen [facility] FLEXIBLE SCOPE ENT 2024-04-10 00:00:00 William Berumen [facility] PAP SMEAR-LIQUID BASED-CP 2024-04-09 14:42:00 Sri Bush [facility] HIGH RISK HPV-THIN PREP 2024-04-09 14:42:00 Kwadwo Bush [facility] LAB ONLY PAP SMEAR-LIQUID BASED 2024-04-09 14:42:00 Kwadwo Bush [facility] MR FOREARM LEFT W WO CONTRAST 2024-03-28 17:55:58 Zeinab, [facility] MR FOREARM LEFT W WO CONTRAST 2024-03-28 17:55:[address] [facility] FL BARIUM SWALLOW ESOPHAGUS 2024-03-28 16:03:[address] [facility] CREATININE 2024-02-28 16:33:00 Zeinab [facility] MISCELLANEOUS SEND OUT TEST 2024-02-28 16:33:[address] [facility] RHEUMATOID FACTOR 2024-01-11 13:54:00 Sonia Ley [facility] C4 COMPLEMENT 2024-01-11 13:54:00 Sonia Ley [facility] THYROID STIMULATING HORMONE 2024-01-11 13:54:00 Sonia Ley [facility] ANTI-NUCLEAR ANTIBODY SCREEN 2024-01-11 13:54:00 Sonia Ley [facility] HCV ANTIBODY 2024-01-11 13:54:00 Sonia Ley [facility] ANTI-SSB(LA) 2024-01-11 13:54:00 Sonia Ley [facility] ANTI-DOUBLE STRANDED DNA 2024-01-11 13:54:00 Kalpesh Ley [facility] ANTI-NUCLEAR ANTIBODY-PATHOLOGIST INTERPRETATION 2024-01-11 13:54:00 Sonia Ley [facility] HCV ANTIBODY 2024-01-11 13:54:00 Sonia Ley [facility] EMG/NCV 2023-12-23 06:01:00 Peña Mcmullen [facility] EXTERNAL PROVIDER RECORDS 2023-12-12 06:01:00 Do ctor Unassigned, Leonardo [facility] URINALYSIS 2023-12-03 21:37:00 Melissa Lucas [facility] POCT TEST 2023-12-03 21:37:00 Melissa Lucas [facility] EXTRA TUBE LT. BLUE 2023-12-03 20:37:00 Melissa Lucas [facility] ACUTE CARE VENOUS BLOOD GAS 2023-12-03 20:28:00 Melissa Lucas [facility] CREATINE KINASE 2023-12-03 20:27:00 Melissa Lucas [facility] COMP. METABOLIC PANEL ([id number]) 2023-12-03 20:27:00 Melissa Lucas [facility] CBC WITH DIFF 2023-12-03 20:27:00 Melissa Lucas [facility] MYOGLOBIN SERUM 2023-12-03 20:27:00 Melissa Lucas [facility] CONSENT/REFUSAL FOR DIAGNOSIS AND TREATMENT 2023-12-03 19:45:12 Doctor Unassigned, Leonardo [facility] INSURANCE CORRESPONDENCE 2023-11-22 06:01:00 Doc tor Unassigned, Leonardo [facility] XR CERVICAL SPINE 3 VW 2023-11-16 21:13:29 Mary Jama [facility] CREATINE KINASE 2023-11-16 21:00:00 Mary Khan [facility] MAGNESIUM 2023-11-16 21:00:00 Mary Khan [facility] COMP. METABOLIC PANEL ([id number]) 2023-11-16 21:00:00 Mary Khan [facility] SEDIMENTATION RATE 2023-11-16 21:00:00 Mary Brewer [facility] DISCLOSURE AND CONSENT MEDICAL & SURGICAL PROCEDURES - FEMALM 2023-11-01 06:01:00 Doctor Unassigned, Leonardo [facility] AUTHORIZATION TO RELEASE PHI TO [facility] 2023-09-14 06:01:00 Doctor Unassigned, Leonardo [facility] EXTERNAL PROVIDER RECORDS 2023-08-31 06:01:00 Do ctor Unassigned, Leonardo [facility] HIV 1/2 AG-AB WITH REFLEX 2023-08-18 17:25:00 Marc Mckeon [facility] TDAP VACCINE, >11 YRS, IM 2023-08-18 16:54:19 Marc Mckeon [facility] FLU VACC (), 6 MO-64 YRS, .5ML, IM, QUAD (FLUCELVAX) 2023-08-18 16:54:19 Althea Mckeon [facility] PNEUMOCOCCAL 20 CONJUGATE (PREVNAR 20) VACCINE 2023-08-18 16:54:19 Althea Mckeon [facility] AUTHORIZATION TO RELEASE PHI TO [facility] 2023-08-18 05:01:00 Doctor Unassigned, Leonardo [facility] BI ULTRASOUND BREAST COMPLETE BILATERAL 2023-07-20 19:49:59 Althea Mckeon [facility] BI DIAGNOSTIC TOMOSYNTHESIS BILATERAL 2023-07-20 19:12:20 Mike Althea [facility] OP CORRESPONDENCE 2023-04-25 05:01:00 Doctor Rozina ssigned, Leonardo [facility] DISABILITY/FMLA 2022-06-23 05:01:00 Doctor Unass igned, Leonardo [facility] WORKERS COMPENSATION 2022-06-17 05:01:00 Doctor Unassigned, Leonardo [facility] Encounters Start Date/Time End Date/Time Encounter Type Admission Type Attending [facility] Care Facility Care Department Encounter ID Source 2022-07-15 12:57:13 Outpatient CHW CHW [id number] [facility] 2025-04-10 13:30:00 2025-04-10 13:30:00 Outpatient KWADWO FARMER VIEN [facility] [id number] [facility] 2024-08-14 00:00:00 2024-08-14 00:00:00 Outpatient KWADWO FARMER VIEN [facility] [id number] [facility] 2024-06-26 00:00:00 2024-07-28 18:20:34 Patient Secure Msg Mike [facility] 1.2.840.114 350.1.13.10 4.2.7.2.686 [id number] [facility] 2024-07-12 09:00:00 2024-07-12 09:15:00 Client Relationship Consultant Visit Fran, Adc [facility] Main Sugar Bledsoe, [facility] 1.840.114 350.1.13.10 4.2.7.2.686 [id number] [facility] 2024-07-12 09:00:00 2024-07-12 09:00:00 Outpatient R SUGAR BLEDSOE [facility] [id number] [facility] 2024-07-11 16:30:00 2024-07-11 16:45:00 Client Relationship Consultant Visit Lab, [facility] Sugar Bledsoe Lab, [facility] 1..114 350.1.13.10 4.2.7.2.686 [id number] [facility] 2024-07-11 15:30:00 2024-07-11 16:00:00 Office Visit Sugar Bledsoe [facility] 1.84.114 350.1.13.10 4.2.7.2.686 [id number] [facility] 2024-07-11 15:30:00 2024-07-11 15:30:00 Outpatient R SUGAR BLEDSOE [facility] [id number] [facility] 2024-07-10 00:00:00 2024-07-10 08:23:21 Tele[facility] AN [facility] 1.84.114 350.1.13.10 4.2.7.2.686 [id number] [facility] 2024-07-09 14:00:00 2024-07-09 14:39:36 Outpatient R MARTHA BECK [facility] [id number] [facility] 2024-07-09 14:00:00 2024-07-09 14:39:36 [facility] 1.84.114 350.1.13.10 4.2.7.2.686 [id number] [facility] 2024-07-04 14:00:00 2024-07-04 16:22:22 Outpatient R JABARI FIGUEROA DAVID [facility] [id number] [facility] 2024-07-04 14:00:00 2024-07-04 16:22:22 Office Visit Jabari Figueroa [facility] NUVIA ZUNIGA 1.840.114 350.1.13.10 4.2.7.2.686 [id number] [facility] 2024-07-03 00:00:00 2024-07-03 11:19:01 Leopoldo Mckeon Althea [facility] OFF[facility] 1..840.114 350.1.13.10 4.2.7.2.686 [id number] [facility] 2024-06-19 09:00:00 2024-06-19 09:00:00 Outpatient R CHELSEA MOYA [facility] [id number] [facility] 2024-06-05 10:20:00 2024-06-05 10:20:00 Outpatient R ALTHEA MCKEON [facility] [id number] [facility] 2024-05-29 00:00:00 2024-05-29 09:08:09 Case Management [facility] 1..840.114 350.1.13.10 4.2.7.2.686 [id number] [facility] 2024-05-23 00:00:00 2024-05-23 16:08:51 Peña Kennedy [facility] 1..840.114 350.1.13.10 4.2.7.2.686 [id number] [facility] 2024-05-15 09:14:30 2024-05-15 23:59:00 Outpatient R KWADWO BUSH VIEN [facility] [id number] [facility] 2024-05-15 09:14:30 2024-05-15 23:59:00 Hospital Encounter Kwadwo Bush 1.2.840.1 06894.1.1 3.104.2.7 .3.417999 .8 [id number] [facility] 2024-05-09 00:00:00 2024-05-09 05:33:52 Case Management Kwadwo Bush 1.2.840.1 47397.1.1 3.104.2.7 .3.552050 .8 [id number] [facility] 2024-05-03 00:00:00 2024-05-04 05:53:14 Refill Althea Mckeon 1.2.840.1 35896.1.1 3.104.2.7 .3.212744 .8 [id number] [facility] 2024-05-03 00:00:00 2024-05-03 15:00:23 Refill Mary Khan 1.2.840.1 52415.1.1 3.104.2.7 .3.612058 .8 [id number] [facility] 2024-05-03 11:45:00 2024-05-03 12:21:47 Outpatient R CATHERINE FREEMAN PAMELA [facility] [id number] [facility] 2024-05-03 11:45:00 2024-05-03 12:21:47 Office Visit Catherine Freeman 1.2.840.1 70605.1.1 3.104.2.7 .3.765407 .8 [id number] [facility] 2024-05-02 07:19:07 2024-05-02 23:59:00 Hospital Encounter Kwadwo Bush 1.2.840.1 38814.1.1 3.104.2.7 .3.632469 .8 [id number] [facility] 2024-05-02 07:19:00 2024-05-02 07:19:00 Outpatient R KWADWO BUSH VIEN [facility] [id number] [facility] 2024-05-02 07:19:00 2024-05-02 07:19:00 Hospital Encounter FuadKwadwo Geoff 1.2.840.1 29295.1.1 3.104.2.7 .3.563752 .8 [id number] [facility] 2024-05-02 00:00:00 2024-05-02 00:00:00 Travel 1.2.840.1 88204.1.1 3.104.2.7 .3.947344 .8 1.2.840.114 350.1.13.10 4.2.7.3.698 084.8 [id number] [facility] 2024-05-01 13:40:00 2024-05-01 15:26:22 Outpatient R ALTHEA MCKEON CHRISTINE [facility] [id number] [facility] 2024-05-01 13:40:00 2024-05-01 15:26:22 Office Visit Althea Mckeon 1.2.840.1 87813.1.1 3.104.2.7 .3.821497 .8 [id number] [facility] 2024-05-01 00:00:00 2024-05-01 00:00:00 Travel 1.2.840.1 58978.1.1 3.104.2.7 .3.470303 .8 1.2.840.114 350.1.13.10 4.2.7.3.698 084.8 [id number] [facility] 2024-04-29 00:00:00 2024-04-29 00:00:00 Travel 1.2.840.1 10275.1.1 3.104.2.7 .3.164824 .8 1.2.840.114 350.1.13.10 4.2.7.3.698 084.8 [id number] [facility] 2024-03-27 00:00:00 2024-04-28 18:20:26 Patient Secure Msg Doctor Unassigned, Leonardo 1.2.840.1 56335.1.1 3.104.2.7 .3.667356 .8 [id number] [facility] 2024-04-20 00:00:00 2024-04-26 19:46:08 Telephone Althea Mckeon 1.2.840.1 15671.1.1 3.104.2.7 .3.403193 .8 [id number] [facility] 2024-04-17 00:00:00 2024-04-17 14:46:17 Telephone Catherine Freeman 1.2.840.1 43091.1.1 3.104.2.7 .3.122991 .8 [id number] [facility] 2024-04-16 09:45:00 2024-04-16 09:45:00 Outpatient R KWADWO BUSH VIEN [facility] [id number] [facility] 2024-04-13 23:21:00 2024-04-15 18:43:00 Inpatient X JABARI GARCIA [facility] [id number] [facility] 2024-04-13 23:21:00 2024-04-15 18:43:00 Hospital Encounter Jayne Diaz, Jabari [facility] 1.2.840.1 70764.1.1 3.104.2.7 .3.587471 .8 [id number] [facility] 2024-04-14 10:45:00 2024-04-14 12:09:00 Surgery Catherine Freeman 1.2.840.1 94420.1.1 3.104.2.7 .3.267345 .8 [id number] [facility] 2024-04-14 11:01:00 2024-04-14 11:37:00 Anesthesia Event Deepti-Derrek Dodd 1.2.840.1 96488.1.1 3.104.2.7 .3.380182 .8 [id number] [facility] 2024-04-14 00:00:00 2024-04-14 00:00:00 Refill Althea Mckeon 1.2.840.1 59131.1.1 3.104.2.7 .3.596141 .8 [id number] [facility] 2024-04-14 00:00:00 2024-04-14 00:00:00 Travel 1.2.840.1 42353.1.1 3.104.2.7 .3.726456 .8 1.2.840.114 350.1.13.10 4.2.7.3.698 084.8 [id number] [facility] 2024-04-12 00:00:00 2024-04-13 08:36:46 Telephone Althea Mckeon 1.2.840.1 29758.1.1 3.104.2.7 .3.594506 .8 [id number] [facility] 2024-04-10 15:15:00 2024-04-10 16:02:37 Outpatient R SHARLENE BERUMEN [facility] [id number] [facility] 2024-04-10 15:15:00 2024-04-10 16:02:37 Office Visit Sharlene Berumen 1.2.840.1 75787.1.1 3.104.2.7 .3.068028 .8 [id number] [facility] 2024-04-09 09:30:00 2024-04-09 09:48:24 Outpatient R KWADWO BUSH VIEN [facility] [id number] [facility] 2024-04-09 09:30:00 2024-04-09 09:48:24 Office Visit Kwadwo Bush 1.2.840.1 64475.1.1 3.104.2.7 .3.212535 .8 [id number] [facility] 2024-04-08 00:00:00 2024-04-08 00:00:00 Travel 1.2.840.1 24511.1.1 3.104.2.7 .3.610965 .8 1.2.840.114 350.1.13.10 4.2.7.3.698 084.8 [id number] [facility] 2024-04-07 00:00:00 2024-04-07 00:00:00 Travel 1.2.840.1 72717.1.1 3.104.2.7 .3.189663 .8 1.2.840.114 350.1.13.10 4.2.7.3.698 084.8 [id number] [facility] 2024-03-28 09:47:47 2024-03-28 23:59:00 Outpatient R MARTHA BECK FNU [facility] [id number] [facility] 2024-03-28 09:47:47 2024-03-28 23:59:00 Hospital Encounter ZeinabMartha 1.2.840.1 88851.1.1 3.104.2.7 .3.906864 .8 [id number] [facility] 2024-03-28 09:47:29 2024-03-28 23:59:00 Hospital Encounter Martha Beck 1.2.840.1 74480.1.1 3.104.2.7 .3.403956 .8 [id number] [facility] 2024-03-13 00:00:00 2024-03-27 14:51:02 Patient Secure Althea Bartholomew 1.2.840.1 90191.1.1 3.104.2.7 .3.333840 .8 [id number] [facility] 2024-03-23 00:00:00 2024-03-23 16:31:34 Peña Kennedy 1.2.840.1 61353.1.1 3.104.2.7 .3.617395 .8 [id number] [facility] 2024-03-08 10:00:00 2024-03-08 10:16:22 Outpatient R MARY KHAN [facility] [id number] [facility] 2024-03-08 10:00:00 2024-03-08 10:16:22 Office Visit Mary Khan 1.2.840.1 47839.1.1 3.104.2.7 .3.521305 .8 [id number] [facility] 2024-03-07 00:00:00 2024-03-07 00:00:00 Travel 1.2.840.1 65530.1.1 3.104.2.7 .3.275933 .8 1.2.840.114 350.1.13.10 4.2.7.3.698 084.8 [id number] [facility] 2024-03-02 00:00:00 2024-03-02 13:45:51 Patient Secure Althea Bartholomew 1.2.840.1 77838.1.1 3.104.2.7 .3.033709 .8 [id number] [facility] 2024-02-28 11:30:00 2024-02-28 11:45:00 Client Relationship Consultant Visit Martha Beck [facility] 1.2.840.1 11871.1.1 3.104.2.7 .3.231682 .8 [id number] [facility] 2024-02-28 11:30:00 2024-02-28 11:30:00 Outpatient R MARTHA BECK FNU [facility] [id number] [facility] 2024-02-28 10:00:00 2024-02-28 11:17:23 Office Visit Martha Beck 1.2.840.1 04569.1.1 3.104.2.7 .3.751006 .8 [id number] [facility] 2024-02-27 00:00:00 2024-02-27 00:00:00 Travel 1.2.840.1 07627.1.1 3.104.2.7 .3.458038 .8 1.2.840.114 350.1.13.10 4.2.7.3.698 084.8 [id number] [facility] 2024-02-14 15:20:00 2024-02-14 15:37:15 Outpatient R MARY KHAN [facility] [id number] [facility] 2024-02-14 15:20:00 2024-02-14 15:37:15 Office Visit Mary Khan 1.2.840.1 75936.1.1 3.104.2.7 .3.212083 .8 [id number] [facility] 2024-02-14 00:00:00 2024-02-14 00:00:00 Travel 1.2.840.1 62940.1.1 3.104.2.7 .3.138441 .8 1.2.840.114 350.1.13.10 4.2.7.3.698 084.8 [id number] [facility] 2024-01-12 00:00:00 2024-01-12 00:00:00 Telephone [facility] 1.2.840.114 350.1.13.10 4.2.7.2.686 [id number] [facility] 2024-01-11 08:45:00 2024-01-11 09:00:00 Client Relationship Consultant Visit [facility] Sonia Ley [facility] 1.2.840.114 350.1.13.10 4.2.7.2.686 [id number] [facility] 2024-01-11 08:00:00 2024-01-11 08:45:47 Outpatient R SONIA LEY PETER [facility] [id number] [facility] 2024-01-11 08:00:00 2024-01-11 08:45:47 Office Visit Sonia Ley [facility] 1.114 350.1.13.10 4.2.7.2.686 [id number] [facility] 2023-12-29 00:00:00 2023-12-29 00:00:00 Telephone Peña Mcmullen [facility] MEDICAL OFFICE BUILD[facility] 1.114 350.1.13.10 4.2.7.2.686 [id number] [facility] 2023-12-29 00:00:00 2023-12-29 00:00:00 Patient Secure Msg Doctor Unassigned, Leonardo [facility] 1..114 350.1.13.10 4.2.7.2.686 [id number] [facility] 2023-12-26 00:00:00 2023-12-26 00:00:00 Telephone Gill Israel [facility] 1..114 350.1.13.10 4.2.7.2.686 [id number] 161 [id number] [facility] 2023-12-26 00:00:00 2023-12-26 00:00:00 Telephone Della Stewart [facility] 1..114 350.1.13.10 4.2.7.2.686 [id number] 161 [id number] [facility] 2023-12-23 07:38:18 2023-12-23 23:59:00 Outpatient R GIOVANNA SAVAGE [facility] [id number] [facility] 2023-12-23 07:38:18 2023-12-23 23:59:00 Hospital Encounter Giovanna Savage [facility] 1.2840.114 350.1.13.10 4.2.7.2.686 [id number] [facility] 2023-12-21 00:00:00 2023-12-21 00:00:00 Letter (Out) Della Stewart [facility] 1.2840.114 350.1.13.10 4.2.7.2.686 [id number] 161 [id number] [facility] 2023-12-16 00:00:00 2023-12-16 00:00:00 Letter (Out) Gill Israel [facility] 1.2840.114 350.1.13.10 4.2.7.2.686 [id number] 161 [id number] [facility] 2023 10:45:00 2023 14:07:03 Outpatient R ABRIL SULLIVAN [facility] [id number] [facility] 2023 10:45:00 2023 14:07:03 Ancillary Visit 2, [employer] Danna Escobedo [facility] [place] 1.2840.114 350.1.13.10 4.2.7.2.686 [id number] [facility] 2023-12-13 00:00:00 2023-12-13 00:00:00 Nurse Triage Mari Hawley [facility] 1.2840.114 350.1.13.10 4.2.7.2.686 [id number] [facility] 2023-12-12 00:00:00 2023-12-12 00:00:00 Orders Only Doctor Unassigned, Leonardo [facility] 1.84.114 350.1.13.10 4.2.7.2.686 [id number] [facility] 2023-12-08 00:00:00 2023-12-08 00:00:00 Patient Secure Msg Mary Khan [facility] 1.84.114 350.1.13.10 4.2.7.2.686 [id number] [facility] 2023-12-08 00:00:00 2023-12-08 00:00:00 Patient Secure Msg Doctor Unassigned, Leonardo [facility] 1.840.114 350.1.13.10 4.2.7.2.686 [id number] [id number] [facility] 2023-12-07 13:45:00 2023-12-07 13:45:00 Outpatient R [facility] [id number] 2023-12-07 00:00:00 2023-12-07 00:00:00 Patient Secure Msg Doctor Unassigned, Leonardo [facility] 1.84.114 350.1.13.10 4.2.7.2.686 [id number] [facility] 2023-12-07 00:00:00 2023-12-07 00:00:00 Nurse Triage David Bill, [facility] K[facility] 1.84.114 350.1.13.10 4.2.7.2.686 [id number] [facility] 2023-12-05 00:00:00 2023-12-05 00:00:00 Patient Secure Msg Mary Khan [facility] 1..840.114 350.1.13.10 4.2.7.2.686 [id number] 044 [id number] [facility] 2023-12-05 00:00:00 2023-12-05 00:00:00 Telephone Althea Mckeon [facility] 1..840.114 350.1.13.10 4.2.7.2.686 [id number] 044 [id number] [facility] 2023-12-03 13:57:00 2023-12-03 19:26:00 Emergency X MELISSA LUCAS [facility] [id number] [facility] 2023-12-03 13:57:00 2023-12-03 19:26:00 Emergency Brenton Marshall [facility] 1..840.114 350.1.13.10 4.2.7.2.686 [id number] [id number] [facility] 2023-12-03 00:00:00 2023-12-03 00:00:00 Telephone Mary Khan [facility] 1.2.840.114 350.1.13.10 4.2.7.2.686 [id number] 044 [id number] [facility] 2023-12-02 00:00:00 2023-12-02 00:00:00 Patient Secure Msg Mary hKan [facility] 1.2.840.114 350.1.13.10 4.2.7.2.686 [id number] 044 [id number] [facility] 2023-12-01 14:00:00 2023-12-01 14:51:11 Outpatient R MARY KHAN [facility] [id number] [facility] 2023-12-01 14:00:00 2023-12-01 14:51:11 Office Visit Mary Khan [facility] 1.84.114 350.1.13.10 4.2.7.2.686 [id number] 044 [id number] [facility] 2023-11-30 00:00:00 2023-11-30 00:00:00 Patient Secure Msg Doctor Unassigned, Leonardo [facility] 1..114 350.1.13.10 4.2.7.2.686 [id number] 092 [id number] [facility] 2023-11-30 00:00:00 2023-11-30 00:00:00 Telephone Peña Mcmullen [facility] 1..114 350.1.13.10 4.2.7.2.686 [id number] 092 [id number] [facility] 2023-11-29 13:00:00 2023-11-29 13:57:53 Office Visit Gill Israel Joseph W [facility] 1.84.114 350.1.13.10 4.2.7.2.686 [id number] [facility] 2023-11-29 13:00:00 2023-11-29 13:57:53 Outpatient ANATOLY GONZALEZ [facility] [id number] [facility] 2023-11-28 13:20:00 2023-11-28 14:35:55 Outpatient R PEÑA MCMULLEN HOWARD [facility] [id number] [facility] 2023-11-28 13:20:00 2023-11-28 14:35:55 Office Visit Peña Mcmullen Govind [facility] 1.84.114 350.1.13.10 4.2.7.2.686 [id number] [id number] [facility] 2023-11-26 00:00:00 2023-11-26 00:00:00 Patient Secure Msg Doctor Unassigned, Leonardo [facility] 1.2840.114 350.1.13.10 4.2.7.2.686 [id number] 019 [id number] [facility] 2023-11-24 00:00:00 2023-11-24 00:00:00 Telephone Mary Khan [facility] 1.0.114 350.1.13.10 4.2.7.2.686 [id number] 044 [id number] [facility] 2023-11-22 00:00:00 2023-11-22 00:00:00 Orders Only Doctor Unassigned, Leonardo [facility] 1.2840.114 350.1.13.10 4.2.7.2.686 [id number] [facility] 2023-11-22 00:00:00 2023-11-22 00:00:00 Telephone Mary Khan [facility] 1.840.114 350.1.13.10 4.2.7.2.686 [id number] 044 [id number] [facility] 2023-11-19 00:00:00 2023-11-19 00:00:00 Patient Secure Msg Mary Khan [facility] 1.840.114 350.1.13.10 4.2.7.2.686 [id number] 044 [id number] [facility] 2023-11-18 00:00:00 2023-11-18 00:00:00 Patient Secure Msg Mary Khan [facility] 1.840.114 350.1.13.10 4.2.7.2.686 [id number] 044 [id number] [facility] 2023-11-16 14:48:55 2023-11-16 23:59:00 Hospital Encounter Mary Khan [facility] 1.2.840.114 350.1.13.10 4.2.7.2.686 [id number] [facility] 2023-11-16 15:00:00 2023-11-16 15:36:12 Client Relationship Consultant Visit Lab, Ang - Thong Mary Khan [facility] 1.2.840.114 350.1.13.10 4.2.7.2.686 [id number] [facility] 2023-11-16 14:00:00 2023-11-16 14:45:09 Outpatient R MARY KHAN [facility] [id number] [facility] 2023-11-16 14:00:00 2023-11-16 14:45:09 Office [facility] 1.2.840.114 350.1.13.10 4.2.7.2.686 [id number] 044 [id number] [facility] 2023-11-04 00:00:00 2023-11-04 00:00:00 Peña Kennedy [facility] 1.2.840.114 350.1.13.10 4.2.7.2.686 [id number] 092 [id number] [facility] 2023-11-01 09:30:00 2023-11-01 10:40:53 Outpatient R ANA DICKERSON VIVIAN [facility] [id number] [facility] 2023-11-01 09:30:00 2023-11-01 10:40:53 Office Visit Kwadwo Bush [facility] 1.2840.114 350.1.13.10 4.2.7.2.686 [id number] [facility] 2023-11-01 00:00:00 2023-11-01 00:00:00 Orders Only Doctor Unassigned, Leonardo [facility] 1.2840.114 350.1.13.10 4.2.7.2.686 [id number] [id number] [facility] 2023-10-27 15:40:00 2023-10-27 16:29:39 Outpatient R ALTHEA MCKEON [facility] [id number] [facility] 2023-10-27 15:40:00 2023-10-27 16:29:39 [facility] 1.840.114 350.1.13.10 4.2.7.2.686 [id number] 044 [id number] [facility] 2023-10-19 00:00:00 2023-10-19 00:00:00 Nurse Triage Mari Hawley [facility] 1.2840.114 350.1.13.10 4.2.7.2.686 [id number] 019 [id number] [facility] 2023-10-13 00:00:00 2023-10-13 00:00:[address] [facility] 1.2840.114 350.1.13.10 4.2.7.2.686 [id number] 044 [id number] [facility] 2023-10-13 00:00:00 2023-10-13 00:00:00 [facility] 1.2840.114 350.1.13.10 4.2.7.2.686 [id number] 044 [id number] [facility] 2023-10-03 10:45:00 2023-10-03 11:01:58 Outpatient R DONA BRUCE [facility] [id number] [facility] 2023-10-03 10:45:00 2023-10-03 11:01:58 Office Visit Eduardo Finch, [facility] 1..840.114 350.1.13.10 4.2.7.2.686 [id number] [facility] 2023-09-27 00:00:00 2023-09-27 00:00:00 Telephone [facility] 1..840.114 350.1.13.10 4.2.7.2.686 [id number] 044 [id number] [facility] 2023-09-27 00:00:00 2023-09-27 00:00:00 Patient Secure Msg [facility] 1..840.114 350.1.13.10 4.2.7.2.686 [id number] [id number] [facility] 2023-09-26 14:45:00 2023-09-26 15:00:00 Client Relationship Consultant Visit Lab, Ang - Db [facility] 1..840.114 350.1.13.10 4.2.7.2.686 [id number] [facility] 2023-09-26 13:40:00 2023-09-26 14:34:53 [facility] [id number] [facility] 2023-09-26 13:40:00 2023-09-26 14:34:53 Office Visit [facility] 1.2.840.114 350.1.13.10 4.2.7.2.686 [id number] 044 [id number] [facility] 2023-09-14 00:00:00 2023-09-14 00:00:00 Orders Only Doctor Unassigned, Leonardo [facility] 1.2840.114 350.1.13.10 4.2.7.2.686 [id number] [facility] 2023-09-12 14:00:00 2023-09-12 14:15:00 Client Relationship Consultant Visit Lab, Peña Arriaga [facility] 1.84.114 350.1.13.10 4.2.7.2.686 [id number] [facility] 2023-09-12 13:00:00 2023-09-12 13:53:32 Outpatient R PEÑA MCMULLEN HOWARD [facility] [id number] [facility] 2023-09-12 13:00:00 2023-09-12 13:53:32 Office Visit Peña Mcmullen [facility] 1.84.114 350.1.13.10 4.2.7.2.686 [id number] [id number] [facility] 2023-09-02 00:00:00 2023-09-02 00:00:00 Telephone Althea Mckeon [facility] 1.2840.114 350.1.13.10 4.2.7.2.686 [id number] 044 [id number] [facility] 2023-08-31 00:00:00 2023-08-31 00:00:00 Orders Only Doctor Unassigned, Leonardo [facility] 1.2840.114 350.1.13.10 4.2.7.2.686 [id number] [facility] 2023-08-31 00:00:00 2023-08-31 00:00:00 Telephone [facility] 1..840.114 350.1.13.10 4.2.7.2.686 [id number] 044 [id number] [facility] 2023-08-22 00:00:00 2023-08-22 00:00:00 Patient Secure Msg Doctor Unassigned, Leonardo [facility] 1..840.114 350.1.13.10 4.2.7.2.686 [id number] [facility] 2023-08-22 00:00:00 2023-08-22 00:00:00 Patient Secure Msg Doctor Unassigned, [facility] 1..840.114 350.1.13.10 4.2.7.2.686 [id number] [facility] 2023-08-18 12:30:00 2023-08-18 12:45:00 Client Relationship Consultant Visit Lab, Liam Mckeon [facility] 1..840.114 350.1.13.10 4.2.7.2.686 [id number] [facility] 2023-08-18 11:00:00 2023-08-18 12:06:46 Outpatient R ALTHEA MCKEON [facility] [id number] [facility] 2023-08-18 11:00:00 2023-08-18 12:06:46 Office Visit [facility] 1..840.114 350.1.13.10 4.2.7.2.686 [id number] 044 [id number] [facility] 2023-08-18 00:00:00 2023-08-18 00:00:00 Telephone [facility] 1.2840.114 350.1.13.10 4.2.7.2.686 [id number] 044 [id number] [facility] 2023-08-18 00:00:00 2023-08-18 00:00:00 Orders Only Doctor Unassigned, Leonardo [facility] 1.2840.114 350.1.13.10 4.2.7.2.686 [id number] [id number] [facility] 2023-07-20 12:18:29 2023-07-20 23:59:00 Hospital Encounter Miek Althea [facility] 1.2840.114 350.1.13.10 4.2.7.2.686 [id number] [facility] 2023-07-20 12:16:53 2023-07-20 12:17:00 [facility] [id number] [facility] 2023-07-20 12:16:53 2023-07-20 12:17:00 Hospital Encounter Althea Mckeon [facility] 1.0.114 350.1.13.10 4.2.7.2.686 [id number] [facility] 2023-07-13 00:00:00 2023-07-13 00:00:00 Refill [facility] 1.0.114 350.1.13.10 4.2.7.2.686 [id number] 044 [id number] [facility] 2023-07-12 00:00:00 2023-07-12 00:00:00 Telephone [facility] 1.840.114 350.1.13.10 4.2.7.2.686 [id number] 044 [id number] [facility] 2023-06-21 00:00:00 2023-06-21 00:00:00 [facility] 1.2.840.114 350.1.13.10 4.2.7.2.686 [id number] 044 [id number] [facility] 2023-06-21 00:00:00 2023-06-21 00:00:00 Telephone [facility] 1..840.114 350.1.13.10 4.2.7.2.686 [id number] 044 [id number] [facility] 2023-06-17 10:00:00 2023-06-17 11:05:00 Outpatient R [facility] [id number] [facility] 2023-06-17 10:00:00 2023-06-17 11:05:00 Office Visit [facility] 1..840.114 350.1.13.10 4.2.7.2.686 [id number] [id number] [facility] 2023-06-17 00:00:00 2023-06-17 00:00:00 [facility]phone [facility] 1.2.840.114 350.1.13.10 4.2.7.2.686 [id number] [id number] [facility] 2023-06-08 00:00:00 2023-06-08 00:00:00 Telephone [facility] 1.2.840.114 350.1.13.10 4.2.7.2.686 [id number] 044 [id number] [facility] 2023-05-03 00:00:00 2023-05-03 00:00:00 Telephone [facility] 1..840.114 350.1.13.10 4.2.7.2.686 [id number] [id number] [facility] 2023-04-25 00:00:00 2023-04-25 00:00:00 Orders Only Doctor Unassigned, Leonardo [facility] 1.2840.114 350.1.13.10 4.2.7.2.686 [id number] [facility] 2023-04-22 13:00:00 2023-04-22 14:35:58 [facility] 1..840.114 350.1.13.10 4.2.7.2.686 [id number] [id number] [facility] 2023-04-22 13:00:00 2023-04-22 14:35:58 Outpatient R JAJAMirian ALTHEA KLE [facility] [id number] [facility] 2023-02-28 08:15:00 2023-02-28 08:15:00 Outpatient KATE DURAN [id number] Fay Han 2022-06-23 00:00:00 2022-06-23 00:00:00 Orders Only Doctor Unassigned, Leonardo [facility] 1.2840.114 350.1.13.10 4.2.7.2.686 [id number] [facility] 2022-06-17 08:30:00 2022-06-17 08:39:09 Outpatient R JORJE CRUZ [facility] [id number] [facility] 2022-06-17 08:30:00 2022-06-17 08:39:09 Office Visit Jorje Cruz [facility] 1..840.114 350.1.13.10 4.2.7.2.686 [id number] [facility] 2022-06-17 08:30:00 2022-06-17 08:30:00 Outpatient R JORJE CRUZ [facility] [id number] [facility] 2022-06-17 00:00:00 2022-06-17 00:00:00 Orders Only Doctor Unassigned, Leonardo [facility] 1.0.114 350.1.13.10 4.2.7.2.686 [id number] [id number] [facility] 2022-06-08 00:00:00 2022-06-08 00:00:00 Telephone Johny Queen [facility] 1.84.114 350.1.13.10 4.2.7.2.686 [id number] [facility] 2022-06-04 00:00:00 2022-06-04 00:00:00 Telephone Jorje Cruz [facility] 1.84.114 350.1.13.10 4.2.7.2.686 [id number] [facility] 2022-05-31 00:00:00 2022-05-31 00:00:00 Telephone [facility] 1.284.114 350.1.13.10 4.2.7.2.686 [id number] [facility] 2022-05-28 00:00:00 2022-05-28 00:00:00 Telephone Pcp, Patient Does Not Have A [facility] 1.284.114 350.1.13.10 4.2.7.2.686 [id number] [facility] 2022-05-27 08:30:00 2022-05-27 09:00:00 Office Visit Luisa Jorje [facility] 1.2.840.114 350.1.13.10 4.2.7.2.686 [id number] [facility] 2022-05-27 08:30:00 2022-05-27 08:30:00 Outpatient R JORJE CRUZ [facility] [id number] [facility] 2022-05-27 00:00:00 2022-05-27 00:00:00 Orders Only Doctor Unassigned, Leonardo [facility] 1.2.840.114 350.1.13.10 4.2.7.2.686 [id number] [facility] 2019-10-26 17:57:00 2019-10-26 17:57:00 Outpatient Skye Vazquez CHW CHW [id number] [facility] 2019-10-26 08:20:00 2019-10-26 08:20:00 Outpatient Walk-In, Only CHW CHW [id number] [facility] 2019-10-24 17:25:00 2019-10-24 17:25:00 Outpatient Ripambrosio Skye MARCW CHW [id number] [facility] 2019-10-24 13:19:00 2019-10-24 13:19:00 Outpatient Skye Vazquez CHW CHW [id number] [facility] 2019-10-15 11:41:00 2019-10-15 11:41:00 Outpatient Ripsin, Skye CHW CHW [id number] [facility] 2019-10-15 09:40:00 2019-10-15 09:40:00 Outpatient Ripsin Skye CHW CHW [id number] [facility] 2019-10-15 09:10:00 2019-10-15 09:10:00 Outpatient Walk-In, Only CHW CHW [id number] [facility] 2019-06-25 12:49:00 2019-06-25 12:49:00 Outpatient DeangeloYola johnson CHW CHW [id number] [facility] 2019-06-19 13:00:00 2019-06-19 13:00:00 Outpatient Walk-In, Only CHW CHW [id number] [facility] 2019-06-19 08:33:00 2019-06-19 08:33:00 Outpatient DeangeloYola johnson W CHW [id number] [facility] 2019-06-15 10:40:00 2019-06-15 10:40:00 Outpatient DeangeloYola W CHW [id number] [facility] 2019-05-09 09:20:00 2019-05-09 09:20:00 Outpatient Walk-In, Only CHW CHW [id number] [facility] 2019-02-07 13:00:00 2019-02-07 13:00:00 Outpatient Walk-In, Only CHW CHW [id number] [facility] 2019-01-16 08:52:00 2019-01-16 08:52:00 Outpatient Skye Vazquez W CHW [id number] [facility] 2018-12-19 07:54:00 2018-12-19 07:54:00 Outpatient Tito Gonzalez W CHW [id number] [facility] 2018-12-18 16:09:00 2018-12-18 16:09:00 Outpatient ., Radiology CHW CHW [id number] [facility] 2018-12-18 13:00:00 2018-12-18 13:00:00 Outpatient Tito Gonzalez W CHW [id number] [facility] 2018-11-09 16:20:00 2018-11-09 16:20:00 Outpatient Cesar Pérez W CHW [id number] [facility] 2018-11-07 14:40:00 2018-11-07 14:40:00 Outpatient Walk-In, Only CHW CHW [id number] [facility] 2018-08-22 11:00:00 2018-08-22 11:00:00 Outpatient Jonn Garcia W CHW [id number] [facility] Results Test Description Test Time Test Comments Results Resul t Comments Source BI BREAST CYST ASPIRATION LEFT 2023-07-3 0 19:10:52 Examination:BI BREAST CYST ASPIRATION LEFT The procedure was explained to the patient including benefits and alternatives. ?The risks, including but not limited to infection and bleeding, were reviewed and the patient agreed to undergo the procedure, signing the consent form. ?Timeout was performed. History:Patient is a 33 year old year old female and is seen for: Aspiration of cyst(s) Comparisons: 05/02/2024 ultrasound images 16-25 Ultrasound-guided aspiration, left breast 10:00 4 cm from the nipple, cyst: The patient was positioned supine, and the area of interest was localized using real-time ultrasound guidance. After antiseptic preparation the skin puncture site was draped and infiltrated with lidocaine. ?A 22 gauge needle was advanced to the target. ?Fluid was obtained and discarded. ?Continuous real-time ultrasound was used for guidance throughout the procedure. ?Post procedure sonographic images confirmed collapse of the cyst.Ultrasound-shannan ded aspiration, left breast 12:00 5 cm from the nipple from the nipple, cyst: The patient was positioned supine, and the area of interest was localized using real-time ultrasound guidance. After antiseptic preparation the skin puncture site was draped and infiltrated with lidocaine. ?A 22 gauge needle was advanced to the target. ?Fluid was obtained and discarded. ?Continuous real-time ultrasound was used for guidance throughout the procedure. ?Post procedure sonographic images confirmed collapse of the cyst. The patient experienced no complications during the procedure. Recommendation:Shor t interval follow-up ultrasound 3 months - LeftShort interval follow-up mammogram 3 months - Left Pending workup (reference diagnostic dictation dated 05/02/2024:"3.There are 2 adjacent probable complicated cysts, measuring 3 and 4 mm respectively, in the left breast at 11 o'clock, 7 cm from the nipple; best seen on ultrasound images 8-15 and 29-32. ?Short interval follow-up ultrasound may be obtained in 3 months (at the time of annual bilateral mammogram in July 2024) to document stability and exclude an underlying abnormality. ?BI-RADS 3. Of note, if the probable complicated cysts at 11:00, 7 cm from the nipple appear stable at the time of bilateral annual mammogram (July 2024), and if biopsies are performed and yield nonsurgical results (please see #1 and 2 above), then the patient may receive a follow-up ultrasound in 12 months (July 2025) to document 1 year stability." [facility] BI ULTRASOUND BREAST COMPLETE LEFT 2024-04-16 7 16:12:39 Examination:BI DIAGNOSTIC TOMOSYNTHESIS LEFTBI ULTRASOUND BREAST COMPLETE LEFT History:Patient is 33 year old and is seen for: ?Left breast pain. ? Comparisons: 07/20/2023 BI DIAGNOSTIC TOMOSYNTHESIS BILATERAL Findings: BI DIAGNOSTIC TOMOSYNTHESIS LEFTThe left breast is heterogeneously dense, which may obscure small masses. There is no evidence of suspicious masses, calcifications, or other abnormal findings in the left breast. Specifically, no definite mammographic abnormality is noted in the central medial breast, middle depth, to correlate with the patient's history of discomfort. BI ULTRASOUND BREAST COMPLETE LEFTSurvey ultrasound of the left breast and axilla was performed. There is a 7 mm x 1 mm x 6 mm oval probable complicated cyst versus mass in the left breast at 10 o'clock, 4 cm from the nipple. ?This is best seen on ultrasound images 21-25. There is a 5 mm x 4 mm x 4 mm probable complicated cyst versus mass with circumscribed margins seen in the left breast at 12 o'clock, 5 cm from the nipple. ?This is best seen on ultrasound images 16-20. There are 2 adjacent probable complicated cysts measuring 3 and 4 mm respectively in the left breast at 11 o'clock, 7 cm from the nipple. These are best seen on ultrasound images 8-15 and 29-32. The visualized level 1 axillary lymph nodes appear unremarkable. Impression: Left: 1.There is a 7 mm probable complicated cyst versus mass in the left breast at 10 o'clock, 4 cm from the nipple; best seen on ultrasound images 21-25. The patient states that she has generalized discomfort in the medial left breast, so ultrasound-guided aspiration is recommended. ?However, if this proves to be a solid mass then ultrasound-guided core biopsy may be performed. ?BI-RADS 4A. 2.There is a 5 mm x 4 mm x 4 mm probable complicated cyst versus mass with circumscribed margins seen in the left breast at 12 o'clock, 5 cm from the nipple; best seen on ultrasound images 16-20. The patient states that she has generalized discomfort in the medial left breast, so ultrasound-guided aspiration is recommended. ?However, if this proves to be a solid mass then ultrasound-guided core biopsy may be performed. ?BI-RADS 4A. 3.There are 2 adjacent probable complicated cysts, measuring 3 and 4 mm respectively, in the left breast at 11 o'clock, 7 cm from the nipple; best seen on ultrasound images 8-15 and 29-32. ?Short interval follow-up ultrasound may be obtained in 3 months (at the time of annual bilateral mammogram in July 2024) to document stability and exclude an underlying abnormality. ?BI-RADS 3. Of note, if the probable complicated cysts at 11:00, 7 cm from the nipple appear stable at the time of bilateral annual mammogram (July 2024), and if biopsies are performed and yield nonsurgical results (please see #1 and 2 above), then the patient may receive a follow-up ultrasound in 12 months (July 2025) to document 1 year stability. Recommendation:Ultr asound guided cyst aspiration - LeftShort interval follow-up ultrasound 3 months - Left ? BI-RADS Category: Left 4A - Suspicious Abnormality - Biopsy Should Be Considered - Low Suspicion for Malignancy [facility] BI DIAGNOSTIC TOMOSYNTHESIS LEFT 2024-04-1 7 16:12:39 Examination:BI DIAGNOSTIC TOMOSYNTHESIS LEFTBI ULTRASOUND BREAST COMPLETE LEFT History:Patient is 33 year old and is seen for: ?Left breast pain. ? Comparisons: 07/20/2023 BI DIAGNOSTIC TOMOSYNTHESIS BILATERAL Findings: BI DIAGNOSTIC TOMOSYNTHESIS LEFTThe left breast is heterogeneously dense, which may obscure small masses. There is no evidence of suspicious masses, calcifications, or other abnormal findings in the left breast. Specifically, no definite mammographic abnormality is noted in the central medial breast, middle depth, to correlate with the patient's history of discomfort. BI ULTRASOUND BREAST COMPLETE LEFTSurvey ultrasound of the left breast and axilla was performed. There is a 7 mm x 1 mm x 6 mm oval probable complicated cyst versus mass in the left breast at 10 o'clock, 4 cm from the nipple. ?This is best seen on ultrasound images 21-25. There is a 5 mm x 4 mm x 4 mm probable complicated cyst versus mass with circumscribed margins seen in the left breast at 12 o'clock, 5 cm from the nipple. ?This is best seen on ultrasound images 16-20. There are 2 adjacent probable complicated cysts measuring 3 and 4 mm respectively in the left breast at 11 o'clock, 7 cm from the nipple. These are best seen on ultrasound images 8-15 and 29-32. The visualized level 1 axillary lymph nodes appear unremarkable. Impression: Left: 1.There is a 7 mm probable complicated cyst versus mass in the left breast at 10 o'clock, 4 cm from the nipple; best seen on ultrasound images 21-25. The patient states that she has generalized discomfort in the medial left breast, so ultrasound-guided aspiration is recommended. ?However, if this proves to be a solid mass then ultrasound-guided core biopsy may be performed. ?BI-RADS 4A. 2.There is a 5 mm x 4 mm x 4 mm probable complicated cyst versus mass with circumscribed margins seen in the left breast at 12 o'clock, 5 cm from the nipple; best seen on ultrasound images 16-20. The patient states that she has generalized discomfort in the medial left breast, so ultrasound-guided aspiration is recommended. ?However, if this proves to be a solid mass then ultrasound-guided core biopsy may be performed. ?BI-RADS 4A. 3.There are 2 adjacent probable complicated cysts, measuring 3 and 4 mm respectively, in the left breast at 11 o'clock, 7 cm from the nipple; best seen on ultrasound images 8-15 and 29-32. ?Short interval follow-up ultrasound may be obtained in 3 months (at the time of annual bilateral mammogram in July 2024) to document stability and exclude an underlying abnormality. ?BI-RADS 3. Of note, if the probable complicated cysts at 11:00, 7 cm from the nipple appear stable at the time of bilateral annual mammogram (July 2024), and if biopsies are performed and yield nonsurgical results (please see #1 and 2 above), then the patient may receive a follow-up ultrasound in 12 months (July 2025) to document 1 year stability. Recommendation:Ultr asound guided cyst aspiration - LeftShort interval follow-up ultrasound 3 months - Left ? BI-RADS Category: Left 4A - Suspicious Abnormality - Biopsy Should Be Considered - Low Suspicion [facility] [id number] 06:58:33Exam: CT Abdomen and Pelvis With Contrast, 04/14/2024 12:15 AM. Ordering Physician: JAYNE DIAZ. History: Abdominal pain, acute, nonlocalized perirectal pain, lowerabdominal pain, r/o perirectal abscess . Comparison: None. Technique: CT abdomen and pelvis was obtained with intravenous and oralcont rast. CT was performed according to ALARA (As Low As ReasonablyAchievable). Technical Quality: Adequate. Findings: LOWER CHEST:Mild bibasilar atelectasis. ABDOMEN/PELVIS:Liver: Normal.Gallbladder/biliary: Normal gallbladder. No biliary ductal dilation.Pancreas: Normal.Spleen: Normal. Adrenal glands: Normal.Kidneys and ureters: Normal.Bladder: Normal.Reproductive organs: Small amount of pelvic fluid. Stomach/bowel: Contrast extends throughout the large bowel and rectum. Nobowel obstruction. No bowel wall thickening. Normal appendix. Lymph nodes: Prominent number of nonenlarged mesenteric nodes.Peritoneum: No intraperitoneal free air.Vessels: Normal. MUSCULOSKELETAL:Bones: No acute osseous abn ormality.Soft tissues: Small focus of air along the right anterior rectum, cjpxfazjtk-ga-kzgd axialimage 09/10. There is hyperenhancement in the vicinitywithout fluid collection.[facility] W [id number] 06:58:33Exam: CT Abdomen and Pelvis With Contrast, 04/14/2024 12:15 AM. Ordering Physician: JAYNE DIAZ. History: Abdominal pain, acute, nonlocalized perirectal pain, lowerabdominal pain, r/o perirectal abs cess . Comparison: None. Technique: CT abdomen and pelvis was obtained with intravenous and oralcontrast. CT was performed according to ALARA (As Low As ReasonablyAchievable). Technical Quality: Adequate. Findings: LOWER CHEST:Mild bibasilar atelectasis. ABDOMEN/PELVIS:Liver: Normal.Gallbladder/biliary: Normal gallbladder. No biliary ductal dilation.Pancreas: Normal.Spleen: Normal. Adrenal glands: Normal.Kidneys and ureters: Normal.Bladder: Normal.Reproductive organs: Small amount of pelvic fluid. Stomach/bowel: Contrast extends throughout the large bowel and rectum. Nobowel obstruction. No bowel wall thickening. Normal appendix. Lymph nodes: Prominent number of nonenlarged mesenteric nodes. Peritoneum: No intraperitoneal free air.Vessels: Normal. MUSCULOSKELETAL:Bones: No acute osseous abnormality.Soft tissues: Small focus of air along the right anterior rectum, pacpslxmxf-se-rtwa axialimage 09/10. There is hyperenhancement in the vicinitywithout fluid collection.[facility] Complete Metabolic [id number] 06:10:42* Test Item Value Reference Range Interpretation Comme nts NA (test code = 8134508284) 137 mmol/L 135-145 K (test code = 8380945641) 3.2 mmol/L 3.5-5.0 L CL (test code = 3648515052) 104 mmol/L 98-108 CO2 TOTAL (test code = 7164745003) 25 mmol/L 23-31 AGAP (test code = 7708565040) 8 2-16 BUN (test code = 0267605753) 7 mg/dL 7-23 GLUCOSE (test code = 6863315690) 93 mg/dL 70-110 CREATININE (test code = 2160-0) 1.06 mg/dL 0.50-1.04 H TOTAL BILI (test code = 7584684304) 0.8 mg/dL 0.1-1.1 CALCIUM (test code = 1544209197) 9.1 mg/dL 8.6-10.6 T PROTEIN (test code = 2701169235) 7.2 g/dL 6.3-8.2 ALBUMIN (test code = 9825163398) 4.3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 Total of 1 attempts were made. Slight pressure and a bandage/dressing were applied to the site(s). The patient experienced no complications. The following specimens were processed according to instructions and sent to [facility] laboratories per lab order on 11/16/2023: LT BLUE SST 1 RED LAV 1 PPT DK GREEN (LiHep) DK GREEN (SodH) MALHOTRA DK BLUE (K2) DK BLUE (S) ACD Blood Culture NIPT/NTD [facility] 2023-11-04 14:33:00 Dr. Mcmullen, please sign order if appropriate. SUE 09/12/23. Pt was previously seeing a different neurologist outside of [facility]. [employer] [facility] 2023-11-04 13:42:09 Pt is calling says she has one pill left of topiramate 25 mg tablet is asking for refill uses Loni/GHAZAL [employer] Daniella Michael [facility] 2023-10-19 11:46:00 Regarding: Severe hand pain w/ tingling x 1 week ----- Message from Kiley Viera sent at 10/19/2023 11:46 AM [employer]ERR[employer] ----- Vasquez Morton is a 32 year old female [employer] Mari Hawley RN [facility] 2023-10-19 11:46:00 Adult Triage Assessment Last Clinic Visit: 10/03/2023 dermatology in office visit tinea versicolor Primary Symptom: "last month I talk to my [...] still have small sharp pain to that hand." Onset / Duration: a month, worsening symptoms, at most a week Location / Description: right hand pain, left hand numbness Pain / Severity: '7-8/10 constant pain 3/10 but randomly comes and increases to 7-8/10. 2/10 little pain and numbness." Associated Symptoms: unable to hold coffee mugs it use less at times. Fever / Method: denies Hydration: "4-5 bottle water 16 ounce bottles, urinating normally, have had diarrhea for the past few days. 2 episodes a day." Treatment so far: Gabapentin 100mg 3 capsules this 7am and 3 at noon and evening 7 pm. Effect on ADL's: severely LMP: patient currently on the murena Pre-existing condition / Immunocompromised: seizure, YULIANA, tingling and muscle cramps Reason for Disposition [1] SEVERE pain (e.g., excruciating, unable to use hand at all) AND [2] not improved after 2 hours of pain medicine Protocols used: Hand and Wrist [id number] [facility] 2023-06-23 12:32:21 Formatting of this n ote might be different from the original. Patient scheduled 07/20 T Larissa Mayberry LVN [facility] 2023-06-22 11:31:29 Formatting of this n ote might be different from the original. Spoke with patient and she did confirm that per her insuracne the order will need to come from her PCP. I have ordered for the EEG and faxed to 's office for approval. Patient has been notified. [facility] 2023-06-22 05:40:38 Formatting of this n ote might be different from the original. Normally neurology orders EEGs, I do not place that order. Is Dr. Crowell's office or insurance requesting that? Please call patient and clarify. If she states we need the EEG placed, please addend the referral to include EEG in the comments and the codes listed. Dr. Mike Salazar T [facility] 2023-06-22 05:39:42 Formatting of this n ote might be different from the original. I ordered the diagnostic mammo, not sure if I need to change the US orders. Can you verify with rads? Dr. Mike Salazar [facility] 2023-06-21 15:12:41 Formatting of this n ote might be different from the original. Please review and advise. Larissa Mayberry LVN [facility] 2023-06-21 11:40:07 Formatting of this n ote might be different from the original. Please review and advise Marlene Hills MA [facility] 2023-06-21 10:51:05 Formatting of this n ote might be different from the original. Patient states when she called to schedule her mammogram they are requesting the order to be a diagnostic mammogram and an ultrasound. Olivia Bains [facility] 2023-06-21 10:38:09 Formatting of this n ote might be different from the original. Pt called and states that she is needing a referral for her EEG. She has the referral for her consultation, but not EEG. Dr. Jacob Crowell Neurologist (for an EEG) [address] [facility] [address] #[phone] Codes that she is needin, [address] Radha Mack [facility] 2023-06-17 15:40:29 Formatting of this n ote might be different from the original. Mental Capacity Assessment uploaded to pt chart and placed in providers basket. Nuvia Tesfaye [facility] 2023-06-09 13:12:01 Formatting of this n ote might be different from the original. I approve of the referrals for neuropathy and bilateral hearing loss. Dr. Mike Salazar [facility] 2023-06-08 10:46:41 Formatting of this n ote might be different from the original. Patient requesting referrals to: Dr. Jacob Crowell Neurologist (for an EEG) [address] [facility]. [address] PH[phone] Pat Carranza ENT in [place](for hearing problem [address] [place] [address] PH#[phone] Kathie Franco [facility] 2023-05-05 08:59:54 Formatting of this n ote might be different from the original. Referral faxed again 05/05/2023 9AM Marlene Hills MA [facility] 2023-05-03 09:13:19 Formatting of this n ote might be different from the original. Patient is needing the referral to Dr. Crowell ref[facility]ed to them please. [facility]
[2024-08-05] MEDS ORDERED: MORPHINE 4 MG/ML SYR ONE (22:12)
[2024-08-05 22:18] LABS: Specific Gravity > 1.030 (1.005-1.030)
[2024-08-05 22:30] LABS: Specific Gravity > 1.030 (1.005-1.030); Sqamous Epithelial 20-50 /HPF (None Seen); Urine Bacteria <20 /HPF (<20); Urine Bilirubin NEGATIVE (Negative); Urine Blood Negative (Negative); Urine Clarity Extremely Turbid (Clear); Urine Color Yellow (Yellow); Urine Culture Reflex Order NOT NEEDED; Urine Glucose NEGATIVE (Negative); Urine Ketones TRACE (Negative); Urine Microscopic Reflex YN ORDER UMIC; Urine Mucus Slight /HPF (None Seen); Urine Nitrite NEGATIVE (Negative); Urine Protein TRACE (Negative); Urine RBC <5 /HPF (None Seen); Urine Urobilinogen 1+ (Normal); Urine WBC <5 /HPF (<5); Urine pH 5.5 (5.0-7.0)
--- NOTE | 2024-08-06 00:54 | EDPHYS ---
Physician Documentation [facility] Name: Natalie Bae Age: 33 yrs Sex: Female : 1990 Arrival Date: 08/05/2024 Time: 21:00 Bed 24 Private MD: ED Physician Rj Villanueva HPI: 08/05 21:33 This 33 yrs old Female presents to ER via Wheelchair with complaints of Fall Injury. cp 21:33 Details of fall: The patient fell from an upright position, while standing. cp 21:33 Onset: The symptoms/episode began/occurred today. cp 21:33 Associated injuries: The patient sustained right pelvis and right knee. Patient reports cp chronic pelvic pain due to suffering pelvic fracture while in the . Right pelvic pain worse today with right knee pain since fall. Historical: - Allergies: 21:15 Tylenol; tm6 - PMHx: 21:15 hyperacusis (Seizure); neuropathy (Seizure); PTSD (Seizure); Seizure; tm6 - PSHx: 21:15 Lumpectomy of left breast.; tm6 - Immunization history:: Client reports having NOT received the Covid vaccine. - Infectious Disease History:: Denies. - Social history:: Smoking status: Reported history of juuling and/or vaping. Patient/guardian denies using alcohol, the patient reports quitting approximately 1.5 years ago. ROS: 21:35 Constitutional: Negative for body aches, chills, fever, poor PO intake, cp 21:35 Eyes: Negative for injury, pain, redness, and discharge, cp 21:35 Neck: Negative for pain with movement, pain at rest, stiffness, 21:35 Cardiovascular: Negative for chest pain, edema, palpitations, 21:35 Respiratory: Negative for cough, shortness of breath, wheezing, 21:35 Abdomen/GI: Negative for abdominal pain, vomiting, diarrhea, constipation, 21:35 Back: Negative for pain at rest, pain with movement, 21:35 MS/extremity: Positive for pain, of the right knee and pelvis, Negative for paresthesias, 21:35 All other systems are negative, Exam: 21:40 Constitutional: The patient appears in no acute distress, alert, awake, non-toxic, well cp developed, well nourished, uncomfortable, 21:40 Head/Face: Normocephalic, atraumatic. cp 21:40 Eyes: Periorbital structures: appear normal, Conjunctiva: normal, no exudate, no injection, Lids and lashes: appear normal, bilaterally, 21:40 Neck: ROM/movement: is normal, is supple, without pain, no range of motions limitations, 21:40 Chest/axilla: Inspection: normal, 21:40 Cardiovascular: Rate: normal, Rhythm: regular, Edema: is not appreciated, 21:40 Respiratory: the patient does not display signs of respiratory distress, Breath sounds: are clear throughout, no decreased breath sounds, no stridor, no wheezing, 21:40 Abdomen/GI: Inspection: abdomen appears normal, Palpation: abdomen is soft and non-tender, in all quadrants, 21:40 Back: pain, is absent, 21:40 Musculoskeletal/extremity: Extremities: grossly normal except: noted in the right side pelvis and right upper leg and right knee: pain, There is no evidence of deformity, ROM: limited passive range of motion due to pain, in the right knee and right hip, 21:40 Neuro: Orientation: to person, place \T\ time. Mentation: is normal, Vital Signs: 21:14 BP 136 / 79; Pulse 85; Resp 19; Temp 97.8(TE); Pulse Ox 98% on R/A; MAP 93 mmHg; Weight tm6 60.33 kg; Height 5 ft. 3 in. ; Pain 8/10; 21:30 BP 100 / 111; Pulse 85; Resp 16; Pulse Ox 100% ; me1 23:00 BP 103 / 67; Pulse 71; Resp 16; Pulse Ox 100% ; vc1 08/06 00:00 BP 105 / 74; Pulse 70; Resp 15; Pulse Ox 100% ; vc1 01:08 BP 109 / 74; Pulse 76; Resp 16; Pulse Ox 100% ; vc1 10 21:14 Body Mass Index 23.56 (60.33 kg, 160.02 cm) tm6 08/05 21:14 Pain Scale: Adult tm6 MDM: 08/05 21:07 Medical Screening Exam initiated cp 08/06 00:52 Data reviewed: vital signs, nurses notes, radiologic studies, plain films, and as a cp result, I will discharge patient. 00:52 Differential diagnosis: contusion, fracture, sprain, strain. I considered the following cp discharge prescriptions or medication management in the emergency department Medications were administered in the Emergency Department. See MAR. Independent interpretation of the following test(s) in the Emergency Department X-Ray: My interpretation is images of pelvis and right femur negative for fracture. Counseling: I had a detailed discussion with the patient and/or guardian regarding the historical points, exam findings, and any diagnostic results supporting the discharge/admit diagnosis, radiology results, to return to the emergency department if symptoms worsen or persist or if there are any questions or concerns that arise at home. Response to treatment: the patient's symptoms have mildly improved after treatment, and as a result, I will discharge patient. 08/05 21:26 Order name: Urinalysis w/ reflexes; Complete Time: 23:44 cp 08/05 21:26 Order name: Test, Urine; Complete Time: 23:44 cp 08/05 22:39 Order name: Test, Serum; Complete Time: 23:44 vc1 08/05 21:26 Order name: XRAY Pelvis cp 08/05 23:59 Order name: Femur Right EDMS Administered Medications: 08/05 22:14 Drug: morphine IM 4 mg IM once Route: IM; Site: left deltoid; me1 22:45 Follow up: Response: No adverse reaction; Marked relief of symptoms; Pain is decreased vc1 08/06 01:06 Drug: Ketorolac IM 30 mg IM once Route: IM; Site: right deltoid; vc1 01:34 Follow up: Response: No adverse reaction vc1 01:07 Drug: traMADol PO 50 mg PO once Route: PO; vc1 01:35 Follow up: Response: No adverse reaction; Marked relief of symptoms; Pain is decreased vc1 Disposition Summary: 08/06/24 00:53 Discharge Ordered Notes: Location: Home cp Problem: new cp Symptoms: have improved cp Condition: Stable cp Diagnosis - Fall on same level, unspecified cp - Pelvic and perineal pain - from fall cp - Pain in right knee cp Followup: cp - With: Private Physician - When: 2 - 3 days - Reason: Recheck today's complaints Discharge Instructions: - Discharge Summary Sheet cp - Joint Pain cp - Pelvic Pain, Female cp Forms: - Medication Reconciliation Form cp - Antibiotic Education cp - Prescription Opioid Use cp - Patient Portal Instructions cp - Leadership Thank You Letter cp Prescriptions: - Naprosyn 500 mg Oral tablet - take 1 tablet ORAL route 2 times per day take with food; 20 tablet; Refills: 0, cp Product Selection Permitted - orphenadrine citrate 100 mg Oral Tablet Sustained Release - take 1 tablet ORAL route 2 times per day As needed; 20 tablet; Refills: 0, cp Product Selection Permitted Addendum: 08/07/2024 11:25 I was immediately available on-site in the Emergency Department for consultation in the m s3 care of the patient. Signatures: Dispatcher [employer] EDMS Marlon Quinn PA PA cp Sims, Marcus, DO ms3 Radha Jenkins RN RN vc1 Arminda Gonzalez, RN RN me1 Lawanda Bullock RN RN tm6 Corrections: (The following items were deleted from the chart) 08/05 21:26 21:26 Urinalysis+U.LAB.BRZ ordered. EDMS EDMS 21:26 21:26 Test, Urine+UC.LAB.BRZ ordered. EDMS EDMS 21: 21:26 Pelvis+RAD.RAD.BRZ ordered. EDMS EDMS 21:27 21:27 Femur Right+RAD.RAD.BRZ ordered. EDMS EDMS 22:39 22:39 TEST, SERUM+SC.LAB.BRZ ordered. EDMS EDMS
--- NOTE | 2024-08-06 00:54 | ER ---
Nurse's Notes [facility] Name: Natalie Bae Age: 33 yrs Sex: Female : 1990 Arrival Date: 08/05/2024 Time: 21:00 Bed 24 Private MD: Diagnosis: Fall on same level, unspecified;Pelvic and perineal pain-from fall;Pain in right knee Presentation: 08/05 21:14 Chief complaint: Patient states: I always have pain in my pelvis, I had an injury 13 tm6 years ago. But today I fell and hit my right knee and hip and my pain has increased. Coronavirus screen: Vaccine status: Patient reports being unvaccinated. Client denies travel out of the [place] in the last 14 days. Coronavirus screen:. Ebola Screen: Patient negative for fever greater than or equal to 101.5 degrees Fahrenheit, and additional compatible Ebola Virus Disease symptoms Patient denies exposure to infectious person. Patient denies travel to an Ebola-affected area in the 21 days before illness onset. No symptoms or risks identified at this time. Initial Sepsis Screen: Does the patient meet any 2 criteria? No. Patient's initial sepsis screen is negative. Does the patient have a suspected source of infection? No. Patient's initial sepsis screen is negative. Risk Assessment: Do you want to hurt yourself or someone else? Patient reports no desire to harm self or others. Onset of symptoms was August 05, 2024. 21:14 Method Of Arrival: Wheelchair tm6 21:14 Acuity: LUÍS 4 tm6 Triage Assessment: 21:15 General: Appears uncomfortable, Behavior is calm, cooperative. Pain: Complains of pain tm6 in pelvis and right knee Pain currently is 8 out of 10 on a pain scale. EENT: No signs and/or symptoms were reported regarding the EENT system. Neuro: Level of Consciousness is awake, alert, obeys commands, Oriented to person, place, time, situation. Cardiovascular: Patient's skin is warm and dry. Respiratory: Airway is patent Respiratory effort is even, unlabored, Respiratory pattern is regular, symmetrical. GI: No signs and/or symptoms were reported involving the gastrointestinal system. Abdomen is flat, non-distended. : No signs and/or symptoms were reported regarding the genitourinary system. Derm: No signs and/or symptoms reported regarding the dermatologic system. Musculoskeletal: Reports pain in pelvis and right knee Pain is 8 out of 10 on a pain scale. Historical: - Allergies: 21:15 Tylenol; tm6 - PMHx: 21:15 hyperacusis (Seizure); neuropathy (Seizure); PTSD (Seizure); Seizure; tm6 - PSHx: 21:15 Lumpectomy of left breast.; tm6 - Immunization history:: Client reports having NOT received the Covid vaccine. - Infectious Disease History:: Denies. - Social history:: Smoking status: Reported history of juuling and/or vaping. Patient/guardian denies using alcohol, the patient reports quitting approximately 1.5 years ago. Screenin:16 [facility] ED Fall Risk Assessment (Adult) History of falling in the last 3 months, me1 including since admission Yes- single mechanical fall (1 pt) Confusion or Disorientation No (0 pts) Intoxicated or Sedated No (0 pts) Impaired Gait No (0 pts) Mobility Assist Device Used No (0 pt) Altered Elimination No (0 pt) Score/Fall Risk Level 0 - 2 = Low Risk Maintained a safe environment, Provided non-skid footwear, Hourly rounding (assess needs \T\ fall precautionary measures) done. Abuse screen: Denies threats or abuse. Nutritional screening: No deficits noted. Tuberculosis screening: No symptoms or risk factors identified. Assessment: 21:16 General: Appears uncomfortable, well groomed, well developed, well nourished, Behavior me1 is calm, cooperative, appropriate for age, Denies I always have pain in my pelvis, I had an injury 13 years ago. But today I fell and hit my right knee and hip and my pain has increased. Pain: Complains of pain in right leg and pelvis and right knee Pain does not radiate. Pain currently is 8 out of 10 on a pain scale. Quality of pain is described as sharp, Pain began suddenly, Is continuous. Neuro: Level of Consciousness is awake, alert, obeys commands, Oriented to person, place, time, situation, Appropriate for age. Cardiovascular: Patient's skin is warm and dry. Respiratory: Airway is patent Respiratory effort is even, unlabored, Respiratory pattern is regular, symmetrical. GI: No signs and/or symptoms were reported involving the gastrointestinal system. : No signs and/or symptoms were reported regarding the genitourinary system. EENT: No signs and/or symptoms were reported regarding the EENT system. Derm: Skin is intact, is healthy with good turgor, Skin is pink, warm \T\ dry. Musculoskeletal: Reports pain in right leg and pelvis and right knee. Injury Description: I always have pain in my pelvis, I had an injury 13 years ago. But today I fell and hit my right knee and hip and my pain has increased. 08/06 00:27 Reassessment: Patient appears in no apparent distress at this time. No changes from vc1 previously documented assessment. Patient and/or family updated on plan of care and expected duration. Pain level reassessed. Patient is alert, oriented x 3, equal unlabored respirations, skin warm/dry/pink. 01:08 Reassessment: Patient appears in no apparent distress at this time. No changes from vc1 previously documented assessment. Patient and/or family updated on plan of care and expected duration. Pain level reassessed. Patient is alert, oriented x 3, equal unlabored respirations, skin warm/dry/pink. Vital Signs: 08/05 21:14 BP 136 / 79; Pulse 85; Resp 19; Temp 97.8(TE); Pulse Ox 98% on R/A; MAP 93 mmHg; Weight tm6 60.33 kg; Height 5 ft. 3 in. ; Pain 8/10; 21:30 BP 100 / 111; Pulse 85; Resp 16; Pulse Ox 100% ; me1 23:00 BP 103 / 67; Pulse 71; Resp 16; Pulse Ox 100% ; vc1 08/06 00:00 BP 105 / 74; Pulse 70; Resp 15; Pulse Ox 100% ; vc1 01:08 BP 109 / 74; Pulse 76; Resp 16; Pulse Ox 100% ; vc1 08/05 21:14 Body Mass Index 23.56 (60.33 kg, 160.02 cm) tm6 08/05 21:14 Pain Scale: Adult tm6 ED Course: 08/05 21:03 Patient arrived in ED. jj6 21:04 Marlon Quinn PA is PHCP. cp 21:04 Rj Villanueva DO is Attending Physician. cp 21:07 Arminda Gonzalez, RN is Primary Nurse. me1 21:15 Triage completed. tm6 21:15 Arm band placed on right wrist. tm6 21:16 Patient has correct armband on for positive identification. Bed in low position. Call mn1 light in reach. Side rails up X 1. Provided Education on: POC. Verbalized understanding. . Client placed on continuous cardiac and pulse oximetry monitoring. NIBP monitoring applied. Pulse ox on. NIBP on. 21:16 No provider procedures requiring assistance completed. me1 22:17 Test, Urine Sent. me1 22:17 Urinalysis w/ reflexes Sent. me1 23:41 Warm blanket given. vk 23:57 XRAY Pelvis In Process Unspecified. EDMS 23:59 Femur Right In Process Unspecified. EDMS 08/06 01:34 Patient did not have IV access during this emergency room visit. vc1 Administered Medications: 08/05 22:14 Drug: morphine IM 4 mg IM once Route: IM; Site: left deltoid; me1 22:45 Follow up: Response: No adverse reaction; Marked relief of symptoms; Pain is decreased vc1 08/06 01:06 Drug: Ketorolac IM 30 mg IM once Route: IM; Site: right deltoid; vc1 01:34 Follow up: Response: No adverse reaction vc1 01:07 Drug: traMADol PO 50 mg PO once Route: PO; vc1 01:35 Follow up: Response: No adverse reaction; Marked relief of symptoms; Pain is decreased vc1 Medication: 08/05 21:16 VIS not applicable for this client. mn1 Outcome: 08/06 00:53 Discharge ordered by MD. cp 01:33 Discharged to home via wheelchair, with significant other, vc1 01:33 Condition: good 01:33 Discharge instructions given to patient, Instructed on discharge instructions, follow up and referral plans. medication usage, Demonstrated understanding of instructions, follow-up care, medications, Prescriptions given X 2, 01:35 Patient left the ED. vc1 Signatures: Dispatcher [employer] EDGA Marlon Quinn PA PA cp Jeffries, Jennifer jj6 Calcote, Vanessa, RN RN vc1 Arminda Gonzalez RN RN mn1 Lawanda Bullock RN RN 6 Keisha Linares Corrections: (The following items were deleted from the chart) 08/05 21:15 21:14 Chief complaint: Patient states: I always have pain in my pelvis, I had an injury me1 13 years ago. But today I fell and hit my right knee and hip and my pain has increased tm6
[2024-08-06] MEDS ORDERED: KETOROLAC 30 MG/ML INJ ONE (01:00)
[2024-08-06] MEDS ORDERED: TRAMADOL HCL 50 MG TAB ONE (01:01)
--- NOTE | 2024-08-06 06:24 | RAD REPORT ---
EXAM: XR Pelvis, 1 or 2 Views CLINICAL HISTORY: The patient is 33 years old and is Female; fall TECHNIQUE: Frontal view of the pelvis. COMPARISON: No relevant prior studies available. FINDINGS: BONES/JOINTS: The femoral heads are located. The SI joints and pubic symphysis are intact without evidence of diastases. No acute fracture. No dislocation. SOFT TISSUES: Unremarkable. IMPRESSION: No acute findings in the pelvis. Electronically signed by: Shantel Blankenship MD 08/06/2024 12:34 AM CDT RP Due to temporary technical issues with the PACS/[employer] [facility] [employer] reporting system, reports are being sterling d by the in-house radiologist without review as a courtesy to ensure prompt reporting the interpreting radiologist is fully responsible for the content of the report. Transcribed Date/Time: 08/06/2024 6:24 AM
[2024-08-06 06:58] VITALS: TEMP 97.8
[2024-08-06 06:59] VITALS: O2SAT 100
[2024-08-06 07:03] VITALS: BP 109/74
--- NOTE | 2024-08-06 07:58 | RAD REPORT ---
EXAMINATION: Femur Right CLINICAL INDICATION: Female, 33 years old. PAIN TECHNIQUE: 2 view radiograph of the right femur were obtained. COMPARISON: No prior exam. FINDINGS: No evidence of fracture or dislocation. Normal alignment. No evidence of arthropathy or oth er focal bone lesion. Small rounded osseous density adjacent to the superior acetabular margin, may represent an os acetabuli. Soft tissues are unremarkable. IMPRESSION: No acute or significant abnormalities.
== END 2024-08-06 01:35 | disposition home or self-care (01) ==
LOC: ER 21:00
DX: R10.2 Pelvic and perineal pain (principal); M25.561 Pain in right knee; W18.30XA Fall on same level, unspecified, initial encounter
CPT/HCPCS: 36415; 72170; 81001; 81025; 84703; 96372; 99284

== ENCOUNTER 2025-01-10 10:59 | Emergency (ER) | payer BC ==
--- OUTSIDE RECORDS SUMMARY | 2025-01-10 11:10 | XMS REPORT | Continuity of Care Document ---
Author Name Unknown Address [address] [facility] [place] [address] [facility] [place] Address [address] [facility] [place] [address] Care Team Providers Care Racetrack Steward Name Role Phone Althea Mckeon MD Primary Care Physician [phone] KWADWO BUSH Attending Clinician Unavailable KWADWO BUSH Attending Clinician Unavailable PEÑA MCMULLEN Attending Clinician Unavail able PEÑA MCMULLEN Attending Clinician Unavail able ALTHEA MCKEON Attending Clinician Unavailable ALTHEA MCKEON Attending Clinician Unavailable CYNDY MATT Attending Clinician CYNDY Ansari Attending Clinician SUGAR Leal Attending Clinician Unavailable Cyndy Matt MD Attending Clinician + [phone] Pob, [facility] Main Attending Clinician UnavailAlthea Ventura MD Attending Clinician [phone] Peña Mcmullen MD Attending Clinician [phone] Keisha José MD Attending Clinician [phone] AUBRIE KINSEY Attending Clinician Unavailable AUBRIE KINSEY Attending Clinician Unavailable KEISHA JOSÉ Attending Clinician Unavailable KEISHA JOSÉ Attending Clinician Unavailable Lab, Ang - Db Attending Clinician Unavailable Sugar Bledsoe NP Attending Clinician [phone] Doctor Unassigned, [place] Attending Clinician U caty BASSETTN, Cassandra Attending Clinician UnavailCHAIM Beard Attending Clinician Unavailable Angy FERNANDEZ, Chaim Attending Clinician [phone] CATHERINE FREEMAN Attending Clinician Unavailable CATHERINE FREEMAN Attending Clinician Unavailable Pete FERNANDEZ, Catherine Attending Clinician [phone] OCHOA SWIFT Attending Clinician Unavailjeremy Swift MD, Ochoa Attending Clinician [phone] Tito Yadav MD Attending Clinician [phone] Jen Michael RN Attending Clinician Unavail able Sharlene Berumen PA-C Attending Clinician [phone] ISRAEL SHIPLEY Attending Clinician Unavailable Israel Shipley PA-C Attending Clinician [phone] Kwadwo Bush MD Attending Clinician [phone] SANTINO TORRES Attending Clinician Unavailable SANTINO TORRES Attending Clinician Unavailable Lab, Lcc Attending Clinician Unavailable MARTHA BECK Attending Clinician Unavailable MARTHA BECK Attending Clinician Unavailable Martha Beck MD Attending Clinician [phone] JABARI FIGUEROA Attending Clinician Unavailable JABARI FIGUEROA Attending Clinician Unavailable Jabari Figueroa MD Attending Clinician [phone] CHELSEA MOYA Attending Clinician Unavailab Nghia SORIANO, Nasreen Attending Clinician [phone] Mary Khan MD Attending Clinician Doctor Unassigned, [place] Attending Clinician U JABARI Wray Attending Clinician Unavailable Jayne Cooley Attending Clinician [phone] Deidra Raza MD Attending Clinician [phone] Jabari Garcia DO Attending Clinician [phone] Gilbert Frederick MD Attending Clinician [phone] Derrek Perez MD Attending Clinicia n SHARLENE BERUMEN Attending Clinician Unavailable Sharlene Berumen PA-C Attending Clinician [phone] Peña Mcmullen MD Attending Clinician [phone] MARY KHAN Attending Clinician Rozina vailable Sunil, [facility] Attending Clinician UnavailSONIA Ley Attending Clinician Unavailable SONIA LEY Attending Clinician Unavailable Vtc-Lab Attending Clinician Unavailable Gill Israel Attending Clinician Unavailjeremy Stewart RN, Della Jaimes Attending Clinician UnavailGIOVANNA Gallagher Attending Clinician Unavailable Hussein FERNANDEZ, Giovanna Attending Clinician [phone] ABRIL SULLIVAN Attending Clinician Unavailable 2, [employer] Attending Clinician Rozina vailable Danna Escobedo Attending Clinician Unavailable Abril June Attending Clinician [phone] Mari Hawley RN Attending Clinician Unavailjeremy Hernandez Rn RN, Sinai Kaba Attending Clinician Unava ilable MELISSA LUCAS Attending Clinician Unavailable Brenton Marshall MD Attending Clinician + [phone] Melissa Lucas MD Attending Clinician + [phone] Anatoly Mohr MD Attending Clinician +[phone] ANATOLY MOHR Attending Clinician Unavailable Lab, Ang - Db Attending Clinician Unavailable DONA BRUCE Attending Clinician Unavailable Yajaira Walters MD, Eduardo Hermosillo Attending Clinicia n Dona Bruce MD Attending Clinician [phone] KATE DURAN Attending Clinician Unavailable JORJE CRUZ Attending Clinician Unavailable Jorje Khan Attending Clinician [phone] Johny Queen MD Attending Clinician [phone] Pcp, Patient Does Not Have A Attending Clinician Skye Vazquez Attending Clinician Unavailable Yola Bright Attending Clinician Unavailable Tito Gonzalez Attending Clinician UnavailCesar Quiroz Attending Clinician Unavailable Jonn Hutchins Attending Clinician Unav ailable KEISHA JOSÉ Admitting Clinician Unavailable OCHOA SWIFT Admitting Clinician UnavailOchoa Long MD Admitting Clinician [phone] GILBERT FREDERICK Admitting Clinician Unavailable Gilbert Frederick MD Admitting Clinician [phone] PEÑA MCMULLEN Admitting Clinician Unavail able Payers Payer Name Policy Type Policy Number Effective Date Expirati on Date Source HIM BCBS BLUE ADVANTAGE HMO [id number] 2024 00:00:00 [facility] [id number] 2024 00:00:00 BCBS 2 [id number] 2023 00:00:00 Problems Condition Name Condition Details Condition Category Status Onset Date Resolution Date Last Treatment Date Treating Clinician Comments Source High-risk in first trimester High-risk in first trimester Disease Active 12-11 00:00: 00 [facility] Muscle tightness Muscle tightness Disease Active 10-20 00:00: 00 [facility] Seizure disorder during in first trimester Seizure disorder during in first trimester Disease Active 2012-10 00:00: 00 [facility] No known active problems No known active problems Disease [facility] of unknown anatomic location of unknown anatomic location Disease Resolve d 2-13 00:00: 00 2024-12-11 00:00:00 2024-12-11 13:49:14 [facility] Lymphocyti c colitis Lymphocyti c colitis Disease Resolve d 1-15 00:00: 00 2024-11-08 00:00:00 2024-11-08 10:39:57 [facility] Pharyngoes ophageal dysphagia Pharyngoes ophageal dysphagia Disease Resolve d 07-11 00:00: 00 2024-11-08 00:00:00 2024-11-08 10:39:55 [facility] Globus sensation Globus sensation Disease Resolve d 9- 00:00: 00 2024-11-08 00:00:00 2024-11-08 10:39:53 [facility] Gastroesop hageal reflux disease, unspecifie d whether esophagiti s present Gastroesop hageal reflux disease, unspecifie d whether esophagiti s present Disease Resolve d 2023-0 9-25 00:00: 00 2024-11-08 00:00:00 2024-11-08 10:39:51 [facility] Nausea Nausea Disease Resolve d 0 9-25 00:00: 00 2024-11-08 00:00:00 2024-11-08 10:39:48 [facility] Change in bowel habits Change in bowel habits Disease Resolve d 2023-0 9-25 00:00: 00 2024-11-08 00:00:00 2024-11-08 10:39:40 [facility] Rectal bleeding Rectal bleeding Disease Resolve d 0 9-25 00:00: 00 2024-11-08 00:00:00 2024-11-08 10:39:42 [facility] Loose stools Loose stools Disease Resolve d 0 9- 00:00: 00 2024-11-08 00:00:00 2024-11-08 10:39:44 [facility] 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 Disease Resolve d 0 9-25 00:00: 00 2024-11-08 00:00:00 2024-11-08 10:39:46 [facility] Hemorrhoid s, internal, with bleeding Hemorrhoid s, internal, with bleeding Disease Resolve d 0 7-18 00:00: 00 2024-11-08 00:00:00 2024-11-08 10:40:05 [facility] Fissure in ano Fissure in ano Disease Resolve d 2023-0 7-18 00:00: 00 2024-11-08 00:00:00 2024-11-08 10:40:03 [facility] Pelvic and perineal pain Pelvic and perineal pain Disease Resolve d 2023-0 7-18 00:00: 00 2024-11-08 00:00:00 2024-11-08 10:40:01 [facility] Generalize d abdominal pain Generalize d abdominal pain Disease Resolve d 2023-0 6-29 00:00: 00 2024-11-08 00:00:00 2024-11-08 10:40:11 [facility] Rectal pain Rectal pain Disease Resolve d 6- 00:00: 00 2024-11-08 00:00:00 2024-11-08 10:40:09 [facility] Pelvic floor dysfunctio n in female Pelvic floor dysfunctio n in female Disease Resolve d 1-04 00:00: 00 2024-11-08 00:00:00 2024-11-08 10:40:17 [facility] Hyperacusi s of both ears Hyperacusi s of both ears Disease Resolve d - 00:00: 00 2024-11-08 00:00:00 2024-11-08 10:40:21 [facility] Migraines Migraines Disease Resolve d 01-15 00:00: 00 2024-11-08 00:00:00 2024-11-08 10:40:19 [facility] Seizures Seizures Disease Resolve d 2012-10 1 00:00: 00 2024-11-08 00:00:00 2024-11-08 10:40:13 [facility] Allergies, Adverse Reactions, Alerts Allergy Name Allergy Type Status Severity Reaction(s) Onset Date Inactive Date Treating Clinician Comments Source Acetamin ophen Drug Allergy Active Other - See comments 01-23 00:00: 00 Syncope, seizures [facility] Acetamin ophen Propensi ty to adverse reaction s Active Other - See comments 01-23 00:00: 00 Syncope, seizures [facility] ACETAMIN OPHEN DRUG INGREDI Active High Other-Cmnt 01-23 00:00: 00 [facility] Family History Family Member Diagnosis Comments Start Date Stop Date Sourc e Natural [facility] Maternal grandfather Colon Cancer [facility] Maternal grandfather Diabetes [facility] Maternal grandfather High cholesterol [facility] Maternal grandfather Hypertension [facility] Maternal grandmother Arthritis [facility] Maternal grandmother Breast Cancer [facility] Maternal grandmother Diabetes [facility] Natural mother Cervical Cancer [facility] Natural sister Asthma [facility] Natural sister Depression [facility] Social History Social Habit Start Date Stop Date Quantity Comments Source ASSERTION 2024-11-14 00:00:00 [facility] History SDOH Alcohol Frequency [facility] History SDOH Alcohol Std Drinks [facility] History SDOH Alcohol Binge [facility] Gender identity [facility] Alcoholic beverage intake 2025-01-08 00:00:00 2025-01-08 00:00:00 Ex-drinker (finding) [facility] History of Social function 2024-11-20 00:00:00 2024-11-20 00:00:00 [facility] Tobacco use and exposure 2024-04-10 00:00:00 2024-04-10 00:00:00 Smokeless tobacco non-user [facility] Alcohol intake 2024-02-14 00:00:00 2024-02-14 00:00:00 Ex-drinker (finding) [facility] Alcohol Comment 2023-11-01 00:00:00 2023-11-01 00:00:00 Clean since january 25 2023 [facility] Cigarettes smoked current (pack per day) - Reported 2023-04-22 00:00:00 2023-04-22 00:00:00 [facility] Cigarette pack-years 2023-04-22 00:00:00 2023-04-22 00:00:00 [facility] Exposure to SARS-CoV-2 (event) 2022-06-07 00:00:00 2022-06-17 08:20:00 Not sure [facility] History of tobacco use 2015-01-23 00:00:00 Smokes tobacco daily [facility] Sex assigned at 1990 00:00:00 1990 00:00:00 [facility] Smoking Status Start Date Stop Date Source Smokes tobacco daily 2024-04-10 00:00:00 [facility] Ex-smoker 2022-05-27 00:00:00 2022-05-27 00:00:00 [facility] Medications Ordered Medication Name Filled Medication Name Start Date Stop Date Current Medication? Ordering Clinician Indication Dosage Frequency Signature (SIG) Comments Components Source proMETHazin e 12.5 mg suppository 3-07 00:00: 00 Yes [id number] 12.5mg Insert 1 Suppositor y into rectum every 4 (four) hours as needed for Nausea and Vomiting (N/V). [facility] levETIRAcet am 750 mg tablet 12-12 00:00: 00 Yes [id number] 750mg Take 1 tablet by mouth every morning and evening. [facility] famotidine (PEPCID) 40 mg tablet 12-10 00:00: 00 Yes [id number] 40mg Take 1 tablet by mouth at bedtime. [facility] ondansetron 4 mg tablet 12-10 00:00: 00 01-07 00:00 :00 No 4mg Take 1 tablet by mouth every 8 (eight) hours as needed for Nausea and Vomiting (N/V). [facility] DULOXETINE 60 mg capsule 12-05 00:00: 00 Yes [id number] 60mg TAKE 1 CAPSULE BY MOUTH IN THE MORNING [facility] famotidine (PEPCID) 40 mg tablet 1-15 00:00: 00 12-10 00:00 :00 No [id number] 40mg Take 1 tablet by mouth at bedtime. [facility] simethicone (GAS RELIEF (SIMETHICON E)) 40 mg/0.6 mL drops 2023-10 18:42: 00 09-26 21:32 :19 No PRN, Starting on Tue09/26/24 at 1242, Until Tue09/26/24 at 1532, Routine, Intra-op [facility] bacteriosta tic saline 0.9 % injection 2023-10 16:08: 00 09-26 21:32 :19 No PRN, Starting on Tue09/26/24 at 1008, Until Tue09/26/24 at 1532, Routine, Intra-op [facility] lidocaine 2% viscous (LIDOCAINE VISCOUS) 2 % solution 2023-10 15:39: 00 09-26 21:32 :19 No PRN, Starting on Tue09/26/24 at 0939, Until Tue09/26/24 at 1532, Routine, Intra-op [facility] OMEPRAZOLE 40 mg capsule 2023-10 00:00: 00 11-06 00:00 :00 No [id number] 40mg TAKE 1 CAPSULE BY MOUTH IN THE MORNING [facility] levETIRAcet am 750 mg tablet 2023-10 00:00: 00 12-10 00:00 :00 No [id number] 750mg Take 1 tablet by mouth every morning and evening. [facility] DULoxetine 60 mg capsule 2023-10 00:00: 00 12-05 00:00 :00 No [id number] 60mg Take 1 capsule by mouth in the morning. [facility] cetirizine (ZYRTEC) 10 mg tablet 2023-10 00:00: 00 Yes [id number] 10mg Take 1 tablet by mouth in the morning. [facility] topiramate 25 mg tablet 2023-10 00:00: 00 12-11 00:00 :00 No [id number] 25mg TAKE 1 TABLET BY MOUTH IN THE MORNING AND IN THE EVENING [facility] ketorolac (TORADOL) injection 30 mg 2023-10 15:30: 00 08-15 14:39 :00 No [id number] 30mg 30 mg, Intramuscu lar, ONCE, 1 dose, On Tue08/15/24 at 1030, Routine [facility] orphenadrin e 100 mg SR tablet 2023-10 00:00: 00 12-11 00:00 :00 No TAKE 1 TABLET BY MOUTH TWICE DAILY NEEDED [facility] naproxen 500 mg tablet 2023-10 00:00: 00 11-06 00:00 :00 No 500mg Take 1 tablet by mouth in the morning and 1 tablet in the evening. Take with meals. [facility] Loperamide HCl 2 mg Tab tablet 07-11 00:00: 00 11-08 00:00 :00 No [id number] 2mg Take 1 tablet by mouth as needed for Other (diarrhea) . [facility] sodium,pota ssium,mag sulfates 17.5-3.13-1 .6 gram 07-11 00:00: 00 11-02 00:00 :00 No [id number] Use as directed for colonoscop y [facility] levETIRAcet am 750 mg tablet 07-03 00:00: 00 09-21 00:00 :00 No [id number] 750mg Take 1 tablet by mouth every morning and evening. [facility] cetirizine (ZYRTEC) 10 mg tablet 05-03 00:00: 00 09-03 00:00 :00 No [id number] 10mg Take 1 tablet by mouth in the morning. [facility] LEVETIRACET AM 750 mg tablet 04-16 00:00: 00 07-03 00:00 :00 No [id number] 750mg TAKE 1 TABLET BY MOUTH IN THE MORNING AND IN THE EVENING [facility] ibuprofen (IBU) tablet 400 mg 04-15 22:20: 00 04-15 22:15 :00 No 400mg 400 mg, Oral, ONCE, 1 dose, On 04/15/24 at 1730, Routine [facility] NaCl 0.9% (NS) IV infusion 1,000 mL 04-15 12:00: 00 04-16 01:45 :31 No 1000mL at 100 mL/hr, IV Infusion, CONTINUOUS , Starting on 04/15/24 at 0700, Until 04/15/24 at 2045, Routine [facility] NaCl 0.9% (NS) IV infusion 1,000 mL 04-15 09:45: 00 04-15 08:56 :04 No 1000mL at 999 mL/hr, IV Infusion, ONCE, 1 dose, On 04/15/24 at 0445, Routine [facility] traZODone (DESYREL) tablet 50 mg 04-15 02:00: 00 04-16 01:45 :31 No 50mg 50 mg, Oral, QHS, First dose on 04/14/24 at 2100, Until Discontinu ed, Routine [facility] ciprofloxac in HCl 500 mg tablet 04-15 00:00: 00 04-23 04:59 :00 No [id number] 500mg Take 1 tablet by mouth every 12 (twelve) hours for 7 days. [facility] metroNIDAZO LE 500 mg tablet 04-15 00:00: 00 04-23 04:59 :00 No [id number] 500mg Take 1 tablet by mouth every 12 (twelve) hours for 7 days. [facility] traMADoL 50 mg tablet 04-15 00:00: 00 04-23 04:59 :00 No [id number] 50mg Take 1 tablet by mouth every 6 (six) hours as needed for Pain (scale 7-10) for up to 7 days. Indication s: acute pain [facility] traMADoL (ULTRAM) tablet 50 mg 04-14 22:48: 44 04-16 01:45 :31 No 50mg 50 mg, Oral, Q6HPRN, Starting on 04/14/24 at 1748, Until 04/15/24 at 2045, Routine, Pain (scale 4-6) [facility] enoxaparin (LOVENOX) injection 40 mg 04-14 22:00: 00 04-16 01:45 :31 No 40mg 40 mg, Subcutaneo us, DAILY, First dose on 04/14/24 at 1700, Until Discontinu ed, Routine [facility] metroNIDAZO LE in NaCl (iso-os) (FLAGYL I.V.) RTU IV infusion 500 mg 04-14 16:45: 00 04-16 01:45 :31 No 500mg 500 mg, IV Infusion, Q12H ABX, 14 doses, First dose on Tue04/14/24 at 1145, Last dose on Tue04/20/24 at 2345, Administer over 60 Minutes, 100 mL, Reason for Anti-Infec tive: Documented Infection, Documented Infection Site: Pelvic, Duration of Therapy: 7 days [facility] ciprofloxac in in 5 % dextrose (CIPRO) piggyback 400 mg 04-14 16:45: 00 04-16 01:45 :31 No 400mg 400 mg, IV Piggyback, Q12H ABX, 14 doses, First dose on Tue04/14/24 at 1145, Last dose on Tue04/20/24 at 2345, Administer over 60 Minutes, 200 mL, Reason for Anti-Infec tive: Documented Infection, Documented Infection Site: Pelvic, Duration of Therapy: 7 days [facility] water for irrigation irrigation solution 04-14 16:16: 00 04-14 16:37 :31 No PRN, Starting on 04/14/24 at 1116, Until 04/14/24 at 1137, Routine, Intra-op [facility] simethicone (GAS RELIEF (SIMETHICON E)) 40 mg/0.6 mL drops 04-14 16:16: 00 04-14 16:37 :31 No PRN, Starting on Tue04/14/24 at 1116, Until Tue04/14/24 at 1137, Routine, Intra-op [facility] cetirizine (ZYRTEC) tablet 10 mg 04-14 14:00: 00 04-16 01:45 :31 No 10mg 10 mg, Oral, DAILY, First dose on Tue04/14/24 at 0900, Until Discontinu ed, Routine [facility] NaCl 0.9% (NS) IV infusion 1,000 mL 04-14 13:30: 00 04-14 12:59 :00 No 1000mL at 75 mL/hr, IV Infusion, ONCE, 1 dose, On 04/14/24 at 0830, Routine [facility] pantoprazol e (PROTONIX) EC tablet 40 mg 04-14 13:00: 00 04-16 01:45 :31 No 40mg 40 mg, Oral, BID, First dose on 04/14/24 at 0800, Until Discontinu ed [facility] potassium chloride in water 10 mEq/100 mL RTU 10 mEq 04-14 13:00: 00 04-14 15:17 :00 No 10meq 10 mEq, IV Piggyback, Q1H, 2 doses, First dose on 04/14/24 at 0800, Last dose on Tue04/14/24 at 0900, Administer over 60 Minutes, [facility] mL [facility] top[facility] ([facility]AMAX) tablet 25 mg 04-14 12:30: 00 04-16 01:45 :31 No 25mg 25 mg, Oral, QAM+PM, First dose on 04/14/24 at 0730, Until Discontinu ed, [facility]ine [facility] levETIRAcet am (KEPPRA) tablet 750 mg 04-14 12:30: 00 04-16 01:45 :31 No 750mg 750 mg, Oral, QAM+PM, First dose on 04/14/24 at 0730, Until Discontinu ed, Routine [facility] DULoxetine (CYMBALTA) capsule 60 mg 04-14 12:30: 00 04-16 01:45 :31 No 60mg 60 mg, Oral, DAILY, First dose on 04/14/24 at 0730, Until Discontinu ed, Routine [facility] ondansetron (ZOFRAN (PF)) injection 4 mg 04-14 11:35: 32 04-16 01:45 :31 No 4mg 4 mg, Slow IV Push, Q6HPRN, Starting on 04/14/24 at 0635, Until 04/15/24 at 204, Routine, Nausea and Vomiting (N/V) [facility] morphine (2 mg/mL) injection 2 mg 04-14 11:35: 27 04-15 11:34 :27 No 2mg 2 mg, Slow IV Push, Q4HPRN, Starting on 04/14/24 at 0635, Until 04/15/24 at 0634, Routine, Pain (scale 7-10) [facility] Vancomycin 750 mg in NaCl 0.9% (NS) 250 mL VIAL-MATE 04-14 08:15: 00 04-14 09:30 :00 No 15mg/kg 750 mg (rounded from 885 mg = 15 mg/kg ?59 kg), IV Piggyback, ONCE, 1 dose, On 04/14/24 at 0315, Administer over 60 Minutes, 250 mL, Reason for Anti-Infec tive: Documented Infection, Documented Infection Site: Skin / Soft Tissue, Duration of Therapy: Once (ED) [facility] piperacilli n-tazobacta m (ZOSYN) 3.375 g in NaCl 0.9% (NS) 100 mL MINI-BAG 04-14 07:30: 00 04-14 08:20 :00 No 3.375g 3.375 g, IV Piggyback, ONCE, 1 dose, On 04/14/24 at 0230, Administer over 30 Minutes, 100 mL, Reason for Anti-Infec tive: Documented Infection, Documented Infection Site: Skin / Soft Tissue, Duration of Therapy: Once (ED) [facility] iopamidol (ISOVUE 370-500 mL) injection 60 mL 04-14 07:15: 00 04-14 07:15 :00 No [id number] 60mL 60 mL, Intravenou s, ONCE, 1 dose, On [facility] 04/14/24 at 0215, Routine [facility] NaCl 0.9% (NS) IV infusion 1,000 mL 04-14 06:15: 00 04-14 08:20 :00 No 1000mL at 999 mL/hr, Intravenou s, ONCE, 1 dose, On 04/14/24 at 0115, Routine [facility] ketorolac (TORADOL) injection 30 mg 04-14 05:30: 00 04-14 05:24 :00 No 30mg 30 mg, Slow IV Push, ONCE, 1 dose, On 04/14/24 at 0030, MARIA TERESA [facility] sodium chloride (NS) injection 5 mL 04-14 04:25: 50 04-16 01:45 :31 No 5mL 5 mL, Intravenou s, PRN, Starting on Tue04/13/24 at 2325, Until 04/15/24 at 2045, Routine, IV line flushing [facility] azelastine 137 mcg (0.1 %) nasal spray 04-10 00:00: 00 12-11 00:00 :00 No [id number] 1{spray } Use 1 [place] in each nostril in the morning and 1 [place] in the evening. Use in each nostril as directed [facility] omeprazole 40 mg capsule 04-10 00:00: 00 09-25 00:00 :00 No [id number] 40mg Take 1 capsule by mouth in the morning. [facility] famotidine 40 mg tablet 04-10 00:00: 00 04-15 00:00 :00 No [id number] 40mg Take 1 tablet by mouth at bedtime. [facility] miSOPROStoL 200 mcg tablet 04-09 00:00: 00 05-01 00:00 :00 No [id number] 200ug Take 1 tablet by mouth SEE-INSTRU CTIONS. Take one tab the night before and one tab the morning of procedure [facility] gadobenate dimeglumine (MULTIHANCE -15 mL) injection 0.2 mL/kg 03-28 17:15: 00 03-28 17:17 :00 No [id number] .2mL/kg 0.2 mL/kg, Intravenou s, ONCE, 1 dose, On Tue03/28/24 at 1215, Routine [facility] barium sulfate (LIQUID E-Z PAQUE) 60 % (w/v) oral suspension 90 mL 03-28 16:00: 00 03-28 15:46 :00 No [id number] 90mL 90 mL, Oral, ONCE, 1 dose, On Tue03/28/24 at 1100, Routine [facility] barium sulfate (LIQUID E-Z PAQUE) 60 % (w/v) oral suspension 20 mL 03-28 16:00: 00 03-28 15:50 :00 No [id number] 20mL 20 mL, Oral, ONCE, 1 dose, On Tue03/28/24 at 1100, Routine [facility] sod bicarb-citr ic ac-simeth (E-Z-GAS II) 2.21-1.53 gram/4 gram packet 1 Packet 03-28 16:00: 00 03-28 15:48 :00 No [id number] 1{packe t} 1 Packet, Oral, ONCE, 1 dose, On Tue03/28/24 at 1100, Routine [facility] barium sulfate (E-Z DISK) tablet 700 mg 03-28 16:00: 00 03-28 15:53 :00 No [id number] 700mg 700 mg, Oral, ONCE, 1 dose, On Tue03/28/24 at 1100, Routine [facility] TOPIRAMATE 25 mg tablet 03-23 00:00: 00 08-27 00:00 :00 No [id number] 25mg TAKE 1 TABLET BY MOUTH IN THE MORNING AND IN THE EVENING [facility] cetirizine (ZYRTEC) 10 mg tablet 03-08 00:00: 00 05-03 00:00 :00 No [id number] 10mg Take 1 tablet by mouth in the morning. [facility] triamcinolo ne (NASACORT ALLERGY) 55 mcg nasal inhaler 03-08 00:00: 00 04-15 00:00 :00 No [id number] 2{spray } Use 2 Sprays in each nostril in the morning. [facility] levETIRAcet am 750 mg tablet 3-26 00:00: 00 04-16 00:00 :00 No [id number] 750mg Take 1 tablet by mouth every morning and evening. [facility] traZODone 50 mg tablet 2-20 00:00: 00 11-06 00:00 :00 No TAKE 1 TABLET BY MOUTH AT BEDTIME NEEDED FOR SLEP [facility] DULoxetine 60 mg capsule 0 2-20 00:00: 00 09-04 00:00 :00 No 60mg Take 1 capsule by mouth in the morning. [facility] gabapentin 300 mg capsule 2-15 00:00: 00 01-08 00:00 :00 No 300mg Take 1 capsule by mouth in the morning and 1 capsule at noon and 1 capsule in the evening. [facility] topiramate 25 mg tablet 12 00:00: 00 03-23 00:00 :00 No [id number] 25mg Take 1 tablet by mouth in the morning and 1 tablet in the evening. [facility] topiramate 25 mg tablet - 00:00: 00 11-28 00:00 :00 No [id number] 25mg Take 1 tablet by mouth in the morning and 1 tablet in the evening. [facility] diclofenac 75 mg EC tablet 11-07 00:00: 00 11-28 00:00 :00 No TAKE 1 TABLET BY MOUTH TWICE DAILY NEEDED [facility] orphenadrin e 100 mg SR tablet - 00:00: 00 11-28 00:00 :00 No TAKE 1 TABLET BY MOUTH TWICE DAILY NEEDED [facility] predniSONE 20 mg tablet - 00:00: 00 11-28 00:00 :00 No 20mg Take 1 tablet by mouth in the morning. [facility] DULoxetine 30 mg capsule - 00:00: 00 12-25 00:00 :00 No [id number] 30mg Take 1 capsule by mouth in the morning. [facility] levETIRAcet am 750 mg tablet 2022-10 00:00: 00 01-08 00:00 :00 No [id number] 750mg Take 1 tablet by mouth every morning and evening. [facility] ketoconazol e 2 % shampoo 2022-10 00:00: 00 02-13 00:00 :00 No [id number] Apply to area(s) daily. Use as shampoo on scalp and body. Lather and apply, let sit for 5 minutes, then rinse out. [facility] ketoconazol e 2 % cream 2022-10 00:00: 00 02-13 00:00 :00 No [id number] Apply to area(s) 2 (two) times daily. [facility] gabapentin 100 mg capsule 2022-10 00:00: 00 10-27 00:00 :00 No [id number] 100mg Take 1-3 capsules by mouth in the morning and 1-3 capsules at noon and 1-3 capsules in the evening. [facility] ondansetron 4 mg tablet 2022-10 00:00: 00 11-28 00:00 :00 No TAKE 1 TABLET BY MOUTH EVERY 6 HOURS NEEDED FOR NAUSEA AND VOMITING [facility] omeprazole 40 mg capsule 2022-10 00:00: 00 11-16 00:00 :00 No 40mg Take 1 capsule by mouth in the morning. [facility] ketorolac (TORADOL) injection 30 mg 2022-10 17:30: 00 08-18 17:59 :00 No [id number] 30mg [facility] LEVETIRACET AM 750 mg tablet 07-14 00:00: 00 10-13 00:00 :00 No [id number] 750mg TAKE 1 TABLET BY MOUTH IN THE MORNING AND IN THE EVENING [facility] ketorolac (TORADOL) injection 30 mg 06-17 16:15: 00 06-17 15:46 :00 No [id number] 30mg [facility] SERTraline 100 mg tablet - 00:00: 00 10-27 00:00 :00 No [id number] 100mg Take 1 tablet by mouth in the morning. [facility] topiramate 25 mg tablet 06-07 00:00: 00 11-04 00:00 :00 No 25mg Take 1 tablet by mouth in the morning and 1 tablet in the evening. [facility] levETIRAcet am 750 mg tablet 05-23 00:00: 00 07-14 00:00 :00 No [id number] 750mg Take 1 tablet by mouth in the morning and 1 tablet in the evening. [facility] MULTIVITAMI N (KID'S VITAMINS ORAL) 04-22 13:04: 08 04-22 00:00 :00 No Take by mouth. [facility] METOCLOPRAM LUCILA HCL (REGLAN ORAL) 04-22 13:03: 56 04-22 00:00 :00 No Take by mouth. [facility] SERTraline 50 mg tablet 04-22 00:00: 00 06-17 00:00 :00 No [id number] 25mg Take 0.5 tablets by mouth in the morning. Then may increase to 1 tablet by mouth daily if no response by 1 week [facility] levETIRAcet am 750 mg tablet 04-08 00:00: 00 04-22 00:00 :00 No 750mg Take 1 tablet by mouth in the morning and 1 tablet in the evening. [facility] METOCLOPRAM LUCILA HCL (REGLAN ORAL) 01-23 15:15: 59 Yes Take by mouth. [facility] Immunizations Ordered Immunization Name Filled Immunization Name Date Status Comments Source Flu Injectable MDCK Pres-Free (FLUCELVAX) 2024-08-15 00:00:00 Completed Influenza Virus Vaccine Quad IM, Preserv and ABX Free 6 MO-64 YRS (FLUCELVAX) 2023-08-18 00:00:00 Completed [facility] Pneumococcal 20 Conjugate, PCV20 (Prevnar 20) 2023-08-18 00:00:00 Completed [facility] TDAP 2023-08-18 00:00:00 Completed [facility] TDAP 2010-11-24 00:00:00 Completed IPV 2010-11-24 00:00:00 Completed Meningococcal Polysaccharide (groups A, C, Y and W-135) conjugate vaccine (MCV4P) 2010-11-24 00:00:00 Completed IPV 2010-11-23 00:00:00 Completed Meningococcal Polysaccharide (groups A, C, Y and W-135) conjugate vaccine (MCV4P) 2010-11-23 00:00:00 Completed Flu Split Virus, PSA 2010-11-08 00:00:00 Completed Influenza Virus Vaccine Quad IM, Preserv and ABX Free 6 MO-64 YRS (FLUCELVAX) Unknown Completed [facility] Pneumococcal 20 Conjugate, PCV20 (Prevnar 20) Unknown Completed [facility] TDAP Unknown Completed [facility] Influenza Virus Vaccine Quad IM, Preserv and ABX Free 6 MO-64 YRS (FLUCELVAX) Unknown Completed [facility] Pneumococcal 20 Conjugate, PCV20 (Prevnar 20) Unknown Completed [facility] TDAP Unknown Completed [facility] Influenza Virus Vaccine Quad IM, Preserv and ABX Free 6 MO-64 YRS (FLUCELVAX) Unknown Completed [facility] Pneumococcal 20 Conjugate, PCV20 (Prevnar 20) Unknown Completed [facility] TDAP Unknown Completed [facility] Influenza Virus Vaccine Quad IM, Preserv and ABX Free 6 MO-64 YRS (FLUCELVAX) Unknown Completed [facility] Pneumococcal 20 Conjugate, PCV20 (Prevnar 20) Unknown Completed [facility] TDAP Unknown Completed [facility] Influenza Virus Vaccine Quad IM, Preserv and ABX Free 6 MO-64 YRS (FLUCELVAX) Unknown Completed [facility] Pneumococcal 20 Conjugate, PCV20 (Prevnar 20) Unknown Completed [facility] TDAP Unknown Completed [facility] Influenza Virus Vaccine Quad IM, Preserv and ABX Free 6 MO-64 YRS (FLUCELVAX) Unknown Completed [facility] Pneumococcal 20 Conjugate, PCV20 (Prevnar 20) Unknown Completed [facility] TDAP Unknown Completed [facility] Influenza Virus Vaccine Quad IM, Preserv and ABX Free 6 MO-64 YRS (FLUCELVAX) Unknown Completed [facility] Pneumococcal 20 Conjugate, PCV20 (Prevnar 20) Unknown Completed [facility] TDAP Unknown Completed [facility] Influenza Virus Vaccine Quad IM, Preserv and ABX Free 6 MO-64 YRS (FLUCELVAX) Unknown Completed [facility] Pneumococcal 20 Conjugate, PCV20 (Prevnar 20) Unknown Completed [facility] TDAP Unknown Completed [facility] Influenza Virus Vaccine Quad IM, Preserv and ABX Free 6 MO-64 YRS (FLUCELVAX) Unknown Completed [facility] Pneumococcal 20 Conjugate, PCV20 (Prevnar 20) Unknown Completed [facility] TDAP Unknown Completed [facility] Influenza Virus Vaccine Quad IM, Preserv and ABX Free 6 MO-64 YRS (FLUCELVAX) Unknown Completed [facility] Pneumococcal 20 Conjugate, PCV20 (Prevnar 20) Unknown Completed [facility] TDAP Unknown Completed [facility] Influenza Virus Vaccine Quad IM, Preserv and ABX Free 6 MO-64 YRS (FLUCELVAX) Unknown Completed [facility] Pneumococcal 20 Conjugate, PCV20 (Prevnar 20) Unknown Completed [facility] TDAP Unknown Completed [facility] Influenza Virus Vaccine Quad IM, Preserv and ABX Free 6 MO-64 YRS (FLUCELVAX) Unknown Completed [facility] Pneumococcal 20 Conjugate, PCV20 (Prevnar 20) Unknown Completed [facility] TDAP Unknown Completed [facility] Influenza Virus Vaccine Quad IM, Preserv and ABX Free 6 MO-64 YRS (FLUCELVAX) Unknown Completed [facility] Pneumococcal 20 Conjugate, PCV20 (Prevnar 20) Unknown Completed [facility] TDAP Unknown Completed [facility] Influenza Virus Vaccine Quad IM, Preserv and ABX Free 6 MO-64 YRS (FLUCELVAX) Unknown Completed [facility] Pneumococcal 20 Conjugate, PCV20 (Prevnar 20) Unknown Completed [facility] TDAP Unknown Completed [facility] Influenza Virus Vaccine Quad IM, Preserv and ABX Free 6 MO-64 YRS (FLUCELVAX) Unknown Completed [facility] Pneumococcal 20 Conjugate, PCV20 (Prevnar 20) Unknown Completed [facility] TDAP Unknown Completed [facility] Influenza Virus Vaccine Quad IM, Preserv and ABX Free 6 MO-64 YRS (FLUCELVAX) Unknown Completed [facility] Pneumococcal 20 Conjugate, PCV20 (Prevnar 20) Unknown Completed [facility] TDAP Unknown Completed [facility] Influenza Virus Vaccine Quad IM, Preserv and ABX Free 6 MO-64 YRS (FLUCELVAX) Unknown Completed [facility] Pneumococcal 20 Conjugate, PCV20 (Prevnar 20) Unknown Completed [facility] TDAP Unknown Completed [facility] Influenza Virus Vaccine Quad IM, Preserv and ABX Free 6 MO-64 YRS (FLUCELVAX) Unknown Completed [facility] Pneumococcal 20 Conjugate, PCV20 (Prevnar 20) Unknown Completed [facility] TDAP Unknown Completed [facility] Influenza Virus Vaccine Quad IM, Preserv and ABX Free 6 MO-64 YRS (FLUCELVAX) Unknown Completed [facility] Pneumococcal 20 Conjugate, PCV20 (Prevnar 20) Unknown Completed [facility] TDAP Unknown Completed [facility] Influenza Virus Vaccine Quad IM, Preserv and ABX Free 6 MO-64 YRS (FLUCELVAX) Unknown Completed [facility] Pneumococcal 20 Conjugate, PCV20 (Prevnar 20) Unknown Completed [facility] TDAP Unknown Completed [facility] Influenza Virus Vaccine Quad IM, Preserv and ABX Free 6 MO-64 YRS (FLUCELVAX) Unknown Completed [facility] Pneumococcal 20 Conjugate, PCV20 (Prevnar 20) Unknown Completed [facility] TDAP Unknown Completed [facility] Influenza Virus Vaccine Quad IM, Preserv and ABX Free 6 MO-64 YRS (FLUCELVAX) Unknown Completed [facility] Pneumococcal 20 Conjugate, PCV20 (Prevnar 20) Unknown Completed [facility] TDAP Unknown Completed [facility] Influenza Virus Vaccine Quad IM, Preserv and ABX Free 6 MO-64 YRS (FLUCELVAX) Unknown Completed [facility] Pneumococcal 20 Conjugate, PCV20 (Prevnar 20) Unknown Completed [facility] TDAP Unknown Completed [facility] Influenza Virus Vaccine Quad IM, Preserv and ABX Free 6 MO-64 YRS (FLUCELVAX) Unknown Completed [facility] Pneumococcal 20 Conjugate, PCV20 (Prevnar 20) Unknown Completed [facility] TDAP Unknown Completed [facility] Influenza Virus Vaccine Quad IM, Preserv and ABX Free 6 MO-64 YRS (FLUCELVAX) Unknown Completed [facility] Pneumococcal 20 Conjugate, PCV20 (Prevnar 20) Unknown Completed [facility] TDAP Unknown Completed [facility] Influenza Virus Vaccine Quad IM, Preserv and ABX Free 6 MO-64 YRS (FLUCELVAX) Unknown Completed [facility] Pneumococcal 20 Conjugate, PCV20 (Prevnar 20) Unknown Completed [facility] TDAP Unknown Completed [facility] Influenza Virus Vaccine Quad IM, Preserv and ABX Free 6 MO-64 YRS (FLUCELVAX) Unknown Completed [facility] Pneumococcal 20 Conjugate, PCV20 (Prevnar 20) Unknown Completed [facility] TDAP Unknown Completed [facility] Influenza Virus Vaccine Quad IM, Preserv and ABX Free 6 MO-64 YRS (FLUCELVAX) Unknown Completed [facility] Pneumococcal 20 Conjugate, PCV20 (Prevnar 20) Unknown Completed [facility] TDAP Unknown Completed [facility] Influenza Virus Vaccine Quad IM, Preserv and ABX Free 6 MO-64 YRS (FLUCELVAX) Unknown Completed [facility] Pneumococcal 20 Conjugate, PCV20 (Prevnar 20) Unknown Completed [facility] TDAP Unknown Completed [facility] Influenza Virus Vaccine Quad IM, Preserv and ABX Free 6 MO-64 YRS (FLUCELVAX) Unknown Completed [facility] Pneumococcal 20 Conjugate, PCV20 (Prevnar 20) Unknown Completed [facility] TDAP Unknown Completed [facility] Influenza Virus Vaccine Quad IM, Preserv and ABX Free 6 MO-64 YRS (FLUCELVAX) Unknown Completed [facility] Pneumococcal 20 Conjugate, PCV20 (Prevnar 20) Unknown Completed [facility] TDAP Unknown Completed [facility] Influenza Virus Vaccine Quad IM, Preserv and ABX Free 6 MO-64 YRS (FLUCELVAX) Unknown Completed [facility] Pneumococcal 20 Conjugate, PCV20 (Prevnar 20) Unknown Completed [facility] TDAP Unknown Completed [facility] Influenza Virus Vaccine Quad IM, Preserv and ABX Free 6 MO-64 YRS (FLUCELVAX) Unknown Completed [facility] Pneumococcal 20 Conjugate, PCV20 (Prevnar 20) Unknown Completed [facility] TDAP Unknown Completed [facility] Influenza Virus Vaccine Quad IM, Preserv and ABX Free 6 MO-64 YRS (FLUCELVAX) Unknown Completed [facility] Pneumococcal 20 Conjugate, PCV20 (Prevnar 20) Unknown Completed [facility] TDAP Unknown Completed [facility] Influenza Virus Vaccine Quad IM, Preserv and ABX Free 6 MO-64 YRS (FLUCELVAX) Unknown Completed [facility] Pneumococcal 20 Conjugate, PCV20 (Prevnar 20) Unknown Completed [facility] TDAP Unknown Completed [facility] Influenza Virus Vaccine Quad IM, Preserv and ABX Free 6 MO-64 YRS (FLUCELVAX) Unknown Completed [facility] Pneumococcal 20 Conjugate, PCV20 (Prevnar 20) Unknown Completed [facility] TDAP Unknown Completed [facility] Influenza Virus Vaccine Quad IM, Preserv and ABX Free 6 MO-64 YRS (FLUCELVAX) Unknown Completed [facility] Pneumococcal 20 Conjugate, PCV20 (Prevnar 20) Unknown Completed [facility] TDAP Unknown Completed [facility] Influenza Virus Vaccine Quad IM, Preserv and ABX Free 6 MO-64 YRS (FLUCELVAX) Unknown Completed [facility] Pneumococcal 20 Conjugate, PCV20 (Prevnar 20) Unknown Completed [facility] TDAP Unknown Completed [facility] Influenza Virus Vaccine Quad IM, Preserv and ABX Free 6 MO-64 YRS (FLUCELVAX) Unknown Completed [facility] Pneumococcal 20 Conjugate, PCV20 (Prevnar 20) Unknown Completed [facility] TDAP Unknown Completed [facility] Influenza Virus Vaccine Quad IM, Preserv and ABX Free 6 MO-64 YRS (FLUCELVAX) Unknown Completed [facility] Pneumococcal 20 Conjugate, PCV20 (Prevnar 20) Unknown Completed [facility] TDAP Unknown Completed [facility] Influenza Virus Vaccine Quad IM, Preserv and ABX Free 6 MO-64 YRS (FLUCELVAX) Unknown Completed [facility] Pneumococcal 20 Conjugate, PCV20 (Prevnar 20) Unknown Completed [facility] TDAP Unknown Completed [facility] Influenza Virus Vaccine Quad IM, Preserv and ABX Free 6 MO-64 YRS (FLUCELVAX) Unknown Completed [facility] Pneumococcal 20 Conjugate, PCV20 (Prevnar 20) Unknown Completed [facility] TDAP Unknown Completed [facility] Influenza Virus Vaccine Quad IM, Preserv and ABX Free 6 MO-64 YRS (FLUCELVAX) Unknown Completed [facility] Pneumococcal 20 Conjugate, PCV20 (Prevnar 20) Unknown Completed [facility] TDAP Unknown Completed [facility] Influenza Virus Vaccine Quad IM, Preserv and ABX Free 6 MO-64 YRS (FLUCELVAX) Unknown Completed [facility] Pneumococcal 20 Conjugate, PCV20 (Prevnar 20) Unknown Completed [facility] TDAP Unknown Completed [facility] Influenza Virus Vaccine Quad IM, Preserv and ABX Free 6 MO-64 YRS (FLUCELVAX) Unknown Completed [facility] Pneumococcal 20 Conjugate, PCV20 (Prevnar 20) Unknown Completed [facility] TDAP Unknown Completed [facility] Influenza Virus Vaccine Quad IM, Preserv and ABX Free 6 MO-64 YRS (FLUCELVAX) Unknown Completed [facility] Pneumococcal 20 Conjugate, PCV20 (Prevnar 20) Unknown Completed [facility] TDAP Unknown Completed [facility] Influenza Virus Vaccine Quad IM, Preserv and ABX Free 6 MO-64 YRS (FLUCELVAX) Unknown Completed [facility] Pneumococcal 20 Conjugate, PCV20 (Prevnar 20) Unknown Completed [facility] TDAP Unknown Completed [facility] Influenza Virus Vaccine Quad IM, Preserv and ABX Free 6 MO-64 YRS (FLUCELVAX) Unknown Completed [facility] Pneumococcal 20 Conjugate, PCV20 (Prevnar 20) Unknown Completed [facility] TDAP Unknown Completed [facility] Influenza Virus Vaccine Quad IM, Preserv and ABX Free 6 MO-64 YRS (FLUCELVAX) Unknown Completed [facility] Pneumococcal 20 Conjugate, PCV20 (Prevnar 20) Unknown Completed [facility] TDAP Unknown Completed [facility] Influenza Virus Vaccine Quad IM, Preserv and ABX Free 6 MO-64 YRS (FLUCELVAX) Unknown Completed [facility] Pneumococcal 20 Conjugate, PCV20 (Prevnar 20) Unknown Completed [facility] TDAP Unknown Completed [facility] Influenza Virus Vaccine Quad IM, Preserv and ABX Free 6 MO-64 YRS (FLUCELVAX) Unknown Completed [facility] Pneumococcal 20 Conjugate, PCV20 (Prevnar 20) Unknown Completed [facility] TDAP Unknown Completed [facility] Influenza Virus Vaccine Quad IM, Preserv and ABX Free 6 MO-64 YRS (FLUCELVAX) Unknown Completed [facility] Pneumococcal 20 Conjugate, PCV20 (Prevnar 20) Unknown Completed [facility] TDAP Unknown Completed [facility] Influenza Virus Vaccine Quad IM, Preserv and ABX Free 6 MO-64 YRS (FLUCELVAX) Unknown Completed [facility] Pneumococcal 20 Conjugate, PCV20 (Prevnar 20) Unknown Completed [facility] TDAP Unknown Completed [facility] Influenza Virus Vaccine Quad IM, Preserv and ABX Free 6 MO-64 YRS (FLUCELVAX) Unknown Completed [facility] Pneumococcal 20 Conjugate, PCV20 (Prevnar 20) Unknown Completed [facility] TDAP Unknown Completed [facility] Influenza Virus Vaccine Quad IM, Preserv and ABX Free 6 MO-64 YRS (FLUCELVAX) Unknown Completed [facility] Pneumococcal 20 Conjugate, PCV20 (Prevnar 20) Unknown Completed [facility] TDAP Unknown Completed [facility] Influenza Virus Vaccine Quad IM, Preserv and ABX Free 6 MO-64 YRS (FLUCELVAX) Unknown Completed [facility] Pneumococcal 20 Conjugate, PCV20 (Prevnar 20) Unknown Completed [facility] TDAP Unknown Completed [facility] Influenza Virus Vaccine Quad IM, Preserv and ABX Free 6 MO-64 YRS (FLUCELVAX) Unknown Completed [facility] Pneumococcal 20 Conjugate, PCV20 (Prevnar 20) Unknown Completed [facility] TDAP Unknown Completed [facility] Influenza Virus Vaccine Quad IM, Preserv and ABX Free 6 MO-64 YRS (FLUCELVAX) Unknown Completed [facility] Pneumococcal 20 Conjugate, PCV20 (Prevnar 20) Unknown Completed [facility] TDAP Unknown Completed [facility] Influenza Virus Vaccine Quad IM, Preserv and ABX Free 6 MO-64 YRS (FLUCELVAX) Unknown Completed [facility] Pneumococcal 20 Conjugate, PCV20 (Prevnar 20) Unknown Completed [facility] TDAP Unknown Completed [facility] Influenza Virus Vaccine Quad IM, Preserv and ABX Free 6 MO-64 YRS (FLUCELVAX) Unknown Completed [facility] Pneumococcal 20 Conjugate, PCV20 (Prevnar 20) Unknown Completed [facility] TDAP Unknown Completed [facility] Influenza Virus Vaccine Quad IM, Preserv and ABX Free 6 MO-64 YRS (FLUCELVAX) Unknown Completed [facility] Pneumococcal 20 Conjugate, PCV20 (Prevnar 20) Unknown Completed [facility] TDAP Unknown Completed [facility] Influenza Virus Vaccine Quad IM, Preserv and ABX Free 6 MO-64 YRS (FLUCELVAX) Unknown Completed [facility] Pneumococcal 20 Conjugate, PCV20 (Prevnar 20) Unknown Completed [facility] TDAP Unknown Completed [facility] Influenza Virus Vaccine Quad IM, Preserv and ABX Free 6 MO-64 YRS (FLUCELVAX) Unknown Completed [facility] Pneumococcal 20 Conjugate, PCV20 (Prevnar 20) Unknown Completed [facility] TDAP Unknown Completed [facility] Influenza Virus Vaccine Quad IM, Preserv and ABX Free 6 MO-64 YRS (FLUCELVAX) Unknown Completed [facility] Pneumococcal 20 Conjugate, PCV20 (Prevnar 20) Unknown Completed [facility] TDAP Unknown Completed [facility] Influenza Virus Vaccine Quad IM, Preserv and ABX Free 6 MO-64 YRS (FLUCELVAX) Unknown Completed [facility] Pneumococcal 20 Conjugate, PCV20 (Prevnar 20) Unknown Completed [facility] TDAP Unknown Completed [facility] Influenza Virus Vaccine Quad IM, Preserv and ABX Free 6 MO-64 YRS (FLUCELVAX) Unknown Completed [facility] Pneumococcal 20 Conjugate, PCV20 (Prevnar 20) Unknown Completed [facility] TDAP Unknown Completed [facility] Influenza Virus Vaccine Quad IM, Preserv and ABX Free 6 MO-64 YRS (FLUCELVAX) Unknown Completed [facility] Pneumococcal 20 Conjugate, PCV20 (Prevnar 20) Unknown Completed [facility] TDAP Unknown Completed [facility] Influenza Virus Vaccine Quad IM, Preserv and ABX Free 6 MO-64 YRS (FLUCELVAX) Unknown Completed [facility] Pneumococcal 20 Conjugate, PCV20 (Prevnar 20) Unknown Completed [facility] TDAP Unknown Completed [facility] Influenza Virus Vaccine Quad IM, Preserv and ABX Free 6 MO-64 YRS (FLUCELVAX) Unknown Completed [facility] Pneumococcal 20 Conjugate, PCV20 (Prevnar 20) Unknown Completed [facility] TDAP Unknown Completed [facility] Influenza Virus Vaccine Quad IM, Preserv and ABX Free 6 MO-64 YRS (FLUCELVAX) Unknown Completed [facility] Pneumococcal 20 Conjugate, PCV20 (Prevnar 20) Unknown Completed [facility] TDAP Unknown Completed [facility] Influenza Virus Vaccine Quad IM, Preserv and ABX Free 6 MO-64 YRS (FLUCELVAX) Unknown Completed [facility] Pneumococcal 20 Conjugate, PCV20 (Prevnar 20) Unknown Completed [facility] TDAP Unknown Completed [facility] Influenza Virus Vaccine Quad IM, Preserv and ABX Free 6 MO-64 YRS (FLUCELVAX) Unknown Completed [facility] Pneumococcal 20 Conjugate, PCV20 (Prevnar 20) Unknown Completed [facility] TDAP Unknown Completed [facility] Influenza Virus Vaccine Quad IM, Preserv and ABX Free 6 MO-64 YRS (FLUCELVAX) Unknown Completed [facility] Pneumococcal 20 Conjugate, PCV20 (Prevnar 20) Unknown Completed [facility] TDAP Unknown Completed [facility] Influenza Virus Vaccine Quad IM, Preserv and ABX Free 6 MO-64 YRS (FLUCELVAX) Unknown Completed [facility] Pneumococcal 20 Conjugate, PCV20 (Prevnar 20) Unknown Completed [facility] TDAP Unknown Completed [facility] Influenza Virus Vaccine Quad IM, Preserv and ABX Free 6 MO-64 YRS (FLUCELVAX) Unknown Completed [facility] Pneumococcal 20 Conjugate, PCV20 (Prevnar 20) Unknown Completed [facility] TDAP Unknown Completed [facility] Influenza Virus Vaccine Quad IM, Preserv and ABX Free 6 MO-64 YRS (FLUCELVAX) Unknown Completed [facility] Pneumococcal 20 Conjugate, PCV20 (Prevnar 20) Unknown Completed [facility] TDAP Unknown Completed [facility] Influenza Virus Vaccine Quad IM, Preserv and ABX Free 6 MO-64 YRS (FLUCELVAX) Unknown Completed [facility] Pneumococcal 20 Conjugate, PCV20 (Prevnar 20) Unknown Completed [facility] TDAP Unknown Completed [facility] Influenza Virus Vaccine Quad IM, Preserv and ABX Free 6 MO-64 YRS (FLUCELVAX) Unknown Completed [facility] Pneumococcal 20 Conjugate, PCV20 (Prevnar 20) Unknown Completed [facility] TDAP Unknown Completed [facility] Influenza Virus Vaccine Quad IM, Preserv and ABX Free 6 MO-64 YRS (FLUCELVAX) Unknown Completed [facility] Pneumococcal 20 Conjugate, PCV20 (Prevnar 20) Unknown Completed [facility] TDAP Unknown Completed [facility] Influenza Virus Vaccine Quad IM, Preserv and ABX Free 6 MO-64 YRS (FLUCELVAX) Unknown Completed [facility] Pneumococcal 20 Conjugate, PCV20 (Prevnar 20) Unknown Completed [facility] TDAP Unknown Completed [facility] Influenza Virus Vaccine Quad IM, Preserv and ABX Free 6 MO-64 YRS (FLUCELVAX) Unknown Completed [facility] Pneumococcal 20 Conjugate, PCV20 (Prevnar 20) Unknown Completed [facility] TDAP Unknown Completed [facility] Influenza Virus Vaccine Quad IM, Preserv and ABX Free 6 MO-64 YRS (FLUCELVAX) Unknown Completed [facility] Pneumococcal 20 Conjugate, PCV20 (Prevnar 20) Unknown Completed [facility] TDAP Unknown Completed [facility] Influenza Virus Vaccine Quad IM, Preserv and ABX Free 6 MO-64 YRS (FLUCELVAX) Unknown Completed [facility] Pneumococcal 20 Conjugate, PCV20 (Prevnar 20) Unknown Completed [facility] TDAP Unknown Completed [facility] Influenza Virus Vaccine Quad IM, Preserv and ABX Free 6 MO-64 YRS (FLUCELVAX) Unknown Completed [facility] Pneumococcal 20 Conjugate, PCV20 (Prevnar 20) Unknown Completed [facility] TDAP Unknown Completed [facility] Influenza Virus Vaccine Quad IM, Preserv and ABX Free 6 MO-64 YRS (FLUCELVAX) Unknown Completed [facility] Pneumococcal 20 Conjugate, PCV20 (Prevnar 20) Unknown Completed [facility] TDAP Unknown Completed [facility] Influenza Virus Vaccine Quad IM, Preserv and ABX Free 6 MO-64 YRS (FLUCELVAX) Unknown Completed [facility] Pneumococcal 20 Conjugate, PCV20 (Prevnar 20) Unknown Completed [facility] TDAP Unknown Completed [facility] Influenza Virus Vaccine Quad IM, Preserv and ABX Free 6 MO-64 YRS (FLUCELVAX) Unknown Completed [facility] Pneumococcal 20 Conjugate, PCV20 (Prevnar 20) Unknown Completed [facility] TDAP Unknown Completed [facility] Influenza Virus Vaccine Quad IM, Preserv and ABX Free 6 MO-64 YRS (FLUCELVAX) Unknown Completed [facility] Pneumococcal 20 Conjugate, PCV20 (Prevnar 20) Unknown Completed [facility] TDAP Unknown Completed [facility] Influenza Virus Vaccine Quad IM, Preserv and ABX Free 6 MO-64 YRS (FLUCELVAX) Unknown Completed [facility] Pneumococcal 20 Conjugate, PCV20 (Prevnar 20) Unknown Completed [facility] TDAP Unknown Completed [facility] Influenza Virus Vaccine Quad IM, Preserv and ABX Free 6 MO-64 YRS (FLUCELVAX) Unknown Completed [facility] Pneumococcal 20 Conjugate, PCV20 (Prevnar 20) Unknown Completed [facility] TDAP Unknown Completed [facility] Influenza Virus Vaccine Quad IM, Preserv and ABX Free 6 MO-64 YRS (FLUCELVAX) Unknown Completed [facility] Pneumococcal 20 Conjugate, PCV20 (Prevnar 20) Unknown Completed [facility] TDAP Unknown Completed [facility] Influenza Virus Vaccine Quad IM, Preserv and ABX Free 6 MO-64 YRS (FLUCELVAX) Unknown Completed [facility] Pneumococcal 20 Conjugate, PCV20 (Prevnar 20) Unknown Completed [facility] TDAP Unknown Completed [facility] Influenza Virus Vaccine Quad IM, Preserv and ABX Free 6 MO-64 YRS (FLUCELVAX) Unknown Completed [facility] Pneumococcal 20 Conjugate, PCV20 (Prevnar 20) Unknown Completed [facility] TDAP Unknown Completed [facility] Influenza Virus Vaccine Quad IM, Preserv and ABX Free 6 MO-64 YRS (FLUCELVAX) Unknown Completed [facility] Pneumococcal 20 Conjugate, PCV20 (Prevnar 20) Unknown Completed [facility] TDAP Unknown Completed [facility] Vital Signs Vital Name Observation Time Observation Value Comments S ource Systolic blood pressure 2025-01-08 17:44:00 112 mm[Hg] [facility] Diastolic blood pressure 2025-01-08 17:44:00 71 mm[Hg] [facility] Heart rate 2025-01-08 17:44:00 66 /min [facility] Body temperature 2025-01-08 17:44:00 36.67 Monika [facility] Respiratory rate 2025-01-08 17:44:00 16 /min [facility] Body height 2025-01-08 17:44:00 160 cm [facility] Body weight 2025-01-08 17:44:00 60.963 kg [facility] BMI 2025-01-08 17:44:00 23.81 kg/m2 [facility] Systolic blood pressure 2025-01-07 13:48:00 104 mm[Hg] [facility] Diastolic blood pressure 2025-01-07 13:48:00 69 mm[Hg] [facility] Heart rate 2025-01-07 13:48:00 64 /min [facility] Respiratory rate 2025-01-07 13:48:00 18 /min [facility] Body height 2025-01-07 13:48:00 160 cm [facility] Body weight 2025-01-07 13:48:00 61.236 kg [facility] BMI 2025-01-07 13:48:00 23.91 kg/m2 [facility] Oxygen saturation in Arterial blood by Pulse oximetry 2025-01-07 13:48:00 97 /min [facility] Systolic blood pressure 2024-12-11 19:23:00 107 mm[Hg] [facility] Diastolic blood pressure 2024-12-11 19:23:00 69 mm[Hg] [facility] Heart rate 2024-12-11 19:23:00 71 /min [facility] Body temperature 2024-12-11 19:23:00 37 Monika [facility] Respiratory rate 2024-12-11 19:23:00 18 /min [facility] Body height 2024-12-11 19:23:00 160 cm [facility] Body weight 2024-12-11 19:23:00 61.916 kg [facility] BMI 2024-12-11 19:23:00 24.18 kg/m2 [facility] Systolic blood pressure 2024-11-29 14:46:00 107 mm[Hg] [facility] Diastolic blood pressure 2024-11-29 14:46:00 75 mm[Hg] [facility] Heart rate 2024-11-29 14:46:00 81 /min [facility] Body temperature 2024-11-29 14:46:00 36.56 Monika [facility] Respiratory rate 2024-11-29 14:46:00 18 /min [facility] Body height 2024-11-29 14:46:00 160 cm [facility] Body weight 2024-11-29 14:46:00 61.78 kg [facility] BMI 2024-11-29 14:46:00 24.13 kg/m2 [facility] Oxygen saturation in Arterial blood by Pulse oximetry 2024-11-29 14:46:00 99 /min [facility] Systolic blood pressure 2024-11-20 19:19:00 96 mm[Hg] [facility] Diastolic blood pressure 2024-11-20 19:19:00 62 mm[Hg] [facility] Heart rate 2024-11-20 19:19:00 84 /min [facility] Body temperature 2024-11-20 19:19:00 37.11 Monika [facility] Body height 2024-11-20 19:19:00 160 cm [facility] Body weight 2024-11-20 19:19:00 63.141 kg [facility] BMI 2024-11-20 19:19:00 24.66 kg/m2 [facility] Oxygen saturation in Arterial blood by Pulse oximetry 2024-11-20 19:19:00 100 /min [facility] Systolic blood pressure 2024-11-08 16:33:00 100 mm[Hg] [facility] Diastolic blood pressure 2024-11-08 16:33:00 61 mm[Hg] [facility] Heart rate 2024-11-08 16:33:00 71 /min [facility] Body temperature 2024-11-08 16:33:00 36.44 Monika [facility] Respiratory rate 2024-11-08 16:33:00 20 /min [facility] Body height 2024-11-08 16:33:00 160 cm [facility] Body weight 2024-11-08 16:33:00 64.411 kg [facility] BMI 2024-11-08 16:33:00 25.15 kg/m2 [facility] Oxygen saturation in Arterial blood by Pulse oximetry 2024-11-08 16:33:00 100 /min [facility] Systolic blood pressure 2024-11-02 18:30:00 92 mm[Hg] [facility] Diastolic blood pressure 2024-11-02 18:30:00 64 mm[Hg] [facility] Heart rate 2024-11-02 18:30:00 63 /min [facility] Respiratory rate 2024-11-02 18:30:00 18 /min [facility] Body height 2024-11-02 18:30:00 160 cm [facility] Body weight 2024-11-02 18:30:00 65.59 kg [facility] BMI 2024-11-02 18:30:00 25.61 kg/m2 [facility] Oxygen saturation in Arterial blood by Pulse oximetry 2024-11-02 18:30:00 99 /min [facility] Systolic blood pressure 2024-10-31 20:59:00 105 mm[Hg] [facility] Diastolic blood pressure 2024-10-31 20:59:00 64 mm[Hg] [facility] Heart rate 2024-10-31 20:59:00 76 /min [facility] Body temperature 2024-10-31 20:59:00 36.33 Monika [facility] Body height 2024-10-31 20:59:00 160 cm [facility] Body weight 2024-10-31 20:59:00 64.864 kg [facility] BMI 2024-10-31 20:59:00 25.33 kg/m2 [facility] Oxygen saturation in Arterial blood by Pulse oximetry 2024-10-31 20:59:00 99 /min [facility] Systolic blood pressure 2024-09-26 19:20:00 117 mm[Hg] [facility] Diastolic blood pressure 2024-09-26 19:20:00 73 mm[Hg] [facility] Heart rate 2024-09-26 19:20:00 72 /min [facility] Respiratory rate 2024-09-26 19:20:00 18 /min [facility] Oxygen saturation in Arterial blood by Pulse oximetry 2024-09-26 19:20:00 100 /min [facility] Body temperature 2024-09-26 18:50:00 35.94 Monika [facility] Body height 2024-09-26 15:17:00 160 cm [facility] Body weight 2024-09-26 15:17:00 59.149 kg [facility] BMI 2024-09-26 15:17:00 23.10 kg/m2 [facility] Systolic blood pressure 2024-09-26 15:17:00 124 mm[Hg] [facility] Diastolic blood pressure 2024-09-26 15:17:00 83 mm[Hg] [facility] Heart rate 2024-09-26 15:17:00 76 /min [facility] Body temperature 2024-09-26 15:17:00 36.06 Monika [facility] Respiratory rate 2024-09-26 15:17:00 10 /min [facility] Body height 2024-09-26 15:17:00 160 cm [facility] Body weight 2024-09-26 15:17:00 59.149 kg [facility] BMI 2024-09-26 15:17:00 23.10 kg/m2 [facility] Oxygen saturation in Arterial blood by Pulse oximetry 2024-09-26 15:17:00 99 /min [facility] Systolic blood pressure 2024-08-15 14:13:00 103 mm[Hg] [facility] Diastolic blood pressure 2024-08-15 14:13:00 71 mm[Hg] [facility] Heart rate 2024-08-15 14:13:00 85 /min [facility] Respiratory rate 2024-08-15 14:13:00 18 /min [facility] Body height 2024-08-15 14:13:00 160 cm [facility] Body weight 2024-08-15 14:13:00 61.644 kg [facility] BMI 2024-08-15 14:13:00 24.07 kg/m2 [facility] Oxygen saturation in Arterial blood by Pulse oximetry 2024-08-15 14:13:00 99 /min [facility] Systolic blood pressure 2024-07-11 19:56:00 120 mm[Hg] [facility] Diastolic blood pressure 2024-07-11 19:56:00 76 mm[Hg] [facility] Heart rate 2024-07-11 19:56:00 95 /min [facility] Body temperature 2024-07-11 19:56:00 37.33 Monika [facility] Body height 2024-07-11 19:56:00 160 cm [facility] Body weight 2024-07-11 19:56:00 61.326 kg [facility] BMI 2024-07-11 19:56:00 23.95 kg/m2 [facility] Oxygen saturation in Arterial blood by Pulse oximetry 2024-07-11 19:56:00 98 /min [facility] Systolic blood pressure 2024-07-09 18:48:00 109 mm[Hg] [facility] Diastolic blood pressure 2024-07-09 18:48:00 71 mm[Hg] [facility] Heart rate 2024-07-09 18:48:00 75 /min [facility] Body height 2024-07-09 18:48:00 160 cm [facility] Body weight 2024-07-09 18:48:00 60.328 kg [facility] BMI 2024-07-09 18:48:00 23.56 kg/m2 [facility] Oxygen saturation in Arterial blood by Pulse oximetry 2024-07-09 18:48:00 98 /min [facility] Body temperature 2024-07-04 18:11:00 36 Monika [facility] Body height 2024-07-04 18:11:00 160 cm [facility] Body weight 2024-07-04 18:11:00 60.464 kg [facility] BMI 2024-07-04 18:11:00 23.61 kg/m2 [facility] Systolic blood pressure 2024-05-03 16:47:00 108 mm[Hg] [facility] Diastolic blood pressure 2024-05-03 16:47:00 75 mm[Hg] [facility] Heart rate 2024-05-03 16:47:00 76 /min [facility] Body temperature 2024-05-03 16:47:00 37.06 Monika [facility] Respiratory rate 2024-05-03 16:47:00 20 /min [facility] Body height 2024-05-03 16:47:00 160 cm [facility] Body weight 2024-05-03 16:47:00 58.968 kg [facility] BMI 2024-05-03 16:47:00 23.03 kg/m2 [facility] Oxygen saturation in Arterial blood by Pulse oximetry 2024-05-03 16:47:00 99 /min [facility] Systolic blood pressure 2024-05-01 18:22:00 102 mm[Hg] [facility] Diastolic blood pressure 2024-05-01 18:22:00 68 mm[Hg] [facility] Heart rate 2024-05-01 18:22:00 88 /min [facility] Body temperature 2024-05-01 18:22:00 36.72 Monika [facility] Respiratory rate 2024-05-01 18:22:00 18 /min [facility] Body height 2024-05-01 18:22:00 160 cm [facility] Body weight 2024-05-01 18:22:00 58.968 kg [facility] BMI 2024-05-01 18:22:00 23.03 kg/m2 [facility] Oxygen saturation in Arterial blood by Pulse oximetry 2024-05-01 18:22:00 100 /min [facility] Systolic blood pressure 2024-04-15 20:19:00 99 mm[Hg] [facility] Diastolic blood pressure 2024-04-15 20:19:00 60 mm[Hg] [facility] Heart rate 2024-04-15 20:19:00 79 /min [facility] Body temperature 2024-04-15 20:19:00 36.72 Monika [facility] Respiratory rate 2024-04-15 20:19:00 16 /min [facility] Oxygen saturation in Arterial blood by Pulse oximetry 2024-04-15 20:19:00 98 /min [facility] Body weight 2024-04-15 08:29:00 61.961 kg [facility] BMI 2024-04-15 08:29:00 24.20 kg/m2 [facility] Body height 2024-04-14 04:12:00 160 cm [facility] Heart rate 2024-04-14 17:06:00 66 /min [facility] Respiratory rate 2024-04-14 17:06:00 18 /min [facility] Oxygen saturation in Arterial blood by Pulse oximetry 2024-04-14 17:06:00 100 /min [facility] Systolic blood pressure 2024-04-14 17:05:00 110 mm[Hg] [facility] Diastolic blood pressure 2024-04-14 17:05:00 67 mm[Hg] [facility] Body temperature 2024-04-14 16:35:00 36.56 Monika [facility] Body height 2024-04-14 04:12:00 160 [facility] 2024-04-14 04:12:00 58.968 [facility] 2024-04-14 04:12:00 24.20 kg/m2 [facility] Body weight 2024-04-10 20:18:00 59.194 [facility] BMI 2024-04-10 20:18:00 23.12 kg/m2 [facility] Systolic blood pressure 2024-04-09 14:33:00 101 mm[Hg] [facility] Diastolic blood pressure 2024-04-09 14:33:00 71 mm[Hg] [facility] Heart rate 2024-04-09 14:33:00 83 /min [facility] Body temperature 2024-04-09 14:33:00 36.56 Monika [facility] Respiratory rate 2024-04-09 14:33:00 18 /min [facility] Body height 2024-04-09 14:33:00 160 cm [facility] Body weight 2024-04-09 14:33:00 59.512 kg [facility] BMI 2024-04-09 14:33:00 23.24 kg/m2 [facility] Systolic blood pressure 2024-03-08 14:49:00 101 mm[Hg] [facility] Diastolic blood pressure 2024-03-08 14:49:00 67 mm[Hg] [facility] Heart rate 2024-03-08 14:49:00 87 /min [facility] Respiratory rate 2024-03-08 14:49:00 16 /min [facility] Body height 2024-03-08 14:49:00 160 [facility] Body weight 2024-03-08 14:49:00 59.648 kg [facility] BMI 2024-03-08 14:49:00 23.29 kg/m2 [facility] Oxygen saturation in Arterial blood by Pulse oximetry 2024-03-08 14:49:00 99 /min [facility] Systolic blood pressure 2024-02-28 14:59:00 107 mm[Hg] [facility] Diastolic blood pressure 2024-02-28 14:59:00 75 mm[Hg] [facility] Heart rate 2024-02-28 14:59:00 71 /min [facility] Body height 2024-02-28 14:59:00 160 cm [facility] Body weight 2024-02-28 14:59:00 59.512 kg [facility] BMI 2024-02-28 14:59:00 23.24 kg/m2 [facility] Oxygen saturation in Arterial blood by Pulse oximetry 2024-02-28 14:59:00 100 /min [facility] Systolic blood pressure 2024-02-14 19:51:00 103 mm[Hg] [facility] Diastolic blood pressure 2024-02-14 19:51:00 71 mm[Hg] [facility] Heart rate 2024-02-14 19:51:00 76 /min [facility] Respiratory rate 2024-02-14 19:51:00 18 /min [facility] Body height 2024-02-14 19:51:00 160 cm [facility] Body weight 2024-02-14 19:51:00 59.285 kg [facility] BMI 2024-02-14 19:51:00 23.15 kg/m2 [facility] Oxygen saturation in Arterial blood by Pulse oximetry 2024-02-14 19:51:00 100 /min [facility] Systolic blood pressure 2024-01-11 13:09:00 99 mm[Hg] [facility] Diastolic blood pressure 2024-01-11 13:09:00 65 mm[Hg] [facility] Heart rate 2024-01-11 13:09:00 81 /min [facility] Body temperature 2024-01-11 13:09:00 36.39 Monika [facility] Body height 2024-01-11 13:09:00 160 cm [facility] Body weight 2024-01-11 13:09:00 60.782 kg [facility] BMI 2024-01-11 13:09:00 23.74 kg/m2 [facility] Oxygen saturation in Arterial blood by Pulse oximetry 2024-01-11 13:09:00 100 /min [facility] Systolic blood pressure 2023-12-03 23:19:44 110 mm[Hg] [facility] Diastolic blood pressure 2023-12-03 23:19:44 65 mm[Hg] [facility] Heart rate 2023-12-03 23:19:44 81 /min [facility] Respiratory rate 2023-12-03 23:19:44 15 /min [facility] Oxygen saturation in Arterial blood by Pulse oximetry 2023-12-03 23:19:44 97 /min [facility] Body temperature 2023-12-03 20:08:49 36.67 [facility] Systolic blood pressure 2023-12-01 20:25:00 92 mm[Hg] [facility] Diastolic blood pressure 2023-12-01 20:25:00 66 mm[Hg] [facility] Heart rate 2023-12-01 20:25:00 89 /min [facility] Body temperature 2023-12-01 20:25:00 36.72 [facility] Respiratory rate 2023-12-01 20:25:00 18 /min [facility] Body height 2023-12-01 20:25:00 160 cm [facility] Body weight 2023-12-01 20:25:00 64.864 kg [facility] BMI 2023-12-01 20:25:00 25.33 kg/m2 [facility] Oxygen saturation in Arterial blood by Pulse oximetry 2023-12-01 20:25:00 99 /min [facility] Systolic blood pressure 2023-11-28 19:01:00 113 mm[Hg] [facility] Diastolic blood pressure 2023-11-28 19:01:00 74 mm[Hg] [facility] Heart rate 2023-11-28 19:01:00 76 /min [facility] Respiratory rate 2023-11-28 19:01:00 18 /min [facility] Body height 2023-11-28 19:01:00 160 cm [facility] Body weight 2023-11-28 19:01:00 64.91 kg [facility] BMI 2023-11-28 19:01:00 25.35 kg/m2 [facility] Oxygen saturation in Arterial blood by Pulse oximetry 2023-11-28 19:01:00 100 /min [facility] Systolic blood pressure 2023-11-16 19:53:00 123 mm[Hg] [facility] Diastolic blood pressure 2023-11-16 19:53:00 77 mm[Hg] [facility] Heart rate 2023-11-16 19:53:00 79 /min [facility] [facility] Res[facility] rate 2023-11-16 19:53:00 18 /min [facility] Body height 2023-11-16 19:53:00 160 cm [facility] Body weight 2023-11-16 19:53:00 64.91 kg [facility] BMI 2023-11-16 19:53:00 25.35 kg/m2 [facility] Oxygen saturation in Arterial blood by Pulse oximetry 2023-11-16 19:53:00 99 /min [facility] Systolic blood pressure 2023-11-01 15:05:00 107 mm[Hg] [place] [facility] Diastolic blood pressure 2023-11-01 15:05:00 71 mm[Hg] [facility] Heart rate 2023-11-01 15:05:00 81 /min [facility] Body temperature 2023-11-01 15:05:00 37 Monika [facility] Respiratory rate 2023-11-01 15:05:00 18 /min [facility] Body height 2023-11-01 15:05:00 162.6 cm [facility] Body weight 2023-11-01 15:05:00 63.957 kg [facility] BMI 2023-11-01 15:05:00 24.20 kg/m2 [facility] Systolic blood pressure 2023-10-27 21:36:00 104 mm[Hg] [facility] Diastolic blood pressure 2023-10-27 21:36:00 57 mm[Hg] [facility] Heart rate 2023-10-27 21:36:00 70 /min [facility] Body temperature 2023-10-27 21:36:00 36.72 Monika [facility] Body height 2023-10-27 21:36:00 162.6 cm [facility] 2023-10-27 21:36:00 64.774 kg [facility] BMI 2023-10-27 21:36:00 24.51 kg/m2 [facility] Oxygen saturation in Arterial blood by Pulse oximetry 2023-10-27 21:36:00 99 /min [facility] Body height 2023-10-03 16:37:00 160 cm [facility] Systolic blood pressure 2023-09-26 19:16:00 112 mm[Hg] [facility] Diastolic blood pressure 2023-09-26 19:16:00 78 mm[Hg] [facility] Heart rate 2023-09-26 19:16:00 88 /min [facility] Body height 2023-09-26 19:16:00 160 cm [facility] Body weight 2023-09-26 19:16:00 63.231 kg [facility] BMI 2023-09-26 19:16:00 24.69 kg/m2 [facility] Oxygen saturation in Arterial blood by Pulse oximetry 2023-09-26 19:16:00 97 /min [facility] Systolic blood pressure 2023-09-12 18:36:00 112 mm[Hg] [facility] Diastolic blood pressure 2023-09-12 18:36:00 80 mm[Hg] [facility] Heart rate 2023-09-12 18:36:00 81 /min [facility] Respiratory rate 2023-09-12 18:36:00 18 /min [facility] Body height 2023-09-12 18:36:00 160 cm [facility] Body weight 2023-09-12 18:36:00 62.687 kg [facility] BMI 2023-09-12 18:36:00 24.48 kg/m2 [facility] Oxygen saturation in Arterial blood by Pulse oximetry 2023-09-12 18:36:00 100 /min [facility] Systolic blood pressure 2023-08-18 15:48:00 122 mm[Hg] [facility] Diastolic blood pressure 2023-08-18 15:48:00 81 mm[Hg] [facility] Heart rate 2023-08-18 15:48:00 72 /min [facility] Body temperature 2023-08-18 15:48:00 36.78 Monika [facility] Body height 2023-08-18 15:48:00 160 cm [facility] Body weight 2023-08-18 15:48:00 63.141 kg [facility] BMI 2023-08-18 15:48:00 24.66 kg/m2 [facility] Oxygen saturation in Arterial blood by Pulse oximetry 2023-08-18 15:48:00 98 /min [facility] Systolic blood pressure 2023-06-17 14:55:00 98 mm[Hg] [facility] Diastolic blood pressure 2023-06-17 14:55:00 62 mm[Hg] [facility] Heart rate 2023-06-17 14:55:00 72 /min [facility] Body temperature 2023-06-17 14:55:00 36.56 Moinka [facility] Respiratory rate 2023-06-17 14:55:00 16 /min [facility] Body height 2023-06-17 14:55:00 160 cm [facility] Body weight 2023-06-17 14:55:00 62.052 kg [facility] BMI 2023-06-17 14:55:00 24.23 kg/m2 [facility] Oxygen saturation in Arterial blood by Pulse oximetry 2023-06-17 14:55:00 100 /min [facility] Systolic blood pressure 2023-04-22 18:03:00 107 mm[Hg] [facility] Diastolic blood pressure 2023-04-22 18:03:00 69 mm[Hg] [facility] Heart rate 2023-04-22 18:03:00 81 /min [facility] Body temperature 2023-04-22 18:03:00 36.78 Monika [facility] Body height 2023-04-22 18:03:00 160 cm [facility] Body weight 2023-04-22 18:03:00 61.689 kg [facility] BMI 2023-04-22 18:03:00 24.09 kg/m2 [facility] Systolic blood pressure 2022-06-17 13:28:00 92 mm[Hg] [facility] Diastolic blood pressure 2022-06-17 13:28:00 55 mm[Hg] [facility] Heart rate 2022-06-17 13:28:00 68 /min [facility] Body height 2022-06-17 13:28:00 160 cm [facility] Body weight 2022-06-17 13:28:00 63.957 kg [facility] BMI 2022-06-17 13:28:00 24.98 kg/m2 [facility] Oxygen saturation in Arterial blood by Pulse oximetry 2022-06-17 13:28:00 97 /min [facility] Systolic blood pressure 2024-11-29 14:46:00 107 mm[Hg] [facility] Diastolic blood pressure 2024-11-29 14:46:00 75 mm[Hg] [facility] Heart rate 2024-11-29 14:46:00 81 /min [facility] Body temperature 2024-11-29 14:46:00 36.56 Monika [facility] Respiratory rate 2024-11-29 14:46:00 18 /min [facility] Body height 2024-11-29 14:46:00 160 cm [facility] Body weight 2024-11-29 14:46:00 61.78 kg [facility] BMI 2024-11-29 14:46:00 24.13 kg/m2 [facility] Oxygen saturation in Arterial blood by Pulse oximetry 2024-11-29 14:46:00 99 /min [facility] Systolic blood pressure 2024-05-03 16:47:00 108 mm[Hg] [facility] Diastolic blood pressure 2024-05-03 16:47:00 75 mm[Hg] [facility] Heart rate 2024-05-03 16:47:00 76 /min [facility] Body temperature 2024-05-03 16:47:00 37.06 Monika [facility] Respiratory rate 2024-05-03 16:47:00 20 /min [facility] Body height 2024-05-03 16:47:00 160 cm [facility] Body weight 2024-05-03 16:47:00 58.968 kg [facility] BMI 2024-05-03 16:47:00 23.03 kg/m2 [facility] Oxygen saturation in Arterial blood by Pulse oximetry 2024-05-03 16:47:00 99 /min [facility] Procedures Procedure Date / Time Performed Performing Clinician Source POCT URINALYSIS W/O SPECIFIC GRAVITY 2025-01-08 17:42:00 Brigid Mattsol [facility] POCT URINALYSIS W/O SPECIFIC GRAVITY 2024-12-11 19:52:00 Brigid Mattsol [facility] OB TRANSVAGINAL 2024-12-11 19:42:54 Shaka [facility] OB TRANSVAGINAL 2024-11-29 16:36:47 Shaka [facility] OB TRANSVAGINAL 2024-11-29 16:36:47 Garsia[facility]obar[facility] HB ABO GROUPING 2024-11-29 15:40:00 [facility] acute hospital TOTAL BETA HCG ASSAY 2024-11-29 15:40:00 [facility] General acute hospital TRICHOMONAS AMPLIFIED ASSAY 2024-11-29 15:18:00 [facility] General acute hospital GC & CHLAMYDIA AMPLIFIED ASSAY 2024-11-17 3 [facility] POCT TEST 2024-11-29 14:54:00 [facility] acute hospital POCT TEST 2024-11-29 14:54:00 [facility] acute hospital POCT URINALYSIS W/O SPECIFIC GRAVITY 2024-11-29 14:53:00 [facility] acute hospital POCT URINALYSIS W/O SPECIFIC GRAVITY 2024-11-29 14:53:00 Garsia[facility]obar [facility] XR SHOULDER 2+ VW RIGHT 2024-11-20 19:36:00 Angy [facility] XR SHOULDER 2+ VW RIGHT 2024-11-20 19:36:00 Angy [facility] MOTILITY REPORTS EPIC 2024-10-04 12:44:54 Doctor Unassigned, [place] [facility] MOTILITY REPORTS EPIC 2024-10-04 12:44:54 Doctor Unassigned, [place] [facility] ENDOSCOPY PROCEDURE DOCUMENTATION 2023-10 17:41:00 Doctor Unassigned, [place] [facility] ENDOSCOPY PROCEDURE DOCUMENTATION 2023-10 17:41:00 Doctor Unassigned, [place] [facility] COLONOSCOPY (ENDO) 2024-09-26 18:44:27 Mike [facility] COLONOSCOPY (ENDO) 2024-09-26 18:44:27 Mike [facility] COLONOSCOPY (ENDO) 2024-09-26 18:44:27 Mike [facility] SURGICAL PATHOLOGY EXAM 2024-09-26 18:21:00 Parupudi, [facility] EGD (ENDO) 2024-09-26 18:18:27 Mike [facility] EGD (ENDO) 2024-09-26 18:18:27 Mike [facility] EGD (ENDO) 2024-09-26 18:18:27 Mike [facility] COLONOSCOPY 2024-09-26 17:45:00 Jamison [facility] ESOPHAGOGASTRODUODENOSCOPY 2024-09-26 17:45:00 Jamison [facility] ESOPHAGEAL MANOMETRY 2024-09-26 17:45:00 Jamison [facility] COLONOSCOPY 2024-09-26 17:45:00 Jamison [facility] ESOPHAGOGASTRODUODENOSCOPY 2024-09-26 17:45:00 Jamison [facility] ESOPHAGEAL MANOMETRY 2024-09-26 17:45:00 Jamison [facility] POCT TEST 2024-09-26 15:10:00 Lorena Simpson [facility] POCT TEST 2024-09-26 15:10:00 Lorena Simpson [facility] POCT TEST 2024-09-26 15:10:00 Lorena Simpson [facility] FLU VACC ([id number]), 6 MO-6 4 YRS, .5ML, IM, TIV (FLUCELVAX) 2024-08-15 14:41:31 Israel Shipley [facility] BI ULTRASOUND BREAST LIMITED LEFT 2023-10 0- 14:35:56 Kwadwo Bush [facility] BI DIAGNOSTIC TOMOSYNTHESIS BILATERAL 2024-08-14 13:54:27 Kwadwo Bush [facility] RADIOLOGY DOCUMENTATION 2024-08-07 18:08:18 Doctor Unassigned, [place] [facility] BI BREAST CYST ASPIRATION LEFT 2024-04-3 0 15:21:00 Kwadwo Bush [facility] BI BREAST CYST ASPIRATION LEFT 2024-04-18 0 15:21:00 Kwadwo Bush [facility] BI ULTRASOUND BREAST COMPLETE LEFT 05-02 13:50:00 Kwadwo Bush [facility] BI ULTRASOUND BREAST COMPLETE LEFT 05-02 13:50:00 Kwadwo Bush [facility] BI DIAGNOSTIC TOMOSYNTHESIS LEFT 2024-04 13:19:14 [facility] TOMOSYNTHES[facility] LEFT 2024-04 13:19:14 Fuad [facility] GC & CHLAMYDIA AMPLIFIED ASSAY 2024-04-16 6 20:15:00 Mike [facility] TRICHOMONAS AMPLIFIED ASSAY 2024-05-01 20:15:00 Mike [facility] BASIC METABOLIC PANEL (NA, K , CL, CO2, GLUCOSE, BUN, CREATININE, CA) 2024-04-15 08:44:00 Julianna [facility] CBC WITH DIFF 2024-04-15 08:44:00 Julianna [facility] BASIC METABOLIC PANEL (NA, K , CL, CO2, GLUCOSE, BUN, CREATININE, CA) 2024-04-15 08:44:00 Julianna [facility] CBC WITH DIFF 2024-04-15 08:44:00 Julianna [facility] CBC WITH DIFF 2024-04-15 08:44:00 Julianna [facility] BASIC METABOLIC PANEL (NA, K , CL, CO2, GLUCOSE, BUN, CREATININE, CA) 2024-04-15 08:44:00 Julianna [facility] FECES CULTURE 2024-04-14 22:46:00 Pete [facility] SURGICAL PATHOLOGY EXAM 2024-04-14 16:19:00 Pete [facility] EXAM UNDER ANESTHESIA 2024-04-14 15:40:00 Pete [facility] FLEXIBLE SIGMOIDOSCOPY 2024-04-14 15:40:00 Pete [facility] EXAM UNDER ANESTHESIA 2024-04-14 15:40:00 Pete [facility] FLEXIBLE SIGMOIDOSCOPY 2024-04-14 15:40:00 Pete [facility] MRSA / MSSA SCREEN BY PCR, [facility] 2024-03 14:46:00 [facility] MRSA / MSSA SCREEN BY PCR, [facility] 2024-03 14:46:00 [facility] MRSA / MSSA SCREEN BY PCR, [facility] 2024-03 14:46:00 El[facility] CT ABDOMEN PELVIS W CONTRAST 2024-04-14 06:27:[address] [facility] [address] ABDOMEN PELVIS W CONTRAST 2024-04-14 06:27:[address] [facility] [address] ABDOMEN PELVIS W CONTRAST 2024-04-14 06:27:45 Joe [facility] LIPASE 2024-04-14 05:22:00 Joe [facility] COMP. METABOLIC PANEL ([id number]) 2024-04-14 05:22:00 Joe [facility] CBC WITH DIFF 2024-04-14 05:22:00 Joe [facility] URINALYSIS 2024-04-14 05:22:00 Joe [facility] LIPASE 2024-04-14 05:22:00 Joe [facility] COMP. METABOLIC PANEL ([id number]) 2024-04-14 05:22:00 Joe [facility] CBC WITH DIFF 2024-04-14 05:22:00 Joe [facility] URINALYSIS 2024-04-14 05:22:00 Joe [facility] COMP. METABOLIC PANEL ([id number]) 2024-04-14 05:22:00 Joe [facility] CBC WITH DIFF 2024-04-14 05:22:00 Joe [facility] LIPASE 2024-04-14 05:22:00 Joe [facility] URINALYSIS 2024-04-14 05:22:00 Joe [facility] POCT TEST 2024-04-14 05:19:00 Jayne Diaz [facility] POCT TEST 2024-04-14 05:19:00 Jayne Diaz [facility] POCT TEST 2024-04-14 05:19:00 Jayne Diaz [facility] FLEXIBLE SCOPE ENT 2024-04-10 00:00:00 Sharlene Berumen [facility] FLEXIBLE SCOPE ENT 2024-04-10 00:00:00 Sharlene Berumen [facility] PAP SMEAR-LIQUID BASED-CP 2024-04-09 14:42:00 Kwadwo Bush [facility] HIGH RISK HPV-THIN PREP 2024-04-09 14:42:00 Kwadwo Bush [facility] LAB ONLY PAP SMEAR-LIQUID BASED 14:42:00 Kwadwo Bush [facility] MR FOREARM LEFT W WO CONTRAST 2024-03-28 17:55:58 Zeinab [facility] MR FOREARM LEFT W WO CONTRAST 2024-03-28 17:55:58 Zeinab [facility] FL BARIUM SWALLOW ESOPHAGUS 2024-03-28 16:03:00 Zeinab [facility] CREATININE 2024-02-28 16:33:00 Zeinab [facility] MISCELLANEOUS SEND OUT TEST 2024-02-28 16:33:00 Zeinab [facility] RHEUMATOID FACTOR 2024-01-11 13:54:00 Mehrdad [facility] C4 COMPLEMENT 2024-01-11 13:54:00 Mehrdad [facility] THYROID STIMULATING HORMONE 2024-01-11 13:54:00 Sonia Ley [facility] ANTI-NUCLEAR ANTIBODY SCREEN 2024-01-11 13:54:00 Sonia Ley [facility] HCV ANTIBODY 2024-01-11 13:54:00 Mehrdad [facility] ANTI-SSB(LA) 2024-01-11 13:54:00 Mehrdad [facility] ANTI-DOUBLE STRANDED DNA 2024-01-11 13:54:00 Mehrdad [facility] ANTI-NUCLEAR ANTIBODY-PATHOL OGIST INTERPRETATION 2024-01-11 13:54:00 Sonia Ley [facility] HCV ANTIBODY 2024-01-11 13:54:00 Sonia Ley [facility] EMG/NCV 2023-12-23 06:01:00 Peña Mcmullen [facility] EXTERNAL PROVIDER RECORDS 2023-12-12 06:01:00 Doctor Unassigned, [place] [facility] URINALYSIS 2023-12-03 21:37:00 Melissa Lucas [facility] POCT TEST 2023-12-03 21:37:00 Melsisa Lucas [facility] EXTRA TUBE LT. BLUE 2023-12-03 20:37:00 Melissa Lucas [facility] ACUTE CARE VENOUS BLOOD GAS 2023-12-03 20:28:00 Melissa Lucas [facility] CREATINE KINASE 2023-12-03 20:27:00 Melissa Lucas [facility] COMP. METABOLIC PANEL ([id number]) 2023-12-03 20:27:00 Melissa Lucas [facility] CBC WITH DIFF 2023-12-03 20:27:00 Melissa Lucas [facility] MYOGLOBIN SERUM 2023-12-03 20:27:00 Melissa Lucas [facility] CONSENT/REFUSAL FOR DIAGNOSI S AND TREATMENT 2023-12-03 19:45:12 Doctor Unassigned, [place] [facility] INSURANCE CORRESPONDENCE 2023-11-22 06:01:00 Doctor Unassigned, [place] [facility] XR CERVICAL SPINE 3 VW 2023-11-16 21:13:29 Mary Khan [facility] CREATINE KINASE 2023-11-16 21:00:00 Mary Khan [facility] MAGNESIUM 2023-11-16 21:00:00 Mary Khan [facility] COMP. METABOLIC PANEL ([id number]) 2023-11-16 21:00:00 Mary Khan [facility] SEDIMENTATION RATE 2023-11-16 21:00:00 Mary Khan [facility] DISCLOSURE AND CONSENT MEDIC AL & SURGICAL PROCEDURES - FEMALM 2023-11-01 06:01:00 Doctor Unassigned, [place] [facility] AUTHORIZATION TO RELEASE PHI TO [facility] 2023-09-14 06:01:00 Doctor Unassigned, [place] [facility] EXTERNAL PROVIDER RECORDS 2023-08-31 06:01:00 Doctor Unassigned, [place] [facility] HIV 1/2 AG-AB WITH REFLEX 2023-08-18 17:25:00 Althea Mckeon [facility] TDAP VACCINE, >11 YRS, IM 2023-08-18 16:54:19 Mike [facility] FLU VACC (), 6 MO-6 4 YRS, .5ML, IM, QUAD (FLUCELVAX) 2023-08-18 16:54:19 Mike Althea [facility] PNEUMOCOCCAL 20 CONJUGATE (P REVNAR 20) VACCINE 2023-08-18 16:54:19 Mike [facility] AUTHORIZATION TO RELEASE PHI TO [facility] 2023-08-18 05:01:00 Doctor Unassigned, [place] [facility] BI ULTRASOUND BREAST COMPLET E BILATERAL 2023-07-20 19:49:59 Mike [facility] BI DIAGNOSTIC TOMOSYNTHESIS BILATERAL 2023-07-20 19:12:20 Mike [facility] PATIENT FINANCIAL POLICY 2023-06-17 14:49:02 Doctor Unassigned, [place] [facility] ASSIGNMENT OF BENEFITS 2023-06-17 14:48:45 Doctor Unassigned, [place] [facility] CONSENT/REFUSAL FOR DIAGNOSI S AND TREATMENT 2023-06-17 14:48:17 Doctor Unassigned, [place] [facility] MEDICAL RELEASE/CLEARANCE FORMS 05:01:00 Doctor Unassigned, [place] [facility] MINI-MENTAL STATE EXAM 2023-06-17 05:01:00 Doctor Unassigned, [place] [facility] OP CORRESPONDENCE 2023-04-25 05:01:00 Doctor Unassigned, [place] [facility] DISABILITY/FMLA 2022-06-23 05:01:00 Doctor Unassigned, [place] [facility] WORKERS COMPENSATION 2022-06-17 05:01:00 Doctor Unassigned, [place] [facility] Encounters Start Date/Time End Date/Time Encounter Type Admission Type Attending Clinicians Care Facility Care Department Encounter ID Source 2022-07-15 12:57:13 Outpatient CHW CHW [id number] [facility] 2025-04-10 13:30:00 2025-04-10 13:30:00 Outpatient KWADWO FARMER VIEN [facility] [id number] [facility] 2025-01-10 00:00:00 2025-01-10 10:36:16 Telephone Brigid Seosol [facility] 1..840.114 350.1.13.10 4.2.7.2.686 [id number] [facility] 2025-01-09 16:00:00 2025-01-09 16:15:00 Customer Care Associate Visit Pob, Adc Lab Main Brigid Seosol Pob, Adc Lab Main [facility] 1..840.114 350.1.13.10 4.2.7.2.686 [id number] [facility] 2025-01-09 16:00:00 2025-01-09 16:00:00 Outpatient R CYNDY SEO MARISOL [facility] [id number] [facility] 2025-01-04 00:00:00 2025-01-09 09:42:07 Telephone Althea Mckeon [facility] 1..840.114 350.1.13.10 4.2.7.2.686 [id number] [facility] 2025-01-08 13:00:00 2025-01-08 13:00:00 Routine Visit Cyndy Seo [facility] 1..840.114 350.1.13.10 4.2.7.2.686 [id number] [facility] 2025-01-08 13:00:00 2025-01-08 12:58:40 Outpatient R GARSIA-JANNIE S, CYNDY GARSIA-JANNIE S, CYNDY [facility] [id number] [facility] 2025-01-07 09:40:00 2025-01-07 09:40:00 Office Visit Peña Mcmullen [facility] 1.2.840.114 350.1.13.10 4.2.7.2.686 [id number] [facility] 2025-01-07 09:40:00 2025-01-07 09:28:10 Outpatient PEÑA CALLAWAY HOWARD [facility] [id number] [facility] 2025-01-04 00:00:00 2025-01-04 16:16:09 Telephone Keisha José [facility] 1..840.114 350.1.13.10 4.2.7.2.686 [id number] [facility] 2024-12-26 11:43:00 2024-12-26 16:37:00 Emergency X AUBRIE KINSEY, AUBRIE [facility] ERT [id number] [facility] 2024-12-26 10:15:00 2024-12-26 10:57:06 Outpatient R KEISHA JOSÉ VIVIAN [facility] [id number] [facility] 2024-12-21 15:45:00 2024-12-21 15:56:53 Outpatient R GARSIA-JANNIE S, CYNDY GARSIA-JANNIE S, CYNDY [facility] [id number] [facility] 2024-12-12 00:00:00 2024-12-12 14:45:10 Patient Secure Msg Garsia-Jannie s, Cyndy [facility] 1.2840.114 350.1.13.10 4.2.7.2.686 [id number] [facility] 2024-12-10 00:00:00 2024-12-12 06:04:44 Althea Newton [facility] 1.2840.114 350.1.13.10 4.2.7.2.686 [id number] [facility] 2024-12-11 14:45:00 2024-12-11 15:00:00 Customer Care Associate Visit Lab, Liam - Cyndy Santamaria Lab, Ang - Thong [facility] 1.0.114 350.1.13.10 4.2.7.2.686 [id number] [facility] 2024-12-11 14:00:00 2024-12-11 14:00:00 Routine Visit Brigid Seosol [facility] 1.20.114 350.1.13.10 4.2.7.2.686 [id number] [facility] 2024-12-11 14:00:00 2024-12-11 13:43:53 Outpatient R CYNDY SEO MARISOL [facility] [id number] [facility] 2024-12-10 00:00:00 2024-12-10 12:40:[address] [facility] 1.20.114 350.1.13.10 4.2.7.2.686 [id number] [facility] 2024-12-10 00:00:00 2024-12-10 12:30:01 Telephone Garsia-Jannie s, [facility] 1.2.840.114 350.1.13.10 4.2.7.2.686 [id number] [facility] 2024-12-04 00:00:00 2024-12-05 08:06:52 Leopoldo GilbertjoseAlthea [facility] 1.2.840.114 350.1.13.10 4.2.7.2.686 [id number] [facility] 2024-12-03 00:00:00 2024-12-03 13:41:29 Telephone Dilcia kiersten [facility] PROFESSIO NAL BUILDING 1.2.840.114 350.1.13.10 4.2.7.2.686 [id number] [facility] 2024-08-07 00:00:00 2024-12-01 06:46:01 Orders Only Doctor Unassigned, [place] Doctor Unassigned, [place] [facility] 1.2.840.114 350.1.13.10 4.2.7.2.686 [id number] [facility] 2024-09-27 00:00:00 2024-12-01 06:29:29 Orders Only Doctor Unassigned, [place] 1.2.840.1 13799.1.1 3.104.2.7 .3.782902 .8 [id number] [facility] 2024-10-04 00:00:00 2024-12-01 06:26:50 Orders Only Doctor Unassigned, [place] 1.2.840.1 55848.1.1 3.104.2.7 .3.054716 .8 [id number] [facility] 2023-06-17 00:00:00 2024-12-01 02:39:08 Orders Only Cassandra Harley, Cassandra [facility] MED[facility] OFFICE BUILDING 1.2.840.114 350.1.13.10 4.2.7.2.686 [id number] 044 [id number] [facility] 2023-11-07 00:00:00 2024-12-01 02:35:46 Orders Only Cherri, Cassandra Harley, Cassandra [facility] MED[facility] OFF[facility] BU[facility] 1.2.840.114 350.1.13.10 4.2.7.2.686 [id number] 044 [id number] [facility] 2023-11-16 00:00:00 2024-12-01 02:35:31 Orders Only Cherri, Cassandra Harley, Cassandra [facility] YOUNG[facility] MED[facility] OFF[facility] BUILD[facility] 1.2.840.114 350.1.13.10 4.2.7.2.686 [id number] 044 [id number] [facility] 2023-12-26 00:00:00 2024-12-01 02:34:32 Orders Only Cherri, Cassandra Harley, Cassandra [facility] OFF[facility] BUILD[facility] 1.2.840.114 350.1.13.10 4.2.7.2.686 [id number] 044 [id number] [facility] 2024-01-09 00:00:00 2024-12-01 02:34:11 Orders Only Cherri, Cassandra [facility] 1.2.840.114 350.1.13.10 4.2.7.2.686 [id number] 044 [id number] [facility] 2024-11-29 10:40:00 2024-11-29 11:40:00 Ancillary Procedure Moe-Jannie sSarayl 1.2.840.1 70515.1.1 3.104.2.7 .3.028032 .8 [id number] [facility] 2024-11-29 10:00:00 2024-11-29 10:23:16 Customer Care Associate Visit Cyndy Seo Lab, Ang - Db 1.2.840.1 74160.1.1 3.104.2.7 .3.068075 .8 [id number] [facility] 2024-11-29 09:00:00 2024-11-29 09:15:51 Outpatient R CYNDY SEO MARISOL [facility] [id number] [facility] 2024-11-29 09:00:00 2024-11-29 09:15:51 Initial Visit Cyndy Seo 1.2.840.1 30230.1.1 3.104.2.7 .3.132484 .8 [id number] [facility] 2024-11-29 00:00:00 2024-11-29 00:00:00 Travel 1.2.840.1 27728.1.1 3.104.2.7 .3.281266 .8 1.2.840.114 350.1.13.10 4.2.7.3.698 084.8 [id number] [facility] 2024-11-28 13:00:00 2024-11-28 13:00:00 Outpatient R EVIESESARCHAIM [facility] [id number] [facility] 2024-11-27 00:00:00 2024-11-27 00:00:00 Travel 1.2.840.1 31188.1.1 3.104.2.7 .3.739978 .8 1.2.840.114 350.1.13.10 4.2.7.3.698 084.8 [id number] [facility] 2024-11-23 00:00:00 2024-11-23 13:35:44 Telephone Cyndy eSo 1.2.840.1 13952.1.1 3.104.2.7 .3.160936 .8 [id number] [facility] 2024-11-23 00:00:00 2024-11-23 09:00:39 Telephone Garsia-JannieCyndy mccullough 1.2.840.1 01944.1.1 3.104.2.7 .3.538306 .8 [id number] [facility] 2024-11-20 13:19:06 2024-11-20 23:59:00 Hospital Encounter Chaim Mendoza 1.2.840.1 14763.1.1 3.104.2.7 .3.287892 .8 [id number] [facility] 2024-11-20 13:00:00 2024-11-20 15:14:06 Outpatient R CHAIM MENDOZA [facility] [id number] [facility] 2024-11-20 13:00:00 2024-11-20 15:14:06 Office Visit Chaim Mendoza 1.2.840.1 79180.1.1 3.104.2.7 .3.690733 .8 [id number] [facility] 2024-11-20 00:00:00 2024-11-20 00:00:00 Travel 1.2.840.1 98567.1.1 3.104.2.7 .3.191031 .8 1.2.840.114 350.1.13.10 4.2.7.3.698 084.8 [id number] [facility] 2024-11-18 00:00:00 2024-11-18 00:00:00 Travel 1.2.840.1 46275.1.1 3.104.2.7 .3.454579 .8 1.2.840.114 350.1.13.10 4.2.7.3.698 084.8 [id number] [facility] 2024-10-15 00:00:00 2024-11-17 18:17:06 Patient Secure Msg Doctor Unassigned, [place] 1.2.840.1 55037.1.1 3.104.2.7 .3.360127 .8 [id number] [facility] 2024-11-15 00:00:00 2024-11-15 00:00:00 Scanned Documents Doctor Unassigned, [place] 1.2.840.1 04678.1.1 3.104.2.7 .3.261946 .8 [id number] [facility] 2024-11-12 00:00:00 2024-11-14 12:26:47 Telephone GilbertjoseAlthea 1.2.840.1 38577.1.1 3.104.2.7 .3.473482 .8 [id number] [facility] 2024-11-08 11:00:00 2024-11-08 11:17:43 Outpatient CATHERINE SOLIS PAMELA [facility] [id number] [facility] 2024-11-08 11:00:00 2024-11-08 11:17:43 Office Visit Catherine Freeman 1.2.840.1 84073.1.1 3.104.2.7 .3.833048 .8 [id number] [facility] 2024-11-07 00:00:00 2024-11-07 00:00:00 Travel 1.2.840.1 38767.1.1 3.104.2.7 .3.341326 .8 1.2.840.114 350.1.13.10 4.2.7.3.698 084.8 [id number] [facility] 2024-11-02 12:40:00 2024-11-02 15:07:09 Outpatient PEÑA CALLAWAY HOWARD [facility] [id number] [facility] 2024-11-02 12:40:00 2024-11-02 15:07:09 Office Visit Peña Mcmullen 1.2.840.1 36730.1.1 3.104.2.7 .3.542046 .8 [id number] [facility] 2024-11-02 00:00:00 2024-11-02 00:00:00 Travel 1.2.840.1 89070.1.1 3.104.2.7 .3.452985 .8 1.2.840.114 350.1.13.10 4.2.7.3.698 084.8 [id number] [facility] 2024-11-01 14:00:00 2024-11-01 14:00:00 Outpatient CATHERINE SOLIS PAMELA [facility] [id number] [facility] 2024-11-01 00:00:00 2024-11-01 00:00:00 Travel 1.2.840.1 29014.1.1 3.104.2.7 .3.996499 .8 1.2.840.114 350.1.13.10 4.2.7.3.698 084.8 [id number] [facility] 2024-10-31 15:00:00 2024-10-31 15:40:45 Outpatient SUGAR GARNETT [facility] [id number] [facility] 2024-10-31 15:00:00 2024-10-31 15:40:45 Office Visit Sugar Bledsoe J. 1.2.840.1 39502.1.1 3.104.2.7 .3.354537 .8 [id number] [facility] 2024-10-30 00:00:00 2024-10-30 00:00:00 Travel 1.2.840.1 00196.1.1 3.104.2.7 .3.624635 .8 1.2.840.114 350.1.13.10 4.2.7.3.698 084.8 [id number] [facility] 2024-10-22 12:40:00 2024-10-22 12:40:00 Outpatient PEÑA CALLAWAY HOWARD [facility] [id number] [facility] 2024-10-19 00:00:00 2024-10-22 08:24:44 Telephone GilbertAlthea garcia 1.2.840.1 91498.1.1 3.104.2.7 .3.535379 .8 [id number] [facility] 2024-10-21 00:00:00 2024-10-21 00:00:00 Travel 1.2.840.1 51640.1.1 3.104.2.7 .3.469307 .8 1.2.840.114 350.1.13.10 4.2.7.3.698 084.8 [id number] [facility] 2024-09-26 08:50:00 2024-09-26 13:32:[address] [facility] [id number] [facility] 2024-09-26 08:50:00 2024-09-26 13:32:00 Hospital Encounter Ochoa Siwft 1.2.840.1 57756.1.1 3.104.2.7 .3.945587 .8 [id number] [facility] 2024-09-26 11:54:00 2024-09-26 12:52:00 Anesthesia Event Tito Yadav Corina 1.2.840.1 94772.1.1 3.104.2.7 .3.422026 .8 [id number] [facility] 2024-09-26 11:15:00 2024-09-26 12:15:00 Surgery Ochoa Swift 1.2.840.1 56762.1.1 3.104.2.7 .3.310669 .8 [id number] [facility] 2024-09-26 00:00:00 2024-09-26 00:00:00 Travel 1.2.840.1 06326.1.1 3.104.2.7 .3.825683 .8 1.2.840.114 350.1.13.10 4.2.7.3.698 084.8 [id number] [facility] 2024-09-25 00:00:00 2024-09-25 08:55:37 Leopoldo Sharlene Berumen 1.2.840.1 93581.1.1 3.104.2.7 .3.048647 .8 [id number] [facility] 2024-09-21 00:00:00 2024-09-21 16:42:06 RefAlthea Gaines 1.2.840.1 77801.1.1 3.104.2.7 .3.247293 .8 [id number] [facility] 2024-09-03 00:00:00 2024-09-04 13:04:16 Patient Secure Althea Mckeon 1.2.840.1 16465.1.1 3.104.2.7 .3.566278 .8 [id number] [facility] 2024-09-03 00:00:00 2024-09-03 15:10:59 RefAlthea Gaines 1.2.840.1 73655.1.1 3.104.2.7 .3.125536 .8 [id number] [facility] 2024-08-27 00:00:00 2024-08-30 08:57:47 Patient Secure Althea Ballesteros [facility] MEDICAL OFFICE BUILDING 1.2.840.114 350.1.13.10 4.2.7.2.686 [id number] 044 [id number] [facility] 2024-08-26 00:00:00 2024-08-27 16:56:27 Peña Kennedy [facility] MEDICAL OFFICE BUILDING 1.2.840.114 350.1.13.10 4.2.7.2.686 [id number] 092 [id number] [facility] 2024-08-15 00:00:00 2024-08-15 12:49:42 Telephone Althea Mckeon [facility] 1.284.114 350.1.13.10 4.2.7.2.686 [id number] 044 [id number] [facility] 2024-08-15 09:30:00 2024-08-15 10:17:34 Outpatient R QUINTEN [facility] [id number] [facility] 2024-08-15 09:30:00 2024-08-15 10:17:34 Office Visit Quinten [facility] MEDICAL OFFICE BUILDING 1.84.114 350.1.13.10 4.2.7.2.686 [id number] 044 [id number] [facility] 2024-08-15 00:00:00 2024-08-15 09:23:54 Case Management Kwadwo Bush [facility] NAL BUILDING 1.84.114 350.1.13.10 4.2.7.2.686 [id number] [facility] 2024-08-14 07:06:57 2024-08-14 23:59:00 Hospital Encounter Kwadwo Bush [facility] 1.2840.114 350.1.13.10 4.2.7.2.686 [id number] [id number] [facility] 2024-08-14 07:06:37 2024-08-14 23:59:00 Outpatient R KWADWO BUSH VIEN [facility] [id number] [facility] 2024-08-14 07:06:37 2024-08-14 23:59:00 Hospital Encounter Kwadwo Bush [facility] 1.284.114 350.1.13.10 4.2.7.2.686 [id number] [facility] 2024-07-11 00:00:00 2024-08-11 18:18:43 Patient Secure Msg Doctor Unassigned, [place] Doctor Unassigned, [place] [facility] 1.2840.114 350.1.13.10 4.2.7.2.686 [id number] 020 [id number] [facility] 2024-08-07 00:00:00 2024-08-07 13:10:54 Telephone Mike [facility] HECTOR?[facility] OFF[facility] BUILD[facility] 1.284.114 350.1.13.10 4.2.7.2.686 [id number] 044 [id number] [facility] 2024-08-06 00:00:00 2024-08-07 08:03:29 Patient Secure Msg [facility] BUILD[facility] 1.284.114 350.1.13.10 4.2.7.2.686 [id number] 044 [id number] [facility] 2024-06-26 00:00:00 2024-07-28 18:20:34 Patient Secure g Mike [facility] HECTOR?[facility] BUILDING 1.2840.114 350.1.13.10 4.2.7.2.686 [id number] 044 [id number] [facility] 2024-07-12 09:00:00 2024-07-12 09:15:00 Customer Care Associate Visit Pob, [facility] Main Sugar Bledsoe, [facility] Main [facility] BUILDING 1..840.114 350.1.13.10 4.2.7.2.686 [id number] [facility] 2024-07-12 09:00:00 2024-07-12 09:00:00 Outpatient SUGAR GARNETT [facility] [id number] [facility] 2024-07-11 16:30:00 2024-07-11 16:45:00 Customer Care Associate Visit Lab, [facility] Sugar Bledsoe Lab, [facility] [place] 1.2.840.114 350.1.13.10 4.2.7.2.686 [id number] [facility] 2024-07-11 15:30:00 2024-07-11 16:00:00 Office Visit Sugar Bledsoe [facility] 1.2.840.114 350.1.13.10 4.2.7.2.686 [id number] [id number] [facility] 2024-07-11 15:30:00 2024-07-11 15:30:00 Outpatient R SUGAR BLEDSOE [facility] [id number] [facility] 2024-07-10 00:00:00 2024-07-10 08:23:21 Telephone Althea Mckeon [facility] MEDICAL OFFICE BUILDING 1.2.840.114 350.1.13.10 4.2.7.2.686 [id number] 044 [id number] [facility] 2024-07-09 14:00:00 2024-07-09 14:39:36 Outpatient R MARTHA [facility]K [facility] [id number] [facility] 2024-07-09 14:00:00 2024-07-09 14:39:36 Office Visit Martha Beck [facility] MED[facility] OFFICE BUILDING 1.2.840.114 350.1.13.10 4.2.7.2.686 [id number] [id number] [facility] 2024-07-04 14:00:00 2024-07-04 16:22:22 Outpatient R JABARI FIGUEROA DAVID [facility] [id number] [facility] 2024-07-04 14:00:00 2024-07-04 16:22:22 Office Visit Jabari Figueroa [facility] 1.2.840.114 350.1.13.10 4.2.7.2.686 [id number] [facility] 2024-07-03 00:00:00 2024-07-03 11:19:01 Leopoldo Mckeon [facility] MEDICAL OFFICE BUILDING 1.2.840.114 350.1.13.10 4.2.7.2.686 [id number] 044 [id number] [facility] 2024-06-19 09:00:00 2024-06-19 09:00:00 Outpatient CHELSEA MORRISON [facility] [id number] [facility] 2024-06-05 10:20:00 2024-06-05 10:20:00 Outpatient ALTHEA GARCIA [facility] [id number] [facility] 2024-05-29 00:00:00 2024-05-29 09:08:09 Case Management [facility] 1..840.114 350.1.13.10 4.2.7.2.686 [id number] [facility] 2024-05-23 00:00:00 2024-05-23 16:08:51 Peña Kennedy [facility] OFF[facility] BUILD[facility] 1.2.840.114 350.1.13.10 4.2.7.2.686 [id number] 092 [id number] [facility] 2024-05-15 09:14:30 2024-05-15 23:59:00 Outpatient R KWADWO BUSH VIEN [facility] [id number] [facility] 2024-05-15 09:14:30 2024-05-15 23:59:00 Hospital Encounter Kwadwo Bush 1.2.840.1 36804.1.1 3.104.2.7 .3.022195 .8 [id number] [facility] 2024-05-09 00:00:00 2024-05-09 05:33:52 Case Management Kwadwo Bush 1.2.840.1 56587.1.1 3.104.2.7 .3.289519 .8 [id number] [facility] 2024-05-03 00:00:00 2024-05-04 05:53:14 Refill Althea Mckeon 1.2.840.1 23768.1.1 3.104.2.7 .3.502980 .8 [id number] [facility] 2024-05-03 00:00:00 2024-05-03 15:00:23 Refill Mary Khan 1.2.840.1 82186.1.1 3.104.2.7 .3.973760 .8 [id number] [facility] 2024-05-03 11:45:00 2024-05-03 12:21:47 Outpatient R CATHERINE FREEMAN PAMELA [facility] [id number] [facility] 2024-05-03 11:45:00 2024-05-03 12:21:47 Office Visit Catherine Freeman 1.2.840.1 71810.1.1 3.104.2.7 .3.653748 .8 [id number] [facility] 2024-05-02 07:19:07 2024-05-02 23:59:00 Hospital Encounter Kwadwo Bush 1.2.840.1 21030.1.1 3.104.2.7 .3.897312 .8 [id number] [facility] 2024-05-02 07:19:00 2024-05-02 07:19:00 Outpatient R KWADWO BUSH VIEN [facility] [id number] [facility] 2024-05-02 07:19:00 2024-05-02 07:19:00 Hospital Encounter Kwadwo Bush 1.2.840.1 71144.1.1 3.104.2.7 .3.653042 .8 [id number] [facility] 2024-05-02 00:00:00 2024-05-02 00:00:00 Travel 1.2.840.1 31574.1.1 3.104.2.7 .3.913299 .8 1.2.840.114 350.1.13.10 4.2.7.3.698 084.8 [id number] [facility] 2024-05-01 13:40:00 2024-05-01 15:26:22 Outpatient R ALTHEA MCKEON CHRISTINE [facility] [id number] [facility] 2024-05-01 13:40:00 2024-05-01 15:26:22 Office Visit Althea Mckeon 1.2.840.1 29109.1.1 3.104.2.7 .3.158867 .8 [id number] [facility] 2024-05-01 00:00:00 2024-05-01 00:00:00 Travel 1.2.840.1 63565.1.1 3.104.2.7 .3.575298 .8 1.2.840.114 350.1.13.10 4.2.7.3.698 084.8 [id number] [facility] 2024-04-29 00:00:00 2024-04-29 00:00:00 Travel 1.2.840.1 90566.1.1 3.104.2.7 .3.285566 .8 1.2.840.114 350.1.13.10 4.2.7.3.698 084.8 [id number] [facility] 2024-03-27 00:00:00 2024-04-28 18:20:26 Patient Secure Msg Doctor Unassigned, [place] 1.2.840.1 93960.1.1 3.104.2.7 .3.209831 .8 [id number] [facility] 2024-04-20 00:00:00 2024-04-26 19:46:08 Telephone Althea Mckeon 1.2.840.1 61568.1.1 3.104.2.7 .3.592144 .8 [id number] [facility] 2024-04-17 00:00:00 2024-04-17 14:46:17 Telephone Catherine Freeman 1.2.840.1 11697.1.1 3.104.2.7 .3.040874 .8 [id number] [facility] 2024-04-16 09:45:00 2024-04-16 09:45:00 Outpatient KWADWO FARMER VIEN [facility] [id number] [facility] 2024-04-13 23:21:00 2024-04-15 18:43:00 Inpatient X JABARI GARCIA [facility] [id number] [facility] 2024-04-13 23:21:00 2024-04-15 18:43:00 Hospital Encounter Jayne Diaz, Jabari [facility] 1.2.840.1 09708.1.1 3.104.2.7 .3.926695 .8 [id number] [facility] 2024-04-14 10:45:00 2024-04-14 12:09:00 Surgery Catherine Freeman 1.2.840.1 23867.1.1 3.104.2.7 .3.997268 .8 [id number] [facility] 2024-04-14 11:01:00 2024-04-14 11:37:00 Anesthesia Event Derrek Peter 1.2.840.1 45047.1.1 3.104.2.7 .3.215292 .8 [id number] [facility] 2024-04-14 00:00:00 2024-04-14 00:00:00 Refill Homero Mckeonine 1.2.840.1 76415.1.1 3.104.2.7 .3.077633 .8 [id number] [facility] 2024-04-14 00:00:00 2024-04-14 00:00:00 Travel 1.2.840.1 32230.1.1 3.104.2.7 .3.927324 .8 1.2.840.114 350.1.13.10 4.2.7.3.698 084.8 [id number] [facility] 2024-04-12 00:00:00 2024-04-13 08:36:46 Telephone Gilbertjose Althea 1.2.840.1 89772.1.1 3.104.2.7 .3.067762 .8 [id number] [facility] 2024-04-10 15:15:00 2024-04-10 16:02:37 Outpatient R SHARLENE BERUMEN [facility] [id number] [facility] 2024-04-10 15:15:00 2024-04-10 16:02:37 Office Visit Sharlene Berumen 1.2.840.1 87586.1.1 3.104.2.7 .3.929970 .8 [id number] [facility] 2024-04-09 09:30:00 2024-04-09 09:48:24 Outpatient R KWADWO BUSH VIEN [facility] [id number] [facility] 2024-04-09 09:30:00 2024-04-09 09:48:24 Office Visit Kwadwo Bush 1.2.840.1 20203.1.1 3.104.2.7 .3.152807 .8 [id number] [facility] 2024-04-08 00:00:00 2024-04-08 00:00:00 Travel 1.2.840.1 63702.1.1 3.104.2.7 .3.906757 .8 1.2.840.114 350.1.13.10 4.2.7.3.698 084.8 [id number] [facility] 2024-04-07 00:00:00 2024-04-07 00:00:00 Travel 1.2.840.1 10754.1.1 3.104.2.7 .3.507245 .8 1.2.840.114 350.1.13.10 4.2.7.3.698 084.8 [id number] [facility] 2024-03-28 09:47:47 2024-03-28 23:59:00 Outpatient MARTHA HO FNU [facility] [id number] [facility] 2024-03-28 09:47:47 2024-03-28 23:59:00 Hospital Encounter Martha Beck 1.2.840.1 38343.1.1 3.104.2.7 .3.522578 .8 [id number] [facility] 2024-03-28 09:47:29 2024-03-28 23:59:00 Hospital Encounter Zeinab Martha 1.2.840.1 67749.1.1 3.104.2.7 .3.462272 .8 [id number] [facility] 2024-03-13 00:00:00 2024-03-27 14:51:02 Patient Secure Mscarrie Mckeon Althea 1.2.840.1 30520.1.1 3.104.2.7 .3.103686 .8 [id number] [facility] 2024-03-23 00:00:00 2024-03-23 16:31:34 Peña Kennedy 1.2.840.1 29787.1.1 3.104.2.7 .3.352805 .8 [id number] [facility] 2024-03-08 10:00:00 2024-03-08 10:16:22 Outpatient R MARY KHAN [facility] [id number] [facility] 2024-03-08 10:00:00 2024-03-08 10:16:22 Office Visit [employer] , Mary Marie 1.2.840.1 75890.1.1 3.104.2.7 .3.206298 .8 [id number] [facility] 2024-03-07 00:00:00 2024-03-07 00:00:00 Travel 1.2.840.1 58120.1.1 3.104.2.7 .3.256946 .8 1.2.840.114 350.1.13.10 4.2.7.3.698 084.8 [id number] [facility] 2024-03-02 00:00:00 2024-03-02 13:45:51 Patient Secure Msg Mike Althea 1.2.840.1 65007.1.1 3.104.2.7 .3.846504 .8 [id number] [facility] 2024-02-28 11:30:00 2024-02-28 11:45:00 Customer Care Associate Visit Martha Beck, [facility] 1.2.840.1 41471.1.1 3.104.2.7 .3.661832 .8 [id number] [facility] 2024-02-28 11:30:00 2024-02-28 11:30:00 Outpatient R MARTHA BCEK FNU [facility] [id number] [facility] 2024-02-28 10:00:00 2024-02-28 11:17:23 Office Visit Martha Beck 1.2.840.1 83065.1.1 3.104.2.7 .3.601392 .8 [id number] [facility] 2024-02-27 00:00:00 2024-02-27 00:00:00 Travel 1.2.840.1 73525.1.1 3.104.2.7 .3.151523 .8 1.2.840.114 350.1.13.10 4.2.7.3.698 084.8 [id number] [facility] 2024-02-14 15:20:00 2024-02-14 15:37:15 Outpatient R MARY KHAN [facility] [id number] [facility] 2024-02-14 15:20:00 2024-02-14 15:37:15 Office Visit Mary Khan 1.2.840.1 46297.1.1 3.104.2.7 .3.359320 .8 [id number] [facility] 2024-02-14 00:00:00 2024-02-14 00:00:00 Travel 1.2.840.1 62799.1.1 3.104.2.7 .3.684971 .8 1.2.840.114 350.1.13.10 4.2.7.3.698 084.8 [id number] [facility] 2024-01-12 00:00:00 2024-01-12 00:00:00 Telephone [facility] 1.2.840.114 350.1.13.10 4.2.7.2.686 [id number] [facility] 2024-01-11 08:45:00 2024-01-11 09:00:00 Customer Care Associate Visit [facility] Sonia Le[facility] 1.2.840.114 350.1.13.10 4.2.7.2.686 [id number] [facility] 2024-01-11 08:00:00 2024-01-11 08:45:47 Outpatient R SONIA LEY PETER [facility] [id number] [facility] 2024-01-11 08:00:00 2024-01-11 08:45:47 Office Visit Sonia Ley [facility] 1..114 350.1.13.10 4.2.7.2.686 [id number] [facility] 2023-12-29 00:00:00 2023-12-29 00:00:00 Telephone Peña Mcmullen [facility] 1.84.114 350.1.13.10 4.2.7.2.686 [id number] [facility] 2023-12-29 00:00:00 2023-12-29 00:00:00 Patient Secure Msg Doctor Unassigned, [place] [facility] 1.84.114 350.1.13.10 4.2.7.2.686 [id number] [id number] [facility] 2023-12-26 00:00:00 2023-12-26 00:00:00 Telephone Gill Israel [facility] 1.84.114 350.1.13.10 4.2.7.2.686 [id number] [facility] 2023-12-26 00:00:00 2023-12-26 00:00:00 Telephone Della Stewart [facility] [place] 1.840.114 350.1.13.10 4.2.7.2.686 [id number] [facility] 2023-12-23 07:38:18 2023-12-23 23:59:00 Outpatient R GIOVANNA SAVAGE [facility] [id number] [facility] 2023-12-23 07:38:18 2023-12-23 23:59:00 Hospital Encounter Giovanna Savage [facility] 1.2840.114 350.1.13.10 4.2.7.2.686 [id number] [facility] 2023-12-21 00:00:00 2023-12-21 00:00:00 Letter (Out) Della Stewart [facility] [place] 1.2.840.114 350.1.13.10 4.2.7.2.686 [id number] [facility] 2023-12-16 00:00:00 2023-12-16 00:00:00 Letter (Out) Gill Israel [facility] 1.840.114 350.1.13.10 4.2.7.2.686 [id number] [facility] 2023 10:45:00 2023 14:07:03 Outpatient R [facility]IE [facility] [id number] [facility] 2023 10:45:00 2023 14:07:03 Ancillary Visit 2, [employer] Danna Escobedo [facility] 1.840.114 350.1.13.10 4.2.7.2.686 [id number] [facility] 2023-12-13 00:00:00 2023-12-13 00:00:00 Nurse Triage HawleyMari [facility] 1.840.114 350.1.13.10 4.2.7.2.686 [id number] [facility] 2023-12-12 00:00:00 2023-12-12 00:00:00 Orders Only Doctor Unassigned, [place] [facility] CENTER 1.2.840.114 350.1.13.10 4.2.7.2.686 [id number] [id number] [facility] 2023-12-08 00:00:00 2023-12-08 00:00:00 Patient Secure Msg Mary Khan [facility] HECTOR?KEERTHI GRICELDA [facility] OFF[facility] BUILDING 1.2840.114 350.1.13.10 4.2.7.2.686 [id number] 044 [id number] [facility] 2023-12-08 00:00:00 2023-12-08 00:00:00 Patient Secure Msg Doctor Unassigned, [place] [facility] MEDICAL OFFICE BUILDING 1.840.114 350.1.13.10 4.2.7.2.686 [id number] [facility] 2023-12-07 13:45:00 2023-12-07 13:45:00 Outpatient R MARY KHAN [facility] [id number] [facility] 2023-12-07 00:00:00 2023-12-07 00:00:00 Patient Secure Msg Doctor Unassigned, [place] [facility] 1.840.114 350.1.13.10 4.2.7.2.686 [id number] [id number] [facility] 2023-12-07 00:00:00 2023-12-07 00:00:00 Nurse Triage David Bill, [facility] 1..114 350.1.13.10 4.2.7.2.686 [id number] 019 [id number] [facility] 2023-12-05 00:00:00 2023-12-05 00:00:00 Patient Secure Msg Mary Khan Marie [facility] MEDICAL OFFICE BUILDING 1.2840.114 350.1.13.10 4.2.7.2.686 [id number] 044 [id number] [facility] 2023-12-05 00:00:00 2023-12-05 00:00:00 Althea Sterling [facility] MEDICAL OFFICE BUILDING 1..840.114 350.1.13.10 4.2.7.2.686 [id number] 044 [id number] [facility] 2023-12-03 13:57:00 2023-12-03 19:26:00 Emergency X VIELKAMACY [facility]ISSA [facility] [id number] [facility] 2023-12-03 13:57:00 2023-12-03 19:26:00 Emergency Brenton Marshall [facility] 1.840.114 350.1.13.10 4.2.7.2.686 [id number] [facility] 2023-12-03 00:00:00 2023-12-03 00:00:00 Telephone Mary Khan [facility] MEDICAL OFFICE BUILDING 1..840.114 350.1.13.10 4.2.7.2.686 [id number] 044 [id number] [facility] 2023-12-02 00:00:00 2023-12-02 00:00:00 Patient Secure Msg Mary Khan [facility] MEDICAL OFFICE BUILDING 1..840.114 350.1.13.10 4.2.7.2.686 [id number] 044 [id number] [facility] 2023-12-01 14:00:00 2023-12-01 14:51:11 Outpatient R MARY KHAN [facility] [id number] [facility] 2023-12-01 14:00:00 2023-12-01 14:51:11 Office Visit Mary Khan [facility] MEDICAL OFFICE BUILDING 1..840.114 350.1.13.10 4.2.7.2.686 [id number] 044 [id number] [facility] 2023-11-30 00:00:00 2023-11-30 00:00:00 Patient Secure Msg Doctor Unassigned, [place] [facility]ALTHE?[facility] OFF[facility] BUILDING 1.2840.114 350.1.13.10 4.2.7.2.686 [id number] 092 [id number] [facility] 2023-11-30 00:00:00 2023-11-30 00:00:00 Telephone BenedictPeña [facility] HECTOR?[facility]ERTHI [facility] OFF[facility] BUILDING 1.20.114 350.1.13.10 4.2.7.2.686 [id number] 092 [id number] [facility] 2023-11-29 13:00:00 2023-11-29 13:57:53 Office Visit Gill Israel Joseph W [facility] 1.0.114 350.1.13.10 4.2.7.2.686 [id number] [facility] 2023-11-29 13:00:00 2023-11-29 13:57:53 Outpatient R ANATOLY MOHR [facility] [id number] [facility] 2023-11-28 13:20:00 2023-11-28 14:35:55 Outpatient R PEÑA MCMULLENPEÑA [facility] [id number] [facility] 2023-11-28 13:20:00 2023-11-28 14:35:55 Office Visit Benedict Peña Faust [facility] HECTOR?KEERTHI AN MEDICAL OFFICE BUILDING 1.84.114 350.1.13.10 4.2.7.2.686 [id number] 092 [id number] [facility] 2023-11-26 00:00:00 2023-11-26 00:00:00 Patient Secure Msg Doctor Unassigned, [place] [facility] 1.2840.114 350.1.13.10 4.2.7.2.686 [id number] 019 [id number] [facility] 2023-11-24 00:00:00 2023-11-24 00:00:00 Telephone Mary Khan [facility] HECTOR?[facility] 1.2840.114 350.1.13.10 4.2.7.2.686 [id number] 044 [id number] [facility] 2023-11-22 00:00:00 2023-11-22 00:00:00 Orders Only Doctor Unassigned, [place] [facility] 1.2840.114 350.1.13.10 4.2.7.2.686 [id number] [id number] [facility] 2023-11-22 00:00:00 2023-11-22 00:00:00 Telephone [facility] 1.2840.114 350.1.13.10 4.2.7.2.686 [id number] 044 [id number] [facility] 2023-11-19 00:00:00 2023-11-19 00:00:00 Patient Secure Msg Mary Khan [facility] HECTOR[facility] 1.2840.114 350.1.13.10 4.2.7.2.686 [id number] 044 [id number] [facility] 2023-11-18 00:00:00 2023-11-18 00:00:00 Patient Secure Msg Mary Khan [facility] HECTOR?KEERTHI [facility]IN [facility] OFF[facility] BUILDING 1.2840.114 350.1.13.10 4.2.7.2.686 [id number] 044 [id number] [facility] 2023-11-16 14:48:55 2023-11-16 23:59:00 Hospital Encounter Mary Khan [facility] HECTOR[facility] 1.2840.114 350.1.13.10 4.2.7.2.686 [id number] [facility] 2023-11-16 15:00:00 2023-11-16 15:36:12 Customer Care Associate Visit Lab, Mary Porras Marie [facility] MEDICAL OFFICE BUILDING 1.2.840.114 350.1.13.10 4.2.7.2.686 [id number] [facility] 2023-11-16 14:00:00 2023-11-16 14:45:09 Outpatient R MARY KHAN [facility] [id number] [facility] 2023-11-16 14:00:00 2023-11-16 14:45:09 Office Visit Mary Khan Marie [facility] MEDICAL OFFICE BUILDING 1..840.114 350.1.13.10 4.2.7.2.686 [id number] 044 [id number] [facility] 2023-11-04 00:00:00 2023-11-04 00:00:00 Peña Kennedy [facility] MEDICAL OFFICE BUILDING 1..840.114 350.1.13.10 4.2.7.2.686 [id number] 092 [id number] [facility] 2023-11-01 09:30:00 2023-11-01 10:40:53 Outpatient R KEISHA JOSÉ VIVIAN [facility] [id number] [facility] 2023-11-01 09:30:00 2023-11-01 10:40:53 Office Visit Kwadwo Bush Vivian L [facility] NAL BUILDING 1..840.114 350.1.13.10 4.2.7.2.686 [id number] [facility] 2023-11-01 00:00:00 2023-11-01 00:00:00 Orders Only Doctor Unassigned, [place] [facility] 1.2.840.114 350.1.13.10 4.2.7.2.686 [id number] [id number] [facility] 2023-10-27 15:40:00 2023-10-27 16:29:39 Outpatient R ALTHEA MCKEON [facility] [id number] [facility] 2023-10-27 15:40:00 2023-10-27 16:29:39 Office Visit Mike [facility] MEDICAL OFFICE BUILDING 1.2.840.114 350.1.13.10 4.2.7.2.686 [id number] 044 [id number] [facility] 2023-10-19 00:00:00 2023-10-19 00:00:00 Nurse Triage Mari Hawley [facility] 1.2.840.114 350.1.13.10 4.2.7.2.686 [id number] 019 [id number] [facility] 2023-10-13 00:00:00 2023-10-13 00:00:00 Refill Mike [facility] MEDICAL OFFICE BUILDING 1.2.840.114 350.1.13.10 4.2.7.2.686 [id number] 044 [id number] [facility] 2023-10-13 00:00:00 2023-10-13 00:00:00 Refill Mike [facility] MEDICAL OFFICE BUILDING 1.2.840.114 350.1.13.10 4.2.7.2.686 [id number] 044 [id number] [facility] 2023-10-03 10:45:00 2023-10-03 11:01:58 Outpatient R DONA BRUCE [facility] [id number] [facility] 2023-10-03 10:45:00 2023-10-03 11:01:58 Office Visit Eduardo Finch [facility] 1.114 350.1.13.10 4.2.7.2.686 [id number] [facility] 2023-09-27 00:00:00 2023-09-27 00:00:00 Telephone Mike [facility] HECTOR?[facility] MEDICAL OFFICE BUILDING 1.114 350.1.13.10 4.2.7.2.686 [id number] 044 [id number] [facility] 2023-09-27 00:00:00 2023-09-27 00:00:00 Patient Secure Msg [facility] MEDICAL OFFICE BUILDING 1.114 350.1.13.10 4.2.7.2.686 [id number] [id number] [facility] 2023-09-26 14:45:00 2023-09-26 15:00:00 Customer Care Associate Visit Lab, Liam - Thong [facility] MEDICAL OFFICE BUILDING 1.114 350.1.13.10 4.2.7.2.686 [id number] [facility] 2023-09-26 13:40:00 2023-09-26 14:34:53 Outpatient R MIEK [facility] [id number] [facility] 2023-09-26 13:40:00 2023-09-26 14:34:53 Office Visit Mike [facility] MEDICAL OFFICE BUILDING 1.114 350.1.13.10 4.2.7.2.686 [id number] 044 [id number] [facility] 2023-09-14 00:00:00 2023-09-14 00:00:00 Orders Only Doctor Unassigned, [place] [facility] 1.114 350.1.13.10 4.2.7.2.686 [id number] [facility] 2023-09-12 14:00:00 2023-09-12 14:15:00 Customer Care Associate Visit Lab, Liam CarlsonPeña aguiar [facility] HECTOR?KEERTHI AN MEDICAL OFFICE BUILDING 1.2840.114 350.1.13.10 4.2.7.2.686 [id number] [facility] 2023-09-12 13:00:00 2023-09-12 13:53:32 Outpatient R BENEDICT PEÑA MCKEON [facility] [id number] [facility] 2023-09-12 13:00:00 2023-09-12 13:53:32 Office Visit Peña Mcmullen [facility] HECTOR?KEERTHI AN MEDICAL OFFICE BUILDING 1.840.114 350.1.13.10 4.2.7.2.686 [id number] 092 [id number] [facility] 2023-09-02 00:00:00 2023-09-02 00:00:00 Telephone Mike [facility] MED[facility] OFF[facility] BUILD[facility] 1.840.114 350.1.13.10 4.2.7.2.686 [id number] 044 [id number] [facility] 2023-08-31 00:00:00 2023-08-31 00:00:00 Orders Only Doctor Unassigned, [place] [facility] 1.20.114 350.1.13.10 4.2.7.2.686 [id number] [id number] [facility] 2023-08-31 00:00:00 2023-08-31 00:00:00 Telephone [facility] MEDICAL OFFICE BUILDING 1.2840.114 350.1.13.10 4.2.7.2.686 [id number] 044 [id number] [facility] 2023-08-22 00:00:00 2023-08-22 00:00:00 Patient Secure Msg Doctor Unassigned, [place] [facility] HECTOR?[facility] MEDICAL OFFICE BUILDING 1.2.840.114 350.1.13.10 4.2.7.2.686 [id number] [facility] 2023-08-22 00:00:00 2023-08-22 00:00:00 Patient Secure Msg Doctor Unassigned, [place] [facility] HECTOR?[facility] MEDICAL OFFICE BUILDING 1.2.840.114 350.1.13.10 4.2.7.2.686 [id number] [facility] 2023-08-18 12:30:00 2023-08-18 12:45:00 Customer Care Associate Visit Lab, Liam [facility]keon [facility] MEDICAL OFFICE BUILDING 1.2.840.114 350.1.13.10 4.2.7.2.686 [id number] [facility] 2023-08-18 11:00:00 2023-08-18 12:06:46 Outpatient R ALTHEA MCKEON [facility] [id number] [facility] 2023-08-18 11:00:00 2023-08-18 12:06:46 Office Visit Mike [facility] HECTOR?[facility] MEDICAL OFFICE BUILDING 1.2.840.114 350.1.13.10 4.2.7.2.686 [id number] 044 [id number] [facility] 2023-08-18 00:00:00 2023-08-18 00:00:00 Telephone Mike [facility] HECTOR?[facility] MEDICAL OFFICE BUILDING 1.2.840.114 350.1.13.10 4.2.7.2.686 [id number] 044 [id number] [facility] 2023-08-18 00:00:00 2023-08-18 00:00:00 Orders Only Doctor Unassigned, [place] [facility] 1.2.840.114 350.1.13.10 4.2.7.2.686 [id number] [id number] [facility] 2023-07-20 12:18:29 2023-07-20 23:59:00 Hospital Encounter Althea Mckeon [facility] 1.2.840.114 350.1.13.10 4.2.7.2.686 [id number] [facility] 2023-07-20 12:16:53 2023-07-20 12:17:00 Outpatient R [facility] [id number] [facility] 2023-07-20 12:16:53 2023-07-20 12:17:00 Hospital Encounter [facility] 1.2.840.114 350.1.13.10 4.2.7.2.686 [id number] [facility] 2023-07-13 00:00:00 2023-07-13 00:00:00 Refill Mike [facility] HECTOR?KEERTHI [facility] MEDICAL OFFICE BUILDING 1.2840.114 350.1.13.10 4.2.7.2.686 [id number] 044 [id number] [facility] 2023-07-12 00:00:00 2023-07-12 00:00:00 Telephone Mike [facility] HECTOR?KEERTHI [facility] MEDICAL OFFICE BUILDING 1.2840.114 350.1.13.10 4.2.7.2.686 [id number] 044 [id number] [facility] 2023-06-21 00:00:00 2023-06-21 00:00:00 Telephone Mike [facility] HECTOR[facility] MEDICAL OFFICE BUILDING 1.2840.114 350.1.13.10 4.2.7.2.686 [id number] 044 [id number] [facility] 2023-06-21 00:00:00 2023-06-21 00:00:00 Telephone Mike [facility] HECTOR?KEERTHI [facility] MEDICAL OFFICE BUILDING 1.2.840.114 350.1.13.10 4.2.7.2.686 [id number] [facility] 2023-06-17 10:00:00 2023-06-17 11:05:00 Outpatient R ALTHEA MCKEON [facility] [id number] [facility] 2023-06-17 10:00:00 2023-06-17 11:05:00 Office Visit Mike [facility] 1.2.840.114 350.1.13.10 4.2.7.2.686 [id number] 044 [id number] [facility] 2023-06-17 00:00:00 2023-06-17 00:00:00 Telephone Mike [facility] HECTOR?[facility] MEDICAL OFFICE BUILDING 1.2.840.114 350.1.13.10 4.2.7.2.686 [id number] 044 [id number] [facility] 2023-06-08 00:00:00 2023-06-08 00:00:00 Telephone Mike [facility] HECTOR?[facility] MEDICAL OFFICE BUILDING 1.2.840.114 350.1.13.10 4.2.7.2.686 [id number] 044 [id number] [facility] 2023-05-03 00:00:00 2023-05-03 00:00:00 Telephone Mike [facility] HECTOR?[facility] MEDICAL OFFICE BUILDING 1.2.840.114 350.1.13.10 4.2.7.2.686 [id number] 044 [id number] [facility] 2023-04-25 00:00:00 2023-04-25 00:00:00 Orders Only Doctor Unassigned, [place] [facility] 1.2.840.114 350.1.13.10 4.2.7.2.686 [id number] [facility] 2023-04-22 13:00:00 2023-04-22 14:35:58 Office Visit Mike [facility]?KEERTHI [facility] MEDICAL OFFICE BUILDING 1.2.840.114 350.1.13.10 4.2.7.2.686 [id number] 044 [id number] [facility] 2023-04-22 13:00:00 2023-04-22 14:35:58 Outpatient R GILBERTJose ALTHEA [facility] [id number] [facility] 2023-02-28 08:15:00 2023-02-28 08:15:00 Outpatient KATE DURAN [id number] Fay Han 2022-06-23 00:00:00 2022-06-23 00:00:00 Orders Only Doctor Unassigned, [place] [facility] 1.2.840.114 350.1.13.10 4.2.7.2.686 [id number] [id number] [facility] 2022-06-17 08:30:00 2022-06-17 08:39:09 Outpatient JORJE DUKE [facility] [id number] [facility] 2022-06-17 08:30:00 2022-06-17 08:39:09 [facility] OFF[facility] BUILD[facility] 1.2.840.114 350.1.13.10 4.2.7.2.686 [id number] [facility] 2022-06-17 08:30:00 2022-06-17 08:30:00 Outpatient JORJE DUKE [facility] [id number] [facility] 2022-06-17 00:00:00 2022-06-17 00:00:00 Orders Only Doctor Unassigned, [place] [facility] 1.2840.114 350.1.13.10 4.2.7.2.686 [id number] [facility] 2022-06-08 00:00:00 2022-06-08 00:00:00 Telephone Johny Queen [facility] HECTOR?[facility] MEDICAL OFFICE BUILDING 1.2840.114 350.1.13.10 4.2.7.2.686 [id number] [facility] 2022-06-04 00:00:00 2022-06-04 00:00:00 Telephone Luisa [facility]orje [facility] MEDICAL OFFICE BUILDING 1.2.840.114 350.1.13.10 4.2.7.2.686 [id number] 198 [id number] [facility] 2022-05-31 00:00:00 2022-05-31 00:00:00 Telephone Luisa Jorje S [facility] MEDICAL OFFICE BUILDING 1.2840.114 350.1.13.10 4.2.7.2.686 [id number] 198 [id number] [facility] 2022-05-28 00:00:00 2022-05-28 00:00:00 Telephone Pcp, Patient Does Not Have A [facility] MEDICAL OFFICE BUILDING 1.2840.114 350.1.13.10 4.2.7.2.686 [id number] [facility] 2022-05-27 08:30:00 2022-05-27 09:00:00 Office Visit LuisaJorje [facility] MEDICAL OFFICE BUILDING 1.2.840.114 350.1.13.10 4.2.7.2.686 [id number] [facility] 2022-05-27 08:30:00 2022-05-27 08:30:00 Outpatient Catracho CRUZJORJE [facility] [id number] [facility] 2022-05-27 00:00:00 2022-05-27 00:00:00 Orders Only Doctor Unassigned, [place] [facility] 1.2.840.114 350.1.13.10 4.2.7.2.686 [id number] [id number] [facility] 2019-10-26 17:57:00 2019-10-26 17:57:00 Outpatient Ripsin, Skye MARCW W [id number] [facility] 2019-10-26 08:20:00 2019-10-26 08:20:00 Outpatient Walk-In, Only CHW CHW [id number] [facility] 2019-10-24 17:25:00 2019-10-24 17:25:00 Outpatient Ripsin, Skye DEVANG W [id number] [facility] 2019-10-24 13:19:00 2019-10-24 13:19:00 Outpatient Ripsin, Skye MARCW CHW [id number] [facility] 2019-10-15 11:41:00 2019-10-15 11:41:00 Outpatient Ripsin, Skye MARCW CHW [id number] [facility] s 2019-10-15 09:40:00 2019-10-15 09:40:00 Outpatient Ripsin, Skye MARCW W [id number] [facility] 2019-10-15 09:10:00 2019-10-15 09:10:00 Outpatient Walk-In, Only CHW CHW [id number] [facility] 2019-06-25 12:49:00 2019-06-25 12:49:00 Outpatient DeangeloYola johnson CHW W [id number] [facility] 2019-06-19 13:00:00 2019-06-19 13:00:00 Outpatient Walk-In, Only CHW CHW [id number] [facility] 2019-06-19 08:33:00 2019-06-19 08:33:00 Outpatient DeangeloYola CHW CHW [id number] [facility] 2019-06-15 10:40:00 2019-06-15 10:40:00 [facility] [id number] 2019-05-09 09:20:00 2019-05-09 09:20:00 Outpatient [facility], [facility] [id number] [facility] 2019-02-07 13:00:00 2019-02-07 13:00:00 Outpatient Walk-In, Only W W [id number] [facility] 2019-01-16 08:52:00 2019-01-16 08:52:00 Outpatient [facility] Vaz[facility] [id number] [facility] 2018-12-19 07:54:00 2018-12-19 07:54:00 Outpatient Tito Gonzalez [facility] [id number] [facility] 2018-12-18 16:09:00 2018-12-18 16:09:00 Outpatient ., Radiology W W [id number] [facility] 2018-12-18 13:00:00 2018-12-18 13:00:00 Outpatient Tito Gonzalez [facility] [id number] [facility] 2018-11-09 16:20:00 2018-11-09 16:20:00 Outpatient Cesar Pérez [facility] [id number] [facility] 2018-11-07 14:40:00 2018-11-07 14:40:00 Outpatient Walk-In, Only [facility] [id number] [facility] 2018-08-22 11:00:00 2018-08-22 11:00:00 Outpatient Júnior-Jonn Castaneda [facility] [id number] [facility] Results Test Description Test Time Test Comments Results Result Co mments Source [facility] w/o Specific [id number] 19:53:00* Test Item Value Reference Range Interpretation Comme nts POCT PH U (test code = 3254) n/a 5-8 POCT U LEUK EST (test code = 3263) n/a Negative - Negative POCT U NIT (test code = 3262) n/a Negative - Negati ve POCT U PROT (test code = 3259) negative Negative - Negat dia POCT U GLU (test code = 3256) negative Negative - Negati ve POCT U KETONE (test code = 3258) n/a Negative - Neg ative POCT U BLD (test code = 3257) n/a Negative - Negati ve [facility], QUANTITATIVE, [id number] 21:16:20* Test Item Value Reference Range Interpretation Comme nts BETA HCG (test code = 1814340258) 1192.40 See_Comment [Automated [employer] ge] The system which generated this result transmitted reference range: Non- female and male patients: <5 mIU/mL. The reference range was not used to interpret this result as normal/abnormal. FELIX (test code = FELIX) Gestational Age ?Range (mIU/mL) 1-10 ?Weeks ?[id number] Weeks ?[id number] Weeks ?[id number] Weeks ?[id number] Biotin has been reported to cause a negative bias, interpret results relative to patient's use of biotin. [facility] [id number] 16:38:10 Transvaginal Ultrasound performed: Absent gestational sacEMS 5 to 8.8 mm. No adnexal masses.No freefluid.[facility] HospitalPrenatal Workup, Blood [id number] 15:41:00* Test Item Value Reference Range Interpretation Comme nts ABO & RH (test code = 20) A POSITIVE IAT (test code = 1185) Negative [facility] w/o Specific [id number] 14:54:00* Test Item Value Reference Range Interpretation Comme nts POCT PH U (test code = 3254) 5 mg/dl 5-8 POCT U LEUK EST (test code = 3263) negative Negative - Negative POCT U NIT (test code = 3262) negative Negative - Negati ve POCT U PROT (test code = 3259) 30 Negative - Negat dia POCT U GLU (test code = 3256) negative Negative - Negati ve POCT U KETONE (test code = 3258) negative Negative - Neg ative POCT U BLD (test code = 3257) negative Negative - Negati ve [facility] [id number] 14:54:00* Test Item Value Reference Range Interpretation Comme nts POCT PREG (test code = 1605) Positive On board controls acceptable with C Line (test code = 3574) Yes POCT PREG LOT # (test code = 3575) POCT PREG TEST DATE ( test code = 3576) [facility]XR [facility] 2+ vw [id number] 02:00:23XR SHOULDER 2+ VW RIGHT HISTORY: ?Right shoulder pain ? COMPARISON: ?none available.[facility] [id number] 20:49:54* Test Item Value Reference Range Interpretation Comme nts Case Report (test code = 7060370661) Surgical Pathology ?Case: [id number] ? Authorizing Provider: ?Ochoa Swift MD ? ? ?Collected: ? 09/26/2024 1235 ?Ordering Location: ? ? GI Endoscopy OR Department Received: ?09/26/2024 1412 ?Pathologist: ? Cynthia Krishna MD PhD ?Specimens: ? A) - STOMACH, Gastric Bx eval for H. Pylori ? B) - ESOPHAGUS, Distal esophageal Bx eval for EOE ? C) - ESOPHAGUS, Proximal esophageal BX to R/O EOE ? D) - ILEUM, Terminal ileum bx eval for pathology ? E) - LARGE INTESTINE, RIGHT-ASCENDING COLON, Ascending colon bx eval for pathology ? F) - LARGE INTESTINE, TRANSVERSE COLON, Transverse colon bx eval for pathology ? G) - LARGE INTESTINE, LEFT-DESCENDING COLON, Descending colon bx eval for pathology ? H) - LARGE INTESTINE, SIGMOID COLON, Sigmoid colon bx eval for pathology ? I) - RECTUM, Rectal bx eval for pathology ? Final Diagnosis (test code = [id number]) [id number] FuZzEwMzNcZnRuYmpcdWMx LVhonuJnUZflaEbtIKI9WV AoDX2idXitjCc7tEfbRSDb ivV5fWTqQGncu5dgZPF7s5 rlhjxdNQYaUJbfEf1qsUXy zGswTjMbIYWeNNf3fT04YQ CruV7ukQRbJBv7ZDWesSCl zbMgPoRjNKTekECxmIN5FM QrXF4xflfkBLrbYEooPLLq dzO3AYJkwRAkH4JmDWLtMJ 1xkywdBOE1UOgzMFHkWLM3 KbKpPVLed9Evwhm7SnOmuI FyZFxwbGFpblxmczIwXHBh paWYOsTTSL0MJZDKFSSDCD 2AO1k1FZfjXELeDHDbTF3w U0OFTOLDJpIMRKRQC9YtB1 eYRWAFGtKMLHHQE5qYK5qZ DBWDPG8PODvzZILyGNMeRN 2sFl7eYO3XXFZLDD7RZQJD AFQNVMnKW2iYAFyKTG7ZSB YDEFXstZOxBXZuUJPzGI7Z TAarVPBDDS7UFNKOFcaPHd lTTVMgSURFTlRJRklFRCBc cGFyXHBhcmRcZnMyMlxwYX AyDcXaPPZLLzMBY75HUUVX HDCcYSDUJ9COYXttKxjOXW NZOiBccGFyICAgICAtIFNR WKULI5MUVOKVOYLDNFuMTI 0sW4cWRRZKSqLZJKNJG2eI J1eWOVxgI2tCIcyEXKhrIX LcSEGfZI1hLk4jQeUKAXBA LVDaI5NwZP9NVD5NMYqKRJ hKBSIBW3LNOWrOGLcLZIjR HV6VNQXFWYHdCFHhgffuHE JkXGZzMjJccGFyXGZzMjAg St6zRBIHWGkJX7PKQTTINf 1SCM1LMKgcZufTTTBGCxDt cGFyICAgICAtIFNRVUFNT1 ZSKWXMWNDGOGpBVV2qI9nZ KQJTHvBALSVGQ3cFC0oOBJ poY3qACvnBLViqZHLpSBZm GL3oVv0kAxISUVBOEJXfT5 UeIO1HWD0OQUqPKBzFEJKC B6HEKWlFCLaIHPlEAV4XEX ZJRUQgXHBhclxwYXJkXGZz SyVvbUGrDPTtWwKpKX8yWR cKLX7sZTTQBw0RNfYGXLHU KM2JL2d6SOdkVJQzWKXyWL 8tPXaPCByiCRAUC8SZRYlY TChmBi7rMUAGMV1OJ7rOAn CFOIOGM8TJZYraLXKenRSk ZFxmczIyXHBhclxmczIwIE UuIExBUkdFIElOVEVTVElO MWwxCYPYEY9CWF5MFODTDP 3MS3k9ARehHCPrOKJdAP9t WJdYYDfXY1aIHLEaU17FKK APB7cdIZIneGEfNJohzwIl XHBhclxmczIwIEYuIExBUk dFIElOVEVTVElORSwgVFJB TlNWRVJTRSwgQklPUFNZOi BccGFyICAgICAtIExZTVBI H4XRHOrRTANQLOxBRKBknS FyXHBhcmRcZnMyMlxwYXJc ZnMyMCBHLiBMQVJHRSBJTl GKE7QELxIyENCJX2YMJtTI BbkqPZZKC5ITHJmkUZJqga ZzHHZxDCJSOS1XRQ9XSSSL RvOUF0dSIWxBFWOikhrxRM JkXGZzMjJccGFyXGZzMjAg RK1hAAPLY7IzMJ1OULNXOF 6LONOCGWhUO7jCYBVFNM3S O5d5VCbhJAViBSXjJP9xKB uACLmWO5eFERMoB55ODRTR G3izKDStoKQaMNqpoaLtCY ZekjmpxzJxQYuoWRZMI1SN TSwgQklPUFNZOiBccGFyIC UxIAQbZJhUVMFYA2JRLKmJ IENPTElUSVNccGFyXHBhci OPnMbdiMDsX0kzopFmKNTR ICBccGFyXHBhcmRccGFyfX buosOtSXfnf4VpQ3OcVvCg MFxhbnNpXGRlZmxhbmcxMD RfFEV4drAvNMSjMEyaXMDi WQwrDi8wqVFwaDrcDjKbUU Eqv5duutJANAfyAkHbE770 XTErYDfau2him9SkQNHjfD Pwa7R0ZDVMifhocVx3x6ks OzWeKcX8gCFlCSqgY3enhy KjyPYrG5QinAOnoDq0mVty Z29rc4Z1WcifR2mnLLYxVY PcW5UaYS6vIUVxRig3RZD4 XRX4UESaMQNrE9SwLS8nLG HgvGFgPPy5a7gudVgqYYVw NPW2n1uhMOvjcvY9TR4yjb 1niBn2q0uqizCxHGGkHWHx aLVCHFQzP9XufJedCt4sxN r4lBejHdgkANP4Qrr0IA3w xo12psc9eBniMATkdrjeAg N4IKijHKKtlrmcIEc9EDud FUBduEH1HFHosATeY3IeZZ IzVX0whik6CZI4LKwoFXBa FwY8YSXuzJJjMRPmcRyrSF oky846KVX1TyHcCZ5xE9Ud e1O8hJ8uuJIcWXEdlVTyQi TyFJTlbn6jwMPxEEyea3Pv OXF2scP6eTLtbEFaNNGmDH 58Etjzq7ZxOzrzCVL7MRZg vvFiv6Lly6jmTqPfncHcQ3 zyG1WwUQKxTCLzVIGcYoMn shOqs3Uap1XgiQNscCn2d7 vgVFWqUMFmnQccl1awJCB0 WYKkW2S0gJQqz0lpFEhiNB SyeRI3tuB9VWAjdXAcL6As kI3vNKQvNM4zovk3p2oxSV J2TVmyVRTgGmK4pnM1NOLr tEJgEBFqwExvTHnwy898GW J7EuVeIDUmu9GoF9QpkQyu D02ooDjiF18iCPOdeIcvdX 6szRmprH8ePlSmPrSrHMrr bFxwbGFpblxmMVxmczIwXG mkugrqIANmPWrdN4nfBzPi CHNfcCryNItjk4UgFOYtXE NmMlxmczIwXHBhciBJIGhh jsDhsSQlb63fLBtllCCdME RvQRgqYQFlvYpdp1RwT2do IE8jU5MhtZFklaOzdwCoGP iaCTTkc0l0tZJcvFalt8Tf vOYaBN61teNuPVVkBAQ9GX Wng4rfGE19uxbnQkBbgB69 ojGyrcYaMQBcs7doF7esvY Lzm1Hqm4MjzyDqYHyli8Cz HW9pcWJilityfZD1DZHwaC HcaiRxosE2bBkhUMIgcM6p uO9epPzrtL7bUyQjXnHqXY ahER9xCXRnS6sueXOiFCRi LBNrL9ltHkIoaV5hbGqiXc sdydD1EXZedg38 Clinical Information (test code = [id number]) Vasquez BAE is a 33 year old female1. Gastric Bx eval for H. Pylori2. Distal esophageal Bx eval for EOE3. Proximal esophageal to R/O EOE4. Terminal ileum bx eval for pathology5. Ascending colon bx eval for pathology6. Transverse colon bx eval for pathology7. Descending colon bx eval for pathology8. Sigmoid colon bx eval for pathology9. Rectal bx eval for pathology Gross Description (test code = [id number]) v1msnWIqRHFynNHPCTX3HH AdMJ3xuQnehUf9dNoeXHRy geB6fPQePThxh8diGTL8c9 ddizUJIsewRUTeXX6hFCnj RQKgTA9nNgCyMYRxWpPfUP BhcGVydzEyMjQwXHBhcGVy oZG0AMPsAW6uajmtMOsfRJ xvEFKepfH5PQNtmECqB1Iu SJXlSQ7twyclHUW1MIORLe jnZx3tyRJpeFwvIxWoRtWv JRGiNGWvLSEej7nwatRCyi mrsWl7pU3PZDUuY2NbQS1W r2olEZXogYEyXNF2KOkwt3 kyHZgbPCF2DLSeVHOmPNGj BO5ZMbDmADY1LbU7BQg5Hu M2KAc8WDAVYLIiHDF2Ona6 DRW1VOp5ASViVJ7yTGpccV ZdNGuuUrnsMGsxI948FTtu TRTeK7TgN8YdYKbpOgAwET twQKWzEYThVIonANSwB9VG TMDtGEK8OEE9BDHcUTu3YW a9MS4GZfSeUGCkPGW5ZkH5 ToEeTFo6YJfcNP9DNONpFl n7FNG4LYSaHFCwPLFhBBq4 IDIgXFxzcyAzIFxcZmwgXF wdP90mlOSrAASVEcilkDMa blxmczIwIFNQRUNJTUVOIE AwkKUmP7wqIuJgXxrsRNIs DQpccGFyZCANClxwbGFpbl xsdHJjaFxmczIyXGVwaWNO BZZ3YD8aTHAAZtwykTUpTR Vsg0JtCAjpkMseJBVkOtXy XJiYnHCxxD8xjmKJATftFH JpW1BfojPbULkxVDQiqd9g yPvbZEfcQqRbBLJvi6m3rM K2uNZkvTH6eLCenVryOE2y hMBoAOYXWV41eZOsymHzo7 MdhQWfxFxpR4CvvEYdIjYL WCBldmFsIGZvciBILiBweW vteeifRZEeISMxm20ozYR9 zyWtXbEeKDMync4wpM0oXG mnhqOgrThzllKtt3C1UPEw h5P3RKNnubMblQRvzGYiTA BxKhG1PKEjJtW6GOCaSURm kNlxLS2aCYgkIY8kZRawJW 4xIGNtIGFuZCAwLjEgeCAw YrEbuUBzHxUjH39kRyYoME hlIHNwZWNpbWVuIGlzIGZp sYDtsqAoUHQeue70R4ekZJ ZoiY9se8igReEqGCDyLCIc iKTyuAS3NWFpiY4fsD77cg BfcaBYFM0MQytwdHyoFjEd yPWcJuI1ROQofSVhZIL9NB 0zbKlrGXArTZl1QYghHXKg D1CcP2ZuOIksCiPtKHrrXW EfHXWeNTwtCZCeX3APSPDw DUI5NFC4LHShZGi9HIj8KT 1ZHdOfPWStDEB4HkI9DGGe CUq9SZrzYU2QNSJmHkz3OY isHiRqHXReXDSuWGd0YDMz XFxzcyAzIFxcZmwgXFxuY3 1ccGFyZFxzYjEwNVxlcGlj CQTsZNE5EG4NHLGfIhBgV0 NZN5wEKT1jTjmwcbGaOUHq otUYTewzSDPcQL5QQZJzJP biNJw3hoJaNFExNyGhLBTk S32rz3UFv7LzJA8NDJw9od GeiwbvIeJbIBGdrQOHx0Ap KFoeHIBsGQEgtDLWh6RcKH ANClNwZWNpbWVuIEIgaXMg bcWoRKk0CBZouX2rFb4ypG EmcT1zxBEvCYyjAIX3eYOx OXXcJGMaTQIaSQ72X7Vvzk FtZSwgVUggbnVtYmVyICJl q33tmYIifPJqZRQvs1VofC Bjm74dsBXmKHFlEPSYFAV7 NVkjQj6qXOKURUVtME7sXP OvfgXlw3YjVA6eAZDqHRGe G4VfR2B8IJSwZvB3CJ8rcQ kunuHkv5G5GUIbe1P2ETBz lkCpvKBpgQPkUVIbGsD6KB JxDCR7LAGwFKCmaGowcxYg Q9bzPjRxqt6eHAXxGS1pPm GqX90yzS8yX8UyAUKqh0Sz QDfhIU5upG2xJN1pXFPjWD FgjJXymX6lkoMzwjBezFy9 ZAWcKGK4bRDbgYbfPKNjVt qurDQ2UKLhSiWdsbWxo0Tb vIa5hHGyGBiePQRpxQ4qvN 8aWrXdXDfyVJMvR82qk7KJ l1Yhn1ewxYwfv4DutSApOX 2ncVMrFG8Zk6nsFKJlgVWl CBH3XZvew9joMTwsKHW9XI JqHcGqFSWtPA6UOuUkFZB0 GaA0WQj5QcZ5NBi0JYLHPe MgIiAgMjgzNTMyNDkiIDk5 CKl9UAsXHlXpCxr2CbCfYZ VhQIP0AoJ9LLidqHQcPQnh t2FkCeXpIQUqLUhyokZ9QH BasjTub2WgRZTvUARsP6gf YjEwNSANClxmczIwIFNQRU NJTUVOIENcZnMyMlxwYXIg DQpccGFyZCANClxwbGFpbl xsdHJjaFxmczIyXGVwaWNO TCD4HD8tJWSPHpdceBOxLU Rrs8EhCGigoMayKFEhFoQo f9WuLRlbqQspLEDtRqAuFP xTcYInmA5qtjSPMAhcLOAw E4RiabSeLIsyXTPbpa5wxA yiRKjpXlMkQEIcx0h2vVJ9 tJGocHS8mHOklJcsFX1ndV RyKANDMU65pXYxvuLgOCXy eDxsN0NeDSKkst88wG2ylI Gji67duWFjOXIyOTEZPCNu HXLuuvVAH1QvRLCxQSDjl3 3ljEK5oyXfAxAjFDMhmn0x kH3pFFejvcEnuWpxadRve5 U7NBVlx9T3OEOiryOqjBLm yFJrVNZaEgD9WKIuIxP1HW UiMBAiyQdpEW7iMCxdEZ0x JAbyEI0iJFEwPMLzHTUsEg DmbPAtGpSviLPeQmLfH90w LiAgVGhlIHNwZWNpbWVuIG npMOXbmKLquiCnAIQjut58 I3vdSLYrcC6bb9nsZqCaTG XuUUOwmFTshXI4OARpmY1l pO25gfFbfaOUMV5AUalvuT tpNpXisNKoUfJ6EOJlpESt RFA2RS5wkTfcNPEyQCy7RW twTAHzF5IiX3QjSKboVcKl XGlkIDUxMDAyIFxcZGIgT1 GOWDYqSUK9BOZ9YBLvPFq2 RRq3SB1OJcWuAUSeDTY8Mj V5AMPmMIx6YPrbPH1NMFGj Vzi0WoQkJfDmEPQnMQJtMH n0HCHlSNeiqfMjBMthEsky ODjjN34hhBQsNOtoGjPdXC jzxBsvKGFvIKO7DN4NHUXm PaNcK7AEE0mVRH5hGWhzsi MbAAZdurKUTighBLGaPP2Q PUGfJGrrYPo0zhAkNMTtHn SqQJMhS47uq9LEe0CsFK1Q DPi3trFlkurvCwPuHQHjzI BQp4MkRXzoTZYrEPFmhWON k1VbINONCxBmBQFqzMVjCQ GncCVfeqCbJKz7JBMhqW1b Np9uzQIizM2stVAeBQlmYP Y6uOHzBDPmTXFmSSYoOX28 A2NmntKfWUwgVXqaotCvEy CfPMPsiDE7dQzdgVIegGac UMrqaDrdzY2qStbvMGDpsB Coj4CroUZ8oE2aj1w9LbMi xpOoS66ti1anbNQaf9WupG kvMYJhac2ahD4xYEcbkeJu sMuxguTmx1W0QNCqq1E6CX BmcmFnbWVudHMgKDAuMiB4 SPWuHhC4REDzQQCgjRKsgu OsEA7gHNnrSV8dUNlpNN3f AEUyKS7hPDYeBTZyoZWuhY 7thnSgvzLtqWr0LPUeSOK8 eCXzvKopFFXgGlchiER8MT KvDzDjkrIao3LfzOw8sXDe RPsoYTPhiE7gdU1cXDGdNG feDRNiZ48nu6BJm4Vwg7yi sPorx4DahLOfDU7zxBFmBV 9Bd1sxDVHqaBZlRQC2SBdc i2agAOmhKGM5CCTiQoYcRE LvHK4KUnSjQOW6SrN2ZLz0 VrK4NFr6XLAPEcJaEdHgLf wxDEEePrNeEIc9FEp1XRfC QfFcCun8VoL3QGD8WGM6Em P0RXsfjWFwWUgyg8RgDjTl SBVcNMburyS8HKWhvnFud6 XmPTEdQFBtP7wwRfTlFIBK ClxmczIwIFNQRUNJTUVOIE VcZnMyMlxwYXIgDQpccGFy ZCANClxwbGFpblxsdHJjaF ebehQgCLXvvDMDEIS5VJ2e PSHNQrnjjPZjLNAjz4VtEK viyQuoDJWuIwIdl5XrAZlj cGljWHNhMzAgDQpTcGVjaW 3jkrQBUUhlEUKlW8QfgfNb EGkuHFGiok6gaXdgUTywPf TwXWNyy0c5gXN8fPRvhGQ3 gOGheThaMA1vgRQfUVOPQV 13bSPqnyJdkFCxA3HrrF86 YZW7nN8lMTBjdBkfbMMjn5 WsplUupauuE81qw44aLNAs M9BfIXrwNzLbx1knvlSSAL TkslLrZOLwbwTtEBXtq4kj M5keNSBqTXHth40piXQ0nj BsAnQ6q45bmALdDUGnxsys uOOlWQg2pNHuCBPaUxPlhC qlc3OpJKKuYEsuNG06vyAj ZW7bOSczGW3hSNzmIP8qMT NtIGFuZCAwLjEgeCAwLjEg vSWyPjKvD06pEoFdDOhgAA NwZWNpbWVuIGlzIGZpbHRl pvGhIXQiuh85P4mcQTBckS 2uk9jlRxFtLVRoZDXmsTRn yWL2RMAdxW0vxB48mzQphy YVOS7BBlrotKenCgAlhJDu GwB6QYFqdPXrFMR3QJ0cmZ maJPRoDUg0EIehCFFlW9Rc Z7EuKXzrZrShSOcjPGWrQZ IvHBeeMZYlT8VSYIYbIYT3 NSZ0KPNbBAe1SUn6RB9JQu IbAJEnCEN0UoRrVpHzNMf6 OLanWR0QRQDaYqe9Cak9PN ayLSSgJXQnEQl8OMAfDSbv gnFhXZawBgsmOXcyK94gsX FyZFxzYjEwNVxlcGljWHNi KFF3IH3CJEUbNaJoG2UNS5 wKAO9kGsdbnyGuFPQtvrUG MxbmFFXdGI9UAUBlNLtsBO w4clRkPEWeSaLxLWElR87a v6LFn7OjCR7CZPt2arMnhy ryQzQfBGAjdLPTr4TgSKqx UMIfPSAzqZVXt6FjKBTHTp NwZWNpbWVuIEYgaXMgcmVj TNh1TXRiwD2oZw1wzPVndO 7jpTEbOJwqMBE2lQYrJNTi JLDkYEExFA14D4HubyWnKZ wgVUggbnVtYmVyICJsYXJn WVQddnJjf5FzjaIxGMYoPH 7nhrOyy5WlM40em98iUCJj IF2macTds1AaX03es70gWf pzBMTkxXUbv7KorYA0kU6l q6n4FuKlryCbO90bj5jeyI Bnl0CloUrnHELqzh9uaL9x YDwnqaQraAqfbjPrq0E5TR Wrr4Z7UWZfexBhhEVceTJx NLTlXFB2EUKwQrZ7QHGvJF IhoPNotwHkJX5mWQjpHV1o MYwrGE1wCVAkGK7fYKCzQZ NvuZNkrG4kofLridKdmOx0 MCVzJXU4rZOdtNmfCNKvKf qnbSY7JZUyHzHwmuOwx7Vh yRa3kTZrUQbsWTWflS2ruM 3lZoKtQObtYTSwZ26yk5ME y4Ott7rapKqre2CxtMUpXT 0wzGPgUJ0Hh5rpRVFwtHOt GFD3GKprz5usKGprGRB0WD HwHmMmKEQsIH4OKsWgAIG6 WwB2PLj3ImL2OBy4FTEVTs MgIiAgMjgzNTMxMzgiIDk5 XIw0MBhADiJpFjj1TwcwEM UaEXJ6TsL8LNoscYHfDDtd o2KiXaZkUAFbAHyqcoM7PN GybnSdc6QyMCZsEIOgR5pc YjEwNSANClxmczIwIFNQRU NJTUVOIEdcZnMyMlxwYXIg DQpccGFyZCANClxwbGFpbl xsdHJjaFxmczIyXGVwaWNO HHA6JX0dMFNBJcpghJVlLC Nrr6RlIIeeyJygZCFmMhJn m4XsXVutbNjfBOGeZwLnYJ lHsKVpjW9zbnPKHIooMKBl D1JdzbTaOMisMLXezs8npM tiIMdgZjZdRDPyb0r4wKN3 uIGieSS1qQOnoQyoNW1niJ VvEQOIXT45tOUuiaCgvRHt K6OaqB20RVR2xB1fVBAjUF O2OYIjw8VlpvSfnhqeQ60b b45uYEFbb4PgolBuikgrC2 0ul94qTjtzDJYfiQTof4Fb jLI9mN1wf5u8PfLduvPoR1 0lz2pzjCOoo0KyjSoiNSLa ho1hlT9fJHzhnzUnkGutsp Mdi2L9SYYnq7Q6BYXevyUi tBBfvHXeFMMoZzW9EIXvXc J1XKLmVVUytQZyccZnEE0s JJeaSQ0qVAanTB6eGHWaKT 1nFIWzHBKtpPVnlV7lqvCn uvZpgRq6UXUgLWB1lJQfeD jhGMQjFzfzgCW6ZXQwZjPd fgExf0DjjOo3uOBdZMcsCI SgzI3nqD4nMuObZWnmNPOp P57ws5WTh1Ojf8atcMxcd2 SbyINuSN6rqEGbXE1Tk2zn FKJheTByVTX8YNgfe3kgIL jxNDK2BIKfDlCcRHUjXD8U MqFzTBY6OjI3PSe1LjY2JX h4LATCQjYwHfRiKlhlNLCu OmljWKp6KOa0SXvJCuMwJp x8Avc7VKE7OOT4IrR5TVov iTErMXjek0OnOdJpDACiAX idskX5HCGbpyIrb8IhIKTf CIZaS8pkMsUtOEKVEudnel IwIFNQRUNJTUVOIEhcZnMy MlxwYXIgDQpccGFyZCANCl xwbGFpblxsdHJjaFxmczIy YGKruXIFCRO5MD6sYOVJFe irjFXdTPAlq5XgBGlqwEsj OCIvDuRrd2QaNPjseBifLS YeHrIeTBdIlCLsgY5mdmTV WWsbDLElI8PyeaQpOJgsPB Vkjj8pwQtkWKnyXuWgSCAb z3r0xAQ8rQGbvLP4iCWsyP zgBS2hdWCoILPEEJ38bBYs pgZuuRYhX8SnfI61WEL9bF 7rNTSbiYazt1ppLTLzuA5x FKXrpQudc0rgEGUvqA0eWW RMJXQ0QYamKy6cZHRypDcd tP0pxXIgQE6cEBDktwOxn2 TyCM4bEFEunMZhBQXfonao lNFhIKj9cJXaDNZeLhFttW ynq7YqDHYsFBarDN59zjKb FX4eERacYY1mYWhiJU1sWH NtLCAwLjIgeCAwLjIgeCAw GiLhH93wPD3iHSWbTWR0PL OzMPV2WGAvVIYhlSxlZZLD aXLpc3DtQ0nnQN8bgZJgNa iykDWqUBOluLywk5MmrQVd OCFlk5OraXOvGXqcRW7yXT Z5Qi3syZNpVYUbveL0t5Ql GTuwTQdkPb1TCUTolRICQN R4EL8tCKkdVQUyZ8LpI9Gm rjR5BFRbqcUMSdznZqxvvA ioo4QkeKCxQUFlQUczlUQn NTEwMDIgXFxkYiBPVlIgIi UjJcAgXLB2ViBhKPc6QTle L9JPBCCcSVH7FxBqQVWhQb G1ZTf9QJWCXm6wUuK2Kvd0 EOCaXyV8VSX1HhQwQBHnTw CkIMHuGXJtEZcqbQXuOH3e iJkmXKHcTVKbOOJ9KUQjzL JAa1AjVNThANuuBxRrLQUN WKPDUV9ZDrJTZVEmUyEinX PbKL4TNZWeckCyGVhwdSft bJ8euKOlD9bpOnLwAzhldI ljTmVzdERvYzEgDQpcbHRy sSYbVBNwJyKxSAZwC8ecCm XcUQ9FN1BcK4ffAK8qNSZv cyByZWNlaXZlZCBpbiBmb3 JtYWxpbiBsYWJlbGVkIHdp dGggdGhlIHBhdGllbnQncy HyUP0fEJWYIGTerS0nVNUd TrXtJ4X2wDkugbIezNQiBU BTAIK2UJuiDh8hDOOktTtz sU3mcJSnEC2nTDGfzaEsb4 WqUZ4pBUZ4isQ9XY7qoPbg snMyugYzO9BoCJMqk80soR G9pFKpoUGxNfFuG71sypGr ICgwLjIgeCAwLjIgeCAwLj JbT93wOO8sQJOrTqT2NMLd JeQ6TMBkMBTlzPdrSHXYoW Ptc2YhS8znEZ6zuPVzHayv jUTvFJOzxQihg3FerPIhVA Aja2MxdCByYIyiOT7hDTO0 Do0nkKXvPFFclkR1t4AnBP luIEkxLlxwYXIgDQpccGFy ZFxsdHJwYXIgDQpccGFyIA 7HHRwhCI4hDM9toufcRQPX QEMfLTJLSCcqqQv6BRIoRR Tvf3RlL4P4FZGrDNgmj7uu FSVbWYwpu8DlMJtOFRIZCE 3GVS3gqBX5YNjDO3DTD7qQ pIMzVUFwMGpbxYOQVY79ZX k1dLS8pC41LNPjWZMfmQXf NVodA391YSAdWYPyNuRxSB HzCWi0CsaiOqxilWT3KRsk ChepsL8kqWMSYRBQOwpXGo rvrnBlUJ1XZT4DCW2CxDFi OUKeEHhlvWPTQZ82IXv9zM B4jX87VCUuEZGeeERgKNaw S015BHPjBXysRCv1tpDxEK LjCqFuyKOhBM3VDFXjRnSv AOJmJ2tiMHReFR1SIOHqvF SGRPG3VA6vJIaoUUVfT1Cq I3EalqG0f0jutOzxi3QvkC MsFS1pjMYhUN1MVVQmeaEa DQp9 Disclaimer (test code = [id number]) r2xkkQOjUJTcu7duQTLeaL FuZzEwMzNcZnRuYmpcdWMx FSmwodTnQDane8FuZ9EsLi AwMFxhbnNpXGRlZmxhbmcx XFIqIZG9atFqTDTeRZnqCB GeUCcyDt2ifRGfmVtiMlXl XRHjx1upqgFTDWadGjPyZ1 46ULYzXEsyx7tqg4YlGNGc cRUkp3X1KQHIafvdlBh6rK poP13nq7H1GpgpS8bvCPMz JIWqP8IcTI7aUPNxExc3JC Q6CVH2VYLcYYZpF5SoYZ9h EDSqdSCuZBt3v0itbJekAL RiTDN4j3rbVAivscRgTU4w pp4haYi6u1senrZjZTJtLQ BvuWKSVEHnV5NfrXbdNj5t vJm0sOebVtjoXQO1Zfz0UW 1vgk36kvy2tYrkPATlxfvu RpE4DPxrGQVdfhrxEVn6NL pxDMPxiTS5BVOyhIMcM2Xh ULQxZS1euvs9FCR6WWujIX SoWaI7OAVypNSsJVCtlDth YEnrq322GRH6IbAuNK3jX9 Nsx7E5cW1uiBKfUGLctLNz GsBfTMEjrx4nePWuBUbdi2 ZoRWV3coN8wKMssCEhGVQo LA17Riung1NdRncsa7CzO2 6ufEI5HXmft0wgGG5zFwU1 wlVcMMzei6silH7rFkY9YM aoTN5uRB9fKABubL4cdnwe XHBnYnJkcmhlYWRccGdicm HeXa1sbHcrNYL9DJzqK1vy aL9dKkS0RSsgV4ojzY6fCP m8WKjyhDY8XYUgxW1jMD9w hpaqx8eiKInmRHoxRJAxrr M2iiJ2JEVqnXAkC7OctV3m IWStDP8ifoscf3ubLSW5KC ivPTHaJTP9WsTdGDBvc8Gn the8ChDze6FivBOjFRcnH2 0nx722RDIddbRuJ3xhrYVq sqcaaPSvhykdWGgstdH2MZ JfhbSev3OeVBHvYQU0FBpx PKllnVQzIMDbqTuxq0pkA2 RscGFyXHBsYWluXGYxXGZz MjBcbGFuZzEwMzNcaGljaF kxJSzeAgWzAJZxLPtcT7rv QfTzK7DgBJBdIiBcoGRmU9 ggVGhpcyByZXBvcnQgbWF5 XTqgM3u1WOHyikOobFy3bf YuOgHyKLZuBVG5EItvmVAd RGIfj4ZghsmcdZTpYr0cpC UaBRYgqV4vXUDnQOCyGXjq FB5tvXa0RFEDkFLxoCKkOh HRSZHaPZ69fkCnACDUcdza p1T2TNloZIDsy2AsyEZkE3 okm6GmIGZnb60eMX9qr0F7 p1dfSKG4QX9qn5IgXMOymS ZtyMCkGSWvw4Koqpyjq0Wt PQFpfgOiu1OoJIClmqDthR EsQCAlzoSaup3pstSfEEYs DNJpR5ZltcelpWsyymYjSF Dnzp3fopMlSNX2TIZQQAVy SNMgz4BktC4wgMEXYTQ4sS Acak7ljnWUiRUfFNYaka78 NYNuHB5iD8waMWDuIKWwyv YrmZVma6AkWCMsiET4kJJu YI4NZfODb02sCKVaMCLKcj JqDIOukNvoiLC3hjH9vI8e IChGREEpLlx+IFRoZSBGRE HdYX0kgkFvj8YpfyRhzAhc AMKfpJGeg1DvbOOgi4OqlK hsd9GwaGIucYUbNE9cVIDl clxwYXIgVVRNQiBMYWJvcm V5r2ReWRRzQNSbMHC2yYrf pea4QOQzeE9nLMPiX5bmjb znFUvmQZHlg6DpqC1alQVE gYHzr5VrxJRegHNJzVIhYF 3znwJmGHfHQAtBUKV3fnLs OLBpi3PcMQwdJ2uiS48fpV kalFr0vCU2HNT5yH8gSbe+ IFxwYXJccGFyIEFwcHJvcH CbGVRdoOlqaaLdN5HpwpDk zA8czTMxhbHoUL7eNS1jF8 D2sUIrBGYuyhIda7oaVVii dmUgYmVlbiByZXZpZXdlZC Lau1DoULspTXI6PAcnezNs bmNsdWRpbmcgSCZFLCBTcG LeaMKxYBZ3RLkyudYvukFh MZ9dbG3qhRscsJ3egLPdwX U0kijxDSQwKVYkoIqrKZTb OK6wiVmjeJ1cAxXkBsQaUG ahIG6sWNNgP0prbCHfDPDy XOVmI7vrXkOlrO0poEbqVO xjZjJcZnMyMFxwYXJccGFy XHBsYWluXGYxXGZzMjBcbG FuZzEwMzNcaGljaFxmMVxk LqSpMGOaZVoiZ5flSuZwV4 KiSQCzAtImeFPlY1izFOif DMW6RVFaVD0mqRWcJV31cU Eoq1pnGNednSpnzs5hY60v bHWfBRnufZnzLEClj33tu6 DyZDGnvnGllb3pQZFcpgR4 mK1bTFIwqYhiFJFlsAMcSH Sxr0FfSEzhnJDlpqUfWHey IYXhOKYxeDRniiM2gxXjgo PchaDvOGAinGrfSZXts0Rl XJHdIDncx5Ktjf3hqBRyIA CafnCBzQvvcPNvcH9kL2Fe SSMmJREqam1rTPQekB4pSH dva3JadsczPVXfMNPmGDJt yiRxyq3zDWJekCKVRI6LSK wapFWjr2HcqcOxZ5kQPDV8 NUQwNjYwMjgxKSBleGNlcH EkEFYlyd71RIXvpZ8iqSoc QINyoT5mqP9ifDmtsR8fNt LnAnCoHZxqIX2bKMZcS7ri kGFuHDAtCRQmD0bdMdSqdT 9jaFxmMVxjZjJcZnMyMFxw YXJ9fQ== Embedded Images (test code = [id number]) [facility] [id number] 12:44:54 Ordered by an unspecified provider.[facility]END[facility] PROCED[facility] [id number] 17:41:00Ordered by an unspecified provider. [facility]PO[facility] [id number] 15:13:00* Test Item Value Reference Range Interpretation Comme nts POCT PREG (test code = 1605) Negative On board controls acceptable with C Line (test code = 3574) Yes POCT PREG LOT # (test code = 3575) [id number] POCT PREG TEST DATE ( test code = 3576) 02-23-2025 Lab Interpretation (test cod e = 07154-3) Normal [facility] [id number] 15:13:00* Test Item Value Reference Range Interpretation Comme nts POCT PREG (test code = 1605) Negative On board controls acceptable with C Line (test code = 3574) Yes POCT PREG LOT # (test code = 3575) [id number] POCT PREG TEST DATE ( test code = 3576) 02-23-2025 Lab Interpretation (test cod e = 95484-8) Normal [facility] [id number] 18:03:39Examination:BI ULTRASOUND BREAST LIMITED LEFTBI DIAGNOSTIC TOMOSYNTHESIS BILATERAL History:Patient is 33 year old and is seen for: ?F/u after left breast cyst aspiration. Computer-aided detection (CAD) utilized. Comparisons: 05/02/2024 BI DIAGNOSTIC TOMOSYNTHESIS LEFT and 07/20/2023 BI DIAGNOSTIC TO MOSYNTHESIS BILATERAL Findings:The breasts are heterogeneously dense, which may obscure small masses. BI DIAGNOSTIC TOMOSYNTHESIS BILATERALThere is no evidence of suspicious masses, calcifications, or other abnormal findings. BI ULTRASOUND BREAST LIMITED LEFTNo significant interval change in the previously described subcentimeter cyst/cluster of cysts/fibrocystic changes within the left breast 11:00 7 cm from the nipple. ?No abnormal lymph nodes identified within the axilla. Impression:No significant change in the subcentimeter cyst/cluster of cyst/fibrocystic changes identified within the left breast 11:00 7 as detailed above. ?A follow-up left breast ultrasound is recommended in 6 months to demonstrate continued stability and exclude underlying malignancy.Specifically, there is no imaging abnormality to explain nonspecific nonfocal left breast pain. Recommend clinical follow up with ordering physician and/or provider if symptoms persist.These findings and recommendations were discussed with the patient. Recommendation:Short interval follow-up mammogram 6 months - LeftShort interval follow-up ultrasound 6 months - LeftClinical follow-up is also recommended and further management of clinical findings should be based on the results of clinical evaluation. - LeftAnnual mammographic follow-up - Right BI- RADS Category: Left: 3 - Probably BenignRight: 1 - NegativeOverall: 3 - Probably BenignUnTri [facility] DIAGNOSTIC TOMOSYNTHESIS BILATERAL [id number] 18:03:39Examination:BI ULTRASOUND BREAST LIMITED LEFTBI DIAGNOSTIC TOMOSYNTHESIS BILATERAL History:Patient is 33 year old and is seen for: ?F/u after left breast cyst aspiration. Computer-aided detection (CAD) utilized. Comparisons: 05/02/2024 BI DIAGNOSTIC TOMOSYNTHESIS LEFT and 07/20/2023 BI DIAGNOSTIC TOMOSYNTHESIS BILATERAL Findings:The breasts are heterogeneously dense, which may obscure small masses. BI DIAGNOSTIC TOMOSYNTHESIS BILATERALThere is no evidence of suspicious masses, calcifications, or other abnormal findings. BI ULTRASOUND BREAST LIMITED LEFTNo significant interval change in the previously described subcentimeter cyst/cluster of cysts/fibrocystic changes within the left breast 11:00 7 cm from the nipple. ?No abnormal lymph nodes identified within the axilla. Impression:No significant change in the subcentimeter cyst/cluster of cyst/fibrocystic changes identified within the left breast 11:00 7 as detailed above. ?A follow-up left breast ultrasound is recommended in 6 months to demonstrate continued stability and exclude underlying malignancy.Specifically, there is no imaging abnormality to explain nonspecific nonfocal left breast pain. Recommend clinical follow up with ordering physician and/or provider if symptoms persist.These findings and recommendations were discussed with the patient. Recommendation:Short interval follow-up mammogram 6 months - LeftShort interval follow-up ultrasound 6 months - LeftClinical follow-up is also recommended and further management of clinical findings should be based on the results of clinical evaluation. - LeftAnnual mammographic follow-up - Right BI-RADS Category: Left: 3 - Probably BenignRight: 1 - NegativeOverall: 3 - Probably BenignUnWilson N. [facility] RAD[facility]OLOGY [id number] 18:08:18Ordered by an unspecified provider. [facility] HospitalBI BRE[facility] CYST [facility] [id number] 19:10:52Examination:BI BREAST CYST ASPIRATION LEFT The procedure was [...] procedure sonographic images confirmed collapse of the cyst.Ultrasound-guided aspiration, left breast 12:00 5 cm from the nipple from the nipple, cyst: The patient was positioned supine, and the area of interestwas localized using real-time ultrasound guidance. After antiseptic preparation the skin puncture site was draped and infiltrated with lidocaine. ?A 22 gauge needle was advanced to the target. ?Fluidwas obtained and discarded. ?Continuous real-time ultrasound was used for guidance throughout the procedure. ?Post procedure sonographic images confirmed collapse of the cyst. The patient experiencedno complications during the procedure. Recommendation:Short interval follow-up ultrasound 3 months - LeftShort interval follow-up mammogram 3 months - Left Pending workup (reference diagnostic dictati on dated 05/02/2024:"3.There are 2 adjacent probable complicated [...] patient may receive a follow-up ultrasound in 12months (July 2025) to document 1 year stability."[facility] ULTRASOUND BREAST COMPLETE [id number] 16:12:39 Examination:BI DIAGNOSTIC TOMOSYNTHESIS LEFTBI ULTRASOUND BREAST COMPLETE LEFT History:Patient is 33 year old and is seen for: ?Left breast pain. ? Comparisons: 07/20/2023 BI DIAGNOSTIC TOMOSYNTHESISBILATERAL Findings: BI DIAGNOSTIC TOMOSYNTHESIS LEFTThe left breast is heterogeneously dense, whichmay obscure small masses. There is no evidence [...] the left breast at 10 o'clock, 4 cmfrom the nipple. ?This is best seen on ultrasound images 21-25. There is a 5 mm x 4 mm x 4 mm probable complicated cyst versus mass with circumscribed margins seen in the left breast at 12 o'clock, 5cm from the nipple. ?This is best seen on ultrasound images 16-20. There are 2 adjacent probable complicated cysts measuring 3 and 4 mm respectively in the left breast at 11 o'clock, 7 cm from the nipple. These are best seen on ultrasound images 8- 15 and 29-32. The visualized level 1 axillary lymphnodes appear unremarkable. Impression: Left: 1.There is a [...] mm x 4 mm probable complicated cyst versusmass with circumscribed margins seen in the left breast at 12 o'clock, 5 cm from the nipple; best seen on ultrasound images 16-20. The patient states that she has generalized discomfort in the medialleft breast, so ultrasound-guided aspiration is recommended. ?However, if this proves to be a solidmass then ultrasound- guided core biopsy may be performed. ?BI-RADS 4A. 3.There are 2 adjacent probab le complicated cysts, measuring 3 and 4 mm [...] (July 2025) to document 1 year stability. Recommendation:Ultrasound guided cyst aspiration - LeftShort interval follow-up ultrasound 3 months - Left ? BI-RADS Category: Left 4A - Suspicious Abnormality - Biopsy Should Be Considered - Low Suspicion for MalignancyUnWilson N. Jones Regional Medical CenterBI DIAGNOSTIC TOMOSYNTHESIS [id number] 16:12:39Examination:BI DIAGNOSTIC TOMOSYNTHESIS LEFTBI ULTRASOUND BREAST COMPLETE LEFT History:Patient is 33 year old and is seen for: ?Left breast pain. ? Comparisons: 07/20/2023 BI DIAGNOSTIC TOMOSYNTHESISBILATERAL Findings: BI DIAGNOSTIC TOMOSYNTHESIS LEFTThe left breast is heterogeneously dense, whichmay obscure small masses. There is no evidence [...] the left breast at 10 o'clock, 4 cmfrom the nipple. ?This is best seen on ultrasound images 21-25. There is a 5 mm x 4 mm x 4 mm probable complicated cyst versus mass with circumscribed margins seen in the left breast at 12 o'clock, 5cm from the nipple. ?This is best seen on ultrasound images 16-20. There are 2 adjacent probable complicated cysts measuring 3 and 4 mm respectively in the left breast at 11 o'clock, 7 cm from the nipple. These are best seen on ultrasound images 8-15 and 29-32. The visualized level 1 axillary lymphnodes appear unremarkable. Impression: Left: 1.There is a [...] mm x 4 mm probable complicated cyst versusmass with circumscribed margins seen in the left breast at 12 o'clock, 5 cm from the nipple; best seen on ultrasound images 16-20. The patient states that she has generalized discomfort in the medialleft breast, so ultrasound-guided aspiration is recommended. ?However, if this proves to be a solidmass then ultrasound- guided core biopsy may be performed. ?BI-RADS 4A. 3.There are 2 adjacent probab le complicated cysts, measuring 3 and 4 mm [...] (July 2025) to document 1 year stability. Recommendation:Ultrasound guided cyst aspiration - LeftShort interval follow-up ultrasound 3 months - Left ? BI-RADS Category: Left 4A - Suspicious Abnormality - Biopsy Should Be Considered - Low Suspicion for MalignancyB[facility] HospitalSurgical Pathology [id number] 14:22:32* Test Item Value Reference Range Interpretation Comme nts Case Report (test code = 7090891915) Surgical Pathology ?Case: [id number] ? Authorizing Provider: ?Catherine Freeman MD ?Collected: ? 04/14/2024 1119 ?Ordering Location: ? ? [facility] ? ? ?Received: ?04/14/2024 1224 ? [facility] ?Pathologist: ? Cheri Elliott MD ? Specimen: ? ?RECTUM, Proximal rectum biopsy rule out proctitis ? Final Diagnosis (test code = 4901145556) [id number] FuZzEwMzNcZnRuYmpcdWMx IHtccnRmMVxhbnNpXGRlZm nhubyzWLCaGUT8brMlWNXt XVD5KSG1QrOkBNQgGeVlSs UtISFol5uxt7TocMMqtJXl YLbfhJEhehVkwb18sKT1rS 61LE1wSAZtZtI4PBSpaoO0 Tlf9OZEcCQMjdPFgM105s7 kan1jnpyUvcEZ4aDhrGAZd mhskOjB3JAabGTJailyqOO k9FTfnXPTviDP4NYWypVGq H2SeYVFkDV8goxq1CXA8JS giKNGdAmK2ADLihHGtAIDu ePosDFojx867XUP0YzWlON GkcjJnbLrcnR0nIiZgBQju WJNyNF4aLbRJZZKIDSXAIj 1GVY9VWVmbLkvNZEPONrpc VIOsPIStKP1zCzPKSOATZK 6KH10OHSJKBIKHOR0KYZPR KHsESY1MFWDEBOIADHGMB8 UgXHBhciAgICAgLSBOTyBB B0RWWSVONv8VHQgVUKGuBM RFTlRJRklFRCAgIFxwYXJc cUFxGGOhmp16VJC4FdAxu8 T4HVMfZuGlZRPeSN6wtVoq TOTsER6lQCMoL9qlyD6lwf a9RpKsPWPgFcB9NGBdjdA9 Gab2NJNdGDmha4ljl2VqW0 ZfoPWxvWm9x1xjSSFbOyK1 lZQnTDzaL5oergRtbFTiUY DnQHz1zGyzPsEhPXJfw9kc cyBcZmNoYXJzZXQwIENhbG zyoqd4yW86KNBmdC1hqQEy ARixgnBuSuT3PZoqSPBnKg J0OFRswXZeAZVfZ3eySRJe PHqtZVTpSXaktQHeWLW2pB qna6J2bUClyKXmkMmwQuTx LlKfUTYRd1AzLWr9bGmsX8 RgBYIhKxC9jZFxXUNnNMiq EQDiXAAkcqD0kX85WDwsdz J1pBZej8Zdn07wy944kA6d lEVqBBM4OODoMVLtrQNkHD XxMCY0SASeoJLxI1dlZYGi BG5grlvjSJjhPJsxRHPddL R9WEJwyRIjE7MvQEBkRSii EBScobi9CmFzIi5ccSHtdF mzXIops5ito3nozGDvKsh0 NITgUhGjKgmqFIwjc2Khu7 ipBLWdgi8dLGU6vUDtsSaj s7A1nUYlZCQycKOykwThGG JnItX4MVgmNM7hkk66FVKf EPA4va4vyGAawVuidgHrdJ FnPEqyU3MdQREis429MKBn W7HkGXCxu7P3xwXhUnHcYE PrpYS1jjE3WDGlYXk9lUOr syS7yjOxgKCmB8vysY6gFP QmUI3delndm6fzCEzaMTww ZFEpvZU6unE8YLPjqUJyY5 PcrE1jABTzEOgjRSKeadu6 KzXaHt9mpFVvrDsoBHtdQk twYWdlXHBnbmNvbnRccGdu ZGVjXHBsYWluXHBsYWluXG UpMALbXdGbkQzppBgzmU0d WtFcLyQnVHtbFK1dQWMqL1 ktyJSsWJOkHDSlP4xyGgIy pP7clKoeYCarUgMmOvGhBK xwYXIgSSBoYXZlIHBlcnNv rwYxlAyltsJ1aXR1KIMzDF niQWQcMTRuaRSnom8nbZin YFXkDD7sFUXkalUhWAlxyN mtRVrnNPT4JLAvqDRhwGJs bWFkZSBieSByZXNpZGVudH BfFNSaqGcru5Vtq7UpfOK7 kZ8xo1gxz8BaTUUnlHH3YM 71ehR8jA5qNRUvYZ4mBYQi MO5wnWCcuIPzKLUuy70lwM hpcyByZXBvcnQuXHBsYWlu XGYyXGZzMjhcbGFuZzEwMz NcaGljaFxmMlxkYmNoXGYy ZVmcU7tvYwBoMmPkEHtmWI O6wYkugtJaMZcji3HzF3Vl MjAwMFxhbnNpXGRlZmxhbm agMVJrWUC8syDaAUUtDIhj CHKaZFopDj8cnDRdxRsuKg EiEABrj9jaqkFHQFyzEbKv W877QRWhHSxxr7gta2EyUE FbeYJkw8W8JWJQbxnzzWw5 w8blEcYjQfZ4oZBkCAwkP6 zdeyZlbDHfH7ZgmKQwrWu0 lSooZ07sa2I1DaykP1ucAT ZzQQCmA7GrJJ0sTJHrQaq1 EBG5IXQ7AMEpIDNjA6PpYV 6sMBCueHGbNSo6e6xhdPyp IQCyWUF5e0veAGxjxmV4AE 6gay7vxRt1d1exrvTfINMm XGOoaKQFZDJaG0UajEawJi 6jzNk5kGveJbbbYIT0Tlw3 BU0kmq10pkz3cXdtLEAwzr esVxA9NVviXOPmwktuVTf9 SVdyTUVknZQ1RWAlyCDwC4 HwFLHkEL6edax9JIZ6XCqh BHKhHwC9CXMgwJQdSKUwwE zmINujq146THV7CdOnPH9m V0Hjy8R6fZ7tbOInNLGndS YrTmDoRIAezo1hzMKqZSpp f1NoC57zhWG2GBnii8wxPZ 3sXbL7nfMyQGbov7pwgJ0l HzF0WVliNO7mrt42YZKtEO P3zr2czLCanObwyuBfaSNj RDyjN1JlMYFia035HFPyI6 ZzQCKvu6G3ckAqPcIdBQTr uVM4chC1XDVvPCc4gMOngq S2ntNfoUUiY4etkF2yRPTn CY9nomzis0zrWXnzCWdtXF MjhIU6jjQ0SOVfiCKeF1Oj sW9yWCWpROiqYRUcrnn8Yt YeBy1jxHVduCgyOKodKafw YWdlXHBnbmNvbnRccGduZG VjXHBsYWluXHBsYWluXGYw LUWmMfBirWGlNQmpc8Dvzo EuhNsrRBKgSXy7ztQceltq pRm9rEPpcUnmAZOffWfglQ 3xOhNnNiUbNOjrLN8wBLGk K4ganLZlWRAiFHLbC8vmPe XcxA4vkZjqSXaxUlAdSpHz MFxsdHJjaFxwYXIgSSBoYX ZlIHBlcnNvbmFsbHkgcmV2 hRA1NQYpHFhsOPKlIBFktU Swvw3xbDhlKYOgRK8tSRRa jcJxXAnjbKnlPGbdPOQ3CD RlbWVudHMgbWFkZSBieSBy ZXNpZGVudHMsIGZlbGxvd3 Kfj5JkjJL2wK3wt3qnc5Hq TVEziRB4UL21jqQ2vS9bRD JsTA6aTNRgSG4lcZCzgMDh GMJmi62acBjfzxLvGVLzgy BpGSSbqbxoTPI9UGxpzAU6 TRbrkE12eZMnJDQpTTxzPT QaBOBiAbPljIgvyJ4kYrDm DlLjXvyqZM0zIPHcN0darT SiURYqQSCtA1wrPnQldI7t aFxmMlxjZjJcZnMyMlxsdH GwjWogKACelJZbZQyfh3Wm cmFhdXgwXHMwXHFsXHBsYW iqMIRlAUNiBjKvnRosbC5z FbSvRrKgTVgxHQ9hEALkQ8 kxqKDcOVKwEVMkF6sgNpDn jY0veVvnCFkhDgBxJjFdKC qpxECheOSLTLQdc6bkY7ru oLUlaz6rFALxzO5iKWreE7 2lqF5cTQ00JOVvkrBnom7h VRGreQQWTB8RWDJyFXNlOS brg6BlD0IumJJnEOSwSDYg Uvtyi3QtxKOFqZIrQKReLG joKiD3VBCiKKQWLUv6UMy7 XHBsYWluXGYyXGZzMjhcbG FuZzEwMzNcaGljaFxmMlxk BnGdTEPoZJfhS2kvUsDsFt MkMBitLNN6iR== Clinical Information (test code = 8579198265) Rectal pain Gross Description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 Royer Alcaraz MD PGY-6 Department of Internal Medicine Division of Gastroenterology and Hepatology Pager#: via [facility] OSAL WRITER Associated attestation - Ochoa Swift MD - 09/26/2024 11:45 AM PROPOSAL WRITER I have evaluated the patient and discussed the history, examination findings and procedure plan with Dr Alcaraz. I agree with the above pre-op note. GASTROENTEROLOGY [facility] 2024-04-14 07:01:54 [facility] ADMIT H&P Date of Service: 04/14/2024 CHIEF [...] mcg (0.1 %) nasal spray Use 1 [place] in each nostril in the morning and 1 [place] in the evening. Use in each nostril [...] Not currently, worked at [employer]. 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 Eats out once a month Hobbies: Enjoys cooking a lot Caodaism preference: Chana No exposure to cats Has a history [...] 10 min Stress: Stress Concern Present (09/24/2023) [facility] - Occupational Stress Questionnaire Feeling of Stress : Rather much Social Connections: Moderately Integrated (09/24/2023) Social Connection and Isolation Panel [NHANES] Frequency of Communication with Friends and Family: More than three times a week Frequency of Social Gatherings with Friends and Family: Twice a week Attends Caodaism Services: More than 4 times per year [...] air along the right anterior rectum, small yglcr-ar-ctdy axial image 09/10. There is hyperenhancement in [...] Prophylaxis: DVT- enoxaparin Code Status: Full Code T [facility] Notes Date/Time Note Provider Source 2025-01-10 10:25:52 Name and verified, pt states she is having extreme nausea and vomiting and has called an ambulance at about 1023 and they are on their way. Pt states "she does not feel right" and states she has a history of seizures but has not had one today. Pt states she is home alone. Informed pt I will stay on the line with her until ambulance arrives, pt has unlocked the door. Pt states "she throwing up foam and stomach acid". Pt states she is having diarrhea that just started today and she last took promethazine suppository at about 8 am this morning. Informed pt to apply cool towels on her face and neck area and get some air. Ambulance has arrived and EMS was provided with symptoms and is aware pt is . Yamilka Osorio RN 01/10/2025 10:34 AM Yamilka Osorio RN [facility] 2025-01-10 10:05:59 Vasquez Bae is a 34 year old female 10wks preg Pt stated she inserted the proMETHazine 12.5 mg suppository 2hours ago and she's still experiencing extreme nausea. Please call to discuss Eugenia Pop [facility] 2025-01-09 16:00:00 Images from the original note were not included. Venipuncture collection performed by clean technique on the left anticubitus. Total of 1 attempts were made. Slight pressure and a bandage/dressing were applied to the site(s). The patient experienced no complications. The following specimens were processed according to instructions and sent to [facility] laboratories per lab order on 01/09/2025: LT BLUE SST 1 RED LAV PPT DK GREEN (LiHep) DK GREEN (SodH) MALHOTRA DK BLUE (K2) DK BLUE (S) ACD Blood Culture NIPT/NTD TSH only Kay Kit collected [facility] 2025-01-08 13:00:00 Age: [age] year old GA: 9w6d ASSESSMENT: Vasquez Bae is a 34 year old at 9w6d who presents for routine visit. Patient Active Problem List Diagnosis Seizure disorder during in first trimester High-risk in first trimester PLAN 1. High-risk in first trimester --A +,RI, - POCT Urinalysis w/o Specific [place] - Thyroid Stimulating Hormone; Future - Free T4; Future 2. Seizure disorder during in first trimester --managed by Dr Mcmullen, Neurology. --on Keppra 750 mcg BID 3. 9 weeks gestation of --GI symptoms improved with Pepcid --pt states can not eat beef/poultry or pork 2/2 esophageal abn - POCT Urinalysis w/o Specific [place] [facility] 2025-01-04 16:14:29 Received a request from [employer] via fax for an electric breast pump. Form stamped and faxed back. Yamilka Osorio RN 01/04/2025 4:15 PM Yamilka Osorio RN [facility] 2025-01-04 12:31:28 Please review, complete, and sign if appropriate. [facility] 2025-01-04 10:02:33 Patient has appointment with Dr. Mcmullen on Tuesday and her referral has and is needing an updated one. Thank you. Clover Gonzalez [facility] 2024-12-11 14:45:00 Images from the original note were not included. Venipuncture collection performed by clean technique on the right anticubitus. Total of 1 attempts were made. Slight pressure and a bandage/dressing were applied to the site(s). The patient experienced no complications. The following specimens were processed according to instructions and sent to [facility] laboratories per lab order on 12/11/2024 : LT BLUE SST 3 RED 1 LAV 3 PPT DK GREEN (LiHep) DK GREEN (SodH) MALHOTRA DK BLUE (K2) DK BLUE (S) ACD Blood Culture NIPT/NTD Pt stated she gave urine sample to Shaka Gutierrez 12/11/2024 2:20 PM [facility] 2024-12-11 14:00:00 Age: [age] year old GA: 5w6d ASSESSMENT: Vasquez Bae is a 33 year old at 5w6d who presents for routine visit. Patient Active Problem List Diagnosis Seizure disorder during in first trimester High-risk in first trimester PLAN 1. High-risk in first trimester --New Ob labs ordered - OB Ultrasound Transvaginal 2. Seizure disorder during in first trimester --Diagnosed in mid 20s --followed by Neurologist Dr Mcmullen --taking Keppra 750 mg BID --recent seizure 12/07/24 off of meds --prior seizure was in 2022 3. 5 weeks gestation of --reviewed with pt US findings with modification of LORENE. [facility] 2024-12-10 12:39:28 Patient stated she lost prescription while traveling. Re-sending another fill. [facility] Marielos Villegas MA [facility] 2024-12-10 12:28:08 Name and verified, pt is aware medication for Zofran is sent to [facility]. Encouraged hydration with broth or Pedialyte. Informed if symptoms persist or worsen and she is not able to hold down anything especially fluids to please go to ER for IV fluids. Pt verbalized understanding. Yamilka Osorio RN 12/10/2024 12:29 PM OSAL WRITER Yamilka Osorio RN [facility] 2024-12-10 11:17:55 Yes ok to send rx fro zofran 4 mg, 20 tabs with 1 refill. [facility] 2024-12-10 11:01:10 Name and verified, pt states she is having bad morning sickness today, pt states she dry heaving since 8 am, describes vomit as "yellow in color". Pt states she is not able to hold down liquids today. Pt states her mother in law has some Zofran, advised pt not take medication that is not prescribed to her. Will advise with Dr. Matt to have medication prescribed. Pt verbalized understanding. Yamilka Osorio RN 12/10/2024 11:04 AM [facility] 2024-12-10 10:04:29 Pt called stating she's experiencing a bad case of morning sickness. She would like a call back to see if it's ok to take Zofran [facility] Eugenia Pop [facility] 2024-12-10 09:24:06 Please review and sign if appropriate: Last office visit: 08/15/24-Quint[place] Next office visit: 02/12/25 Requested Prescriptions Pending Prescriptions Disp Refills levETIRAcetam 750 mg tablet 180 tablet 0 Sig: Take 1 tablet by mouth every morning and evening. Last refill date: 09/21/24 Notes: The encounter diagnosis was Seizure disorder. [facility] 2024-12-05 08:05:45 Last Refilled: Disp Refills Start End ERNESTO DULoxetine 60 mg capsule 90 capsule 1 09/04/2024 -- No Sig: Take 1 capsule by mouth in the morning. Sent to pharmacy as: DULoxetine 60 mg capsule,delayed release (CYMBALTA) Class: eRX Route: Oral Order: [id number] Date/Time Signed: 09/04/2024 13:03 E-Prescribing Status: Receipt confirmed by pharmacy (09/04/2024 1:04 PM [facility]) Notes: Recent Visits Date Type Provider Dept 08/15/24 Office Visit Israel Shipley PA-C [facility] 05/01/24 Office Visit Althea Mckeon MD [facility] 10/27/23 Office [...] requirements Future Appointments Date Type Provider Dept 02/12/25 Appointment Althea Mckeon MD [facility] Showing future appointments within next 150 days with a meds authorizing provider and meeting all other requirements Customer Care Associate Visit on 11/29/2024 Component Date Value ABO & RH 11/29/2024 A POSITIVE IAT 11/29/2024 Negative BETA HCG 11/29/2024 1,192.40 Initial Visit on 11/29/2024 Component Date Value POCT PREG 11/29/2024 Positive On board controls accept* 11/29/2024 Yes POCT PH U 11/29/2024 5 POCT U LEUK EST 11/29/2024 negative POCT U NIT 11/29/2024 negative POCT U PROT 11/29/2024 30 POCT U GLU 11/29/2024 negative POCT U KETONE 11/29/2024 negative POCT U BLD 11/29/2024 negative Trichomonas Nucleic Acid 11/29/2024 Negative C. trachomatis Nucleic A* 11/29/2024 Negative N. gonorrhoeae Nucleic A* 11/29/2024 Negative Admission on 09/26/2024, Discharged on 09/26/2024 Component Date Value POCT PREG 09/26/2024 Negative On board controls accept* 09/26/2024 Yes POCT PREG LOT # 09/26/2024 [id number] POCT PREG TEST DA* 09/26/2024 02-23-2025 Case Report 09/26/2024 Value:Surgical Pathology Case: [id number] Authorizing Provider: Ochoa Swift MD Collected: 09/26/2024 1235 Ordering Location: GI Endoscopy OR Department Received: 09/26/2024 1412 Pathologist: Cynthia Krishna MD PhD Specimens: A) - STOMACH, Gastric Bx eval for H. Pylori B) - ESOPHAGUS, Distal esophageal Bx eval for EOE C) - ESOPHAGUS, Proximal esophageal BX to R/O EOE D) - ILEUM, Terminal ileum bx eval for pathology E) - LARGE INTESTINE, RIGHT-ASCENDING COLON, Ascending colon bx eval for pathology F) - LARGE INTESTINE, TRANSVERSE COLON, Transverse colon bx eval for pathology G) - LARGE INTESTINE, LEFT-DESCENDING COLON, Descending colon bx eval for pathology H) - LARGE INTESTINE, SIGMOID COLON, Sigmoid colon bx eval for pathology I) - RECTUM, Rectal bx eval for pathology Final Diagnosis 09/26/2024 Value: A. STOMACH, BIOPSY: - GASTRIC MUCOSA WITH NO PATHOLOGIC CHANGE - NO INTESTINAL METAPLASIA IDENTIFIED - NO H. PYLORI ORGANISMS IDENTIFIED B. ESOPHAGUS, DISTAL, BIOPSY: - SQUAMOUS EPITHELIUM WITH NO PATHOLOGICAL CHANGE - NO FEATURES OF EOSINOPHILIC ESOPHAGITIS IDENTIFIED C. ESOPHAGUS, PROXIMAL, BIOPSY: - SQUAMOUS EPITHELIUM WITH NO PATHOLOGICAL CHANGE - NO FEATURES OF EOSINOPHILIC ESOPHAGITIS IDENTIFIED D. ILEUM, TERMINAL, BIOPSY: - ILEAL MUCOSA WITH NO PATHOLOGIC CHANGES E. LARGE INTESTINE, ASCENDING, BIOPSY: - LYMPHOCYTIC COLITIS F. LARGE INTESTINE, TRANSVERSE, BIOPSY: - LYMPHOCYTIC COLITIS G. LARGE INTESTINE, DESCENDING, BIOPSY: - LYMPHOCYTIC COLITIS H. LARGE INTESTINE, SIGMOID, BIOPSY: - LYMPHOCYTIC COLITIS I. RECTUM, BIOPSY: - LYMPHOCYTIC COLITIS Yolette Salmon DO I have personally reviewed all specimens/slides and agree with all statements made by residents, fellows or pathologist assistants whose name(s) may appear on this report. Clinical Information 09/26/2024 Value:Vasquez BAE is a 33 year old female 1. Gastric Bx eval for H. Pylori 2. Distal esophageal Bx eval for EOE 3. Proximal esophageal to R/O EOE 4. Terminal ileum bx eval for pathology 5. Ascending colon bx eval for pathology 6. Transverse colon bx irina l for pathology 7. Descending colon bx eval for pathology 8. Sigmoid colon bx eval for pathology 9. Rectal bx eval for pathology Gross Description 09/26/2024 Value:SPECIMEN A Specimen A is received in formalin labeled with the patient's name, number "stomach, gastric BX eval for H. pylori" and consists of 3 romero-pink irregular soft tissue fragments (0.2 x 0.2 x 0.1 cm, 0.1 x 0.1 x 0.1 cm and 0.1 x 0.1 x 0.1 cm). The specimen is filtered through a biopsy bag and submitted in toto in A1. SPECIMEN B Specimen B is received in formalin labeled with the patient's name, number "esophagus, distal esophageal BX eval for EOE" and consists of an aggregate of romero-pink soft tissue fragments (0.7 x 0.4 x 0.1 cm, ranging from 0.1-0.3 cm in greatest dimension). The specimen is filtered through a biopsy bag and submitted in toto in B1. SPECIMEN C Specimen C is received in formalin labeled with the patient's name, number "esophagus, proximal esophageal BX to r/o EOE" and consists of 3 romero-pink irregular soft tissue fragments (0.3 x 0.2 x 0.1 cm, 0.2 x 0.2 x 0.1 cm and 0.2 x 0.2 x 0.1 cm). The specimen is filtered through a biopsy bag and submitted in toto in C1. SPECIMEN D Specimen D is received in formalin labeled with the patient's name, number "ileum, terminal ileum BX eval for pathology" and consists of two romero-pink irregular soft tissue fragments (0.2 x 0.2 x 0.1 cm and 0.2 x 0.2 x 0.1 cm). The specimen is filtered through a biopsy bag and submitted in toto in D1. SPECIMEN E Specimen E is received in formalin labeled with the patient's name, number "large intestine, right ascending colon, ascending colon BX eval for pathology" and consists of two romero-pink irregular soft tissue fragments (0.2 x 0.2 x 0.1 cm and 0.1 x 0.1 x 0.1 cm). The specimen is filtered through a biopsy bag and submitted in toto in E1. SPECIMEN F Specimen F is received in formalin labeled with the patient's name, number "large intestine, transverse colon, transverse colon BX eval for pathology" and consists of two romero-pink irregular soft tissue fragments (0.4 x 0.2 x 0.1 cm and 0.2 x 0.2 x 0.1 cm). The specimen is filtered through a biopsy bag and submitted in toto in F1. SPECIMEN G Specimen G is received in formalin labeled with the patient's name, number "large intestine, left descending colon, descending colon BX eval for pathology" and consists of two romero-pink irregular soft tissue fragments (0.3 x 0.2 x 0.1 cm and 0.3 x 0.2 x 0.1 cm). The specimen is filtered through a biopsy bag and submitted in toto in G1. SPECIMEN H Specimen H is received in formalin labeled with the patient's name, number "large intestine, sigmoid colon, sigmoid colon BX eval for pathology" and consists of 3 romero-pink irregular soft tissue fragments (0.3 x 0.2 x 0.1 cm, 0.2 x 0.2 x 0.1 cm and 0.1 x 0.1 x 0.1 cm). The specimen is filtered through a biopsy bag and submitted in toto in H1. SPECIMEN I Specimen I is received in formalin labeled with the patient's name, number "rectum, rectal BX eval for pathology" and consists of two romero-pink irregular soft tissue fragments (0.2 x 0.2 x 0.1 cm and 0.2 x 0.2 x 0.1 cm). The specimen is filtered through a biopsy bag and submitted in toto in I1. ARABELLA Casanova ([facility]) 09/26/2024 14:52 Disclaimer 09/26/2024 Value:This report may include results of lab-developed testing performed using Class I Analyte Specific Reagents (ASRs) obtained or purchased from an outside vendor. All such testing was developed and its performance characteristics determined by [facility] Laboratory Services. It has not been cleared or approved by the U.S. Food and Drug Administration (FDA). The FDA does not require approval for these tests. [facility] Laboratories are authorized under Clinical Laboratory Improvement Amendments (CLIA) to perform high-complexity testing. Appropriately reactive positive and negative controls have been reviewed for all stains including H&E, Special Stains and Immunohistochemistry as applicable. Except as noted otherwise, microscopic examination was performed on whole slide images of digitized glass slides to arrive at the above diagnosis. All technical and professional services are performed at [facility] (CLIA [id number]) except as noted in the report. Customer Care Associate Visit on 07/11/2024 Component Date Value Campylobacter (jejuni, c* 07/11/2024 Negative Plesiomonas shigelloides 07/11/2024 Negative Salmonella 07/11/2024 Negative Yersinia enterocolitica 07/11/2024 Negative Vibrio 07/11/2024 Negative Vibrio cholerae 07/11/2024 Negative Enteroaggregative E. col* 07/11/2024 Negative Enteropathogenic E. coli* 07/11/2024 Negative Enterotoxigenic E. coli * 07/11/2024 Negative Shiga toxin-Producing E.* 07/11/2024 Negative Shigella/Enteroinvasive * 07/11/2024 Negative Cryptosporidium 07/11/2024 Negative Cyclospora cayetanensis 07/11/2024 Negative Entamoeba histolytica 07/11/2024 Negative Giardia lamblia 07/11/2024 Negative Adenovirus F 40/41 07/11/2024 Negative Astrovirus 07/11/2024 Negative Norovirus GI/GII 07/11/2024 Negative Rotavirus A 07/11/2024 Negative Sapovirus 07/11/2024 Negative Office Visit on 07/11/2024 Component Date Value Calprotectin, Fecal 07/11/2024 39 Office Visit on 05/01/2024 Component Date Value C. trachomatis Nucleic A* 05/01/2024 Negative N. gonorrhoeae Nucleic A* 05/01/2024 Negative Trichomonas Nucleic Acid 05/01/2024 Negative Admission on 04/13/2024, Discharged on 04/15/2024 Component Date Value NA 04/14/2024 137 K 04/14/2024 3.2 (L) CL 04/14/2024 104 CO2 TOTAL 04/14/2024 25 AGAP 04/14/2024 8 BUN 04/14/2024 7 GLUCOSE 04/14/2024 93 CREATININE 04/14/2024 1.06 (H) TOTAL BILI 04/14/2024 0.8 CALCIUM 04/14/2024 9.1 T PROTEIN 04/14/2024 7.2 ALBUMIN 04/14/2024 4.3 ALK PHOS 04/14/2024 64 ALTv 04/14/2024 7 AST(SGOT) 04/14/2024 28 eGFR 04/14/2024 71.3 WBC 04/14/2024 9.51 RBC 04/14/2024 4.62 HGB 04/14/2024 13.3 HCT 04/14/2024 39.7 MCV 04/14/2024 85.9 MCH 04/14/2024 28.8 MCHC 04/14/2024 33.5 RDW-SD 04/14/2024 38.6 (L) RDW-CV 04/14/2024 12.3 PLT 04/14/2024 218 MPV 04/14/2024 11.7 NRBC/100 WBC 04/14/2024 0.0 NRBC x10 3 04/14/2024 <0.01 GRAN MAT (NEUT) % 04/14/2024 54.4 IMM GRAN % 04/14/2024 0.30 LYMPH % 04/14/2024 38.1 MONO % 04/14/2024 6.2 EOS % 04/14/2024 0.5 BASO % 04/14/2024 0.5 GRAN MAT x10 3 (ANC) 04/14/2024 5.17 IMM GRAN x10 3 04/14/2024 0.03 LYMPH x10 3 04/14/2024 3.62 (H) MONO x10 3 04/14/2024 0.59 EOS x10 3 04/14/2024 0.05 BASO x10 3 04/14/2024 0.05 LIPASE 04/14/2024 78 APPEARANCE 04/14/2024 Hazy (A) COLOR 04/14/2024 Yellow PH 04/14/2024 6.0 SP GRAVITY 04/14/2024 1.011 GLU U QUAL 04/14/2024 Normal BLOOD 04/14/2024 Negative KETONES 04/14/2024 Negative PROTEIN 04/14/2024 Negative UROBILIN 04/14/2024 Normal BILIRUBIN 04/14/2024 Negative NITRITE 04/14/2024 Negative LEUK DONNIE 04/14/2024 Negative RBC/HPF 04/14/2024 0 WBC/HPF 04/14/2024 0 BACTERIA 04/14/2024 Negative SQ EPITH 04/14/2024 8 POCT PREG 04/14/2024 Negative On board controls accept* 04/14/2024 Yes POCT PREG LOT # 04/14/2024 [id number] POCT PREG TEST DA* 04/14/2024 07/21/2025 MRSA Screen by PCR, Nares 04/14/2024 Negative MSSA Screen by PCR, Nares 04/14/2024 Negative MRSA/MSSA Positive? 04/14/2024 No Case Report 04/14/2024 Value:Surgical Pathology Case: [id number] Authorizing Provider: Catherine Freeman MD Collected: 04/14/2024 1119 Ordering Location: [facility] Received: 04/14/2024 [facility] Pathologist: Cheri Elliott MD Specimen: RECTUM, Proximal rectum biopsy rule out proctitis Final Diagnosis 04/14/2024 Value: A. RECTUM, PROXIMAL, BIOPSY: - RECTAL MUCOSA WITH NO PATHOLOGICAL CHANGE - NO ACUTE PROCTITIS IDENTIFIED I have personally reviewed all specimens/slides and agree with all statements made by residents, fellows or pathologist assistants whose name(s) may appear on this report. I have personally reviewed all specimens/slides and agree with all statements made by residents, fellows or pathologist assistants whose name(s) may appear on this report. Pathologist professional component performed at [facility], [address] [place] [id number] Clinical Information 04/14/2024 Value:Rectal pain Gross Description 04/14/2024 Value:SPECIMEN A Specimen A is received in formalin labelled with the patient?s name, UH number `` rectum, proximal rectum biopsy rule out proctitis? and consists of 2 romero irregular soft tissue fragments (0.1 x 0.1 x 0.1 cm each). The specimen is filtered through a biopsy bag and submitted in toto in A1. ARABELLA Viera ([facility]) Disclaimer 04/14/2024 Value:This report may include results of lab-developed testing performed using Class I Analyte Specific Reagents (ASRs) obtained or purchased from an outside vendor. All such testing was developed and its performance characteristics determined by [facility] Laboratory Services. It has not been cleared or approved by the U.S. Food and Drug Administration (FDA). The FDA does not require approval for these tests. [facility] Laboratories are authorized under Clinical Laboratory Improvement Amendments (CLIA) to perform high-complexity testing. Appropriately reactive positive and negative controls have been reviewed for all stains including H&E, Special Stains and Immunohistochemistry as applicable. Except as noted otherwise, microscopic examination was performed on whole slide images of digitized glass slides to arrive at the above diagnosis. All technical and professional services are performed at [facility] (CLIA [id number]) except as noted in the report. Feces Culture 04/14/2024 No normal enteric Gram-negative bacilli recovered. WBC 04/15/2024 5.71 RBC 04/15/2024 3.87 (L) HGB 04/15/2024 11.3 (L) HCT 04/15/2024 33.5 (L) MCV 04/15/2024 86.6 MCH 04/15/2024 29.2 MCHC 04/15/2024 33.7 RDW-SD 04/15/2024 39.8 RDW-CV 04/15/2024 12.6 PLT 04/15/2024 160 (L) MPV 04/15/2024 12.0 NRBC/100 WBC 04/15/2024 0.0 NRBC x10 3 04/15/2024 <0.01 GRAN MAT (NEUT) % 04/15/2024 42.0 IMM GRAN % 04/15/2024 0.20 LYMPH % 04/15/2024 46.9 MONO % 04/15/2024 8.8 EOS % 04/15/2024 1.4 BASO % 04/15/2024 0.7 GRAN MAT x10 3 (ANC) 04/15/2024 2.40 IMM GRAN x10 3 04/15/2024 <0.03 LYMPH x10 3 04/15/2024 2.68 MONO x10 3 04/15/2024 0.50 EOS x10 3 04/15/2024 0.08 BASO x10 3 04/15/2024 0.04 NA 04/15/2024 135 K 04/15/2024 3.5 CL 04/15/2024 109 (H) CO2 TOTAL 04/15/2024 22 (L) AGAP 04/15/2024 4 BUN 04/15/2024 8 GLUCOSE 04/15/2024 82 CREATININE 04/15/2024 1.05 (H) CALCIUM 04/15/2024 8.3 (L) eGFR 04/15/2024 72.1 Office Visit on 04/09/2024 Component Date Value High Risk HPV 04/09/2024 Negative Case Report 04/09/2024 Value:Gynecologic Cytology Case: [id number] Authorizing Provider: Kwadwo Bush MD Collected: 04/09/2024 0942 Ordering Location: [facility] Received: 04/10/[address] [place] [address] First Screen: Tessa Thomas Specimen: Liquid Based Pap Preparation, CERVIX Clinical Information 04/09/2024 Value:unknown Specimen Adequacy 04/09/2024 Satisfactory for Evaluation(Endocervical/Transf ormation Zone Component Absent) Interpretation 04/09/2024 Negative for intraepithelial lesion or malignancy Comments 04/09/2024 Value: Performed and verified by Textile Coating Machine Operator at [facility], [address] [place] [id number] LMP 04/09/2024 LMP (specify date in Comments) Educational Note 04/09/2024 Value:Cervical cytology (Pap Test) is a screening test primarily for squamous cancers and precursors. The test has an inherent, but low, probability of false-negative and false-positive results. Regular sampling and follow-up of unexplained clinical signs and symptoms are recommended to minimize the effect of false negative results. Your patient should be reminded to consult you immediately if she experiences any unexplained clinical signs and symptoms, regardless of any Pap Test result. Customer Care Associate Visit on 02/28/2024 Component Date Value CREATININE 02/28/2024 0.98 eGFR 02/28/2024 78.3 Miscellaneous Test 02/28/2024 See scanned report Performing Lab 02/28/2024 [facility] Customer Care Associate Visit on 01/11/2024 Component Date Value RF 01/11/2024 <20 TSH 01/11/2024 1.16 C3 01/11/2024 76 (L) C4 01/11/2024 14 (L) Anti-Hicks 01/11/2024 Negative Anti-Ribonucleoprotein 01/11/2024 Negative ANTI-DSDNA 01/11/2024 1.0 CCP IgG 01/11/2024 2.9 HCV Ab 01/11/2024 Negative HCV Semi-Quantitative 01/11/2024 0.01 NAVI 01/11/2024 Negative ANTI-SSA(RO) 01/11/2024 Negative Anti-SSB(LA) 01/11/2024 Negative NAVI - Pathologist Interp* 01/11/2024 Value:NAVI HEp-2 IIFA Pathologist Interpretation Report Patient Name: Vasquez Morton : 1990 Antinuclear Antibody (NAVI) Test (Anti-Cell Antibodies Test) Indirect Immunofluorescence Assay on HEp-2 Cells Screening titer: 1:80 (adults, > 18 years old), 1:40 (pediatrics, <= 18 years old) Result: The antinuclear antibody (NAVI) screen is negative on interpretation. Remarks: This patient has a negative antinuclear antibody (NAVI) screening test. This suggests that the patient likely does not have a systemic autoimmune rheumatic disease that is strongly associated with a positive NAVI, such as systemic lupus erythematosus (NAVI positive in ~95-100%), systemic sclerosis (NAVI positive in ~60-80%), or the following disorders in which NAVI positivity is part of the diagnostic criteria: drug-induced lupus, autoimmune hepatitis, or mixed connective tissue disease. However, the NAVI may be negative in rare cases of systemic lupus erythematosus and systemic sclerosis. The NAVI may also be negative in ~20% of patients presenting with autoimmune hepatitis. Additionally, NAVI positivity is less sensitive in the diagnosis of Sjogren's syndrome (~40-70%) and dermatomyositis/polymyositis (~30-80%). The NAVI also has limited diagnostic utility in vasculitis, as the NAVI may be negative in this autoimmune condition. A positive NAVI test is not needed for the diagnosis of rheumatoid arthritis, multiple sclerosis, thyroid disease, discoid lupus, or fibromyalgia due to highly variable and/or low NAVI positivity rates in these conditions. Therefore, a diagnosis cannot be based exclusively on NAVI detection and/or pattern and thus should be made via the integration of patient history, physical exam findings, and other diagnostic tests as clinically indicated. References: - Radha A, Khoi R, Shawanda J, Kareem DH, April ENGLE. Guidelines for clinical use of the antinuclear antibody test and tests for specific autoantibodies to nuclear antigens. [place] [employer]. Arch Pathol Lab Med. 2000;124(1):71-81. doi:10.5858/2452-385-4397-GFCU OT - Indra CL, Otto D, Sigifredo DN, et al. Diagnosis and Management of Autoimmune Hepatitis in Adults and Children: 2019 Practice Guidance and Guidelines From the [place] Association for the Study of Liver Diseases. Hepatology. 2020;72(2):671-722. doi:10.1002/hep.01567 - Darrel C, Ken EC, Michael Salazar. Rational use of blood tests in the evaluation of rheumatic diseases. Mo Med. 2012;109(1):59-63. Clarice Younger MD 01/12/2024 7:39 PM There may be more visits with results that are not included. OSAL WRITER Fawn Acevedo RN [facility] [employer] 2024-12-03 13:37:34 Name and verified, pt states she is still out of state and will return Tuesday evening on 12/08. Pt states she will go to lab on Tuesday to have results for her Tuesday appt. Pt denies any vaginal spotting or bleeding. Pt states she has some cramping but can not take tylenol due to allergy. ER warnings given, pt verbalized understanding. Yamilka Osorio RN 12/03/2024 1:39 PM OSAL WRITER Yamilka Osorio RN [facility] 2024-12-03 12:22:15 Patient stated that she was unable to get a her ;ab work done because she had to go out of town due to family matters. Patient wanted to inform the provider that she was not ignoring what needed to be done, she also is stating that there is no bleeding going on at this time as well. Please assist and thank you. A Roberts [facility] 2024-11-29 10:00:00 Images from the original note were not included. Venipuncture collection performed by clean technique on the right anticubitus. Total of 1 attempts were made. Slight pressure and a bandage/dressing were applied to the site(s). The patient experienced no complications. The following specimens were processed according to instructions and sent to [facility] laboratories per lab order on 11/29/2024 : LT BLUE SST 1 RED LAV 1 PPT DK GREEN (LiHep) DK GREEN (SodH) MALHOTRA DK BLUE (K2) DK BLUE (S) ACD Blood Culture NIPT/NTD OSAL WRITER [facility] 2024-11-23 13:35:19 Pt has been called. A Michael [facility] 2024-11-23 12:24:45 Vasquez BAE is a 33 year old female Pt secondary insurance was loaded on to the account today. Pt is wanting to know if there will be a copay for the upcoming visit Nov 29 Please advise A Rick [facility] 2024-11-23 09:00:10 Noted, pt will be 9w1d Yamilka Osorio RN 11/23/2024 9:00 AM A Osorio RN [facility] 2024-11-23 08:38:35 Vasquez BAE is a 33 year old female New ob LMP 09/26/24 No prior care Appt 11/29 A Choi [facility] 2024-11-13 08:52:37 Referral pending, please review and complete if appropriate A Acevedo RN [facility] 2024-11-12 10:20:39 Vasquez BAE is a 33 year old female is requesting a referral to: Dept: ORTHOPEDIC Reason for Referral: Knee and Shoulder Duration of problem: Ongoing Internal / External referral: Internal Name of provider / location patient requesting: Jorje Cruz, PAC [address] [facility] Fax Number: n/a Appt already scheduled?: NO Please contact and advise. A Peacock [facility] 2024-10-22 08:24:31 Referral placed OSAL WRITER [facility] 2024-10-19 15:46:38 Patient has an upcoming appointment on Sunday 10/22 with Neurology (Benedict). Due to the patients insurance HMO plan she is required to obtain a referral/auth from PCP. A Fernandez [facility] 2024-09-26 10:23:53 Patient arrived to department alert oriented, denies abdominal pain or nausea at this time. Patient was consented in clinic. Once preoped and consented I introduced myself, brought her into the motility room and explained the procedure. I spoke to patient about what the esophageal manometry consist of and how it will help doctors diagnose and better treat her ailments. Patient was then positioned, allergies verified and right nostril medicated. After allowing ample time for the medication to take full effect the esophageal manometry catheter was introduced into the right nostril to 50 cm. The landmarks verified and the catheter was secured to her nose. After a short repose to allow her esophagus to acclimate to the catheter we began the swallows. Patient completed 11 out of 10 swallows and tolerated the procedure well. The catheter was removed from her esophagus and patient was taken to the preop area to await her turn in the procedure room. A Hills RN [facility] 2024-09-12 11:13:26 Patient contacted for pre op phone call. Patient given procedural prep instructions (EGD/Manometry/SuPrep), NPO status/timing for procedure, medication instructions,denies anticoagulant therapy, diuretics, diabetic or weight loss medications. Patient verbalized understanding of instructions. Discussed with patient they will need a responsible adult, 18 years old or older, to provide transportation on the day of procedure. Patient also informed that they will be contacted the day before their procedure with arrival time. Pre op call complete. SuPrep instructions sent via [employer]. A Nolasco RN [facility] 2024-09-05 12:36:53 DULoxetine 60 mg capsule 90 capsule 1 09/04/2024 -- No Sig: Take 1 capsule by mouth in the morning. Sent to pharmacy as: DULoxetine 60 mg capsule,delayed release (CYMBALTA) Class: eRX Route: Oral Order: [id number] Date/Time Signed: 09/04/2024 13:03 E-Prescribing Status: Receipt confirmed by pharmacy (09/04/2024 1:04 PM PROPOSAL WRITER) OSAL WRITER Roxanna Brown RN [facility] 2024-09-03 15:09:36 Medication refilled per policy: Last office visit: 08/15/24 Next office visit: 02/12/25 Requested Prescriptions Pending Prescriptions Disp Refills cetirizine (ZYRTEC) 10 mg tablet 30 tablet 3 Sig: Take 1 tablet by mouth in the morning. Last fill date: 05/03/24 Notes: Allergic rhinitis, unspecified seasonality, unspecified trigger Sore throat Globus sensation OSAL WRITER [facility] 2024-08-27 16:49:25 Requested Prescriptions Signed Prescriptions Disp Refills topiramate 25 mg tablet 180 tablet 0 Sig: TAKE 1 TABLET BY MOUTH IN THE MORNING AND IN THE EVENING Authorizing Provider: PEÑA MCMULLEN Ordering User: NADYA VIERA A Viera LVN [facility] 2024-08-15 12:48:35 Received record release form, faxed to [facility] received, form filed away Elsy Nelson [facility] 2024-08-07 13:08:39 Received radiology services report from [facility] Scanned into the patient's chart and placed in the providers box. Ludy Fernandez [facility] 2024-07-12 09:00:00 Patient presented with specimen for drop-off and was identified by and name. Collection information/ total volume were documented accordingly. The following specimens were sent to [facility] laboratories per lab order on 07/12/2024 : 24 hour urine Random urine Stool 2 Swab Other T [facility] 2024-07-11 16:30:00 Patient provided with 2 collection kit and associated instructions for home collection. T [facility] 2024-07-10 08:23:10 Referral placed T [facility] 2024-07-10 08:04:40 Vasquez BAE is a 33 year old female is calling in requesting an updated referral for upcoming GI appointment with [facility] tomorrow 07/11/2024.Please advise Clinic Clinic Address [address] [place] [address] [address] fax [phone] Sugar Bledsoe R10.84 (ICD-10-CM) - Generalized abdominal pain K59.00 (ICD-10-CM) - Constipation, unspecified constipation type K22.4 (ICD-10-CM) - Esophageal dysmotility [facility] T Pedrito Brooks [facility] 2024-07-03 11:18:35 Images from the original note were not included. Notes: Last Refilled: levETIRAcetam 750 mg tablet Sig: Take 1 tablet by mouth every morning and evening. Disp: 180 tablet Refills: 0 Start: 07/03/2024 Class: eRX For: Seizure disorder Last ordered: 2 months ago (04/16/2024) by Althea Mckeon MD Patient comment: Running low and want the refill before I run out Seizure- keppra Czjagi3407/03/2024 10:55 AM Protocol Details Manual Review: Check for seizures or dose change in last 3 months Valid encounter within last 12 months Levetiracetam, Serum in normal range and within 360 days [id number] - [place], [place] - [address] Accept Software Recent Visits Date Type Provider Dept 05/01/24 [...] meeting all other requirements Rae Schwab MA [facility] 2024-05-23 16:08:30 Refilled 03/23/24, qty 180, 1 refill. Refill available @ pharm. Requested Prescriptions Refused Prescriptions Disp Refills topiramate 25 mg tablet 180 tablet 1 Sig: Take 1 tablet by mouth every morning and evening. Refused By: NADYA VIERA Reason for Refusal: Patient has requested refill too soon Nadya Viera LVN [facility] 2024-05-03 15:39:04 Recent Visits Date Type Provider Dept 05/01/24 Office Visit Althea Mckeon MD [facility] 03/08/24 Office Visit Mary Khan MD [facility] 02/14/24 Office Visit Mary Khan MD [facility] 12/01/23 Office Visit Mary Khan MD [facility] 11/16/23 Office Visit Mary Khan MD [facility] 10/27/23 Office Visit Althea Mckeon MD [facility] 09/26/23 Office Visit Althea Mckeon MD [facility] 08/18/23 Office Visit Althea Mckeon MD [facility] 06/17/23 Office Visit Althea Mckeon MD [facility] 04/22/23 Office Visit Althea Mckeon MD [facility] Showing recent visits within past 540 days with a meds authorizing provider and meeting all other requirements Future Appointments Date Type Provider Dept 06/05/24 Appointment Althea Mckeon MD [facility] Showing future appointments within next 150 days with a meds authorizing provider and meeting all other requirements Last refill was Disp Refills Start End ERNESTO traMADoL 50 mg tablet 20 tablet 0 04/15/2024 04/22/2024 No Sig: Take 1 tablet by mouth every 6 (six) hours as needed for Pa Enma Mora MA [facility] 2024-05-03 14:58:57 Medication refilled per policy: Last office visit: 05/01/24 Next office visit: 06/05/24 Requested Prescriptions Pending Prescriptions Disp Refills cetirizine (ZYRTEC) 10 mg tablet 30 tablet 3 Sig: Take 1 tablet by mouth in the morning. Last fill date: 03/08/24 Notes: Allergic rhinitis, unspecified seasonality, unspecified trigger - Primary Sore throat Globus sensation [facility] 2024-04-21 10:51:21 Please advise. New referral for ENT in chart. Roxanna Brown RN [facility] 2024-04-20 16:46:15 Also who would we send this one to ?? Marlene Hills MA [facility] 2024-04-20 15:57:25 Vasquez Morton is a 33 year old female calling needing a prior auth for ENT referral forJabari Figueroa . Pt states this is what she was told Tom Kebede [facility] 2024-04-18 08:30:15 Patient notified of results/recommendations, understanding was verbalized via teach back. Eula Barillas RN [facility] 2024-04-17 14:41:36 Patient is s/p flexible sigmoidoscopy [...] patient back with recommendations. Eula Barillas RN [facility] 2024-04-17 13:16:33 Vasquez Morton is a 33 year old female Patient calling back and relayed to her Assessment msg had be sent as High priority. Please contact patient Bety Valiente [facility] 2024-04-17 13:09:37 Vasquez Morton is a 33 [...] Lead for proper protocol, when patient disconnected. [facility] 2024-04-15 18:11:19 Problem: Pain Goal: Control of pain at or below patient's documented comfort goal 04/15/20241810 by Lucie Rizzo RN Outcome: Adequate for discharge 04/15/2024 171 by Lucie Rizzo RN Outcome: Progressing as expected Goal: Reduction in pain sensation 04/15/20241810 by Lucie Rizzo RN Outcome: Adequate for discharge 04/15/2024 171 by Lucie Rizzo RN Outcome: Progressing as expected Problem: Falls, Risk of Goal: Absence of falls 04/15/20241810 by Lucie Rizzo RN Outcome: Adequate for discharge 04/15/2024 171 by Lucie Rizzo RN Outcome: Progressing as expected Problem: Discharge Planning Goal: Adequate for discharge 04/15/20241810 by Lucie Rizzo RN Outcome: Adequate for discharge 04/15/20241718 by Lucie Rizzo RN Outcome: Progressing as expected Goal: Effective communication 04/15/20241810 by Lucie Rizzo, RN Outcome: Adequate for discharge 04/15/2024 1719 by Lucie Rizzo RN Outcome: Progressing as expected Problem: Bowel Function - Altered Goal: Return to baseline elimination pattern 04/15/2024 1811 by Lucie Rizzo RN Outcome: Adequate for discharge 04/15/2024 1719 by Lucie Rizzo RN Outcome: Progressing as expected Problem: Venous Thromboembolism, (actual or risk of) Goal: Absence of venous thromboembolism (Risk) 04/15/2024 181 by Lucie Rizzo RN Outcome: Adequate for discharge 04/15/2024 171 by Lucie Rizzo RN Outcome: Progressing as expected Lucie Ham RN [facility] 2024-04-15 17:19:36 Problem: Pain Goal: Control of [...] venous thromboembolism (Risk) Outcome: Progressing as expected [facility] 2024-04-15 01:28:45 Problem: Pain Goal: Control of [...] thromboembolism (Risk) Outcome: Progressing as expected Katlin Hogan RN [facility] 2024-04-14 16:53:08 Problem: Pain Goal: Control of [...] venous thromboembolism (Risk) Outcome: Progressing as expected [facility] 2024-04-14 11:16:00 Images from the original note [...] was present for the entire operation. Олег Bergman DO PGY-2 Surgery Resident Associated attestation - Catherine Freeman MD - 04/14/2024 2:09 PM CDT ATTESTATION: I agree with Dr. Murphy's operative note as detailed below with my modifications. I was scrubbed and present for the entirety of the case. Catherine Freeman MD 04/14/2024 2:09 PM Colon and Rectal Surgery [facility] 2024-04-14 10:25:00 Patient transported to pre op by GRIFFIN Gaitan Mariposa Lin RN [facility] 2024-04-14 09:25:00 General surgery at bedside [facility] 2024-04-14 06:54:25 Pt report given to Shanti RN Maribeth Torres RN [facility] 2024-04-14 06:34:43 RN offered patient to move to a stretcher. Patient states feeling okay in recliner. Esdras Matos RN [facility] 2024-04-14 05:20:[address] [facility] ED Transfer of Care Note. Off-going Physician:ELLEN [...] VIAL-MATE (0 mg IV Piggyback Stopped 04/14/24 3507) Results: Labs Reviewed COMP. METABOLIC PANEL (32513) - Abnormal; Notable for the following components: [...] 5:24 AM- Discussed presentation with General Surgery stenocaptioner Dr Freeman as well as Hospitalist P will be admitted for further evaluation management Risk Prescription drug management. Parenteral controlled substances. Disposition: Admitted to Hospitalist , after discussing presentation, labs and imaging study results with Dr Freeman Social Determinants of Health: None ED Disposition None [employer] EMERGENCY PHYSICIAN STAFF [facility] 2024-04-14 04:44:22 Pt resting comfortably in recliner, eyes closed, VSS. Rest was not disturbed to offer a stretcher. Marta Yeboah RN [facility] 2024-04-13 23:09:09 Patient arrived ambulatory via pov for chronic hemorrhoids that have progressively gotten worse, with diarrhea. Patient states she is having sharp pain in her rectum, pelvic and back, has used lidocaine with no relief. Denies any blood in stool, or when wiping. Jenny Moreau RN [facility] 2024-04-13 23:07:00 Images from the original note were not included. [facility] Emergency Department Note Patient Name: Vasquez Morton Date of : 1990 33 year old female Treatment Room: [place] [address]/[id number] Primary Care Physician: Althea Mckeon Patient Escorted by: Family [5] Mode of Arrival: Personal means [1] EMS Treatment Prior to ED Arrival: CONFIGURATION MANAGEMENT CONSULTANT treatment: None Travel and Exposure Screening: Symptoms [...] provided by: Patient History limited by: none. client consultant used: No Past Medical History/Immunizations: Past Medical [...] nursing note reviewed. Exam conducted with a boat rental clerk present. Constitutional: General: She is awake. She [...] air along the right anterior rectum, small kldzp-nc-proc axial image 09/10. There is hyperenhancement in the vicinity without fluid collection. IMPRESSION Impression: 1. Reactive mesenteric nodes without acute finding in the abdomen or pelvis. 2. Phlegmon reaction with focus of air along the right anterior rectum. No definable abscess. RL: 1825 End of Report Lab Results: Lab Results COMP. METABOLIC PANEL (15449) - Abnormal Result Value Ref Range NA [...] mg in NaCl 0.9% (NS) 250 mL VIAL-big data hadoop developer Provider Eval: ED Events Date/Time Event User [...] pt 0200: general surgery consult - Dr. Freeman paged to discuss Discussed with Dr. Whitney - roxana who would like to know general surgery recommendations prior to accepting admission 0420: awaiting return call from Dr. Freeman for recs. care transferred to Dr. Raaz pending discussion with general surgery team and admission Diagnosis/Impression as of 04/14/24 0408 Generalized abdominal pain Lower abdominal pain Rectal [...] interpretation with external provider(s): Discussed with Dr. Devonte schmidt Risk Prescription drug management. Parenteral controlled substances. Flowsheet Documentation: Scoring Tools: No data recorded Disposition/Condition: ED Disposition None Discharge Medications: Patient's Medications START taking these medications No medications on file CONTINUE taking these medications which have NOT CHANGED AZELASTINE 137 MCG (0.1 %) NASAL SPRAY Use 1 [place] in each nostril in the morning and 1 [place] in the evening. Use in each nostril [...] encounter and patient evaluation by ELLEN Diaz. OFFC SPEC-FAMILY MIDLEVEL PROVIDER [facility] 2024-04-13 08:36:39 Referral placed [facility] 2024-04-12 12:31:43 I approve. CK FM-FAMILY MEDICINE STAFF [facility] 2024-04-12 11:01:43 Please review and advise if [...] authorizing provider and meeting all other requirements T [facility] 2024-04-12 10:56:00 Vasquez Morton is a 33 year old female and is calling for a referral. She stated that the ENT provider she saw is recommending another ENT for more testing. Patient is requesting a referral to: Dept: Otolayngology (ENT) - [place] Reason for referral: 2-3 month follow-up dysphagia & dysphonia- CPT codes, 33014, 65929, 60552, 23072, 73132, 06302 Duration of problem: Internal / External referral: Internal Name of provider / location patient requesting: Jabari Figueroa MD [address] [place] [address] [facility], [address] Phone number: [phone] Fax number: [phone] Appt already scheduled?: Yes If yes, date of appt.: 06/20/24 T Kiley Ramirez [facility] 2024-03-23 08:51:22 SUE 11/28/23 NOV not scheduled Routing to provider for clarification. Per SUE : 1. Complicated headache syndromes - topiramate 25 mg tablet; Take 2 tablets by mouth in the morning and 2 tablets in the evening. Dispense: 120 tablet; Refill: 2 Rx that was sent day of was for 1 tab bid. Nadya Viera LVN [facility] 2024-03-13 11:59:18 Please review and advise, Lab results are attached . Marlene Hills MA [facility] 2024-02-28 11:30:00 Images from the original note were not included. Venipuncture collection performed by clean technique on the left forearm(s). Total of 1 attempts were made. Slight pressure and a bandage/dressing were applied to the site(s). The patient experienced no complications. The following specimens were processed according to instructions and sent to [facility] laboratories per lab order on 02/28/2024: LT BLUE SST 2 RED LAV PPT DK GREEN (LiHep) DK GREEN (SodH) MALHOTRA DK BLUE (K2) DK BLUE (S) ACD Blood Culture NIPT/NTD [facility] 2024-02-03 01:44:44 .ramclose Julia Baer RN [facility] 2024-02-02 09:16:43 Please advise on lab results. Della Muro MA 02/02/2024 9:16 AM Della Muro MA [facility] 2024-01-30 10:25:38 Rerouting for completion and closure Nadya Kim [facility] 2024-01-12 08:37:49 Vasquez Morton is a 33 year old female Pt is calling to speak with a nurse regarding results, Pt states, she has some questions and would like to discuss the next step, Please advise [phone] (home) [facility] 2024-01-11 08:45:00 Images from the original note were not included. Venipuncture collection performed by clean technique on the left anticubitus. Total of 1 attempts were made. Slight pressure and a bandage/dressing were applied to the site(s). The patient experienced no complications. The following specimens were processed according to instructions and sent to [facility] laboratories per lab order on 01/11/2024 : LT BLUE SST 5 RED LAV PPT DK GREEN (LiHep) DK GREEN (SodH) MALHOTRA DK BLUE (K2) DK BLUE (S) ACD Blood Culture NIPT/NTD T [facility] 2023-12-29 11:45:34 Images from the original note were not included. [employer] message sent to pt with conclusion/result from EMG. [facility] 2023-12-29 10:40:15 Vasquez Morton is a 33 year old female Patient call for her resultof her EMG/NCVtest. Please assist Ayana Cardoso [facility] 2023-12-26 16:55:26 [facility] lab results scanned to chart. Della Stewart RN [facility] 2023-12-26 09:54:56 I contacted Ms. Morton to [...] risk for breast cancer is 11.3%. The [place] [employer] recommends annual mammograms and breast [...] that she share this information with her grease rack worker and PCP to facilitate her breast screening [...] her personal or family history. Gill Israel [facility] 2023 14:45:16 Shouldn't have a cross reaction with duloxetine and topamax. Maybe she should wait and see about how the duloxetine will treat headaches. With topamax, there is some possibility that fingers and toes would start to tingle. [facility] 2023-12-13 11:21:00 Regarding: APPTESC Rheum ----- Message from Nadya Kim sent at 12/13/2023 11:13 AM PROPOSAL WRITER ----- Vasquez Morton is a 32 year old female or post op (no) Language: Tongan Specific Symptoms: pelvic pain, can barely walk Specific Duration: X 2 months Pt called requesting a sooner appt [facility] Mari Hawley RN [facility] 2023-12-13 11:21:00 Adult Triage Assessment Last Clinic Visit: 12/03/2023 ER visit Dx: myalgia, myositis of multiple sites Pre-existing condition / Immunocompromised: muscle tightness, seizure Patient was already assessed for symptoms. Patient reports feeling ok. Reason for Disposition Requesting regular office appointment Protocols used: Information Only Call - No [id number] [facility] 2023-12-12 15:34:54 Dr. Mcmullen, please see pt response about med adjustments made to her Cymbalta. I've pended the order for Topamax 50mg bid for you to sign if appropriate to change. Per SUE : 1. Complicated headache syndromes - topiramate 25 mg tablet; Take 2 tablets by mouth in the morning and 2 tablets in the evening. Dispense: 120 tablet; Refill: 2 [facility] 2023-12-09 16:49:41 I understand that patient had been evaluated at another hospital? Did they change any of her medications? [facility] 2023-12-09 11:43:21 Dr. Mcmullen, please advise. Per SUE note, you advised pt to take Topamax 25mg 2 tabs bid, however the prescription that was placed was for 1 tab bid. [facility] 2023-12-07 17:15:00 Regarding: [facility] Rheumatology ----- Message from Kacey Mustafa sent at 12/07/2023 4:50 PM [facility] ----- Vasquez Morton is a 32 year old female or post op (no) no -Number of weeks n/a -Date of Surgery n/a Language: Tongan Specific Symptoms: myalgias, myositis of multiple sites Specific Duration: Current Appointment Escalation patient is scheduled on 02/20 for myalgias, myositis of multiple sites. States she is in a lot of pain and would like to be seen maria teresa [facility] Sinai Hernandez Rn, RN [facility] 2023-12-07 17:15:00 Adult Triage Assessment Last Clinic Visit: 12-03-2023 ED Myalgia- Myostitis Primary Symptom: pain all over her body Pain from migraines to bottom of feet Onset / Duration: Around [place] started to feel it in her fingers [...] in am 1 in pm for migraines [place] psychiatrist , today, Prescribed Trazodone 50 [...] days Protocols used: Muscle Aches and Body [id number] Pt phoned for appt with Dr. Sonia Billings- Rheumatology- fist appt 02-21-2024. Pt seen in ED on 12-03-2023 and was seen by neurologist. ED referred pt to Rheumatology. Above protocol used. This encounter is being sent as an appt escalation. Sinai Hernandez RN . [facility] 2023-12-07 17:15:00 Pt. Scheduled for earliest appt. Available. -Pt. Was added to wait-list. A Lal HISTORY FACULTY MEMBER [facility] 2023-12-07 08:56:34 Rheumatology referral placed and patient notified. She verbalized understanding. Larissa Mayberry LVN 12/07/2023 8:57 AM [facility] 2023-12-07 08:25:10 Referral made [facility] 2023-12-07 08:20:54 Please add referral as requested OSAL WRITER OFFC SPEC-FAMILY MIDLEVEL PROVIDER [facility] 2023-12-05 11:16:16 Vasquez Morton is a 32 year old female Pt calling in stating her neurologist has referred her to Rheumatology. Pt needing internal referral placed into the system. Please call pt once pt once placed. [phone] (home) A Sullivan [facility] 2023-12-03 19:23:02 Discussed dc plan with pt and her mother. Pt verbalized understanding of dc plan. Pt verbalized that she will see PCP in a week. Pt is A&Ox4, resp even, skin warm and dry and no signs of distress. Pt requested a WC to [facility]. Pt is wheeled to [facility] and she is currently waiting on mother. A Benitez RN [facility] 2023-12-03 18:47:07 Pts mother at the nurses station requesting to be discharged. Pt and mother updated on what we are waiting on, and ER provider notified. A Plascencia RN [facility] 2023-12-03 18:01:37 Neuro still remains bedside, unable to provide an updated POC. OSAL WRITER [facility] 2023-12-03 17:10:51 Lab called due to a delay in the CRP results, the manager labor delivery states that they only run this lab during the day, so it will not be ran until tomorrow morning at the earliest. ER provider notified of this delay [facility] 2023-12-03 17:10:02 Neuro bedside. [facility] 2023-12-03 16:01:21 ER provider bedside to update pt on POC [facility] 2023-12-03 15:28:36 Pt ambulatory to the bathroom with UA cup at this time with slow but steady gait. [facility] 2023-12-03 15:20:37 ER provider states that the ABG does not need to be completed, lactic on VBG per respiratory was 1.42 [facility] 2023-12-03 14:20:45 Resp called for ABG [facility] 2023-12-03 14:01:33 Pt presents to the ED [...] skin is warm/dry, cap refill <3 sec OSAL WRITER [facility] 2023-12-03 13:51:59 Vasquez Motron is a 32 year old female Patient [...] warm and dry. Roomed for further evaluation. [facility] Cristina Collins RN [facility] 2023-12-03 13:44:[address] [facility] Emergency Department Note Patient Name: Vasquez Morton Date of : 1990 32 year old female Treatment Room: [facility] Primary Care Physician: Althea Mckeon Patient Escorted by: Self [9] Mode of Arrival: Personal means [1] EMS Treatment Prior to ED Arrival: CONFIGURATION MANAGEMENT CONSULTANT treatment: None Travel and Exposure Screening: Symptoms [...] 30-year-old female referred from her PCP in [place] today. She has a past medical history significant for anxiety depression she reports schizophrenia it is not listed she also has recently developed hyperacusis in the last several months which she relates to a fall in the shower. She has been seen by her primary down in [place] for what started as painful contractures of [...] and has a EMG study scheduled for December 23. However after today's event the provider did [...] CHINTAN EPITH <1 HPF COMP. METABOLIC PANEL (26130) - Abnormal NA 136 135 - 145 [...] POCT TEST C-REACTIVE PROTEIN COMP. METABOLIC PANEL (30102) ACUTE CARE VENOUS BLOOD GAS AC Panel 20 + Lactic Acid Creatine Kinase Myoglobin Serum Consult Neurology No orders of the defined types were placed in this encounter. First Provider Eval: ED Events Date/Time Event User Comments 12/03/23 140 Medical Screening Begins MELISSA LUCAS MD -- [...] Electronically signed by: Melissa Lucas MD 12/03/231900 [facility] 2023-12-03 12:22:14 See phone note, called pt and sent to [facility] 2023-12-03 12:14:07 I called patient. She is having difficulty walking, chest tightness. SHe was not admitted yesterday and did not receive any neurology work up at the ER in [place]. SHe will go now by personal car to [facility]. I recommend neuro and possibly psychiatric consultation. Mary Khan MD [facility] 2023-12-01 08:30:49 PSS please reach out to [...] she is expecting a call. Thank You! [facility] Fawn Acevedo RN [facility] 2023-11-30 16:44:[address] Mcmullen's opinion about the cause of her condition? I will not prescribed opioids. But I would like to see her back in clinic and we can discuss her options. Ok to provider her a sooner OV than currently scheduled, please use a same day or hospital fu slot Mary Khan MD [facility] 2023-11-30 15:43:35 Spoke with pt who reported [...] Khan will prescribe pain medication for her. [facility] 2023-11-30 13:17:10 Vasquez Morton is a 32 year old female Would like to speak with a nurse in regards to pain in her hands arms and lower back Please advise [phone] A Freeman [facility] 2023-11-26 10:34:30 Referral placed [facility] 2023-11-24 15:48:[address] referral if appropriate [facility] Marlene Hills MA [facility] 2023-11-24 14:44:34 Pt has BCBS HMO and is needing referral and auth to see Dr. Mcmullen in Neurology on 11/28/2023. OSAL WRITER Darren Flowers [facility] 2023-11-22 14:11:26 Patient notified that labs to verify Blood type have not previously been collected in office. She was advised to request at next OV and all was verbalized understanding. [facility] 2023-11-22 13:49:40 Vasquez Morton is a 32 year old female is calling needing to know what her blood type is A Israel [facility] 2023-11-21 10:25:52 Please review and advise Neuro appt 11/28/23 NOV: 11/30/23 [facility] 2023-11-16 15:00:00 Images from the original note were not included. Venipuncture collection performed by clean technique on the right anticubitus. Total of 1 attempts were made. Slight pressure and a bandage/dressing were applied to the site(s). The patient experienced no complications. The following specimens were processed according to instructions and sent to [facility] laboratories per lab order on 11/16/2023: LT BLUE SST 1 RED LAV 1 PPT DK GREEN (LiHep) DK GREEN (SodH) MALHOTRA DK BLUE (K2) DK BLUE (S) ACD Blood Culture NIPT/NTD [facility] 2023-11-04 14:33:00 Dr. Mcmullen, please sign order if appropriate. SUE 09/12/23. Pt was previously seeing a different neurologist outside of [facility]. [facility] 2023-11-04 13:42:09 Pt is calling says she has one pill left of topiramate 25 mg tablet is asking for refill uses Loni/GHAZAL OSAL WRITER Daniella Michael [facility] 2023-10-19 11:46:00 Regarding: Severe hand pain w/ tingling x 1 week ----- Message from Kiley Viera sent at 10/19/2023 11:46 AM PROPOSAL WRITER ----- Vasquez Morton is a 32 year old female OSAL WRITER Mari Hawley RN [facility] 2023-10-19 11:46:00 Adult Triage Assessment Last Clinic [...] pain medicine Protocols used: Hand and Wrist Thlb-[id number]-PP [facility] 2023-06-23 12:32:21 Formatting of this n ote might be different from the original. Patient scheduled 07/20 T Larissa Mayberry LVN [facility] 2023-06-22 11:31:29 Formatting of this n ote might be different from the original. Spoke with patient and she did confirm that per her insuracne the order will need to come from her PCP. I have ordered for the EEG and faxed to 's office for approval. Patient has been notified. [facility] 2023-06-22 05:40:38 Formatting of this n ote might be different from the original. Normally neurology orders EEGs, I do not place that order. Is Dr. Crowell's office or insurance requesting that? Please call patient and clarify. If she states we need the EEG placed, please addend the referral to include EEG in the comments and the codes listed. Dr. Mike Salazar [facility] 2023-06-22 05:39:42 Formatting of this n ote might be different from the original. I ordered the diagnostic mammo, not sure if I need to change the [place] orders. Can you verify with rads? Dr. Mike Salazar [facility] 2023-06-21 15:12:41 Formatting of this n ote might be different from the original. Please review and advise. Larissa Mayberry LVN [facility] 2023-06-21 11:40:07 Formatting of this n ote might be different from the original. Please review and advise Marlene Hills MA [facility] 2023-06-21 10:51:05 Formatting of this n ote might be different from the original. Patient states when she called to schedule her mammogram they are requesting the order to be a diagnostic mammogram and an ultrasound. Olivia Bains [facility] 2023-06-21 10:38:09 Formatting of this n ote might be different from the original. Pt called and states that she is needing a referral for her EEG. She has the referral for her consultation, but not EEG. Dr. Jacob Crowell Neurologist (for an EEG) [address] [facility]. [address] #[phone] Codes that she is needin, [address] Radha Mack [facility] 2023-06-17 15:40:29 Formatting of this n ote might be different from the original. Mental Capacity Assessment uploaded to pt chart and placed in providers basket. Natalia Tesfaye [facility] 2023-06-09 13:12:01 Formatting of this n ote might be different from the original. I approve of the referrals for neuropathy and bilateral hearing loss. Best, Dr. Mckeon [facility] 2023-06-08 10:46:41 Formatting of this n ote might be different from the original. Patient requesting referrals to: Dr. Jacob Crowell Neurologist (for an EEG) [address] [facility]. [address] PH#[phone] Dr. Pat Carranza ENT in [place](for hearing problem [address] [place]. [address] PH#[phone] Kathie Franco [facility] 2023-05-05 08:59:54 Formatting of this n ote might be different from the original. Referral faxed again 05/05/2023 9AM Marlene Hills MA [facility] 2023-05-03 09:13:19 Formatting of this n ote might be different from the original. Patient is needing the referral to Dr. Crowell refaxed to them please. Kathie Franco [facility]
[2025-01-10 11:27] LABS: Absolute Lymphocytes (CBC) 1.5 K/uL (0.7-4.9); Absolute Monocytes 0.4 K/uL (0.1-1.3); Absolute Neutrophil 8.6 K/uL (1.8-8.0); Basophils % 0.4 % (0-1.3); Eosinophils % 0.4 % (0-4.4); Hemoglobin 12.9 g/dL (12.0-15.0); Lymphocytes % 14.1 % (15.3-44.8); MCH 29.1 pg (27.0-35.0); MCHC 34.9 g/dL (32.0-36.0); MCV 83.4 fL (80-100); MPV 9.2 fL (7.6-11.3); Monocytes % 3.4 % (3.3-12.3); Neutrophils % 81.7 % (41.7-73.7); Platelets 189 thou/uL (152-406); RBC Red Blood Cell Count 4.44 M/uL (3.86-4.86); Red Cell Distribution Width 14.1 % (12.1-15.2)
[2025-01-10] MEDS ORDERED: DIPHENHYDRAMINE 50 MG/ML VIAL ONE (11:30)
[2025-01-10] MEDS ORDERED: NA CHLORIDE 0.9% 1,000 ML ONE (11:30)
[2025-01-10] MEDS ORDERED: METOCLOPRAMIDE 10 MG/2mL INJ ONE (11:30)
[2025-01-10 11:59] LABS: AST/SGOT 11 U/L (15-37); Albumin 3.5 g/dL (3.4-5.0); Albumin/Globulin Ratio 1.1 (1.1-1.8); Alkaline Phosphatase 43 U/L (45-117); Anion Gap 15.5 mEq/L (5.0-15.0); BUN Blood Urea Nitrogen 7 mg/dL (7-18); Bicarbonate 18 mEq/L (21-32); Bilirubin Total 0.6 mg/dL (0.2-1.0); Globulin 3.3 g/dL (2.3-3.5); Glomerular Filtration Rate 104 ml/min (=/>90); Glucose Level 95 mg/dL (74-106); Lipase 23 U/L (13-75); Potassium 3.5 mEq/L (3.5-5.1); Protein, Total 6.8 g/dL (6.4-8.2); Sodium Level 139 mEq/L (136-145)
[2025-01-10 12:07] LABS: ALT/SGPT < 14 U/L (13-56)
[2025-01-10 12:26] LABS: Specific Gravity 1.027 (1.005-1.030); Urine Bacteria <20 /HPF (<20); Urine Bilirubin NEGATIVE (Negative); Urine Blood Negative (Negative); Urine Clarity Clear (Clear); Urine Color Yellow (Yellow); Urine Culture Reflex Order NOT NEEDED; Urine Glucose NEGATIVE (Negative); Urine Ketones TRACE (Negative); Urine Micro Reflex YN NO BILL MICROSCOPIC; Urine Mucus 1+ /HPF (None Seen); Urine Nitrite NEGATIVE (Negative); Urine Protein TRACE (Negative); Urine Urobilinogen Normal (Normal); Urine WBC <5 /HPF (<5); Urine pH 6.5 (5.0-7.0)
--- NOTE | 2025-01-10 13:13 | EDPHYS ---
Physician Documentation [facility] Name: Natalie Bae Age: 34 yrs Sex: Female : 1990 Arrival Date: 01/10/2025 Time: 10:59 Bed 4 Private MD: ED Physician Chris Rainey HPI: 01/10 11:13 This 34 yrs old Female presents to ER via EMS with complaints of Nausea/Vomiting. rt 11:13 Patient is a G3, P2 currently at 10 weeks gestation who presents to the ED with nausea, rt vomiting, diarrhea starting at 8 this morning. She states that her symptoms of not adequately been relieved with rectal Phenergan that she has been taking. Patient received IV Phenergan that modest improved her symptoms, states that she is nauseated still but denies other acute complaints at this time, symptoms are moderate in severity, no other aggravating or alleviating factors.. VALUE STREAM MANAGER: 13:20 Verified me1 Historical: - Allergies: 11:05 Tylenol; ll1 - PMHx: 11:05 hyperacusis (Seizure); neuropathy (Seizure); PTSD (Seizure); Seizure; ll1 - PSHx: 11:05 Lumpectomy of left breast.; ll1 - Immunization history:: Adult Immunizations up to date. - Infectious Disease History:: Denies. - Social history:: Smoking status: Patient denies any tobacco usage or history of. - Family history:: not pertinent. ROS: 11:13 Constitutional: Negative for fever, chills, and weight loss, Cardiovascular: Negative rt for chest pain, palpitations, and edema, Respiratory: Negative for shortness of breath, cough, wheezing, and pleuritic chest pain, MS/Extremity: Negative for injury and deformity, Skin: Negative for injury, rash, and discoloration, Neuro: Negative for headache, weakness, numbness, tingling, and seizure, 11:13 Abdomen/GI: Positive for nausea, vomiting, and diarrhea, Exam: 11:13 Constitutional: This is a well developed, well nourished patient who is awake, alert, rt and in no acute distress. Head/Face: Normocephalic, atraumatic. Chest/axilla: Normal chest wall appearance and motion. Nontender with no deformity. No lesions are appreciated. Cardiovascular: Regular rate and rhythm with a normal S1 and S2. No gallops, murmurs, or rubs. Normal PMI, no JVD. No pulse deficits. Respiratory: Lungs have equal breath sounds bilaterally, clear to auscultation and percussion. No rales, rhonchi or wheezes noted. No increased work of breathing, no retractions or nasal flaring. Abdomen/GI: Soft, non-tender, with normal bowel sounds. No distension or tympany. No guarding or rebound. No evidence of tenderness throughout. Skin: Warm, dry with normal turgor. Normal color with no rashes, no lesions, and no evidence of cellulitis. MS/ Extremity: Pulses equal, no cyanosis. Neurovascular intact. Full, normal range of motion. Neuro: Awake and alert, GCS 15, oriented to person, place, time, and situation. Cranial nerves II-XII grossly intact. Motor strength 5/5 in all extremities. Sensory grossly intact. Cerebellar exam normal. Normal gait. Vital Signs: 11:04 BP 109 / 63; Pulse 64; Resp 17; Pulse Ox 100% ; Weight 61.69 kg; Height 5 ft. 3 in. ; ll1 Pain 3/10; 12:00 BP 104 / 58; Pulse 69; Resp 18; Pulse Ox 99% ; me1 13:14 BP 101 / 65; Pulse 72; Resp 14; Temp 98.1; Pulse Ox 100% ; me1 11:04 Body Mass Index 24.09 (61.69 kg, 160.02 cm) ll1 11:04 Pain Scale: Adult ll1 MDM: 11:05 Medical Screening Exam initiated rt 13:16 Differential diagnosis: Hyperemesis gravidarum, electrolyte disturbance, UTI. Data rt reviewed: vital signs, nurses notes, lab test result(s). Test considered but Not performed: CT: Benign abdominal examination, low suspicion for appendicitis, cholecystitis clinically, CT scan is not indicated. Care significantly affected by the following chronic conditions: Seizure disorder. Counseling: I had a detailed discussion with the patient and/or guardian regarding the historical points, exam findings, and any diagnostic results supporting the discharge/admit diagnosis, lab results, the need for outpatient follow up, to return to the emergency department if symptoms worsen or persist or if there are any questions or concerns that arise at home. Response to treatment: the patient's symptoms have markedly improved after treatment. 01/10 11:12 Order name: CBC with Diff; Complete Time: 12:27 rt 01/10 11:12 Order name: CMP; Complete Time: 12:27 rt 01/10 11:12 Order name: Lipase; Complete Time: 12: rt 01/10 11:12 Order name: UAM; Complete Time: 12:27 rt Administered Medications: 11:36 Drug: NS 0.9% IV 1000 ml IV at 1 bolus Per protocol; to be given as a bolus over 60 me1 minutes Route: IV; Rate: 1 bolus; Site: right antecubital; 12:39 Follow up: Response: No adverse reaction; IV Status: Completed infusion; IV Intake: me1 1000ml 11:37 Drug: metoCLOPramide IVP 10 mg IVP once; over 1 to 2 minutes Route: IVP; Site: right me1 antecubital; 12:40 Follow up: Response: No adverse reaction; Nausea is decreased me1 11:37 Drug: diphenhydrAMINE IVP 25 mg IVP once Route: IVP; Site: right antecubital; ut1 12:39 Follow up: Response: No adverse reaction me1 Disposition Summary: 01/10/25 13:12 Discharge Ordered Notes: Location: Home rt Problem: new rt Symptoms: have improved rt Condition: Stable rt Diagnosis - Hyperemesis gravidarum rt Followup: rt - With: Private Physician - When: 2 - 3 days - Reason: Discharge Instructions: - Discharge Summary Sheet rt - Hyperemesis Gravidarum rt Forms: - Medication Reconciliation Form rt - Antibiotic Education rt - Prescription Opioid Use rt - Patient Portal Instructions rt - Leadership Thank You Letter rt Signatures: Dispatcher [employer] Rudy Aggarwal, RN RN ll1 Chris Rainey MD MD rt Arminda Gonzalez, GRIFFIN RN me1
--- NOTE | 2025-01-10 13:13 | ER ---
Nurse's Notes [facility] Name: Natalie Bae Age: 34 yrs Sex: Female : 1990 Arrival Date: 01/10/2025 Time: 10:59 Bed 4 Private MD: Diagnosis: Hyperemesis gravidarum Presentation: 01/10 11:04 Chief complaint: Patient states: 10 weeks G3, P2. N/V continues despite ll1 phenergan. Coronavirus screen: Client denies travel out of the [place] in the last 14 days. At this time, the client does not indicate any symptoms associated with coronavirus-19. Ebola Screen: Patient denies travel to an Ebola-affected area in the 21 days before illness onset. Initial Sepsis Screen: Does the patient meet any 2 criteria? No. Patient's initial sepsis screen is negative. Does the patient have a suspected source of infection? No. Patient's initial sepsis screen is negative. Risk Assessment: Do you want to hurt yourself or someone else? Patient reports no desire to harm self or others. Onset of symptoms was January 08, 2025. 11:04 Method Of Arrival: EMS ll1 11:04 Acuity: LUÍS 3 ll1 11:07 Chief complaint: EMS states: VSS 20 G R AC, Phenergan 12.5 mg IV given en route. ll1 Triage Assessment: 11:06 General: Appears uncomfortable, Behavior is calm, cooperative, appropriate for age. ll1 Pain: Complains of pain in back. GI: Reports nausea, vomiting. Musculoskeletal: Reports pain in back. CHILDBIRTH EDUCATOR: 13:20 Verified me1 Historical: - Allergies: 11:05 Tylenol; ll1 - PMHx: 11:05 hyperacusis (Seizure); neuropathy (Seizure); PTSD (Seizure); Seizure; ll1 - PSHx: 11:05 Lumpectomy of left breast.; ll1 - Immunization history:: Adult Immunizations up to date. - Infectious Disease History:: Denies. - Social history:: Smoking status: Patient denies any tobacco usage or history of. - Family history:: not pertinent. Screenin:10 [facility] ED Fall Risk Assessment (Adult) History of falling in the last 3 months, me1 including since admission No falls in past 3 months (0 pts) Confusion or Disorientation No (0 pts) Intoxicated or Sedated No (0 pts) Impaired Gait No (0 pts) Mobility Assist Device Used No (0 pt) Altered Elimination No (0 pt) Score/Fall Risk Level 0 - 2 = Low Risk Maintained a safe environment, Provided non-skid footwear, Hourly rounding (assess needs \T\ fall precautionary measures) done. Abuse screen: Denies threats or abuse. Nutritional screening: No deficits noted. Tuberculosis screening: No symptoms or risk factors identified. Assessment: 11:10 General: Appears uncomfortable, Behavior is calm, cooperative, appropriate for age, me1 Reports 10 weeks G3, P2. N/V continues despite phenergan. Pain: Denies pain. Neuro: Level of Consciousness is awake, alert, obeys commands, Oriented to person, place, time, situation, Appropriate for age. Cardiovascular: Patient's skin is warm and dry. Respiratory: Airway is patent Trachea midline Respiratory effort is even, unlabored, Respiratory pattern is regular, symmetrical. GI: Abdomen is round non-distended, Reports nausea, vomiting. : No signs and/or symptoms were reported regarding the genitourinary system. EENT: No signs and/or symptoms were reported regarding the EENT system. Derm: Skin is intact, is healthy with good turgor, Skin is pink, warm \T\ dry. Musculoskeletal: No signs and/or symptoms reported regarding the musculoskeletal system. Vital Signs: 11:04 BP 109 / 63; Pulse 64; Resp 17; Pulse Ox 100% ; Weight 61.69 kg; Height 5 ft. 3 in. ; ll1 Pain 3/10; 12:00 BP 104 / 58; Pulse 69; Resp 18; Pulse Ox 99% ; me1 13:14 BP 101 / 65; Pulse 72; Resp 14; Temp 98.1; Pulse Ox 100% ; me1 11:04 Body Mass Index 24.09 (61.69 kg, 160.02 cm) ll1 11:04 Pain Scale: Adult ll1 ED Course: 11:04 Patient arrived in ED. ll1 11:04 Chris Rainey MD is Attending Physician. rt 11:05 Triage completed. ll1 11:07 Arm band placed on. ll1 11:07 Maintain EMS IV. Dressing intact. Good blood return noted. Site clean \T\ dry. Gauge \T\ ll 1 site: 20 R AC. 11:10 Patient has correct armband on for positive identification. Bed in low position. Call me1 light in reach. Side rails up X 1. Provided Education on: POC. Verbalized understanding. Client placed on continuous cardiac and pulse oximetry monitoring. NIBP monitoring applied. Pulse ox on. NIBP on. 11:10 No provider procedures requiring assistance completed. me1 11:28 Arminda Gonzalez, RN is Primary Nurse. me1 11:28 UAM Sent. me1 11: Lipase Sent. me1 11:28 CMP Sent. me1 11: CBC with Diff Sent. me1 11:28 Initial lab(s) drawn, by mt, sent to lab. Urine collected: clean catch specimen, me1 cloudy, tea colored. 13:20 IV discontinued, intact, bleeding controlled, No redness/swelling at site. Pressure me1 dressing applied. Administered Medications: 11:36 Drug: NS 0.9% IV 1000 ml IV at 1 bolus Per protocol; to be given as a bolus over 60 me1 minutes Route: IV; Rate: 1 bolus; Site: right antecubital; 12:39 Follow up: Response: No adverse reaction; IV Status: Completed infusion; IV Intake: me1 1000ml 11:37 Drug: metoCLOPramide IVP 10 mg IVP once; over 1 to 2 minutes Route: IVP; Site: right me1 antecubital; 12:40 Follow up: Response: No adverse reaction; Nausea is decreased me1 11:37 Drug: diphenhydrAMINE IVP 25 mg IVP once Route: IVP; Site: right antecubital; me1 12:39 Follow up: Response: No adverse reaction me1 Medication: 11:10 VIS not applicable for this client. me1 Intake: 12:39 IV: 1000ml; Total: 1000ml. me1 Outcome: 13:12 Discharge ordered by MD. rt 13:20 Discharged to home ambulatory, with significant other, me1 13:20 Condition: stable 13:20 Discharge instructions given to patient, Instructed on discharge instructions, follow up and referral plans. Demonstrated understanding of instructions, follow-up care, medications, 13:21 Patient left the ED. me1 Signatures: Rudy Banegas RN RN 1 Chris Rainey MD MD rt Arminda Gonzalez, RN RN me1 Corrections: (The following items were deleted from the chart) 12:58 11:04 Chief complaint: Patient states: 10 weeks G3, P2. N/V continues despite me1 phenergan ll1
[2025-01-10 13:37] VITALS: BP 101/65; TEMP 98.1; O2SAT 100
== END 2025-01-10 13:21 | disposition home or self-care (01) ==
LOC: ER 10:59
DX: O21.0 Mild hyperemesis gravidarum (principal); Z3A.10 10 weeks gestation of pregnancy
CPT/HCPCS: 96361; 85025; 81001; 36415; 83690; 80053; 96375; 96374; 99284; J2765; J1200; J7030